=== PATIENT | male | born 1955 | race Caucasian/White ===

== ENCOUNTER 2016-04-15 22:01 | Inpatient (IN) | payer OTHER ==
[2016-04-15] MEDS ORDERED: SODIUM CHLORIDE 1,000 ML IV STA (22:14)
[2016-04-15] MEDS ORDERED: diazePAM CARPU-JECT 10 MG/2 ML DISP.SYRIN IVPUSH ONE (22:23)
[2016-04-15] MEDS ORDERED: diazePAM CARPU-JECT 10 MG/2 ML DISP.SYRIN ONE ×2 (22:25→23:51)
[2016-04-15 22:46] LABS: BASOPHIL 0.4 % (0-2.0); EOSINOPHIL 0.1 % (0-4.5); MCH 31.3 pg (25.7-33.7); MCHC 34.4 g/dl (32.0-35.9); MEAN CELL VOLUME 90.9 fl (80-96); MEAN PLT VOLUME 8.4 fl (7.5-11.1); NEUTROPHILS 79.5 % (42.8-82.8); PLATELET COUNT 184 K/MM3 (134-434); RDW 13.1 % (11.9-15.9); WHITE BLOOD COUNT 9.3 K/mm3 (4.0-10.0)
[2016-04-15 23:14] LABS: ALBUMIN 4.7 g/dl (3.4-5.0); CALCIUM 9.4 mg/dL (8.5-10.1); CREATININE 1.6 mg/dL (0.7-1.3)
[2016-04-15 23:16] LABS: TOT PROT 9.2 g/dl (6.4-8.2)
[2016-04-16] MEDS ORDERED: diazePAM CARPU-JECT 10 MG/2 ML DISP.SYRIN IVPUSH ONE
[2016-04-16 00:26] LABS: URINE MARIJUANA THC NEGATIVE ng/ml (CUTOFF=50)
--- NOTE | 2016-04-16 00:34 | PDOC ---
History of Present Illness - General History Source: Patient Exam Limitations: Clinical Condition - History of Present Illness Initial Comments: 04/16/16 00:28 60 Y M DM, HTN, depresion, HX OF ETOH ABUSE. STS HAS NOT DRENK FOR 3 YEARS BUT RECENT ADMIT CASTS SOME DOUBT. pte after an episode of agitation, pacing, decreased sleep. pt on ambien. ran out of it several days ago. denies drinking or using any other meds or drugs of abuse. in ed, confused, disoriented in time. hypertensive and tachycardic. no fever/ denies head ache. tremor of upper extremities <Parish Holder - Last Filed: 04/16/16 00:53> <Araceli Burk - Last Filed: 04/16/16 01:46> - General Chief Complaint: Blood Pressure Problem Stated Complaint: AMS Time Seen by Provider: 04/15/16 22:10 Past History - Past Medical History Diabetes: Yes Dialysis: Yes HTN: Yes Liver Disease: Yes Seizures: Yes - Immunization History Immunization Up to Date: Yes - Psycho/Social/Smoking Cessation Hx Anxiety: No Suicidal Ideation: No Smoking Status: No Smoking History: Unknown if ever smoked Have you smoked in the past 12 months: No Number of Cigarettes Smoked Daily: 0 Cigars Per Day: 0 Information on smoking cessation initiated: No Hx Alcohol Use: No Drug/Substance Use Hx: No Substance Use Type: None Hx Substance Use Treatment: No <Parish Holder - Last Filed: 04/16/16 00:53> <Araceli Burk - Last Filed: 04/16/16 01:46> - Past Medical History Allergies/Adverse Reactions: Allergies Allergy/AdvReac Type Severity Reaction Status Date / Time No Known Allergies Allergy Verified 04/15/16 22:06 Home Medications: Ambulatory Orders Ambien 2.5 mg PO HS 02/06/16 Cholecalciferol (Vitamin D3) [Vitamin D3] 50,000 unit PO WEEKLY 02/06/16 Empagliflozin [Jardiance] 25 mg PO DAILY 02/06/16 Escitalopram Oxalate [Lexapro -] 10 mg PO DAILY 02/06/16 Gabapentin 400 mg PO BID 02/06/16 Linaclotide [Linzess] 145 mcg PO DAILY 02/06/16 Lisinopril [Zestril] 30 mg PO DAILY 02/06/16 Nifedipine [Adalat cc] 60 mg PO DAILY 02/06/16 Oxycodone HCl/Acetaminophen [Percocet 5-325 mg Tablet] 1 tab PO Q4H 02/06/16 Pantoprazole Sodium 40 mg PO DAILY 02/06/16 Quetiapine Fumarate [Seroquel] 100 tab DAILY 02/06/16 Temazepam [Restoril] 30 mg PO DAILY 02/06/16 Vitamin B Comp W-C [Total B with C] 1 each PO DAILY 02/06/16 Review of Systems - Review of Systems Able to Perform ROS?: No <Parish Holder - Last Filed: 04/16/16 00:53> *Physical Exam - Vital Signs Last Vital Signs Temp Pulse Resp BP Pulse Ox 98.0 F 116 H 20 178/124 100 04/15/16 22:07 04/15/16 22:07 04/15/16 22:07 04/15/16 22:07 04/15/16 22:07 - Physical Exam General Appearance: Yes: Nourished, Appropriately Dressed, Moderate Distress HEENT: positive: Normal ENT Inspection, Other (tongue fasciculation) Neck: positive: Supple. negative: Tender Respiratory/Chest: positive: Lungs Clear, Normal Breath Sounds. negative: Respiratory Distress Cardiovascular: positive: Regular Rhythm, Regular Rate, Tachycardia Gastrointestinal/Abdominal: positive: Soft. negative: Tender Musculoskeletal: positive: Normal Inspection. negative: Vertebral Tenderness Extremity: positive: Normal Capillary Refill, Normal Range of Motion Integumentary: positive: Normal Color. negative: Rash Neurologic: positive: applier II-XII NML intact, Alert, Motor Strength 5/5, Confused , Disoriented. negative: Fully Oriented <Parish Holder - Last Filed: 04/16/16 00:53> - Vital Signs Last Vital Signs Temp Pulse Resp BP Pulse Ox 98.0 F 116 H 20 178/124 100 04/15/16 22:07 04/15/16 22:07 04/15/16 22:07 04/15/16 22:07 04/15/16 22:07 <Araceli Burk - Last Filed: 04/16/16 01:46> ED Treatment Course - LABORATORY CBC & Chemistry Diagram: 04/15/16 22:20 04/15/16 22:20 - ADDITIONAL ORDERS Additional order review: Laboratory Results 04/15/16 04/15/16 04/15/16 22:20 22:20 22:20 Sodium 133 L Potassium 4.6 Chloride 96 L D Carbon Dioxide 25 Anion Gap 12 BUN 40 H D Creatinine 1.6 H D Creat Clearance w eGFR 44.31 POC Glucometer Random Glucose 283 H D Calcium 9.4 Total Bilirubin 1.0 D AST 41 H D ALT 44 D Alkaline Phosphatase 138 H D Ammonia < 10.0 L Total Protein 9.2 H D Albumin 4.7 D Alcohol, Quantitative < 5.0 04/15/16 22:08 Sodium Potassium Chloride Carbon Dioxide Anion Gap BUN Creatinine Creat Clearance w eGFR POC Glucometer 283.02521 Random Glucose Calcium Total Bilirubin AST ALT Alkaline Phosphatase Ammonia Total Protein Albumin Alcohol, Quantitative 04/15/16 04/15/16 22:20 22:08 RBC 4.66 MCV 90.9 MCHC 34.4 RDW 13.1 MPV 8.4 Neutrophils % 79.5 D Lymphocytes % 12.7 D Monocytes % 7.3 Eosinophils % 0.1 D Basophils % 0.4 POC Glucometer 283.07739 - Medications Given in the ED: ED Medications Discontinued Medications Generic Name Dose Route Start Last Admin Trade Name Freq PRN Reason Stop Dose Admin Diazepam 10 mg 04/15/16 22:23 04/15/16 22:31 Valium Injection - IVPUSH 04/15/16 22:24 10 mg ONCE ONE Administration Sodium Chloride 1,000 mls @ 1,000 mls/hr 04/15/16 22:14 04/15/16 22:30 Normal Saline - IV 04/15/16 23:13 1,000 mls/hr ASDIR STA Administration <Parish Holder - Last Filed: 04/16/16 00:53> - LABORATORY CBC & Chemistry Diagram: 04/15/16 22:20 04/15/16 22:20 - ADDITIONAL ORDERS Additional order review: Laboratory Results 04/16/16 04/15/16 04/15/16 00:05 22:20 22:20 Sodium Potassium Chloride Carbon Dioxide Anion Gap BUN Creatinine Creat Clearance w eGFR POC Glucometer Random Glucose Calcium Total Bilirubin AST ALT Alkaline Phosphatase Ammonia < 10.0 L Total Protein Albumin Opiates Screen Negative Methadone Screen Negative Barbiturate Screen Negative Phencyclidine Screen Negative Ur Amphetamines Screen Negative MDMA (Ecstasy) Screen Negative Benzodiazepines Screen Negative Cocaine Screen Negative U Marijuana (THC) Screen Negative Alcohol, Quantitative < 5.0 04/15/16 04/15/16 22:20 22:08 Sodium 133 L Potassium 4.6 Chloride 96 L D Carbon Dioxide 25 Anion Gap 12 BUN 40 H D Creatinine 1.6 H D Creat Clearance w eGFR 44.31 POC Glucometer 283.06874 Random Glucose 283 H D Calcium 9.4 Total Bilirubin 1.0 D AST 41 H D ALT 44 D Alkaline Phosphatase 138 H D Ammonia Total Protein 9.2 H D Albumin 4.7 D Opiates Screen Methadone Screen Barbiturate Screen Phencyclidine Screen Ur Amphetamines Screen MDMA (Ecstasy) Screen Benzodiazepines Screen Cocaine Screen U Marijuana (THC) Screen Alcohol, Quantitative 04/15/16 04/15/16 22:20 22:08 RBC 4.66 MCV 90.9 MCHC 34.4 RDW 13.1 MPV 8.4 Neutrophils % 79.5 D Lymphocytes % 12.7 D Monocytes % 7.3 Eosinophils % 0.1 D Basophils % 0.4 POC Glucometer 283.94015 - RADIOLOGY Radiograph Interpretation: 04/16/16 01:45 EXAM: CT HEAD WITHOUT CONTRAST Reviewed by Imaging information systems security officer: IMPRESSION: No CT evidence of acute infarct, hemorrhage, or mass effect. - Medications Given in the ED: ED Medications Discontinued Medications Generic Name Dose Route Start Last Admin Trade Name Freq PRN Reason Stop Dose Admin Diazepam 10 mg 04/15/16 22:23 04/15/16 22:31 Valium Injection - IVPUSH 04/15/16 22:24 10 mg ONCE ONE Administration Diazepam 10 mg 04/16/16 00:00 04/16/16 00:17 Valium Injection - IVPUSH 04/16/16 00:01 10 mg ONCE ONE Administration Sodium Chloride 1,000 mls @ 1,000 mls/hr 04/15/16 22:14 04/15/16 22:30 Normal Saline - IV 04/15/16 23:13 1,000 mls/hr ASDIR STA Administration <Araceli Burk - Last Filed: 04/16/16 01:46> Medical Decision Making - Medical Decision Making 04/16/16 00:35 unclear trigger to his presentaton which suggest etoh/benzo withdrawal could be explained by acute psychosis +/-ambien withdrawal will cover w/ benzos/ivf/admit <Parish Holder - Last Filed: 04/16/16 00:53> - Medical Decision Making 04/16/16 00:[address] Umm Akers covering for Dr. Binh Smith (via answering service) at 24:05, 24:46 Awaiting call back Patient's case was discussed with Dr. Akers at 24:50 <Araceli Burk - Last Filed: 04/16/16 01:46> *DC/Admit/Observation/Transfer - Discharge Dispostion Admit: Yes <Parish Holder - Last Filed: 04/16/16 00:53> <Araceli Burk - Last Filed: 04/16/16 01:46> Diagnosis at time of Disposition: Withdrawal symptoms, alcohol Qualifiers: Complication of substance-induced condition: uncomplicated Qualified Code(s): F10.230 - Alcohol dependence with withdrawal, uncomplicated - Discharge Dispostion Condition at time of disposition: Guarded - Referrals Referrals: STAFF,NOT ON [Primary Care Provider] -
[2016-04-16] MEDS ORDERED: ACETAMINOPHEN 325 MG TABLET (FP) PO PRN (07:40)
[2016-04-16] MEDS ORDERED: LORAZEPAM CARPU-JECT 2 MG/ML DISP.SYRIN IM PRN (07:42)
[2016-04-16] MEDS: ESCITALOPRAM OXALATE 10 MG TABLET (FP) PO SCH (10:25)
[2016-04-16] MEDS: PANTOPRAZOLE 40 MG TABLET (FP) PO SCH (10:25)
[2016-04-16] MEDS: LISINOPRIL 5 MG TABLET (FP) PO SCH (10:25)
[2016-04-16 10:31] VITALS: BMI 24.7
--- NOTE | 2016-04-16 10:57 | HP ---
Admitting History and Physical - Admission Chief Complaint: brought in for agitation History of Present Illness: 60 Y M DM, HTN, depresion, HX OF ETOH ABUSE. HAS NOT had a drink in 3.5 YEARS BUT RECENT ADMIT CASTS SOME DOUBT. came to ER after an episode of agitation, pacing, decreased sleep. pt on ambien. ran out of it several days ago. denies drinking or using any other meds or drugs of abuse. in ed, confused, disoriented in time. hypertensive and tachycardic. no fever/ denies head ache. tremor of upper extremities, per patient he does not remember anything and was told by his son that he was pacing the house and was agitated so harmeet to ER found to have elevated bun/cr started on librium protocol History Source: Medical Record - Past Medical History Cardiovascular: Yes: HTN Psych: Yes: Addictions - Smoking History Smoking history: Never smoked Have you smoked in the past 12 months: No Aproximately how many cigarettes per day: 0 - Alcohol/Substance Use Hx Alcohol Use: No (X4 YEARS AGO STOPPED) Home Medications - Allergies Allergies/Adverse Reactions: Allergies Allergy/AdvReac Type Severity Reaction Status Date / Time No Known Allergies Allergy Verified 04/15/16 22:06 - Home Medications Home Medications: Ambulatory Orders Ambien 2.5 mg PO HS 02/06/16 Cholecalciferol (Vitamin D3) [Vitamin D3] 50,000 unit PO WEEKLY 02/06/16 Empagliflozin [Jardiance] 25 mg PO DAILY 02/06/16 Escitalopram Oxalate [Lexapro -] 10 mg PO DAILY 02/06/16 Gabapentin 400 mg PO BID 02/06/16 Linaclotide [Linzess] 145 mcg PO DAILY 02/06/16 Lisinopril [Zestril] 30 mg PO DAILY 02/06/16 Nifedipine [Adalat cc] 60 mg PO DAILY 02/06/16 Oxycodone HCl/Acetaminophen [Percocet 5-325 mg Tablet] 1 tab PO Q4H 02/06/16 Pantoprazole Sodium 40 mg PO DAILY 02/06/16 Quetiapine Fumarate [Seroquel] 100 tab DAILY 02/06/16 Temazepam [Restoril] 30 mg PO DAILY 02/06/16 Vitamin B Comp W-C [Total B with C] 1 each PO DAILY 02/06/16 Review of Systems - Review of Systems Constitutional: reports: No Symptoms Eyes: reports: No Symptoms Cardiovascular: reports: No Symptoms Respiratory: reports: No Symptoms Gastrointestinal: reports: No Symptoms Physical Examination Vital Signs: Vital Signs Temperature 98.0 F 04/15/16 22:07 Pulse Rate 92 H 04/16/16 10:24 Respiratory Rate 18 04/16/16 10:24 Blood Pressure 165/103 04/16/16 10:24 O2 Sat by Pulse Oximetry (%) 97 04/16/16 10:24 Problem List - Problems (1) TERRI (acute kidney injury) Assessment/Plan: iv hydration hyponatermia sec to dehydration Code(s): N17.9 - ACUTE KIDNEY FAILURE, UNSPECIFIED (2) Alcoholic liver disease Assessment/Plan: ultrasound of liver Code(s): K70.9 - ALCOHOLIC LIVER DISEASE, UNSPECIFIED (3) Diabetes Assessment/Plan: bgm hga1c contineu meds Code(s): E11.9 - TYPE 2 DIABETES MELLITUS WITHOUT COMPLICATIONS Qualifiers: Diabetes mellitus type: type 2 (4) Hypertension Assessment/Plan: adalat and lisinoril Code(s): I10 - ESSENTIAL (PRIMARY) HYPERTENSION Qualifiers: (5) Withdrawal symptoms, alcohol Assessment/Plan: librium protocol atrivan as needed Code(s): F10.239 - ALCOHOL DEPENDENCE WITH WITHDRAWAL, UNSPECIFIED Qualifiers : Complication of substance-induced condition: uncomplicated Qualified Code(s): F10.230 - Alcohol dependence with withdrawal, uncomplicated (6) Depression Assessment/Plan: lexapro,restoril Code(s): F32.9 - MAJOR DEPRESSIVE DISORDER, SINGLE EPISODE, UNSPECIFIED (7) Peripheral neuropathy Assessment/Plan: neurontin Code(s): G62.9 - POLYNEUROPATHY, UNSPECIFIED Qualifiers:
[2016-04-16] MEDS ORDERED: chlordiazePOXIDE HCL 25 MG CAPSULE PO SCH (12:00)
--- NOTE | 2016-04-16 12:46 | CONSULT ---
Admitting History and Physical - Primary Care Physician PCP: Jessica Mclain - Admission History of Present Illness: Per EMR: "Admission Chief Complaint: brought in for agitation History of Present Illness: 60 Y M DM, HTN, depresion, HX OF ETOH ABUSE. HAS NOT had a drink in 3.5 YEARS BUT RECENT ADMIT CASTS SOME DOUBT. came to ER after an episode of agitation, pacing, decreased sleep. pt on ambien. ran out of it several days ago. denies drinking or using any other meds or drugs of abuse. in ed, confused, disoriented in time. hypertensive and tachycardic. no fever/ denies head ache. tremor of upper extremities, per patient he does not remember anything and was told by his son that he was pacing the house and was agitated so harmeet to ER found to have elevated bun/cr started on librium protocol" History Source: Patient, Medical Record Limitations to Obtaining History: No Limitations - Past Medical History Cardiovascular: Yes: HTN Psych: Yes: Addictions - Smoking History Smoking history: Never smoked Have you smoked in the past 12 months: No Aproximately how many cigarettes per day: 0 - Alcohol/Substance Use Hx Alcohol Use: No (X4 YEARS AGO STOPPED) History - Admission Reason For Visit: ETOH WITHDRAWAL SYMPTOMS - Diagnostics CT Scan: Report Reviewed - General Mental Status: Alert and Oriented, Awake and Alert, Able to Follow Commands Attention: Intact Ability to Follow Directions: Good Head/Neck Control: WFL - Hearing Hearing: Normal Speech Evaluation - Communication Primary Language: YI Secondary Language: IRISH (ESL) Communication: Yes: Within Normal Limits, Language Barrier Oral Expression Ability: Yes: No Impairment - Speech Production Able to Make Needs Known: Yes: WNL Intelligibility: Yes: WNL (ESL) - Speech Characteristics Voice Loudness: Normal Voice Pitch: Yes: Normal Voice Phonatory-based Quality: Yes: Normal Speech Pattern: Normal Nasal Resonance: Normal Articulation: Yes: Precise Rate of Speech: Intact - Language/Auditory Comprehension Follows: Yes: 1 Stage Simple Commands - Language/Verbal Expression Able to Communicate Wants and Needs: Yes: WNL Functional Communication Status: Yes: WNL Attention: Yes: Intact - Swallow Evaluation/Bedside Assessment Current Nutritional Intake: Regular, Thin Liquids Oral Secretions: Yes: WFL Dentition: Yes: Missing Teeth Facial Symmetry at Rest: Symmetrical Facial Symmetry on Retraction: Symmetrical Facial Movement: Controlled Sensation: Normal Against Resistance Opening: Normal Against Resistance Closing: Normal Pucker Lips: Normal Smile: Normal Lingual Movement: Normal Lingual Speed of Movement: Normal Lingual Movement Strgth Against Opposition: Normal Lingual Movement Characteristics: Normal Velopharyngeal Movement: Normal Laryngeal Elevation: WFL Laryngeal Movement: Able to Palpate Rate of Intake: WFL Bolus Size: WFL Labial Seal: WFL Chewing: WFL Oral Prep Time: WFL A-P Transit: WFL Pocketing: None Timing of Swallow: WFL Coughing/Throat Clear: No Change in Voice: No Recommendations - Speech Evaluation, Impression/Plan Impression: Difficult at times to understand sec to Maltese as a second language. Swallowing overtly intact. Missing dentition - Dysphagia Impressions/Plan Swallowing Skills: WF Dysphagia Impressions: No Impairment, Ongoing Evaluation *Silent aspiration: cannot be R/O at bedside - Recommendations Diet Consistency: Regular (soft. Missing dentition) Medication Administration: Whole with water Liquids: Thin Liquids
[2016-04-16] MEDS ORDERED: INSULIN DETEMIR 100 UNITS/ML MDV SQ ONE ×2 (13:09→17:02)
[2016-04-16] MEDS: SODIUM CHLORIDE 1,000 ML IV SCH (13:19)
[2016-04-16] MEDS: GABAPENTIN 100 MG CAPSULE (FP) PO SCH ×2 (13:21→21:26)
[2016-04-16] MEDS: NIFEdipine E.R 60 MG TABLET (UD) PO SCH (13:24)
[2016-04-16] MEDS ORDERED: chlordiazePOXIDE HCL 25 MG CAPSULE PO PRN (14:50)
--- NOTE | 2016-04-16 14:59 | CONSULT ---
Consult Detox [facility] Reason for Current Admission/Consult: ALCOHOL WITHDRAWAL SX.? Referred by:: REBECA SALAZAR MD - History History of Present Illness: 60 Y/O MAN WITH A LONG HX. OF ALCOHOLISM WAS BROUGHT TO ED BECAUSE OF CONFUSION AND AGITATION. ACCORDING TO MEDICAL RECORD HE WAS ON RESTORIL BUT RAN OUT A FEW DAYS AGO. HE RECEIVED VALIUM 10MG IM 2X. DURING MY INTERVIEW WITH PT. HE WAS CALMER BUT ANXIOUS,HE INSISTS THAT HE HAS NOT BEEN DRINKING IN 3 1/2 YRS. - History Source History Provided By: Patient, Medical Record Limitations to Obtaining History: No Limitations - Alcohol/Substance Use Hx Alcohol Use: No (X4 YEARS AGO STOPPED) - Current Drug/Alcohol Use Alcohol Route: Oral Frequency: Daily Amount used: BEER 4(6PACKS) Age of first use: 18 (LAST USED 3 1/2 YRS. AGO) - Past Medical History Cardio/Vascular: Yes: HTN Psych: Yes: Addictions - Significant Medical Findings: Laboratory Last Values WBC 9.3 K/mm3 (4.0-10.0) D 04/15/16 22:20 RBC 4.66 M/mm3 (4.00-5.60) 04/15/16 22:20 Hgb 14.6 GM/dL (11.7-16.9) D 04/15/16 22:20 Hct 42.3 % (35.4-49) D 04/15/16 22:20 MCV 90.9 fl (80-96) 04/15/16 22:20 MCHC 34.4 g/dl (32.0-35.9) 04/15/16 22:20 RDW 13.1 % (11.9-15.9) 04/15/16 22:20 Plt Count 184 K/MM3 (134-434) D 04/15/16 22:20 MPV 8.4 fl (7.5-11.1) 04/15/16 22:20 Neutrophils % 79.5 % (42.8-82.8) D 04/15/16 22:20 Lymphocytes % 12.7 % (8-40) D 04/15/16 22:20 Monocytes % 7.3 % (3.8-10.2) 04/15/16 22:20 Eosinophils % 0.1 % (0-4.5) D 04/15/16 22:20 Basophils % 0.4 % (0-2.0) 04/15/16 22:20 Sodium 133 mmol/L (136-145) L 04/15/16 22:20 Potassium 4.6 mmol/L (3.5-5.1) 04/15/16 22:20 Chloride 96 mmol/L (98-107) L D 04/15/16 22:20 Carbon Dioxide 25 mmol/L (21-32) 04/15/16 22:20 Anion Gap 12 (8-16) 04/15/16 22:20 BUN 40 mg/dL (7-18) H D 04/15/16 22:20 Creatinine 1.6 mg/dL (0.7-1.3) H D 04/15/16 22:20 Creat Clearance w eGFR 44.31 (>60) 04/15/16 22:20 POC Glucometer 311 UNITS (()) 04/16/16 13:14 Random Glucose 283 mg/dL (74-106) H D 04/15/16 22:20 Calcium 9.4 mg/dL (8.5-10.1) 04/15/16 22:20 Total Bilirubin 1.0 mg/dL (0.2-1.0) D 04/15/16 22:20 AST 41 U/L (15-37) H D 04/15/16 22:20 ALT 44 U/L (12-78) D 04/15/16 22:20 Alkaline Phosphatase 138 U/L (45-117) H D 04/15/16 22:20 Ammonia < 10.0 umol/L (11-32) L 04/15/16 22:20 Total Protein 9.2 g/dl (6.4-8.2) H D 04/15/16 22:20 Albumin 4.7 g/dl (3.4-5.0) D 04/15/16 22:20 Opiates Screen Negative ng/ml (ICSDIK=049) 04/16/16 00:05 Methadone Screen Negative ng/ml (EDECNZ=908) 04/16/16 00:05 Barbiturate Screen Negative ng/ml (APBRAN=707) 04/16/16 00:05 Phencyclidine Screen Negative ng/ml (CUTOFF=25) 04/16/16 00:05 Ur Amphetamines Screen Negative ng/ml (RGOODJ=762) 04/16/16 00:05 MDMA (Ecstasy) Screen Negative ng/ml (EVVWFF=588) 04/16/16 00:05 Benzodiazepines Screen Negative ng/ml (RXQDHN=738) 04/16/16 00:05 Cocaine Screen Negative ng/ml (UVQCBL=746) 04/16/16 00:05 U Marijuana (THC) Screen Negative ng/ml (CUTOFF=50) 04/16/16 00:05 Alcohol, Quantitative < 5.0 mg/dl (0-5) 04/15/16 22:20 LABS NOTED CIWA Score - CIWA Score Nausea/Vomitin-No Nausea/No Vomiting Muscle Tremors: 3 Anxiety: 4-Mod. Anxious/Guarded Agitation: 3 Paroxysmal Sweats: 3 Orientation: 0-Oriented Tacttile Disturbances: 0-None Auditory Disturbances: 0-None Visual Disturbances: 0-None Headache: 0-None Present CIWA-Ar Total Score: 13 Assessment Plan - Diagnosis (1) Sedative, hypnotic or anxiolytic dependence with withdrawal, uncomplicated Status: Acute - Plan Plan: GIVEN PRESENTING SYMPTOMS AND RESPONSE TO VALIUM, IT IS REASONABLE TO ASSUME THAT PT. WITHDRAWAL SX. IS FROM NOT TAKING RESTORIL(TEMAZEPAM) WHICH A BENZODIAZEPINE. - Medication Detox Regimen/Protocol: Librium
[2016-04-16] MEDS: INSULIN SLIDING SCALE (NOVOLOG) 1 VIAL SQ SCH (16:57)
[2016-04-16] MEDS: chlordiazePOXIDE HCL 25 MG CAPSULE PO SCH ×2 (16:57→23:30)
[2016-04-16] MEDS ORDERED: INSULIN (NOVOLOG) ASPART 100 UNITS/ML 10ML VIAL ONE (17:02)
--- NOTE | 2016-04-16 18:26 | CONSULT ---
Consult - text type - Consultation Consultation Note: NEUROLOGY CONSULTATION is greatly appreciated: This 60 yo RH man with h/o DM, HTN, GERD, depression and pain has extensive ETOH history but claims none in 3 1/2 years. Meds include: Jardiance, lexapro, gabapentine (400 BID), linzess, lisinopril, nifedipine, pantoprazole, oxycodone, temazepam and zolpidem. Apparently ran out of meds including temazepam, about 1 week ago. Admitted with 3 days of sleeplessness, tachycardia, agitation, and confusion which notes suggest improved after Valium ([address] of head (reviewed): normal Labs: Elevated glucose, Cr/BUN JAGDISH: No head trauma, No bruits, Cor: Reg, afebrile. NEURO: Mild OMS. Repeats himself. Recalls 1 of 3 at 3, - Frontal release findings. Speech fluent CN's normal without nystagmus. Motor: +sustention tremor. No drift. Normal strength. Brisk reflexes. Toes downgoing. Coord: Minimal FTN dystaxia wilth tremor. Sensory:Normal Gait: Sl wide-based and shortened strides. IMP: Non-focal exam sig for mild encephalopathy with tremors. Clinical picture c/w ETOH and/or benzodiazepine withdrawal. SUGGEST: Encourage compliance with Librium detox protocol. Check B12, B1, Mg++, TSH Keep well-hydrated. Give thiamine 250 mg IVSS in 100 cc NS over 1 hour via pump q 8 hrs x 3 days. Mobilize OOB to chair. [place] with TV, radio. Thank you very much, Smooth Olivas MD
[2016-04-16] MEDS: QUEtiapine FUMARATE 100 MG TABLET (FP) PO SCH (21:25)
[2016-04-16] MEDS: TEMAZEPAM 15 MG CAPSULE PO SCH (21:26)
[2016-04-16] MEDS: THIAMINE HCL 200 MG/2 ML VIAL IVPB SCH (21:26)
[2016-04-17] MEDS: INSULIN SLIDING SCALE (NOVOLOG) 1 VIAL SQ SCH ×5 (02:41→21:36)
[2016-04-17] MEDS: GABAPENTIN 100 MG CAPSULE (FP) PO SCH ×3 (06:05→21:29)
[2016-04-17] MEDS: sitaGLIPtin PHOSPHATE 50 MG TABLET PO SCH (06:05)
[2016-04-17] MEDS: INSULIN DETEMIR 100 UNITS/ML MDV SQ SCH (06:05)
[2016-04-17] MEDS: chlordiazePOXIDE HCL 25 MG CAPSULE PO SCH ×4 (06:05→23:07)
[2016-04-17] MEDS: SODIUM CHLORIDE 1,000 ML IV SCH ×2 (06:08→11:24)
[2016-04-17 07:48] LABS: ALBUMIN 3.9 g/dl (3.4-5.0); BILIRUBIN,TOTAL 0.9 mg/dL (0.2-1.0); CALCIUM 8.2 mg/dL (8.5-10.1); CREATININE 1.5 mg/dL (0.7-1.3); MAGNESIUM 2.6 mg/dL (1.8-2.4); TOT PROT 7.5 g/dl (6.4-8.2)
--- NOTE | 2016-04-17 09:21 | PN ---
Progress Note, Physician - Current Medication List Current Medications: Active Medications Acetaminophen (Tylenol -) 650 mg PO Q6H PRN PRN Reason: FEVER OR PAIN Chlordiazepoxide HCl (Librium -) 25 mg PO Q4H PRN PRN Reason: WITHDRAWAL(CONT SUBST) Stop: 04/19/16 14:49 Chlordiazepoxide HCl (Librium -) 50 mg PO [id number] [facility] Stop: 04/17/16 11:01 Last Admin: 04/17/16 06:05 Dose: 50 mg Chlordiazepoxide HCl (Librium -) 25 mg PO [id number] [facility] Stop: 04/18/16 11:01 Chlordiazepoxide HCl (Librium -) 15 mg PO [id number] [facility] Stop: 04/19/16 11:01 Escitalopram Oxalate (Lexapro -) 10 mg PO DAILY [facility] Last Admin: 04/16/16 10:25 Dose: 10 mg Gabapentin (Neurontin -) 100 mg PO TID [facility] Last Admin: 04/17/16 06:05 Dose: 100 mg Sodium Chloride (Normal Saline -) 1,000 mls @ 75 mls/hr IV ASDIR [facility] Last Admin: 04/17/16 06:08 Dose: 75 mls/hr Insulin Aspart (Novolog Vial Sliding Scale -) 1 vial SQ ACHS [facility] PRN Reason: Protocol Last Admin: 04/17/16 06:06 Dose: Not Given Insulin Detemir (Levemir Vial) 30 units SQ AM [facility] Last Admin: 04/17/16 06:05 Dose: 30 units Lisinopril (Prinivil) 5 mg PO DAILY [facility] Last Admin: 04/16/16 10:25 Dose: 5 mg Lorazepam (Ativan Injection -) 1 mg IM Q6H PRN PRN Reason: ANXIETY Nifedipine (Procardia Xl -) 60 mg PO DAILY [facility] Last Admin: 04/16/16 13:24 Dose: 60 mg Pantoprazole Sodium (Protonix -) 40 mg PO DAILY [facility] Last Admin: 04/16/16 10:25 Dose: 40 mg Quetiapine Fumarate (Seroquel -) 100 mg PO HS [facility] Last Admin: 04/16/16 21:25 Dose: 100 mg Sitagliptin Phosphate (Januvia -) 50 mg PO DAILY@0700 [facility] Last Admin: 04/17/16 06:05 Dose: 50 mg Temazepam (Restoril -) 15 mg PO HS [facility] Last Admin: 04/16/16 21:26 Dose: 15 mg Thiamine HCl (Vitamin B1 Injection -) 200 mg IVPB DAILY [facility] Last Admin: 04/16/16 21:26 Dose: 200 mg - Objective Vital Signs: Vital Signs Temperature 98.3 F 04/17/16 06:00 Pulse Rate 99 H 04/17/16 06:00 Respiratory Rate 20 04/17/16 06:00 Blood Pressure 131/92 04/17/16 06:00 O2 Sat by Pulse Oximetry (%) 97 04/16/16 21:00 Cardiovascular: Yes: Regular Rate and Rhythm Respiratory: Yes: Regular, CTA Bilaterally Gastrointestinal: Yes: Normal Bowel Sounds, Soft Labs: CBC, BMP 04/17/16 05:35 Assessment/Plan - Problems (1) TERRI (acute kidney injury) Assessment/Plan: iv hydration hyponatermia sec to dehydration us Code(s): N17.9 - ACUTE KIDNEY FAILURE, UNSPECIFIED (2) Alcoholic liver disease Assessment/Plan: ultrasound of liver Code(s): K70.9 - ALCOHOLIC LIVER DISEASE, UNSPECIFIED (3) Diabetes Assessment/Plan: bgm hga1c continue meds endo Code(s): E11.9 - TYPE 2 DIABETES MELLITUS WITHOUT COMPLICATIONS Qualifiers: Diabetes mellitus type: type 2 (4) Hypertension Assessment/Plan: adalat and lisinoril Code(s): I10 - ESSENTIAL (PRIMARY) HYPERTENSION Qualifiers: (5) Withdrawal symptoms, alcohol Assessment/Plan: librium protocol Ativan as needed detox and neuro consults noted Code(s): F10.239 - ALCOHOL DEPENDENCE WITH WITHDRAWAL, UNSPECIFIED Qualifiers : Complication of substance-induced condition: uncomplicated Qualified Code(s): F10.230 - Alcohol dependence with withdrawal, uncomplicated (6) Depression Assessment/Plan: lexapro,restoril Code(s): F32.9 - MAJOR DEPRESSIVE DISORDER, SINGLE EPISODE, UNSPECIFIED (7) Peripheral neuropathy Assessment/Plan: neurontin Code(s): G62.9 - POLYNEUROPATHY, UNSPECIFIED Qualifiers:
[2016-04-17] MEDS: ESCITALOPRAM OXALATE 10 MG TABLET (FP) PO SCH (10:28)
[2016-04-17] MEDS: PANTOPRAZOLE 40 MG TABLET (FP) PO SCH (10:28)
[2016-04-17] MEDS: LISINOPRIL 5 MG TABLET (FP) PO SCH (10:28)
[2016-04-17] MEDS: NIFEdipine E.R 60 MG TABLET (UD) PO SCH (10:32)
[2016-04-17] MEDS: THIAMINE HCL 200 MG/2 ML VIAL IVPB SCH (10:32)
--- NOTE | 2016-04-17 14:22 | CONSULT ---
Consult Consult Specialty:: PM&R - History of Present Illness History of Present Illness: This is a 60 year old man with a medical history of depression, HTN, DM, former EtOH abuse (last drink 3.5 years ago), who presented to the ED 04/16/16 with increased agitation. He was hypertensive, tachycardiac and had BUE tremor in the ED, and was admitted for Librium taper for withdrawal. CT head showed no acute pathology, and liver US was suggestive of fatty liver. Detox consult agreed with Librium taper. Neurology consult felt he had mild encephalopathy and recommended to continue Librium as well as start thiamine drip and to check Vitamin B12, B1, Mg and TSH levels. ST consult found no obvious dysphagia. He received IVF for TERRI. He was seen by PT, and on 04/17/16 he was Supervision in Transfers, and ambulated 300 feet Supervision without Assistive Device. Physiatry is being consulted for further recommendations. - History Source History Provided By: Patient, Medical Record - Past Medical History Cardio/Vascular: Yes: HTN Psych: Yes: Addictions - Alcohol/Substance Use Hx Alcohol Use: No (X4 YEARS AGO STOPPED) - Smoking History Smoking history: Never smoked Have you smoked in the past 12 months: No Aproximately how many cigarettes per day: 0 - Social History Usual Living Arrangement: With Spouse (lives with in apartment in house with 20-24 steps to enter; previously independent in ADLs, ambulated without Assistive device) Home Medications - Allergies Allergies/Adverse Reactions: Allergies Allergy/AdvReac Type Severity Reaction Status Date / Time No Known Allergies Allergy Verified 04/15/16 22:06 - Home Medications Home Medications: Ambulatory Orders Ambien 2.5 mg PO HS 02/06/16 Cholecalciferol (Vitamin D3) [Vitamin D3] 50,000 unit PO WEEKLY 02/06/16 Empagliflozin [Jardiance] 25 mg PO DAILY 02/06/16 Escitalopram Oxalate [Lexapro -] 10 mg PO DAILY 02/06/16 Gabapentin 400 mg PO BID 02/06/16 Linaclotide [Linzess] 145 mcg PO DAILY 02/06/16 Lisinopril [Zestril] 30 mg PO DAILY 02/06/16 Nifedipine [Adalat cc] 60 mg PO DAILY 02/06/16 Oxycodone HCl/Acetaminophen [Percocet 5-325 mg Tablet] 1 tab PO Q4H 02/06/16 Pantoprazole Sodium 40 mg PO DAILY 02/06/16 Quetiapine Fumarate [Seroquel] 100 tab DAILY 02/06/16 Temazepam [Restoril] 30 mg PO DAILY 02/06/16 Vitamin B Comp W-C [Total B with C] 1 each PO DAILY 02/06/16 Insulin (Levemir) [Levemir Vial] 100 units ACBK 04/16/16 Family Disease History - Family Disease History Family History: Unable to Obtain Review of Systems Findings/Remarks: denies fevers, chills, changes in vision/ hearing/ mood, CP, SOB, nausea, vomiting, constipation, diarrhea, numbness/ paresthesias BUE/ BLE. He notes neck pain currently controlled with Percocet 0/10, and chronic but intermittent abdominal pain. Physical Exam Vital Signs: Vital Signs Temperature 97.7 F 04/17/16 09:00 Pulse Rate 85 04/17/16 09:00 Respiratory Rate 20 04/17/16 09:00 Blood Pressure 110/72 04/17/16 09:00 O2 Sat by Pulse Oximetry (%) 97 04/17/16 09:00 Musculoskeletal: Yes: Other (General: calm HM lying in bed NAD, AAO x3 HEENT: NCAT EOMI OP clear with poor dentition N/M: CN II- XII grossly Intact; B shoulder flexion to 150 degrees, 5-/5 BUE/ BLE; Pinprick Intact BUE/ BLE, diffusely hyporeflexic BUE, 1+ B KJ then unobtainable B AJ, negative B Artis' s sign, B plantars downgoing Extremities: no BLE pitting edema, no B calf tenderness) Labs: CBC, BMP 04/17/16 05:35 Imaging - Results Cat Scan: Other (as per HPI) Ultrasound: Other (as per HPI) Assessment/Plan Impression: 1) Mild encephalopathy 2) Withdrawal sx on Librium taper 3) Fatty liver with hx EtOH abuse 4) TERRI on IVF 5) hx depression 6) hx HTN 7) hx DM with diabetic retinopathy and possible neuropathy as per pt although exam unremarkable 8) Neck pain, controlled 9) BMI WNL 10) Recieved flu shot, pneumovax not indicated Recommendations: 1) PT for endurance transfers balance ambulation stairs 2) Falls, safety precautions 3) Cardiac, diabetic precautions 4) Heat to neck prn 5) DVT ppx: ambulating well 6) Denies constipation on current bowel regimen 7) Skin protection: float heels, frequent turning 8) D/w pt importance of diabetic foot monitoring 9) Monitor BMP given renal function 10) Would not recommend EMG BLE at this time due to normal physical exam 11) 12) Discharge planning: home with services once medically stable Thank you for this referral.
--- NOTE | 2016-04-17 15:34 | EKG ---
Test Reason : Blood Pressure : / mmHG Vent. Rate : 081 BPM Atrial Rate : 081 BPM P-R Int : 164 ms QRS Dur : 102 ms QT Int : 380 ms P-R-T Axes : 059 009 015 degrees QTc Int : 441 ms NORMAL SINUS RHYTHM NORMAL ECG WHEN COMPARED WITH ECG OF 15-APR-2016 22:09, NO SIGNIFICANT CHANGE WAS FOUND Confirmed by KATELYN RODRIGUEZ MD ([id number]) on 04/17/2016 3:34:19 PM Referred By: Jeniffer STRAUSS Confirmed By:KATELYN RODRIGUEZ MD
[2016-04-17] MEDS ORDERED: INSULIN (NOVOLOG) ASPART 100 UNITS/ML 10ML VIAL ONE ×2 (16:59→21:36)
[2016-04-17] MEDS ORDERED: PT OWN MED DRAWER 7, Y5N ONE (21:02)
[2016-04-17] MEDS: QUEtiapine FUMARATE 100 MG TABLET (FP) PO SCH (21:28)
[2016-04-17] MEDS: TEMAZEPAM 15 MG CAPSULE PO SCH (21:29)
[2016-04-18] MEDS: GABAPENTIN 100 MG CAPSULE (FP) PO SCH ×3 (05:23→22:33)
[2016-04-18] MEDS: chlordiazePOXIDE HCL 25 MG CAPSULE PO SCH ×2 (05:23→11:33)
[2016-04-18] MEDS: INSULIN SLIDING SCALE (NOVOLOG) 1 VIAL SQ SCH ×4 (06:38→22:36)
[2016-04-18 07:37] LABS: CREATININE 1.3 mg/dL (0.7-1.3)
[2016-04-18 07:38] LABS: CALCIUM 8.3 mg/dL (8.5-10.1)
[2016-04-18] MEDS: INSULIN DETEMIR 100 UNITS/ML MDV SQ SCH (07:41)
--- NOTE | 2016-04-18 08:30 | PN ---
Progress Note, Physician - Current Medication List Current Medications: Active Medications Acetaminophen (Tylenol -) 650 mg PO Q6H PRN PRN Reason: FEVER OR PAIN Chlordiazepoxide HCl (Librium -) 25 mg PO Q4H PRN PRN Reason: WITHDRAWAL(CONT SUBST) Stop: 04/19/16 14:49 Chlordiazepoxide HCl (Librium -) 25 mg PO [id number] [facility] Stop: 04/18/16 11:01 Last Admin: 04/18/16 05:23 Dose: 25 mg Chlordiazepoxide HCl (Librium -) 15 mg PO [id number] [facility] Stop: 04/19/16 11:01 Escitalopram Oxalate (Lexapro -) 10 mg PO DAILY [facility] Last Admin: 04/17/16 10:28 Dose: 10 mg Gabapentin (Neurontin -) 100 mg PO TID [facility] Last Admin: 04/18/16 05:23 Dose: 100 mg Sodium Chloride (Normal Saline -) 1,000 mls @ 75 mls/hr IV ASDIR [facility] Last Admin: 04/17/16 11:24 Dose: Not Given Insulin Aspart (Novolog Vial Sliding Scale -) 1 vial SQ ACHS [facility] PRN Reason: Protocol Last Admin: 04/18/16 06:38 Dose: Not Given Insulin Detemir (Levemir Vial) 30 units SQ AM [facility] Last Admin: 04/18/16 07:41 Dose: 30 units Lisinopril (Prinivil) 5 mg PO DAILY [facility] Last Admin: 04/17/16 10:28 Dose: 5 mg Lorazepam (Ativan Injection -) 1 mg IM Q6H PRN PRN Reason: ANXIETY Nifedipine (Procardia Xl -) 60 mg PO DAILY [facility] Last Admin: 04/17/16 10:32 Dose: 60 mg Pantoprazole Sodium (Protonix -) 40 mg PO DAILY [facility] Last Admin: 04/17/16 10:28 Dose: 40 mg Quetiapine Fumarate (Seroquel -) 100 mg PO [facility] Last Admin: 04/17/16 21:28 Dose: 100 mg Sitagliptin Phosphate (Januvia -) 50 mg PO DAILY@0700 [facility] Last Admin: 04/17/16 06:05 Dose: 50 mg Temazepam (Restoril -) 15 mg PO HS [facility] Last Admin: 04/17/16 21:29 Dose: 15 mg Thiamine HCl (Vitamin B1 Injection -) 200 mg IVPB DAILY [facility] Last Admin: 04/17/16 10:32 Dose: 200 mg - Objective Vital Signs: Vital Signs Temperature 97.7 F 04/18/16 06:00 Pulse Rate 82 04/18/16 06:00 Respiratory Rate 18 04/18/16 06:00 Blood Pressure 143/88 04/18/16 06:00 O2 Sat by Pulse Oximetry (%) 97 04/17/16 22:00 Cardiovascular: Yes: Regular Rate and Rhythm Respiratory: Yes: Regular, CTA Bilaterally Gastrointestinal: Yes: Normal Bowel Sounds, Soft Labs: CBC, BMP 04/18/16 05:35 Assessment/Plan - Problems (1) TERRI (acute kidney injury) Assessment/Plan: iv hydration hyponatermia sec to dehydration us Code(s): N17.9 - ACUTE KIDNEY FAILURE, UNSPECIFIED (2) Alcoholic liver disease Assessment/Plan: ultrasound of liver Code(s): K70.9 - ALCOHOLIC LIVER DISEASE, UNSPECIFIED (3) Diabetes Assessment/Plan: bgm hga1c continue meds endo Code(s): E11.9 - TYPE 2 DIABETES MELLITUS WITHOUT COMPLICATIONS Qualifiers: Diabetes mellitus type: type 2 (4) Hypertension Assessment/Plan: adalat and lisinoril Code(s): I10 - ESSENTIAL (PRIMARY) HYPERTENSION Qualifiers: (5) Withdrawal symptoms, alcohol Assessment/Plan: librium protocol Ativan as needed detox and neuro consults noted Code(s): F10.239 - ALCOHOL DEPENDENCE WITH WITHDRAWAL, UNSPECIFIED Qualifiers : Complication of substance-induced condition: uncomplicated Qualified Code(s): F10.230 - Alcohol dependence with withdrawal, uncomplicated (6) Depression Assessment/Plan: lexapro,restoril Code(s): F32.9 - MAJOR DEPRESSIVE DISORDER, SINGLE EPISODE, UNSPECIFIED (7) Peripheral neuropathy Assessment/Plan: neurontin Code(s): G62.9 - POLYNEUROPATHY, UNSPECIFIED Qualifiers: (8) Torn Chordae --on echo cardio
[2016-04-18] MEDS: THIAMINE HCL 200 MG/2 ML VIAL IVPB SCH (10:04)
[2016-04-18] MEDS: NIFEdipine E.R 60 MG TABLET (UD) PO SCH (10:04)
[2016-04-18] MEDS: LISINOPRIL 5 MG TABLET (FP) PO SCH (10:04)
[2016-04-18] MEDS: ESCITALOPRAM OXALATE 10 MG TABLET (FP) PO SCH (10:04)
[2016-04-18] MEDS: sitaGLIPtin PHOSPHATE 50 MG TABLET PO SCH (10:05)
[2016-04-18] MEDS: PANTOPRAZOLE 40 MG TABLET (FP) PO SCH (10:05)
[2016-04-18] MEDS: SODIUM CHLORIDE 1,000 ML IV SCH (11:33)
--- NOTE | 2016-04-18 13:04 | CONSULT ---
Consult Consult Specialty:: Cardiology Referred by:: Dr Smith Reason for Consultation:: Abnormal echocardiogram - History of Present Illness Chief Complaint: Agitation, insomnia, confusion History of Present Illness: 60 yo male, son-smoker, with hx of DM 2, HTN, depresion, insomnia, past alcohol abuse -. last drank 3 1/2 yo, here with episode of agitation, confusion , insomnia Patient has been on ambien and says he ran out 3 days ago -. had had been taking extra pills sometimes. He was place don withdrawal protocol (? etoh vs benzo withdrawal) -. seen by neuro who thought him to be mildly encephalopathic Patient has no cardiac history -. he denies hx of DC, CHF or CP syndrome. he walks an hour daily an dtakes stairs in his house daily, w/o limitations. He has no JI, PND or orthopnea. He had an echo -. read as redundant or torn chordae; hence this consultation - History Source History Provided By: Patient - Past Medical History Cardio/Vascular: Yes: HTN Psych: Yes: Addictions Endocrine: Yes: Diabetes Mellitus Additional Medical History: falls -> neck pain - Alcohol/Substance Use Hx Alcohol Use: Yes (X4 YEARS AGO STOPPED) - Smoking History Smoking history: Never smoked Have you smoked in the past 12 months: No Aproximately how many cigarettes per day: 0 - Social History Usual Living Arrangement: With Spouse (lives with in apartment in house with 20-24 steps to enter; previously independent in ADLs, ambulated without Assistive device) Place of : Other ([place]) Home Medications - Allergies Allergies/Adverse Reactions: Allergies Allergy/AdvReac Type Severity Reaction Status Date / Time No Known Allergies Allergy Verified 04/15/16 22:06 - Home Medications Home Medications: Ambulatory Orders Ambien 2.5 mg PO HS 02/06/16 Cholecalciferol (Vitamin D3) [Vitamin D3] 50,000 unit PO WEEKLY 02/06/16 Empagliflozin [Jardiance] 25 mg PO DAILY 02/06/16 Escitalopram Oxalate [Lexapro -] 10 mg PO DAILY 02/06/16 Gabapentin 400 mg PO BID 02/06/16 Linaclotide [Linzess] 145 mcg PO DAILY 02/06/16 Lisinopril [Zestril] 30 mg PO DAILY 02/06/16 Nifedipine [Adalat cc] 60 mg PO DAILY 02/06/16 Oxycodone HCl/Acetaminophen [Percocet 5-325 mg Tablet] 1 tab PO Q4H 02/06/16 Pantoprazole Sodium 40 mg PO DAILY 02/06/16 Quetiapine Fumarate [Seroquel] 100 tab DAILY 02/06/16 Temazepam [Restoril] 30 mg PO DAILY 02/06/16 Vitamin B Comp W-C [Total B with C] 1 each PO DAILY 02/06/16 Insulin (Levemir) [Levemir Vial] 100 units ACBK 04/16/16 Family Disease History - Family Disease History Family History: Denies (premature CAD) Review of Systems - Review of Systems Constitutional: reports: No Symptoms Eyes: reports: No Symptoms HENT: reports: No Symptoms Neck: reports: Other (neck pain) Cardiovascular: reports: No Symptoms Respiratory: reports: No Symptoms Gastrointestinal: reports: No Symptoms Genitourinary: reports: No Symptoms Musculoskeletal: reports: Back Pain Neurological: reports: Tremors (mild) Psychiatric: reports: Depression Physical Exam Vital Signs: Vital Signs Temperature 97.9 F 04/18/16 10:00 Pulse Rate 80 04/18/16 10:00 Respiratory Rate 18 04/18/16 10:00 Blood Pressure 135/83 04/18/16 10:00 O2 Sat by Pulse Oximetry (%) 97 04/18/16 10:00 Constitutional: Yes: No Distress Eyes: Yes: Conjunctiva Clear HENT: Yes: Atraumatic Neck: Yes: Supple Cardiovascular: Yes: Regular Rate and Rhythm. No: Murmur Respiratory: Yes: CTA Bilaterally Gastrointestinal: Yes: Normal Bowel Sounds, Soft. No: Tenderness Extremities: Yes: Other (warm) Edema: No Peripheral Pulses WNL: Yes Neurological: Yes: Alert, Oriented, Tremors (mild) Psychiatric: Yes: Alert, Oriented Labs: CBC, BMP 04/18/16 05:35 Imaging - Results EKG: Report Reviewed, Image Reviewed (SR) Other: Other (tele -> SR, artifacts Echo -. Normal LV size and systolic function, mild DD, mild concentric LVH, Torn or redundant chordae with trace MR , PPM in RV) Assessment/Plan 60 yo male with the above history, here with ? etoh vs benzo withdrawal -. 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 c/w presentation Echo read as torn or redundant chordae, but only with trace MR -. no intervention or further evaluation warranted at this time. He will need follow- up however. Also pacemaker leads reported-. likely artifact, as pt has no PPM Rec: No further cardiac evaluation I will review echo and have report amended as necessary Continue DM and BP meds Check lipids if no recent ones -. should be on statin given DM, if no contraindications (LFTs normal now, though mildly elevated on admission) May d/c tele -> HR has been controlled Per IM/neuro Thanks! Will see prn!
--- NOTE | 2016-04-18 14:23 | EKG ---
Test Reason : Blood Pressure : / mmHG Vent. Rate : 116 BPM Atrial Rate : 116 BPM P-R Int : 158 ms QRS Dur : 090 ms QT Int : 334 ms P-R-T Axes : 065 037 053 degrees QTc Int : 464 ms SINUS TACHYCARDIA POSSIBLE LEFT ATRIAL ENLARGEMENT BORDERLINE ECG WHEN COMPARED WITH ECG OF 06-FEB-2016 16:13, NONSPECIFIC T WAVE ABNORMALITY HAS REPLACED INVERTED T WAVES IN INFERIOR LEADS Confirmed by JODI HERNÁNDEZ, HIMANSHU ([id number]) on 04/18/2016 2:23:02 PM Referred By: Confirmed By:HIMANSHU ZAPATA MD
[2016-04-18] MEDS: chlordiazePOXIDE 5 MG CAPSULE PO SCH ×2 (16:46→22:33)
[2016-04-18] MEDS ORDERED: INSULIN (NOVOLOG) ASPART 100 UNITS/ML 10ML VIAL ONE (22:20)
[2016-04-18] MEDS: QUEtiapine FUMARATE 100 MG TABLET (FP) PO SCH (22:33)
[2016-04-18] MEDS: TEMAZEPAM 15 MG CAPSULE PO SCH (23:50)
[2016-04-19] MEDS ORDERED: INSULIN (NOVOLOG) ASPART 100 UNITS/ML 10ML VIAL ONE ×2 (06:13→18:01)
[2016-04-19] MEDS: chlordiazePOXIDE 5 MG CAPSULE PO SCH ×2 (06:26→13:19)
[2016-04-19] MEDS: GABAPENTIN 100 MG CAPSULE (FP) PO SCH ×2 (06:27→13:12)
[2016-04-19] MEDS: sitaGLIPtin PHOSPHATE 50 MG TABLET PO SCH (06:31)
[2016-04-19] MEDS: INSULIN SLIDING SCALE (NOVOLOG) 1 VIAL SQ SCH ×3 (06:32→18:03)
[2016-04-19] MEDS: INSULIN DETEMIR 100 UNITS/ML MDV SQ SCH (06:32)
[2016-04-19] MEDS ORDERED: INSULIN DETEMIR 100 UNITS/ML MDV SQ SCH (07:51)
--- NOTE | 2016-04-19 09:14 | DS ---
Physical Examination Vital Signs: Vital Signs Temperature 97.6 F 04/19/16 06:00 Pulse Rate 69 04/19/16 06:00 Respiratory Rate 20 04/19/16 06:00 Blood Pressure 112/65 04/19/16 06:00 O2 Sat by Pulse Oximetry (%) 97 04/18/16 22:00 Neck: Yes: Supple Cardiovascular: Yes: Regular Rate and Rhythm, Murmur Respiratory: Yes: Regular, CTA Bilaterally Edema: No Neurological: Yes: Alert, Oriented Labs: CBC, BMP 04/18/16 05:35 Discharge Summary Reason For Visit: ETOH WITHDRAWAL SYMPTOMS Current Active Problems Alcohol dependence with uncomplicated withdrawal (Acute) Alcoholic liver disease (Acute) Diabetes (Acute) Hypertension (Acute) Sedative, hypnotic or anxiolytic dependence with withdrawal, uncomplicated ( Acute) Syncope and collapse (Acute) Withdrawal symptoms, alcohol (Acute) Hospital Course: 60 Y M DM, HTN, depresion, HX OF ETOH ABUSE. HAS NOT had a drink in 3.5 YEARS BUT RECENT ADMIT CASTS SOME DOUBT. came to ER after an episode of agitation, pacing, decreased sleep. pt on ambien. ran out of it several days ago. denies drinking or using any other meds or drugs of abuse. in ed, confused, disoriented in time. hypertensive and tachycardic. no fever/ denies head ache. tremor of upper extremities, per patient he does not remember anything and was told by his son that he was pacing the house and was agitated so harmeet to ER found to have elevated bun/cr started on librium protocol History Source: Medical Record - Past Medical History Cardiovascular: Yes: HTN Psych: Yes: Addictions - Smoking History Smoking history: Never smoked Have you smoked in the past 12 months: No Aproximately how many cigarettes per day: 0 - Alcohol/Substance Use Hx Alcohol Use: No (X4 YEARS AGO STOPPED) - Problems (1) TERRI (acute kidney injury) Assessment/Plan: IMPROVED Laboratory Tests 04/17/16 04/18/16 05:35 05:35 BUN 42 H 36 H Creatinine 1.5 H 1.3 Code(s): N17.9 - ACUTE KIDNEY FAILURE, UNSPECIFIED (2) Alcoholic liver disease Assessment/Plan: ultrasound of liver Code(s): K70.9 - ALCOHOLIC LIVER DISEASE, UNSPECIFIED (3) Diabetes Assessment/Plan: bgm Laboratory Tests 04/18/16 04/18/16 04/18/16 11:34 16:48 22:35 POC Glucometer 286 298 259 04/19/16 06:30 POC Glucometer 196 INCREASE LEVEMIR TO 35 hga1c continue meds endo Code(s): E11.9 - TYPE 2 DIABETES MELLITUS WITHOUT COMPLICATIONS Qualifiers: Diabetes mellitus type: type 2 (4) Hypertension Assessment/Plan: adalat and lisinoril Code(s): I10 - ESSENTIAL (PRIMARY) HYPERTENSION Qualifiers: (5) Withdrawal symptoms, alcohol Assessment/Plan: librium protocol FINISHED detox and neuro consults noted Code(s): F10.239 - ALCOHOL DEPENDENCE WITH WITHDRAWAL, UNSPECIFIED Qualifiers : Complication of substance-induced condition: uncomplicated Qualified Code(s): F10.230 - Alcohol dependence with withdrawal, uncomplicated (6) Depression Assessment/Plan: lexapro,restoril Code(s): F32.9 - MAJOR DEPRESSIVE DISORDER, SINGLE EPISODE, UNSPECIFIED (7) Peripheral neuropathy Assessment/Plan: neurontin Code(s): G62.9 - POLYNEUROPATHY, UNSPECIFIED Qualifiers: (8) Torn Chordae --on echo cardio noted--outpatient follow up Condition: Improved - Instructions Diet, Activity, Other Instructions: follow up with dr boucher--cardiology follow up Referrals: STAFF,NOT ON [Primary Care Provider] - Barry Boucher MD [Staff Physician] - Disposition: HOME - Home Medications Comprehensive Discharge Medication List: Ambulatory Orders Cholecalciferol (Vitamin D3) [Vitamin D3] 50,000 unit PO WEEKLY 02/06/16 Empagliflozin [Jardiance] 25 mg PO DAILY 02/06/16 Escitalopram Oxalate [Lexapro -] 10 mg PO DAILY 02/06/16 Linaclotide [Linzess] 145 mcg PO DAILY 02/06/16 Nifedipine [Adalat cc] 60 mg PO DAILY 02/06/16 Pantoprazole Sodium 40 mg PO DAILY 02/06/16 Quetiapine Fumarate [Seroquel] 100 tab DAILY 02/06/16 Vitamin B Comp W-C [Total B with C -] 1 each PO DAILY 02/06/16 Gabapentin [Neurontin -] 100 mg PO TID #90 capsule 04/19/16 Insulin (Levemir) [Levemir Vial] 35 units SQ AM ml 04/19/16 Lisinopril [Prinivil] 5 mg PO DAILY #30 tablet 04/19/16 Temazepam [Restoril -] 15 mg PO HS capsule MDD 1 04/19/16
[2016-04-19] MEDS: LISINOPRIL 5 MG TABLET (FP) PO SCH (10:02)
[2016-04-19] MEDS: ESCITALOPRAM OXALATE 10 MG TABLET (FP) PO SCH (10:02)
[2016-04-19] MEDS: NIFEdipine E.R 60 MG TABLET (UD) PO SCH (10:02)
[2016-04-19] MEDS: PANTOPRAZOLE 40 MG TABLET (FP) PO SCH (10:02)
[2016-04-19] MEDS ORDERED: PT OWN MED DRAWER 7, Y5N ONE (13:14)
[2016-04-19] MEDS ORDERED: chlordiazePOXIDE 5 MG CAPSULE PO ONE (13:15)
[2016-04-19 18:50] VITALS: BP 120/69; PULSE 69; TEMP 97.8
--- NOTE | 2016-04-19 23:37 | CONSULT ---
Consult Consult Specialty:: endocrine/diabetes mellitus Referred by:: dr.saba hoff Reason for Consultation:: uncontrolled diabetes mellitus - History of Present Illness Chief Complaint: confused and restless History of Present Illness: 60 Y M DM, HTN, depresion, HX OF ETOH ABUSE. HAS NOT had a drink in 3.5 YEARS BUT RECENT ADMIT CASTS SOME DOUBT. came to ER after an episode of agitation, pacing, decreased sleep. pt on ambien. ran out of it several days ago. denies drinking or using any other meds or drugs of abuse. in ed, confused, has elevated bs for past several days,unsure of taking insulin and doses,has episode sugar in 300mg/dl from poor diet and restriction incarbs,no hypoglycemia in past several months. - History Source History Provided By: Patient - Past Medical History Cardio/Vascular: Yes: HTN Psych: Yes: Addictions Endocrine: Yes: Diabetes Mellitus Additional Medical History: falls -> neck pain - Alcohol/Substance Use Hx Alcohol Use: Yes (X4 YEARS AGO STOPPED) - Smoking History Smoking history: Never smoked Have you smoked in the past 12 months: No Aproximately how many cigarettes per day: 0 - Social History Usual Living Arrangement: With Spouse (lives with in apartment in house with 20-24 steps to enter; previously independent in ADLs, ambulated without Assistive device) Home Medications - Allergies Allergies/Adverse Reactions: Allergies Allergy/AdvReac Type Severity Reaction Status Date / Time No Known Allergies Allergy Verified 04/15/16 22:06 - Home Medications Home Medications: Ambulatory Orders Cholecalciferol (Vitamin D3) [Vitamin D3] 50,000 unit PO WEEKLY 02/06/16 Empagliflozin [Jardiance] 25 mg PO DAILY 02/06/16 Escitalopram Oxalate [Lexapro -] 10 mg PO DAILY 02/06/16 Linaclotide [Linzess] 145 mcg PO DAILY 02/06/16 Nifedipine [Adalat cc] 60 mg PO DAILY 02/06/16 Pantoprazole Sodium 40 mg PO DAILY 02/06/16 Quetiapine Fumarate [Seroquel] 100 tab DAILY 02/06/16 Vitamin B Comp W-C [Total B with C -] 1 each PO DAILY 02/06/16 Gabapentin [Neurontin -] 100 mg PO TID #90 capsule 04/19/16 Insulin (Levemir) [Levemir Vial] 35 units SQ AM ml 04/19/16 Lisinopril [Prinivil] 5 mg PO DAILY #30 tablet 04/19/16 Temazepam [Restoril -] 15 mg PO HS capsule MDD 1 04/19/16 Review of Systems - Review of Systems Constitutional: reports: Loss of Appetite Eyes: reports: Recent Change in Vision HENT: reports: No Symptoms Neck: reports: No Symptoms Cardiovascular: reports: No Symptoms Respiratory: reports: No Symptoms Gastrointestinal: reports: Bloating, Constipation Genitourinary: reports: No Symptoms Breasts: reports: No Symptoms Reported Musculoskeletal: reports: Muscle Cramps, Muscle Weakness Integumentary: reports: No Symptoms Neurological: reports: Tremors, Unsteady Gait, Weakness Physical Exam Vital Signs: Vital Signs Temperature 97.8 F 04/19/16 16:25 Pulse Rate 69 04/19/16 16:25 Respiratory Rate 20 04/19/16 16:25 Blood Pressure 120/69 04/19/16 16:25 O2 Sat by Pulse Oximetry (%) 98 04/19/16 09:00 Constitutional: Yes: Anxious Eyes: Yes: EOM Intact HENT: Yes: Normocephalic Neck: Yes: Trachea Midline Cardiovascular: Yes: Regular Rate and Rhythm Respiratory: Yes: CTA Bilaterally Gastrointestinal: Yes: Normal Bowel Sounds ...Rectal Exam: Yes: Deferred Renal/: Yes: WNL Breast(s): Yes: WNL Musculoskeletal: Yes: WNL Extremities: Yes: WNL Edema: No Peripheral Pulses WNL: Yes Neurological: Yes: WNL, Alert, Oriented Labs: CBC, BMP 04/18/16 05:35 Problem List - Problems (1) Alcoholic liver disease Code(s): K70.9 - ALCOHOLIC LIVER DISEASE, UNSPECIFIED (2) Diabetes Code(s): E11.9 - TYPE 2 DIABETES MELLITUS WITHOUT COMPLICATIONS Qualifiers: Diabetes mellitus type: type 2 (3) Hypertension Code(s): I10 - ESSENTIAL (PRIMARY) HYPERTENSION Qualifiers: (4) Alcohol dependence with uncomplicated withdrawal Code(s): F10.230 - ALCOHOL DEPENDENCE WITH WITHDRAWAL, UNCOMPLICATED Assessment/Plan Current Active Problems Alcoholic liver disease (Acute) Diabetes (Acute) Hypertension (Acute) Syncope and collapse (Acute) Laboratory Results - last 24 hr 01/27/17 01/27/17 01/27/17 06:30 13:18 17:58 POC Glucometer 196 272 260 diabetes mellitus uncontrolle\diabetic neuropathy alcoholic sequella ckd\ Laboratory Tests 04/17/16 04/18/16 04/18/16 05:35 05:35 11:34 Sodium 138 Potassium 4.1 Chloride 104 Carbon Dioxide 23 Anion Gap 11 POC Glucometer 286 Random Glucose 244 H D Hemoglobin A1c % 8.8 H D plan: levemir 35 units am will need follow up as outpatient for titration insulin dose \ continue novlog coverage achs scale
== END 2016-04-19 19:45 | disposition home or self-care (01) | DRG 775 ==
LOC: JER 22:01 → JERBED 04-16 02:09 → J4S 04-16 12:24
PROVIDERS: ADMIT Family Medicine; ATTEND Family Medicine
PROC: HZ2ZZZZ Detoxification Services for Substance Abuse Treatment (ICD-10-PCS; principal; 2016-04-16)
DX: F10.230 Alcohol dependence with withdrawal, uncomplicated (principal); I10 Essential (primary) hypertension; K70.9 Alcoholic liver disease, unspecified; N17.9 Acute kidney failure, unspecified; F32.9 Major depressive disorder, single episode, unspecified; G62.9 Polyneuropathy, unspecified; K21.9 Gastro-esophageal reflux disease without esophagitis; E11.319 Type 2 diabetes mellitus with unspecified diabetic retinopathy without macular edema; E11.42 Type 2 diabetes mellitus with diabetic polyneuropathy; E11.65 Type 2 diabetes mellitus with hyperglycemia; G93.49 Other encephalopathy; I51.1 Rupture of chordae tendineae, not elsewhere classified; F13.20 Sedative, hypnotic or anxiolytic dependence, uncomplicated
CPT/HCPCS: 36415; 70450-TC; 76705-TC; 76775-TC; 80048; 80053; 80307; 82140; 82607; 83036; 83735; 84425; 85025; 93005; 93010; 93306-TC; 97116-GP; 97161-GP; 99285-25

== ENCOUNTER 2016-04-27 15:10 | Emergency (ER) | payer OTHER ==
[2016-04-27 15:25] VITALS: BP 102/69; PULSE 100; TEMP 97.6; BMI 26.2
--- NOTE | 2016-04-27 15:38 | PDOC ---
[id number] TO PASS URINE Time Seen by Provider: 04/27/16 15:34 History Source: Patient, Old Records Exam Limitations: No Limitations Past History - Past Medical History Allergies/Adverse Reactions: Allergies Allergy/AdvReac Type Severity Reaction Status Date / Time No Known Allergies Allergy Verified 04/27/16 15:28 Home Medications: Ambulatory Orders Cholecalciferol (Vitamin D3) [Vitamin D3] 50,000 unit PO WEEKLY 02/06/16 Empagliflozin [Jardiance] 25 mg PO DAILY 02/06/16 Escitalopram Oxalate [Lexapro -] 10 mg PO DAILY 02/06/16 Linaclotide [Linzess] 145 mcg PO DAILY 02/06/16 Nifedipine [Adalat cc] 60 mg PO DAILY 02/06/16 Pantoprazole Sodium 40 mg PO DAILY 02/06/16 Quetiapine Fumarate [Seroquel] 100 tab DAILY 02/06/16 Vitamin B Comp W-C [Total B with C -] 1 each PO DAILY 02/06/16 Gabapentin [Neurontin -] 100 mg PO TID #90 capsule 04/19/16 Insulin (Levemir) [Levemir Vial] 35 units SQ AM ml 04/19/16 Lisinopril [Prinivil] 5 mg PO DAILY #30 tablet 04/19/16 Temazepam [Restoril -] 15 mg PO HS capsule MDD 1 04/19/16 Polyethylene Glycol 3350 [Miralax (For Bowel Prep) -] 17 gm PO ONCE #1 bottle Diabetes: Yes Dialysis: Yes HTN: Yes Liver Disease: Yes Seizures: Yes - Immunization History Immunization Up to Date: Yes - Psycho/Social/Smoking Cessation Hx Anxiety: No Suicidal Ideation: No Smoking Status: No Smoking History: Never smoked Have you smoked in the past 12 months: No Number of Cigarettes Smoked Daily: 0 Cigars Per Day: 0 Hx Alcohol Use: Yes (IN RECOVERY) Drug/Substance Use Hx: No Substance Use Type: None Hx Substance Use Treatment: No *Physical Exam - Vital Signs Last Vital Signs Temp Pulse Resp BP Pulse Ox 97.6 F 100 H 20 102/69 100 04/27/16 15:22 04/27/16 15:22 04/27/16 15:22 04/27/16 15:22 04/27/16 15:22 ED Treatment Course - LABORATORY CBC & Chemistry Diagram: 04/27/16 15:54 04/27/16 15:54 *DC/Admit/Observation/Transfer Diagnosis at time of Disposition: Urinary retention due to benign prostatic hyperplasia, Encounter for ureteral catheter placement Constipation Qualifiers: Constipation type: other constipation type Qualified Code(s): K59.09 - Other constipation - Discharge Dispostion Disposition: HOME Condition at time of disposition: Improved - Prescriptions Prescriptions: Polyethylene Glycol 3350 [Miralax (For Bowel Prep) -] 17 gm PO ONCE #1 bottle - Referrals Referrals: Barry Boucher MD [Primary Care Provider] - Aletha Martinez MD [Staff Physician] - - Patient Instructions Printed Discharge Instructions: How to Care for Your Harrell Catheter -- Male, DI for Constipation, DI for Urinary Retention in Men Additional Instructions: Please take MiraLAX as prescribed and may repeat the dose in one hour if no bowel movement is produced. Please keep Harrell catheter bag empty to avoid overfilling and follow-up with urologist on Friday. Return to ED if symptoms worsen
[2016-04-27 16:02] LABS: BASOPHIL 0.7 % (0-2.0); EOSINOPHIL 1.9 % (0-4.5); MCH 30.6 pg (25.7-33.7); MCHC 33.8 g/dl (32.0-35.9); MEAN CELL VOLUME 90.4 fl (80-96); MEAN PLT VOLUME 8.1 fl (7.5-11.1); NEUTROPHILS 57.8 % (42.8-82.8); PLATELET COUNT 190 K/MM3 (134-434); RDW 13.4 % (11.9-15.9); WHITE BLOOD COUNT 6.1 K/mm3 (4.0-10.0)
[2016-04-27 16:03] LABS: URINE APPEARANCE CLEAR; URINE BILIRUBIN NEGATIVE (NEGATIVE); URINE BLOOD NEGATIVE (NEGATIVE); URINE COLOR STRAW; URINE GLUCOSE (UA) 3+ (NEGATIVE); URINE KETONE NEGATIVE (NEGATIVE); URINE LEUK ESTERASE NEGATIVE (NEGATIVE); URINE NITRITE NEGATIVE (NEGATIVE); URINE PROTEIN NEGATIVE (NEGATIVE); URINE UROBILINOGEN NEGATIVE E.U./dl (0.2-1.0)
--- NOTE | 2016-04-27 16:18 | PDOC ---
History of Present Illness - General Chief Complaint: Urinary Problem Stated Complaint: UNABLE TO PASS URINE Time Seen by Provider: 04/27/16 15:34 History Source: Patient Exam Limitations: No Limitations - History of Present Illness Travel History: No Initial Comments: 04/27/16 16:18 60-year-old male presents to the emergency department with complaints of urinary retention and difficulty over the past 3 days only dribbling when he tries to go. Patient denies hematuria, fever or chills but does complain of suprapubic pressure presently. Patient states history of BPH and is followed by Dr. Aletha Martinez . patient also states has not had a good bowel movement in 6 days and complaining of generalized abdominal distention without decreased flatulence, nausea, or change in appetite patient states has had constipation before and has not taken anything for this episode. Timing/Duration: reports: constant, getting worse Quality: reports: moderate, cramping Abdominal Pain Onset Location: reports: suprapubic, generalized abdomen Aggravating Factors: improves with: None Alleviating Factors: improves with: None Past History - Past Medical History Allergies/Adverse Reactions: Allergies Allergy/AdvReac Type Severity Reaction Status Date / Time No Known Allergies Allergy Verified 04/27/16 15:28 Home Medications: Ambulatory Orders Cholecalciferol (Vitamin D3) [Vitamin D3] 50,000 unit PO WEEKLY 02/06/16 Empagliflozin [Jardiance] 25 mg PO DAILY 02/06/16 Escitalopram Oxalate [Lexapro -] 10 mg PO DAILY 02/06/16 Linaclotide [Linzess] 145 mcg PO DAILY 02/06/16 Nifedipine [Adalat cc] 60 mg PO DAILY 02/06/16 Pantoprazole Sodium 40 mg PO DAILY 02/06/16 Quetiapine Fumarate [Seroquel] 100 tab DAILY 02/06/16 Vitamin B Comp W-C [Total B with C -] 1 each PO DAILY 02/06/16 Gabapentin [Neurontin -] 100 mg PO TID #90 capsule 04/19/16 Insulin (Levemir) [Levemir Vial] 35 units SQ AM ml 04/19/16 Lisinopril [Prinivil] 5 mg PO DAILY #30 tablet 04/19/16 Temazepam [Restoril -] 15 mg PO HS capsule MDD 1 04/19/16 Polyethylene Glycol 3350 [Miralax (For Bowel Prep) -] 17 gm PO ONCE #1 bottle Diabetes: Yes HTN: Yes Liver Disease: Yes Psychiatric Problems: Yes Seizures: Yes - Immunization History Immunization Up to Date: Yes - Psycho/Social/Smoking Cessation Hx Anxiety: No Suicidal Ideation: No Smoking Status: No Smoking History: Never smoked Have you smoked in the past 12 months: No Number of Cigarettes Smoked Daily: 0 Cigars Per Day: 0 Hx Alcohol Use: Yes (IN RECOVERY) Drug/Substance Use Hx: No Substance Use Type: None Hx Substance Use Treatment: No Patient Lives Alone: No Lives with/in: spouse/SO Review of Systems - Review of Systems Able to Perform ROS?: Yes Constitutional: No: Symptoms Reported HEENTM: No: Symptoms Reported Respiratory: No: Symptoms reported Cardiac (ROS): No: Symptoms Reported ABD/GI: Yes: Constipated, Abdominal cramping : Yes: See HPI Musculoskeletal: No: Symptoms Reported Integumentary: No: Symptoms Reported Neurological: No: Symptoms reported Endocrine: No: Symptoms Reported Hematologic/Lymphatic: No: Symptoms Reported *Physical Exam - Vital Signs Last Vital Signs Temp Pulse Resp BP Pulse Ox 97.6 F 100 H 20 102/69 100 04/27/16 15:22 04/27/16 15:22 04/27/16 15:22 04/27/16 15:22 04/27/16 15:22 - Physical Exam General Appearance: Yes: Nourished, Appropriately Dressed. No: Apparent Distress HEENT: negative: Pale Conjunctivae Neck: positive: Supple Respiratory/Chest: positive: Lungs Clear, Normal Breath Sounds, Respiratory Distress. negative: Accessory Muscle Use Cardiovascular: positive: Regular Rhythm, Regular Rate. negative: Murmur Gastrointestinal/Abdominal: positive: Normal Bowel Sounds, Soft, Tenderness ( generalized wiuprapubic distention). negative: Guarding, Rebound Male Genitalia: positive: normal genitalia Musculoskeletal: negative: CVA Tenderness Extremity: positive: Normal Capillary Refill. negative: Pedal Edema Integumentary: positive: Normal Color, Dry, Warm Neurologic: positive: Motor Strength 5/5 (ambulatory) ED Treatment Course - LABORATORY CBC & Chemistry Diagram: 04/27/16 15:54 04/27/16 15:54 - RADIOLOGY Radiology Studies Ordered: Category Date Time Status KUB (KID UR & BLAD) [RAD] Stat Radiology 04/27/16 15:35 Ordered Medical Decision Making - Medical Decision Making 04/27/16 16:21 Patient with history of end-stage renal disease presents with urinary dribbling for the past 3 days associated now with constipation for the past 6 days. Patient has no other complaints at this time including fever, nausea or weakness. Patient on exam did have suprapubic distention. Baumann catheter placed without difficulty and drained immediately 700 mL of clear yellow urine. Patient ordered for labs including a CBC, comp, urinalysis urine culture and ordered for a KUB to assess for abdominal obstruction or colonic dilatation. 04/27/16 17:14 Laboratory Tests 04/27/16 04/27/16 04/27/16 15:54 15:54 15:54 WBC 6.1 D Hgb 12.7 D Hct 37.6 Neutrophils % 57.8 D Sodium 139 Potassium 4.1 Chloride 103 Carbon Dioxide 26 Anion Gap 10 BUN 15 D Creatinine 1.3 Creat Clearance w eGFR 56.31 Calcium 9.1 AST 19 D ALT 29 D Alkaline Phosphatase 133 H Urine Glucose (UA) 3+ H Urine Nitrite Negative Ur Leukocyte Esterase Negative 04/27/16 17:20 KUB shows retained stool throughout the colon without signs of obstruction with diffuse gas pattern predominantly in the sigmoid region. Patient ordered for MiraLAX and will be discharged home with a baumann to leg bag. Pt to follow up with his urologist on Friday. Case also discussed with Dr. Aletha Martinez upon patient's arrival to the ED and agrees if labs are normal, patient may follow- up. Patient with an additional 300 mL of clear yellow urine in the canister. *DC/Admit/Observation/Transfer Diagnosis at time of Disposition: Urinary retention due to benign prostatic hyperplasia, Encounter for ureteral catheter placement Constipation Qualifiers: Constipation type: other constipation type Qualified Code(s): K59.09 - Other constipation - Discharge Dispostion Disposition: HOME Condition at time of disposition: Improved - Prescriptions Prescriptions: Polyethylene Glycol 3350 [Miralax (For Bowel Prep) -] 17 gm PO ONCE #1 bottle - Referrals Referrals: Barry Boucher MD [Primary Care Provider] - Aletha Martinez MD [Staff Physician] - - Patient Instructions Printed Discharge Instructions: DI for Constipation, DI for Urinary Retention in Men, How to Care for Your Baumann Catheter -- Male Additional Instructions: Please take MiraLAX as prescribed and may repeat the dose in one hour if no bowel movement is produced. Please keep Baumann catheter bag empty to avoid overfilling and follow-up with urologist on Friday. Return to ED if symptoms worsen
[2016-04-27 16:22] LABS: ALBUMIN 3.7 g/dl (3.4-5.0); BILIRUBIN,TOTAL 0.3 mg/dL (0.2-1.0); CALCIUM 9.1 mg/dL (8.5-10.1); CREATININE 1.3 mg/dL (0.7-1.3); TOT PROT 7.3 g/dl (6.4-8.2)
== END 2016-04-27 18:25 | disposition home or self-care (01) ==
LOC: JER 15:10
PROC: 0T9B70Z Drainage of Bladder with Drainage Device, Via Natural or Artificial Opening (ICD-10-PCS; principal; 2016-04-27)
DX: N40.1 Benign prostatic hyperplasia with lower urinary tract symptoms (principal); R33.8 Other retention of urine; K59.00 Constipation, unspecified; I12.0 Hypertensive chronic kidney disease with stage 5 chronic kidney disease or end stage renal disease; E11.22 Type 2 diabetes mellitus with diabetic chronic kidney disease; N18.6 End stage renal disease; Z79.4 Long term (current) use of insulin; Z79.84 Long term (current) use of oral hypoglycemic drugs
CPT/HCPCS: 36415; 51702; 74000-TC; 80053; 81003; 85025; 87086; 99282-25

== ENCOUNTER 2016-10-17 15:13 | Inpatient (IN) | payer OTHER ==
[2016-10-17] MEDS ORDERED: diazePAM 5 MG TABLET PO ONE (16:59)
--- NOTE | 2016-10-17 17:01 | PDOC ---
History of Present Illness - General Chief Complaint: Altered Mental Status Stated Complaint: SEIZURE Time Seen by Provider: 10/17/16 15:23 - History of Present Illness Initial Comments: 10/17/16 20:15 Patient is a 61 year old male with a history of HTN, DM who presents following a seizure with AMS. Patient reportedly had a seizure at home before his son called EMS to take him to the ED. The patient states that he has not slept in 3 days because he ran out of a medication he usually takes for sleep. He does not know what medication he takes. He states that he otherwise feels fine. He denies any tongue biting, fevers, chills, chest pain, SOB, abdominal pain, or changes with urination or bowel movements. The patient has a history of alcohol abuse, but states that he has been sober for 3-4 years now. Of note, the patient had an admission in March for the exact same complaints with the same history provided. He was determined to be in benzo withdrawal and responded well to valium. Past History - Past Medical History Allergies/Adverse Reactions: Allergies Allergy/AdvReac Type Severity Reaction Status Date / Time No Known Allergies Allergy Verified 04/27/16 15:28 Home Medications: Ambulatory Orders Cholecalciferol (Vitamin D3) [Vitamin D3] 50,000 unit PO WEEKLY 02/06/16 Empagliflozin [Jardiance] 25 mg PO DAILY 02/06/16 Escitalopram Oxalate [Lexapro -] 10 mg PO DAILY 02/06/16 Linaclotide [Linzess] 145 mcg PO DAILY 02/06/16 Nifedipine [Adalat cc] 60 mg PO DAILY 02/06/16 Pantoprazole Sodium 40 mg PO DAILY 02/06/16 Quetiapine Fumarate [Seroquel] 100 tab DAILY 02/06/16 Vitamin B Comp W-C [Total B with C -] 1 each PO DAILY 02/06/16 Gabapentin [Neurontin -] 100 mg PO TID #90 capsule 04/19/16 Insulin (Levemir) [Levemir Vial] 35 units SQ AM ml 04/19/16 Lisinopril [Prinivil] 5 mg PO DAILY #30 tablet 04/19/16 Temazepam [Restoril -] 15 mg PO HS capsule MDD 1 04/19/16 Polyethylene Glycol 3350 [Miralax (For Bowel Prep) -] 17 gm PO ONCE #1 bottle Diabetes: Yes Dialysis: Yes HTN: Yes Liver Disease: Yes Psychiatric Problems: Yes Seizures: Yes - Immunization History Immunization Up to Date: Yes - Psycho/Social/Smoking Cessation Hx Anxiety: No Suicidal Ideation: No Smoking Status: No Smoking History: Never smoked Have you smoked in the past 12 months: No Number of Cigarettes Smoked Daily: 0 Cigars Per Day: 0 Information on smoking cessation initiated: No Hx Alcohol Use: Yes Drug/Substance Use Hx: Yes Substance Use Type: None Hx Substance Use Treatment: No Review of Systems - Review of Systems Constitutional: No: Chills, Fever HEENTM: No: Recent change in vision Respiratory: No: Cough, Shortness of Breath Cardiac (ROS): No: Chest Pain, Palpitations, Chest Tightness ABD/GI: No: Constipated, Diarrhea, Nausea, Vomiting : No: Burning, Dysuria Integumentary: No: Rash Neurological: No: Headache, Numbness, Tingling, Weakness, Dizziness *Physical Exam - Vital Signs Last Vital Signs Temp Pulse Resp BP Pulse Ox 98.8 F 90 22 110/65 99 10/17/16 15:34 10/17/16 15:34 10/17/16 15:34 10/17/16 15:34 10/17/16 15:34 - Physical Exam Comments: 10/17/16 20:32 General Appearance: Nourished. No Apparent Distress HEENT: BERNICE. No Pharyngeal Erythema, Tonsillar Exudate, Tonsillar Erythema Respiratory/Chest: Lungs Clear, Normal Breath Sounds. No Crackles, Rales, Rhonchi, Wheezing Cardiovascular: Regular Rhythm, Regular Rate. No Murmur, Gallop/S3, Gallop/S4 Gastrointestinal/Abdominal: Normal Bowel Sounds, Soft. No Guarding, Rebound, Tenderness Extremity: Normal Capillary Refill Integumentary: Normal Color, Dry, Warm Neurologic: scissors sharpener II-XII NML intact, Fully Oriented, Alert, Normal Mood/Affect, Normal Response, Motor Strength 5/5 ED Treatment Course - LABORATORY CBC & Chemistry Diagram: 10/18/16 07:00 10/18/16 07:00 - ADDITIONAL ORDERS Additional order review: Laboratory Results 10/17/16 15:27 POC Glucometer 211.68651 10/17/16 15:27 POC Glucometer 211.81418 - RADIOLOGY Radiology Studies Ordered: Category Date Time Status HEAD CT WITHOUT CONTRAST [CT] Stat CT Scan 10/17/16 17:00 Ordered Medical Decision Making - Medical Decision Making 10/17/16 20:33 Patient is a 61 year old male who presents with AMS following a possible seizure. It is unclear from the patient's history what the events were that led to his presentation or if he did have a seizure. The patient is oriented x3 here in the ED and does not appear post ictal on exam. He has no focal neurological deficits and his physical exam is benign. He does not have any complaints, however he appears to be somewhat slurring his speech during interview. He is a poor historian and we will need to contact the family to obtain a better history of the events that led to his presentation. However given that his presentation is very similar to his presentation in March, we suspect that he is once again experiencing benzo withdrawal. We will get a CT head to evaluate for intracranial process as well as a cbc, cmp, alcohol level, ammonia level, UA, and urine tox for further evaluation. We will treat with 10mg of PO Valium to evaluate for his response. 10/17/16 20:57 Patient's cbc, cmp, alcohol level, and ammonia level are unremarkable. CT head is unremarkable as read by our radiologist. UA and urine tox are pending. Patient appears somewhat improved with 10mg of Valium. We are still waiting to get in contact with the family for better history. 10/17/16 20:58 Patient signed out to Dr. Frances. *DC/Admit/Observation/Transfer Diagnosis at time of Disposition: Seizure disorder - Discharge Dispostion Disposition: AGAINST MEDICAL ADVICE - Attestations Physician Attestion: 10/21/16 19:19 I, Dr. Isaac Parker, attest that this document has been prepared under my direction and personally reviewed by me in its entirety. I further attest, that it accurately reflects all work, treatment, procedures and medical decision -making performed by me.
[2016-10-17] MEDS ORDERED: diazePAM 5 MG TABLET ONE (17:35)
[2016-10-17 17:51] LABS: BASOPHIL 0.1 % (0-2.0); EOSINOPHIL 0.5 % (0-4.5); MCH 30.2 pg (25.7-33.7); MCHC 33.7 g/dl (32.0-35.9); MEAN CELL VOLUME 89.6 fl (80-96); MEAN PLT VOLUME 8.2 fl (7.5-11.1); NEUTROPHILS 76.7 % (42.8-82.8); PLATELET COUNT 178 K/MM3 (134-434); RDW 13.1 % (11.9-15.9); WHITE BLOOD COUNT 11.6 K/mm3 (4.0-10.0)
[2016-10-17 18:26] LABS: ANION GAP 7 (8-16); CALCIUM 9.5 mg/dL (8.5-10.1); CO2 28 mmol/L (21-32); CREATININE 1.2 mg/dL (0.7-1.3); GLUCOSE,RANDOM 166 mg/dL (74-106); SGOT/AST 29 U/L (15-37); SGPT/ALT 37 U/L (12-78)
[2016-10-17 18:27] LABS: ALK PHOS 114 U/L (45-117); TOT PROT 7.8 g/dl (6.4-8.2)
--- NOTE | 2016-10-17 21:04 | PDOC ---
History of Present Illness - General History Source: Patient, Family <Johann Ta - Last Filed: 10/17/16 21:32> - General History Source: Patient Exam Limitations: No Limitations - History of Present Illness Initial Comments: 10/17/16 21:18 Patient is a 61 year old male with a significant past medical history of alcohol abuse, diabetes mellitus, end-stage renal failure, hypertension, and hyperlipidemia who presents to the ED, accompanied by daughter, several hours ago with a possible seizure. Patient is unsure of time of symptoms. Daughter, who was presents during our interview, did not witness the possible seizure. Patient has the remote possibility of a seizure in the past but denies a history of seizure disorder. Patient reports benzodiazepine use. He states he has not taken benzodiazepine in the last three days as a result of running out. Denies drug use at current time. Denies chest pain or shortness of breath. Denies abdominal pain, nausea, vomiting, or diarrhea. Denies any other symptoms. <Yahir Danielle - Last Filed: 10/17/16 22:57> - General Chief Complaint: Altered Mental Status Stated Complaint: SEIZURE Time Seen by Provider: 10/17/16 15:23 Past History - Past Medical History Diabetes: Yes Dialysis: Yes HTN: Yes Liver Disease: Yes Psychiatric Problems: Yes Seizures: Yes - Immunization History Immunization Up to Date: Yes - Psycho/Social/Smoking Cessation Hx Anxiety: No Suicidal Ideation: No Smoking Status: No Smoking History: Never smoked Have you smoked in the past 12 months: No Number of Cigarettes Smoked Daily: 0 Cigars Per Day: 0 Information on smoking cessation initiated: No Hx Alcohol Use: Yes Drug/Substance Use Hx: Yes Substance Use Type: None Hx Substance Use Treatment: No <Johann Ta - Last Filed: 10/17/16 21:32> <Yahir Danielle - Last Filed: 10/17/16 22:57> - Past Medical History Allergies/Adverse Reactions: Allergies Allergy/AdvReac Type Severity Reaction Status Date / Time No Known Allergies Allergy Verified 04/27/16 15:28 Home Medications: Ambulatory Orders Cholecalciferol (Vitamin D3) [Vitamin D3] 50,000 unit PO WEEKLY 02/06/16 Empagliflozin [Jardiance] 25 mg PO DAILY 02/06/16 Escitalopram Oxalate [Lexapro -] 10 mg PO DAILY 02/06/16 Linaclotide [Linzess] 145 mcg PO DAILY 02/06/16 Nifedipine [Adalat cc] 60 mg PO DAILY 02/06/16 Pantoprazole Sodium 40 mg PO DAILY 02/06/16 Quetiapine Fumarate [Seroquel] 100 tab DAILY 02/06/16 Vitamin B Comp W-C [Total B with C -] 1 each PO DAILY 02/06/16 Gabapentin [Neurontin -] 100 mg PO TID #90 capsule 04/19/16 Insulin (Levemir) [Levemir Vial] 35 units SQ AM ml 04/19/16 Lisinopril [Prinivil] 5 mg PO DAILY #30 tablet 04/19/16 Temazepam [Restoril -] 15 mg PO HS capsule MDD 1 04/19/16 Polyethylene Glycol 3350 [Miralax (For Bowel Prep) -] 17 gm PO ONCE #1 bottle Review of Systems - Review of Systems Able to Perform ROS?: Yes Comments:: 10/17/16 21:18 CONSTITUTIONAL: Absent: fever, chills, diaphoresis, generalized weakness, malaise, loss of appetite HEENT: Absent: rhinorrhea, nasal congestion, throat pain, throat swelling, difficulty swallowing, mouth swelling, ear pain, eye pain, visual Changes CARDIOVASCULAR: Absent: chest pain, syncope, palpitations, irregular heart rate, lightheadedness , peripheral edema RESPIRATORY: Absent: cough, shortness of breath, dyspnea with exertion, orthopnea, wheezing, stridor, hemoptysis GASTROINTESTINAL: Absent: abdominal pain, abdominal distension, nausea, vomiting, diarrhea, constipation, melena, hematochezia GENITOURINARY: Absent: dysuria, frequency, urgency, hesitancy, hematuria, flank pain, genital pain MUSCULOSKELETAL: Absent: myalgia, arthralgia, joint swelling SKIN: Absent: rash, itching, pallor HEMATOLOGIC/IMMUNOLOGIC: Absent: easy bleeding, easy bruising, lymphadenopathy, frequent infections ENDOCRINE: Absent: unexplained weight gain, unexplained weight loss, heat intolerance, cold intolerance NEUROLOGIC: + seizure like symptoms Absent: headache, focal weakness or paresthesias, dizziness, unsteady gait, mental status changes, bladder or bowel incontinence PSYCHIATRIC: Absent: anxiety, depression, suicidal or homicidal ideation, hallucinations. All Other Systems: Reviewed and Negative <Yahir Danielle - Last Filed: 10/17/16 22:57> *Physical Exam - Vital Signs Last Vital Signs Temp Pulse Resp BP Pulse Ox 98 F 90 22 110/65 98 10/17/16 20:53 10/17/16 20:53 10/17/16 15:34 10/17/16 20:53 10/17/16 20:53 <Johann Ta - Last Filed: 10/17/16 21:32> - Vital Signs Last Vital Signs Temp Pulse Resp BP Pulse Ox 98 F 90 22 110/65 98 10/17/16 20:53 10/17/16 20:53 10/17/16 15:34 10/17/16 20:53 10/17/16 20:53 - Physical Exam Comments: 10/17/16 21:18 GENERAL: Well developed, well nourished. Awake and alert. No acute distress. HEENT: Normocephalic, atraumatic. PERRLA, EOMI. No conjunctival pallor. Sclera are non- icteric. Moist mucous membranes. Oropharynx is clear. NECK: Supple. Full ROM. No JVD. Carotid pulses 2+ and symmetric, without bruits. No thyromegaly. NCo lymphadenopathy. CARDIOVASCULAR: Regular rate and rhythm. No murmurs, rubs, or gallops. Distal pulses are 2+ and symmetric. PULMONARY: No evidence of respiratory distress. Lungs clear to auscultation bilaterally. No wheezing, rales or rhonchi. ABDOMINAL: Soft. Non-tender. Non-distended. No rebound or guarding. No organomegaly. Normoactive bowel sounds. MUSCULOSKELETAL Normal range of motion at all joints. No bony deformities or tenderness. No CVA tenderness. EXTREMITIES: No cyanosis. No clubbing. No edema. No calf tenderness. SKIN: Warm and dry. Normal capillary refill. No rashes. No jaundice. NEUROLOGICAL: Alert, awake, appropriate. Cranial nerves 2-12 intact. No deficits to light touch and temperature in face, upper extremities and lower extremities. No motor deficits in the in face, upper extremities and lower extremities. Normoreflexic in the upper and lower extremities. Normal speech. Toes are down- going bilaterally. Gait is normal without ataxia. PSYCHIATRIC: Cooperative. Good eye contact. Appropriate mood and affect. <Yahir Danielle - Last Filed: 10/17/16 22:57> Heart Score/ECG Review #1 10/17/16 22:56 Normal sinus rhythm Vent. rate 81 bpm MT interval 166 ms QRS duration 94 ms <Yahir Danielle - Last Filed: 10/17/16 22:57> ED Treatment Course - LABORATORY CBC & Chemistry Diagram: 10/17/16 17:11 10/17/16 17:11 - ADDITIONAL ORDERS Additional order review: Laboratory Results 10/17/16 10/17/16 10/17/16 17:11 17:11 15:27 Sodium 131 L Potassium 4.5 Chloride 96 L Carbon Dioxide 28 Anion Gap 7 L BUN 18 Creatinine 1.2 Creat Clearance w eGFR > 60 POC Glucometer 211.35239 Random Glucose 166 H D Calcium 9.5 Total Bilirubin 1.0 D AST 29 D ALT 37 D Alkaline Phosphatase 114 Ammonia 21.55 Total Protein 7.8 Albumin 4.0 10/17/16 10/17/16 17:11 15:27 RBC 4.41 MCV 89.6 MCHC 33.7 RDW 13.1 MPV 8.2 Neutrophils % 76.7 D Lymphocytes % 13.2 D Monocytes % 9.5 Eosinophils % 0.5 Basophils % 0.1 POC Glucometer 211.59965 - Medications Given in the ED: ED Medications Discontinued Medications Generic Name Dose Route Start Last Admin Trade Name Ab PRN Reason Stop Dose Admin Diazepam 10 mg 10/17/16 16:59 10/17/16 17:37 Valium - PO 10/17/16 17:00 10 mg ONCE ONE Administration <Johann Ta - Last Filed: 10/17/16 21:32> - LABORATORY CBC & Chemistry Diagram: 10/17/16 17:11 10/17/16 17:11 - ADDITIONAL ORDERS Additional order review: Laboratory Results 10/17/16 10/17/16 10/17/16 17:11 17:11 15:27 Sodium 131 L Potassium 4.5 Chloride 96 L Carbon Dioxide 28 Anion Gap 7 L BUN 18 Creatinine 1.2 Creat Clearance w eGFR > 60 POC Glucometer 211.20333 Random Glucose 166 H D Calcium 9.5 Total Bilirubin 1.0 D AST 29 D ALT 37 D Alkaline Phosphatase 114 Ammonia 21.55 Total Protein 7.8 Albumin 4.0 10/17/16 10/17/16 17:11 15:27 RBC 4.41 MCV 89.6 MCHC 33.7 RDW 13.1 MPV 8.2 Neutrophils % 76.7 D Lymphocytes % 13.2 D Monocytes % 9.5 Eosinophils % 0.5 Basophils % 0.1 POC Glucometer 211.16439 - Medications Given in the ED: ED Medications Discontinued Medications Generic Name Dose Route Start Last Admin Trade Name Shaheenq PRN Reason Stop Dose Admin Diazepam 10 mg 10/17/16 16:59 10/17/16 17:37 Valium - PO 10/17/16 17:00 10 mg ONCE ONE Administration <Yahir Danielle - Last Filed: 10/17/16 22:57> *DC/Admit/Observation/Transfer - Discharge Dispostion Admit: Yes <Johann Ta - Last Filed: 10/17/16 21:32> - Attestations Scribe Attestion: 10/17/16 21:18 Documentation prepared by Yahir Danielle, acting as medical historian for Simon Carrera MD <Yahir Danielle - Last Filed: 10/17/16 22:57> Diagnosis at time of Disposition: Seizure disorder - Referrals
[2016-10-17 22:39] LABS: URINE APPEARANCE CLEAR; URINE BILIRUBIN NEGATIVE (NEGATIVE); URINE BLOOD 2+ (NEGATIVE); URINE COLOR LTYELLOW; URINE GLUCOSE (UA) 1+ (NEGATIVE); URINE KETONE NEGATIVE (NEGATIVE); URINE NITRITE NEGATIVE (NEGATIVE); URINE PROTEIN NEGATIVE (NEGATIVE); URINE UROBILINOGEN NEGATIVE mg/dL (0.2-1.0)
[2016-10-17 22:40] LABS: URINE MARIJUANA THC NEGATIVE ng/ml (CUTOFF=50)
[2016-10-17 22:41] LABS: URINE LEUK ESTERASE 1+ (NEGATIVE)
[2016-10-17 22:46] LABS: GRANULAR CASTS 1 /lpf; URINE HYALINE CAST 1 /lpf; URINE RBC <1 /hpf (0-3); URINE WBC 4 /hpf (3-5)
[2016-10-17 23:35] VITALS: BMI 25.3
[2016-10-17] MEDS ORDERED: TEMAZEPAM 15 MG CAPSULE PO SCH (23:45)
--- NOTE | 2016-10-18 00:07 | PDOC ---
*Physical Exam - Vital Signs Last Vital Signs Temp Pulse Resp BP Pulse Ox 98.1 F 84 20 158/95 99 10/17/16 23:31 10/17/16 23:31 10/17/16 23:31 10/17/16 23:31 10/17/16 23:44 10/18/16 00:02 GENERAL: Awake, alert, in no acute distress HEAD: No signs of trauma, normocephalic, atraumatic EYES: PERRLA, EOMI, sclera anicteric, conjunctiva clear ENT: Auricles normal inspection, hearing grossly normal, nares patent, oropharynx clear without exudates. Moist mucosa NECK: Normal ROM, supple, no lymphadenopathy, JVD, or masses LUNGS: No distress, speaks full sentences, clear to auscultation bilaterally HEART: Regular rate and rhythm, normal S1 and S2, no murmurs, rubs or gallops, peripheral pulses normal and equal bilaterally. ABDOMEN: Soft, nontender, normoactive bowel sounds. No guarding, no rebound. No masses EXTREMITIES: Normal inspection, Normal range of motion, no edema. No clubbing or cyanosis. NEUROLOGICAL: Cranial nerves II through XII grossly intact. Normal speech, normal gait, no focal sensorimotor deficits SKIN: Warm, Dry, normal turgor, no rashes or lesions noted. - Physical Exam Comments: 10/18/16 01:15 GENERAL: Awake, and in no acute distress HEAD: No signs of trauma, normocephalic, atraumatic EYES: PERRLA, EOMI, sclera anicteric, conjunctiva clear ENT: Auricles normal inspection, hearing grossly normal, nares patent, oropharynx clear without exudates. Moist mucosa NECK: Normal ROM, supple, no lymphadenopathy, JVD, or masses LUNGS: No distress, speaks full sentences, clear to auscultation bilaterally HEART: Regular rate and rhythm, normal S1 and S2, no murmurs, rubs or gallops, peripheral pulses normal and equal bilaterally. ABDOMEN: Soft, nontender, normoactive bowel sounds. No guarding, no rebound. No masses EXTREMITIES: Normal inspection, Normal range of motion, no edema. No clubbing or cyanosis. NEUROLOGICAL: Cranial nerves II through XII grossly intact. Normal speech, normal gait, no focal sensorimotor deficits SKIN: Warm, Dry, normal turgor, no rashes or lesions noted. ED Treatment Course - LABORATORY CBC & Chemistry Diagram: 10/17/16 17:11 10/17/16 17:11 - ADDITIONAL ORDERS Additional order review: Laboratory Results 10/17/16 10/17/16 10/17/16 17:11 17:11 15:27 Sodium 131 L Potassium 4.5 Chloride 96 L Carbon Dioxide 28 Anion Gap 7 L BUN 18 Creatinine 1.2 Creat Clearance w eGFR > 60 POC Glucometer 211.39955 Random Glucose 166 H D Calcium 9.5 Total Bilirubin 1.0 D AST 29 D ALT 37 D Alkaline Phosphatase 114 Ammonia 21.55 Total Protein 7.8 Albumin 4.0 10/17/16 10/17/16 17:11 15:27 RBC 4.41 MCV 89.6 MCHC 33.7 RDW 13.1 MPV 8.2 Neutrophils % 76.7 D Lymphocytes % 13.2 D Monocytes % 9.5 Eosinophils % 0.5 Basophils % 0.1 POC Glucometer 211.78365 - Medications Given in the ED: ED Medications Discontinued Medications Generic Name Dose Route Start Last Admin Trade Name Ab PRN Reason Stop Dose Admin Diazepam 10 mg 10/17/16 16:59 10/17/16 17:37 Valium - PO 10/17/16 17:00 10 mg ONCE ONE Administration Progress Note - Progress Note Progress Note: 61 yo M with h/o HTN, DM, Insomnia, and alcohol abuse who presents with AMS. Pt. Maldivian speaking and daughter at bedside to assist in history. States that her father has not been sleeping for past 3 days and has been acting out of character. He has been repeatedly walking up the steps and making incoherent statements. She did not witness pt. seizure, but reports him having h/o drop attacks to floor. He recently ran out of Temazepam 100 mg QD, and has had trouble sleeping as a result. H/o recent admission 03/2016 for benzodiazepene withdrawal. Denies SOB, cough, lightheadedness, N/V, fevers/chills, GI complaints, or urinary complaints. Denies recent alcohol use or illicit drug use. Medical Decision Making - Medical Decision Making 10/18/16 01:18 61 yo M with h/o HTN, DM, alcohol abuse who presents with AMS. Pt. currently stable, and physical exam is benign. No associated symptoms. Per pt. family he has been experiencing change in behavior for the past 3 days. He has also been experiencing insomnia since running out of medication Temazepam 100 mg PO QD. There are conflicting reports of witnessing pt. seizure. Per pt. daughter she states that her father experiences frequent drop attacks, and has had one episode witnessed convulsions. Recently no one has witnessed pt. seizure and it is believed he has had a drop attack as opposed to generalized tonic clonic seizure. Per check out from Dr. Parker pt has received full metabolic workup with unremarkable laboratory values, and a negative head CT scan. He has received 10 mg Diazepam. ED Course: 10/18/16 02:05 UDS Negative Urine: 1 + Leuk Esterase, Negative Nitrite Alcohol Quant <5 Admit pt. to Med/Surg *DC/Admit/Observation/Transfer Diagnosis at time of Disposition: Seizure disorder
[2016-10-18] MEDS ORDERED: GABAPENTIN 100 MG CAPSULE (FP) PO SCH (06:00)
[2016-10-18] MEDS: INSULIN SLIDING SCALE (NOVOLOG) 1 VIAL SQ SCH ×2 (06:29→11:37)
[2016-10-18] MEDS ORDERED: INSULIN DETEMIR 100 UNITS/ML MDV SQ SCH (07:00)
--- NOTE | 2016-10-18 08:40 | HP ---
Admitting History and Physical - Admission History of Present Illness: 61 yo M with h/o HTN, DM, alcohol abuse who presents with AMS. Per pt. family he has been experiencing change in behavior for the past 3 days. He has also been experiencing insomnia since running out of medication Temazepam 100 mg PO QD. There are conflicting reports of witnessing pt. seizure. Per pt. daughter she states that her father experiences frequent drop attacks, and has had one episode witnessed convulsions. Recently no one has witnessed pt. seizure and it is believed he has had a drop attack as opposed to generalized tonic clonic seizure. pt has received full metabolic workup with unremarkable laboratory values, and a negative head CT scan. He has received 10 mg Diazepam. - Past Medical History Cardiovascular: Yes: HTN Psych: Yes: Addictions Endocrine: Yes: Diabetes Mellitus - Smoking History Smoking history: Never smoked Have you smoked in the past 12 months: No Aproximately how many cigarettes per day: 0 - Alcohol/Substance Use Hx Alcohol Use: Yes Home Medications - Allergies Allergies/Adverse Reactions: Allergies Allergy/AdvReac Type Severity Reaction Status Date / Time No Known Allergies Allergy Verified 04/27/16 15:28 - Home Medications Home Medications: Ambulatory Orders Cholecalciferol (Vitamin D3) [Vitamin D3] 50,000 unit PO WEEKLY 02/06/16 Empagliflozin [Jardiance] 25 mg PO DAILY 02/06/16 Escitalopram Oxalate [Lexapro -] 10 mg PO DAILY 02/06/16 Linaclotide [Linzess] 145 mcg PO DAILY 02/06/16 Nifedipine [Adalat cc] 60 mg PO DAILY 02/06/16 Pantoprazole Sodium 40 mg PO DAILY 02/06/16 Quetiapine Fumarate [Seroquel] 100 tab DAILY 02/06/16 Vitamin B Comp W-C [Total B with C -] 1 each PO DAILY 02/06/16 Gabapentin [Neurontin -] 100 mg PO TID #90 capsule 04/19/16 Insulin (Levemir) [Levemir Vial] 35 units SQ AM ml 04/19/16 Lisinopril [Prinivil] 5 mg PO DAILY #30 tablet 04/19/16 Temazepam [Restoril -] 15 mg PO HS capsule MDD 1 04/19/16 Polyethylene Glycol 3350 [Miralax (For Bowel Prep) -] 17 gm PO ONCE #1 bottle Review of Systems - Review of Systems Cardiovascular: denies: Chest Pain, Edema Respiratory: denies: SOB, Wheezing Gastrointestinal: reports: No Symptoms Genitourinary: reports: No Symptoms Neurological: reports: Change in LOC, Seizure, Syncope Physical Examination Vital Signs: Vital Signs Temperature 97.1 F L 10/18/16 07:48 Pulse Rate 78 10/18/16 07:48 Respiratory Rate 20 10/18/16 07:48 Blood Pressure 159/98 10/18/16 07:48 O2 Sat by Pulse Oximetry (%) 99 10/17/16 23:44 Cardiovascular: Yes: S1, S2 Respiratory: Yes: Regular, CTA Bilaterally Gastrointestinal: Yes: Normal Bowel Sounds, Soft Edema: No Neurological: Yes: Alert, Oriented, Tremors Problem List - Problems (1) Diabetes Assessment/Plan: SAME MEDS MONITOR BGM Code(s): E11.9 - TYPE 2 DIABETES MELLITUS WITHOUT COMPLICATIONS Qualifiers: Diabetes mellitus type: type 2 (2) Hypertension Assessment/Plan: MONITOR ON MEDS Code(s): I10 - ESSENTIAL (PRIMARY) HYPERTENSION Qualifiers: (3) Seizure disorder Assessment/Plan: NEURO CONSULT POSSIBLE WITHDRAWAL Code(s): G40.909 - EPILEPSY, UNSP, NOT INTRACTABLE, WITHOUT STATUS EPILEPTICUS (4) Syncope and collapse Assessment/Plan: HOLTER ECHO CARDIO Code(s): R55 - SYNCOPE AND COLLAPSE (5) Alcohol dependence with uncomplicated withdrawal Assessment/Plan: PT WITH TREMORS DETOX CONSULT LIBRIUM MVI/THIAMINE Code(s): F10.230 - ALCOHOL DEPENDENCE WITH WITHDRAWAL, UNCOMPLICATED
[2016-10-18 09:14] LABS: BASOPHIL 0.4 % (0-2.0); EOSINOPHIL 1.3 % (0-4.5); MCH 30.9 pg (25.7-33.7); MCHC 33.8 g/dl (32.0-35.9); MEAN CELL VOLUME 91.4 fl (80-96); MEAN PLT VOLUME 8.6 fl (7.5-11.1); PLATELET COUNT 194 K/MM3 (134-434); RDW 13.2 % (11.9-15.9); WHITE BLOOD COUNT 8.2 K/mm3 (4.0-10.0)
--- NOTE | 2016-10-18 09:16 | EKG ---
Test Reason : Blood Pressure : / mmHG Vent. Rate : 069 BPM Atrial Rate : 069 BPM P-R Int : 168 ms QRS Dur : 098 ms QT Int : 406 ms P-R-T Axes : 063 020 016 degrees QTc Int : 435 ms NORMAL SINUS RHYTHM NORMAL ECG WHEN COMPARED WITH ECG OF 17-OCT-2016 22:52, NO SIGNIFICANT CHANGE WAS FOUND Confirmed by TERRA ARTIS MD ([id number]) on 10/18/2016 9:16:07 AM Referred By: LAN ASENCIO Confirmed By:TERRA ARTIS MD
--- NOTE | 2016-10-18 09:18 | EKG ---
Test Reason : Blood Pressure : / mmHG Vent. Rate : 081 BPM Atrial Rate : 081 BPM P-R Int : 166 ms QRS Dur : 094 ms QT Int : 384 ms P-R-T Axes : 068 032 035 degrees QTc Int : 446 ms NORMAL SINUS RHYTHM NORMAL ECG WHEN COMPARED WITH ECG OF 17-APR-2016 12:18, NO SIGNIFICANT CHANGE WAS FOUND Confirmed by TERRA ARTIS MD ([id number]) on 10/18/2016 9:18:30 AM Referred By: Confirmed By:TERRA ARTIS MD
[2016-10-18 09:21] LABS: ALBUMIN 4.1 g/dl (3.4-5.0); ANION GAP 7 (8-16); BILIRUBIN,TOTAL 1.2 mg/dL (0.2-1.0); CALCIUM 9.1 mg/dL (8.5-10.1); CO2 31 mmol/L (21-32); CREATININE 1.1 mg/dL (0.7-1.3); GLUCOSE,RANDOM 162 mg/dL (74-106); MAGNESIUM 2.2 mg/dL (1.8-2.4); SGOT/AST 47 U/L (15-37); SGPT/ALT 42 U/L (12-78); TOT PROT 7.8 g/dl (6.4-8.2)
--- NOTE | 2016-10-18 09:21 | PDOC ---
Attending Attestation - Resident Resident Name: Isaac Parker - ED Attending Attestation I have performed the following: I have examined & evaluated the patient, The case was reviewed & discussed with the resident, I agree w/resident's findings & plan, Exceptions are as noted - HPI HPI: 10/18/16 09:19 61 yo male with hx of alcohol abuse ran out of benzodiazepine a few days ago and had a seizure at home just prior to the family summoning 911- - Physicial Exam PE: 10/18/16 09:20 Non Toxic, NAD, Non-focal neuro exam - Medical Decision Making 10/18/16 09:20 I agree with the residents assessment, workup and plan
[2016-10-18 09:45] LABS: ALK PHOS 117 U/L (45-117); TROPONIN I < 0.02 ng/ml (0.00-0.05)
[2016-10-18 09:57] LABS: THYROID STIMULATING HORMONE 1.74 uIU/ml (0.358-3.74)
[2016-10-18] MEDS ORDERED: PANTOPRAZOLE 40 MG TABLET (FP) PO SCH (10:00)
[2016-10-18] MEDS ORDERED: POLYETHYLENE GLYCOL 3350 119 GM BTL PO SCH (10:00)
[2016-10-18] MEDS ORDERED: HEPARIN NA (PORCINE) 5,000 UNITS/ML 1ML VIAL SQ SCH (10:00)
[2016-10-18] MEDS ORDERED: FOLIC ACID 1 MG TABLET (FP) PO SCH (10:00)
[2016-10-18] MEDS ORDERED: NIFEdipine E.R 60 MG TABLET (UD) PO SCH (10:00)
[2016-10-18] MEDS ORDERED: ESCITALOPRAM OXALATE 10 MG TABLET (FP) PO SCH (10:00)
[2016-10-18] MEDS ORDERED: LISINOPRIL 5 MG TABLET (FP) PO SCH (10:00)
[2016-10-18] MEDS ORDERED: THIAMINE HCL 200 MG/2 ML VIAL IM SCH (10:00)
[2016-10-18] MEDS ORDERED: PATIENT'S OWN MEDICATION (NON-FORMULARY) (Linaclotide [Linzess] 145 MCG) PO SCH (10:00)
[2016-10-18] MEDS ORDERED: MULTIVITAMINS (DAILY MVI) TABLET (FP) PO SCH (10:00)
[2016-10-18] MEDS ORDERED: chlordiazePOXIDE HCL 25 MG CAPSULE PO SCH (11:00)
[2016-10-18] MEDS: QUEtiapine FUMARATE 100 MG TABLET (FP) PO SCH ×2 (11:39→11:41)
[2016-10-18 11:41] VITALS: BP 161/67; PULSE 70; TEMP 97.9
--- NOTE | 2016-10-18 13:36 | CON.CARD ---
Consult Consult Specialty:: Cardiology Referred by:: Dr Smith Reason for Consultation:: changing mental status - History of Present Illness Chief Complaint: unresponsive History of Present Illness: 61 yo M with h/o HTN, DM, alcohol abuse who presents with AMS. Echo 10/17/16 nlef - History Source History Provided By: Medical Record Limitations to Obtaining History: Intoxication - Past Medical History Cardio/Vascular: Yes: HTN Psych: Yes: Addictions Endocrine: Yes: Diabetes Mellitus Additional Medical History: falls -> neck pain - Alcohol/Substance Use Hx Alcohol Use: Yes - Smoking History Smoking history: Never smoked Have you smoked in the past 12 months: No Aproximately how many cigarettes per day: 0 - Social History Usual Living Arrangement: With Spouse (lives with in apartment in house with 20-24 steps to enter; previously independent in ADLs, ambulated without Assistive device) Home Medications - Allergies Allergies/Adverse Reactions: Allergies Allergy/AdvReac Type Severity Reaction Status Date / Time No Known Allergies Allergy Verified 04/27/16 15:28 - Home Medications Home Medications: Ambulatory Orders Cholecalciferol (Vitamin D3) [Vitamin D3] 50,000 unit PO WEEKLY 02/06/16 Empagliflozin [Jardiance] 25 mg PO DAILY 02/06/16 Escitalopram Oxalate [Lexapro -] 10 mg PO DAILY 02/06/16 Linaclotide [Linzess] 145 mcg PO DAILY 02/06/16 Nifedipine [Adalat cc] 60 mg PO DAILY 02/06/16 Pantoprazole Sodium 40 mg PO DAILY 02/06/16 Quetiapine Fumarate [Seroquel] 100 tab DAILY 02/06/16 Vitamin B Comp W-C [Total B with C -] 1 each PO DAILY 02/06/16 Gabapentin [Neurontin -] 100 mg PO TID #90 capsule 04/19/16 Insulin (Levemir) [Levemir Vial] 35 units SQ AM ml 04/19/16 Lisinopril [Prinivil] 5 mg PO DAILY #30 tablet 04/19/16 Temazepam [Restoril -] 15 mg PO HS capsule MDD 1 04/19/16 Polyethylene Glycol 3350 [Miralax (For Bowel Prep) -] 17 gm PO ONCE #1 bottle Vital Signs: Vital Signs Temperature 97.9 F 10/18/16 11:40 Pulse Rate 70 10/18/16 11:40 Respiratory Rate 20 10/18/16 11:40 Blood Pressure 161/67 10/18/16 11:40 O2 Sat by Pulse Oximetry (%) 99 10/18/16 09:00 Constitutional: Yes: No Distress, Calm Eyes: Yes: Conjunctiva Clear, EOM Intact HENT: Yes: Atraumatic, Normocephalic Respiratory: Yes: CTA Bilaterally Gastrointestinal: Yes: Normal Bowel Sounds, Soft Cardiovascular: Yes: Regular Rate and Rhythm JVD: No Carotid Bruit: No PMI: Non-Displaced Heart Sounds: Yes: S1, S2 Edema: No Peripheral Pulses WNL: Yes - Other Data Labs, Other Data: CBC, BMP 10/18/16 07:00 10/18/16 07:00 Troponin, BNP 10/18/16 07:00 Troponin I < 0.02 Troponin, BNP 10/18/16 07:00 Troponin I < 0.02 Imaging - Results EKG: Report Reviewed (normal ECG.) Problem List - Problems (1) Syncope and collapse Assessment/Plan: ECG and echo unremarkable. Tele negative. Likely this is due to withdrawl. No evidence of ACS or arrhythmia. Code(s): R55 - SYNCOPE AND COLLAPSE
--- NOTE | 2016-10-19 10:10 | PN ---
[facility] Progress Note Note: Pt. signed out AMA before he could be seen
[2016-10-19] MEDS ORDERED: chlordiazePOXIDE HCL 25 MG CAPSULE PO SCH (11:00)
== END 2016-10-18 12:48 | disposition left against medical advice (07) | DRG 53 ==
LOC: JER 15:13 → JERBED 21:32 → J6S 23:08
PROVIDERS: ADMIT Family Medicine; ATTEND Family Medicine
DX: G40.909 Epilepsy, unspecified, not intractable, without status epilepticus (principal); E11.9 Type 2 diabetes mellitus without complications; I10 Essential (primary) hypertension; F10.230 Alcohol dependence with withdrawal, uncomplicated; R55 Syncope and collapse; E78.5 Hyperlipidemia, unspecified
CPT/HCPCS: 36415; 70450-TC; 71010-TC; 80053; 80307; 81003; 81015; 82140; 82607; 83036; 83735; 84443; 84484; 85025; 86593; 93005; 93010; 93306-TC; 95816; 99285-25; J1644

== ENCOUNTER 2017-02-16 01:39 | Emergency (ER) | payer OTHER ==
[2017-02-16 02:36] VITALS: BMI 26.2
[2017-02-16] MEDS ORDERED: SODIUM CHLORIDE 1,000 ML IV STA (03:13)
--- NOTE | 2017-02-16 03:13 | PDOC ---
History of Present Illness - General Chief Complaint: Blood Sugar Problem Stated Complaint: HYPERGLYCEMIA Time Seen by Provider: 02/16/17 03:02 History Source: Patient Exam Limitations: No Limitations - History of Present Illness Initial Comments: 02/16/17 04:55 61-year-old male with a history of IDDM presents to the emergency department complaining of hyperglycemia. Patient states when he took his glucose at home registered at 399. Patient states he knew he was going to be high because he was eating bread all day yesterday. Patient denies fever, chills, nausea/ vomiting, body aches, general malaise, visual disturbance, diplopia, facial pains, neck pains, back pains, chest pain, shortness of breath, abdominal pains , urinary symptoms, extremity numbness or tingling sensation. Patient states he feels fine and has no physical complaints Timing/Duration: 1-3 hours Past History - Past Medical History Allergies/Adverse Reactions: Allergies Allergy/AdvReac Type Severity Reaction Status Date / Time No Known Allergies Allergy Verified 02/16/17 02:04 Home Medications: Ambulatory Orders Cholecalciferol (Vitamin D3) [Vitamin D3] 50,000 unit PO WEEKLY 02/06/16 Empagliflozin [Jardiance] 25 mg PO DAILY 02/06/16 Escitalopram Oxalate [Lexapro -] 10 mg PO DAILY 02/06/16 Linaclotide [Linzess] 145 mcg PO DAILY 02/06/16 Nifedipine [Adalat cc] 60 mg PO DAILY 02/06/16 Pantoprazole Sodium 40 mg PO DAILY 02/06/16 Quetiapine Fumarate [Seroquel] 100 tab DAILY 02/06/16 Vitamin B Comp W-C [Total B with C -] 1 each PO DAILY 02/06/16 Gabapentin [Neurontin -] 100 mg PO TID #90 capsule 04/19/16 Insulin (Levemir) [Levemir Vial] 35 units SQ AM ml 04/19/16 Lisinopril [Prinivil] 5 mg PO DAILY #30 tablet 04/19/16 Temazepam [Restoril -] 15 mg PO HS capsule MDD 1 04/19/16 Polyethylene Glycol 3350 [Miralax (For Bowel Prep) -] 17 gm PO ONCE #1 bottle COPD: No Diabetes: Yes Dialysis: Yes HTN: Yes Liver Disease: Yes Psychiatric Problems: Yes Seizures: Yes - Immunization History Immunization Up to Date: Yes - Suicide/Smoking/Psychosocial Hx Smoking Status: No Smoking History: Never smoked Have you smoked in the past 12 months: No Number of Cigarettes Smoked Daily: 0 Cigars Per Day: 0 Hx Alcohol Use: Yes Drug/Substance Use Hx: Yes Substance Use Type: None Hx Substance Use Treatment: No Review of Systems - Review of Systems Able to Perform ROS?: Yes Comments:: 02/16/17 04:57 CONSTITUTIONAL: Absent: fever, chills, diaphoresis, generalized weakness, malaise, loss of appetite HEENT: Absent: rhinorrhea, nasal congestion, throat pain, throat swelling, difficulty swallowing, mouth swelling, ear pain, eye pain, visual Changes CARDIOVASCULAR: Absent: chest pain, loss of consciousness, palpitations, irregular heart rate, peripheral edema RESPIRATORY: Absent: cough, shortness of breath, dyspnea with exertion, orthopnea, wheezing, stridor, hemoptysis GASTROINTESTINAL: Absent: abdominal pain, abdominal distension, nausea, vomiting, diarrhea, constipation, melena, hematochezia GENITOURINARY: Absent: dysuria, frequency, urgency, hesitancy, hematuria, flank pain, genital pain MUSCULOSKELETAL: Absent: myalgia, arthralgia, joint swelling SKIN: Absent: rash, itching, pallor HEMATOLOGIC/IMMUNOLOGIC: Absent: easy bleeding, easy bruising, lymphadenopathy, frequent infections ENDOCRINE: Absent: unexplained weight gain, unexplained weight loss, heat intolerance, cold intolerance NEUROLOGIC: Absent: headache, focal weakness or paresthesias, dizziness, unsteady gait, seizure, mental status changes, bladder or bowel incontinence PSYCHIATRIC: Absent: anxiety, depression, suicidal or homicidal ideation, hallucinations. Is the patient limited Russian proficient: No *Physical Exam - Vital Signs Last Vital Signs Temp Pulse Resp BP Pulse Ox 97.9 F 94 H 18 149/94 99 02/16/17 02:01 02/16/17 02:01 02/16/17 02:01 02/16/17 02:01 02/16/17 02:01 - Physical Exam Comments: 02/16/17 04:57 GENERAL: Well developed, well nourished. Awake and alert. No acute distress. HEENT: Normocephalic, atraumatic. PERRLA, EOMI. No conjunctival pallor. Sclera are non- icteric. Moist mucous membranes. Oropharynx is clear. NECK: Supple. Full ROM. No JVD. Carotid pulses 2+ and symmetric, without bruits. No thyromegaly. No lymphadenopathy. CARDIOVASCULAR: Regular rate and rhythm. No murmurs, rubs, or gallops. Distal pulses are 2+ and symmetric. PULMONARY: No evidence of respiratory distress. Lungs clear to auscultation bilaterally. No wheezing, rales or rhonchi. ABDOMINAL: Soft. Non-tender. Non-distended. No rebound or guarding. No organomegaly. Normoactive bowel sounds. MUSCULOSKELETAL Normal range of motion at all joints. No bony deformities or tenderness. No CVA tenderness. EXTREMITIES: No cyanosis. No clubbing. No edema. No calf tenderness. SKIN: Warm and dry. Normal capillary refill. No rashes. No jaundice. NEUROLOGICAL: Alert, awake, appropriate. Cranial nerves 2-12 intact. No deficits to light touch and temperature in face, upper extremities and lower extremities. No motor deficits in the in face, upper extremities and lower extremities. Normoreflexic in the upper and lower extremities. Normal speech. Toes are down- going bilaterally. Gait is normal without ataxia. PSYCHIATRIC: Cooperative. Good eye contact. Appropriate mood and affect. ED Treatment Course - LABORATORY CBC & Chemistry Diagram: 02/16/17 03:47 02/16/17 06:31 *DC/Admit/Observation/Transfer Diagnosis at time of Disposition: Hyperglycemia - Discharge Dispostion Disposition: HOME Condition at time of disposition: Stable - Referrals Referrals: Barry Boucher MD [Primary Care Provider] - - Patient Instructions Printed Discharge Instructions: DI for Hyperglycemia -- Adult Additional Instructions: Be sure to follow up with your ssis architect Return to the Er for any concerns Strict monitoring of your blood glucose and coverage with insulin as per your ssis architect - Post Discharge Activity
[2017-02-16 04:03] LABS: BASOPHIL 0.3 % (0-2.0); EOSINOPHIL 1.8 % (0-4.5); MCH 31.5 pg (25.7-33.7); MCHC 34.2 g/dl (32.0-35.9); MEAN CELL VOLUME 92.3 fl (80-96); MEAN PLT VOLUME 8.5 fl (7.5-11.1); NEUTROPHILS 53.6 % (42.8-82.8); PLATELET COUNT 148 K/MM3 (134-434); WHITE BLOOD COUNT 6.1 K/mm3 (4.0-10.0)
[2017-02-16 04:37] LABS: ALBUMIN 3.5 g/dl (3.4-5.0); ANION GAP 7 (8-16); CALCIUM 8.7 mg/dL (8.5-10.1); CO2 27 mmol/L (21-32)
[2017-02-16 04:41] LABS: ALK PHOS 118 U/L (45-117); BILIRUBIN,TOTAL 0.4 mg/dL (0.2-1.0); CREATININE 1.4 mg/dL (0.7-1.3); SGOT/AST 14 U/L (15-37); SGPT/ALT 29 U/L (12-78); TOT PROT 7.2 g/dl (6.4-8.2)
[2017-02-16 04:42] LABS: GLUCOSE,RANDOM 341 mg/dL (74-106)
[2017-02-16] MEDS ORDERED: HEMOQUE CONTROL SOLUTION ONE (05:44)
[2017-02-16 07:22] LABS: ALBUMIN 3.5 g/dl (3.4-5.0); ALK PHOS 112 U/L (45-117); ANION GAP 7 (8-16); BILIRUBIN,TOTAL 0.5 mg/dL (0.2-1.0); CALCIUM 8.1 mg/dL (8.5-10.1); CO2 25 mmol/L (21-32); CREATININE 1.1 mg/dL (0.7-1.3); GLUCOSE,RANDOM 255 mg/dL (74-106); SGPT/ALT 29 U/L (12-78); TOT PROT 7.1 g/dl (6.4-8.2)
[2017-02-16 07:30] LABS: SGOT/AST 16 U/L (15-37)
--- NOTE | 2017-02-16 08:02 | PDOC ---
*Physical Exam - Vital Signs Last Vital Signs Temp Pulse Resp BP Pulse Ox 97.9 F 94 H 18 149/94 99 02/16/17 02:01 02/16/17 02:01 02/16/17 02:01 02/16/17 02:01 02/16/17 02:01 - Physical Exam General Appearance: Yes: Appropriately Dressed. No: Apparent Distress Respiratory/Chest: positive: Lungs Clear, Normal Breath Sounds. negative: Respiratory Distress, Accessory Muscle Use Cardiovascular: positive: Regular Rhythm, Regular Rate Gastrointestinal/Abdominal: positive: Normal Bowel Sounds, Soft. negative: Tender Extremity: positive: Normal Capillary Refill, Normal Inspection Integumentary: positive: Normal Color, Dry Neurologic: positive: Alert, Normal Mood/Affect ED Treatment Course - LABORATORY CBC & Chemistry Diagram: 02/16/17 03:47 02/16/17 06:31 - ADDITIONAL ORDERS Additional order review: Laboratory Results 02/16/17 02/16/17 06:31 03:47 Sodium 138 135 L Potassium 3.9 3.9 Chloride 106 101 Carbon Dioxide 25 27 Anion Gap 7 L 7 L BUN 17 20 H D Creatinine 1.1 D 1.4 H D Creat Clearance w eGFR > 60 51.52 Random Glucose 255 H D 341 H* D Calcium 8.1 L 8.7 Total Bilirubin 0.5 D 0.4 D AST 16 14 L D ALT 29 29 D Alkaline Phosphatase 112 118 H Total Protein 7.1 7.2 Albumin 3.5 3.5 02/16/17 03:47 RBC 4.07 MCV 92.3 MCHC 34.2 RDW 13.0 MPV 8.5 Neutrophils % 53.6 Lymphocytes % 32.8 Monocytes % 11.5 H Eosinophils % 1.8 Basophils % 0.3 - Medications Given in the ED: ED Medications Discontinued Medications Generic Name Dose Route Start Last Admin Trade Name Freq PRN Reason Stop Dose Admin Sodium Chloride 1,000 mls @ 1,000 mls/hr 02/16/17 03:13 02/16/17 03:45 Normal Saline - IV 02/16/17 04:12 1,000 mls/hr ASDIR STA Administration Medical Decision Making - Medical Decision Making 02/16/17 08:04 I have received report from [Cely ARCHULETA] regarding this patient. Pt's initial chief complaint: [Hyperglycemia] Pt's work up completed prior to sign out: [ CMP, CBC] Pt treatment given from prior staff: [IV fluids, repeat CMP ] Pt plan to be completed: [Patient is insulin-dependent, complaining, repeat CMP showed blood sugar of 255 will DC patient home to follow up with endocrine strict monitoring of blood glucose] *DC/Admit/Observation/Transfer Diagnosis at time of Disposition: Hyperglycemia - Discharge Dispostion Disposition: HOME Condition at time of disposition: Stable Admit: No - Referrals Referrals: Barry Boucher MD [Primary Care Provider] - - Patient Instructions Printed Discharge Instructions: DI for Hyperglycemia -- Adult Additional Instructions: Be sure to follow up with your senior planner Return to the Er for any concerns Strict monitoring of your blood glucose and coverage with insulin as per your senior planner - Post Discharge Activity
[2017-02-16 08:15] VITALS: BP 135/80; PULSE 82; TEMP 98.3
== END 2017-02-16 08:15 | disposition home or self-care (01) ==
LOC: JER 01:39
PROC: 3E0337Z Introduction of Electrolytic and Water Balance Substance into Peripheral Vein, Percutaneous Approach (ICD-10-PCS; principal; 2017-02-16)
DX: E10.65 Type 1 diabetes mellitus with hyperglycemia (principal); Z79.4 Long term (current) use of insulin; Z79.84 Long term (current) use of oral hypoglycemic drugs; I12.0 Hypertensive chronic kidney disease with stage 5 chronic kidney disease or end stage renal disease; E10.22 Type 1 diabetes mellitus with diabetic chronic kidney disease; N18.6 End stage renal disease; N17.8 Other acute kidney failure; Z99.2 Dependence on renal dialysis; E78.5 Hyperlipidemia, unspecified
CPT/HCPCS: 36415; 80053; 85025; 96360; 99282-25

== ENCOUNTER 2017-05-15 10:47 | Inpatient (IN) | payer OTHER ==
--- NOTE | 2017-05-15 10:54 | PDOC ---
History of Present Illness - General Stated Complaint: SUGAR PROBLEM Time Seen by Provider: 05/15/17 10:54 - History of Present Illness Initial Comments: 05/15/17 10:55 Mr. Madera is a 61 yo male w/ pmh of HTN, DM, and alcohol abuse BIBA with altered speech. Family reports they called EMS as over the last month he has been experiencing increased falls, generalized weakness, dysarthric speech and had an episode of incontinence last night where he couldn't make it to the bathroom. He has not wanted to go to the doctor but as he is by himself during the day family is worried about him and his care. The patient denies chest pain, shortness of breath, headache and dizziness. Denies fever, chills, nausea, vomit, diarrhea and constipation. Denies dysuria, frequency, urgency and hematuria. Allergies: NKDA Past History - Past Medical History Allergies/Adverse Reactions: Allergies Allergy/AdvReac Type Severity Reaction Status Date / Time No Known Allergies Allergy Verified 02/16/17 02:04 Home Medications: Ambulatory Orders Empagliflozin [Jardiance] 25 mg PO DAILY 02/06/16 Nifedipine [Adalat cc] 60 mg PO DAILY 02/06/16 Gabapentin [Neurontin -] 100 mg PO TID #90 capsule 04/19/16 Insulin (Levemir) [Levemir Vial] 35 units SQ AM ml 04/19/16 Lisinopril [Prinivil] 5 mg PO DAILY #30 tablet 04/19/16 COPD: No Diabetes: Yes Dialysis: Yes HTN: Yes Liver Disease: Yes Psychiatric Problems: Yes Seizures: Yes - Immunization History Immunization Up to Date: Yes - Suicide/Smoking/Psychosocial Hx Smoking Status: No Smoking History: Never smoked Have you smoked in the past 12 months: No Number of Cigarettes Smoked Daily: 0 Cigars Per Day: 0 Hx Alcohol Use: Yes Drug/Substance Use Hx: Yes Substance Use Type: None Hx Substance Use Treatment: No Review of Systems - Review of Systems Comments:: 05/15/17 11:17 GENERAL/CONSTITUTIONAL: No fever or chills. No weakness. HEAD, EYES, EARS, NOSE AND THROAT: No change in vision. No ear pain or discharge. No sore throat. CARDIOVASCULAR: No chest pain or shortness of breath RESPIRATORY: No cough, wheezing, or hemoptysis. GASTROINTESTINAL: No nausea, vomiting, diarrhea or constipation. GENITOURINARY: No dysuria, frequency, or change in urination. MUSCULOSKELETAL: No joint or muscle swelling or pain. No neck or back pain. SKIN: No rash NEUROLOGIC: No headache, vertigo, loss of consciousness, or change in strength/ sensation. ENDOCRINE: No increased thirst. No abnormal weight change HEMATOLOGIC/LYMPHATIC: No anemia, easy bleeding, or history of blood clots. ALLERGIC/IMMUNOLOGIC: No hives or skin allergy. *Physical Exam - Physical Exam Comments: 05/15/17 11:17 GENERAL: Awake, alert, and fully oriented, in no acute distress HEAD: No signs of trauma, normocephalic, atraumatic EYES: PERRLA, EOMI, sclera anicteric, conjunctiva clear ENT: Auricles normal inspection, hearing grossly normal, nares patent, oropharynx clear without exudates. Moist mucosa NECK: Normal ROM, supple, no lymphadenopathy, JVD, or masses LUNGS: No distress, speaks full sentences, clear to auscultation bilaterally HEART: Regular rate and rhythm, normal S1 and S2, no murmurs, rubs or gallops, peripheral pulses normal and equal bilaterally. ABDOMEN: +Abdomen generally painful to palpation. normoactive bowel sounds. No guarding, no rebound. No masses EXTREMITIES: Normal inspection, Normal range of motion, no edema. No clubbing or cyanosis. NEUROLOGICAL: Cranial nerves II through XII grossly intact. Normal speech, normal gait, no focal sensorimotor deficits SKIN: Warm, Dry, normal turgor, no rashes or lesions noted. 05/15/17 16:22 ED Treatment Course - LABORATORY CBC & Chemistry Diagram: 05/15/17 12:15 05/15/17 12:15 Medical Decision Making - Medical Decision Making 05/15/17 16:35 Mr. Madera is a 61 yo male w/ pmh as described who presents for increasing slurred speech, weakness, and falls over the past month. UA positive for UTI; CT abdomen ordered to evaluate abdominal pain and positive for urinary retention and bilateral hydronephrosis. Will admit for observation for further care/workup. 05/15/17 17:09 1gm rocephin given to patient for treatment with placement of baumann catheter. *DC/Admit/Observation/Transfer Diagnosis at time of Disposition: Hyperglycemia, Urinary retention UTI (urinary tract infection) Qualifiers: Urinary tract infection type: site unspecified Hematuria presence: without hematuria Qualified Code(s): N39.0 - Urinary tract infection, site not specified - Discharge Dispostion Admit: Yes - Referrals Referrals: Barry Bouchre MD [Primary Care Provider] - - Patient Instructions - Post Discharge Activity
--- NOTE | 2017-05-15 10:58 | PDOC ---
Attending Attestation - [facility] HPI: 05/15/17 11:28 The patient is a 61 year old male with a significant PMH of HTN, diabetes, seizures, alcohol abuse who presents to the emergency department via EMS with 1 month of worsening speech and other progressively worsening symptoms over the past month. The family reports the patient has been falling more frequently, has been generally weak with altered speech, and had an episode of urinary incontinence yesterday night and couldnt reach the bathroom. The family reports the patient has been reluctant to go the doctor or ED and the family is worried about their ability to properly care for him. Allergies: NKA - Physicial Exam PE: 05/15/17 11:28 Vitals: Triage Vital signs reviewed General Appearance: no acute distress, well nourished well developed, Head: Atraumatic, normocephalic Cardiac: Regular rate and rhythm, no murmurs, no rubs, no gallops, Lungs: Clear to auscultation bilateral, good air movement bilaterally, Abdomen: (+) Diffuse tenderness to palpation. (+) Tympanitic abdomen. (+) Slightly distended. Rectal: Exam deferred Extremities: Full range of motion to all extremities, no cyanosis, clubbing, or edema Neuro: AOX3; Cranial Nerves 2-12 grossly intact, Strength intact to all extremities, Sensation intact to all extremities Psych: normal mood, normal affect <Abdi Sosa - Last Filed: 05/15/17 11:59> - Resident Resident Name: Luis Enrique Kim - ED Attending Attestation I have performed the following: I have examined & evaluated the patient, The case was reviewed & discussed with the resident, I agree w/resident's findings & plan, Exceptions are as noted - HPI HPI: 05/15/17 11:57 61-year-old gentleman past medical history significant for hypertension diabetes seizure alcohol abuse CVA in the past sent into the emergency department by family for increased falls at home week and last night he was unable to make it to the bathroom was incontinent home. Lives in the upstairs area of an apartment with who is unable to care appropriate for the patient sentences emergency department by daughters. Here in the emergency department patient with a nonfocal neurologic examination his speech does appear slurred blood per the family conversation on the phone this appears to be his baseline. His examination is otherwise nonfocal except for somewhat diffuse abdominal tenderness we will check labs EKG head CT abdominal CT observe reassess - Medical Decision Making 05/15/17 15:12 61 years old with past medical history significant for hypertension diabetes seizures alcohol abuse presents to the ED with several week history of increasing falls at home incontinence worsening speech It appears that family is unable to care for patient adequately His lab work is grossly unremarkable he had some tenderness on his abdominal examination a CAT scan of his abdomen is pending Dr. Magallanes to follow up CAT scan plan is to admit <Suleiman Majano - Last Filed: 05/15/17 15:12>
[2017-05-15] MEDS ORDERED: SODIUM CHLORIDE 1,000 ML IV STA (11:07)
[2017-05-15 12:29] LABS: BASO % 0.4 % (0-2.0); EOS % 2.2 % (0-4.5); HEMATOCRIT 37.7 % (35.4-49); HEMOGLOBIN 12.4 GM/dL (11.7-16.9); LYMPH % 27.3 % (8-40); MCH 30.6 pg (25.7-33.7); MCHC 32.8 g/dl (32.0-35.9); MEAN CELL VOLUME 93.2 fl (80-96); MEAN PLT VOLUME 8.5 fl (7.5-11.1); NEUT % 59.1 % (42.8-82.8); PLATELET COUNT 160 K/MM3 (134-434); RBC 4.05 M/mm3 (4.00-5.60); RDW 13.9 % (11.9-15.9); WHITE BLOOD COUNT 5.4 K/mm3 (4.0-10.0)
[2017-05-15 12:52] LABS: ALBUMIN 3.8 g/dl (3.4-5.0); ANION GAP 7 (8-16); BLOOD UREA NITROGEN 21 mg/dL (7-18); CALCIUM 8.3 mg/dL (8.5-10.1); CHLORIDE 103 mmol/L (98-107); CO2 25 mmol/L (21-32); CREATININE 1.5 mg/dL (0.7-1.3); POTASSIUM 5.6 mmol/L (3.5-5.1); SGOT/AST 21 U/L (15-37); SGPT/ALT 24 U/L (12-78); SODIUM 135 mmol/L (136-145)
[2017-05-15 12:54] LABS: ALK PHOS 155 U/L (45-117); BILIRUBIN,TOTAL 0.4 mg/dL (0.2-1.0); TOT PROT 7.3 g/dl (6.4-8.2)
[2017-05-15 12:57] LABS: URINE APPEARANCE CLEAR; URINE BILIRUBIN NEGATIVE (NEGATIVE); URINE BLOOD NEGATIVE (NEGATIVE); URINE COLOR STRAW; URINE GLUCOSE (UA) 3+ (NEGATIVE); URINE KETONE NEGATIVE (NEGATIVE); URINE NITRITE NEGATIVE (NEGATIVE); URINE PROTEIN NEGATIVE (NEGATIVE); URINE UROBILINOGEN NEGATIVE mg/dL (0.2-1.0)
[2017-05-15 12:58] LABS: URINE LEUK ESTERASE 2+ (NEGATIVE)
[2017-05-15 13:00] LABS: EPI CELLS RARE /HPF (FEW); URINE BACTERIA RARE /hpf (NONE SEEN); URINE MUCUS RARE
[2017-05-15 13:06] LABS: GLUCOSE,RANDOM 409 mg/dL (74-106)
[2017-05-15] MEDS ORDERED: INSULIN REGULAR HUMAN 100 UNITS/ML *VIAL IVPUSH ONE (15:02)
[2017-05-15] MEDS ORDERED: INSULIN REGULAR HUMAN 100 UNITS/ML *VIAL ONE (16:22)
[2017-05-15] MEDS ORDERED: CEFTRIAXONE 1 GM in DEXTROSE 5%-WATER - 100 ML IVPB ONE (16:28)
[2017-05-15] MEDS ORDERED: CEFTRIAXONE 1 GM/50 ML BAG ONE (16:37)
--- NOTE | 2017-05-15 19:01 | HP ---
Admitting History and Physical - Primary Care Physician PCP: Binh Smith - Admission Chief Complaint: back pain, incontinence History of Present Illness: HPI The patient is a 61 year old male with a significant PMH of HTN, HLD, DM II, seizures, hx of alcohol abuse. Per eval in ED, pt states he came to the ED with R lower back pain and incontinence. Per ED report the patient has been progressively weak in the past month with increased falls. The patient does endorse he doesn't like the hospital. Today, he complains of lower L back pain. He accepts baumann insertion. Denies nausea, vomiting, fever, chills, cp, sob. History Source: Patient, Medical Record Limitations to Obtaining History: No Limitations - Past Medical History Cardiovascular: Yes: HTN Psych: Yes: Addictions Endocrine: Yes: Diabetes Mellitus - Smoking History Smoking history: Never smoked Have you smoked in the past 12 months: No Aproximately how many cigarettes per day: 0 - Alcohol/Substance Use Hx Alcohol Use: Yes Home Medications - Allergies Allergies/Adverse Reactions: Allergies Allergy/AdvReac Type Severity Reaction Status Date / Time No Known Allergies Allergy Verified 02/16/17 02:04 - Home Medications Home Medications: Ambulatory Orders Empagliflozin [Jardiance] 25 mg PO DAILY 02/06/16 Nifedipine [Adalat cc] 60 mg PO DAILY 02/06/16 Gabapentin [Neurontin -] 100 mg PO TID #90 capsule 04/19/16 Insulin (Levemir) [Levemir Vial] 35 units SQ AM ml 04/19/16 Lisinopril [Prinivil] 5 mg PO DAILY #30 tablet 04/19/16 Review of Systems - Review of Systems Constitutional: reports: Weakness Eyes: reports: No Symptoms HENT: reports: No Symptoms Neck: reports: No Symptoms Cardiovascular: reports: No Symptoms Respiratory: reports: No Symptoms Gastrointestinal: reports: No Symptoms Genitourinary: reports: Incontinence Musculoskeletal: reports: Back Pain Integumentary: reports: No Symptoms Neurological: reports: No Symptoms Endocrine: reports: No Symptoms Hematology/Lymphatic: reports: No Symptoms Psychiatric: reports: No Symptoms Physical Examination Vital Signs: Vital Signs Temperature 98.2 F 05/15/17 10:58 Pulse Rate 114 H 05/15/17 10:58 Respiratory Rate 17 05/15/17 10:58 Blood Pressure 143/95 05/15/17 10:58 O2 Sat by Pulse Oximetry (%) 100 05/15/17 10:58 Constitutional: Yes: Calm Eyes: Yes: Conjunctiva Clear HENT: Yes: Atraumatic Neck: Yes: Supple, Trachea Midline Cardiovascular: Yes: Regular Rate and Rhythm, S1, S2 Respiratory: Yes: Regular, CTA Bilaterally Gastrointestinal: Yes: Normal Bowel Sounds, Soft, Distention (mild) Renal/: Yes: Other (no flank tenderness) Musculoskeletal: Yes: Back Pain Extremities: Yes: WNL Edema: Yes Edema: LLE: 2+, RLE: 2+ Neurological: Yes: Alert, Oriented Labs: CBC, BMP 05/15/17 12:15 05/15/17 12:15 Imaging - Results Cat Scan: Report Reviewed (CT head no acute pathology CTAP: b/l hydro and urinary retention (800cc) mild prostate enlargement) Problem List - Problems (1) Hyperglycemia Code(s): R73.9 - HYPERGLYCEMIA, UNSPECIFIED (2) UTI (urinary tract infection) Code(s): N39.0 - URINARY TRACT INFECTION, SITE NOT SPECIFIED Qualifiers: Urinary tract infection type: site unspecified Hematuria presence: without hematuria Qualified Code(s): N39.0 - Urinary tract infection, site not specified (3) Urinary retention Code(s): R33.9 - RETENTION OF URINE, UNSPECIFIED (4) TERRI (acute kidney injury) Code(s): N17.9 - ACUTE KIDNEY FAILURE, UNSPECIFIED (5) Alcoholic liver disease Code(s): K70.9 - ALCOHOLIC LIVER DISEASE, UNSPECIFIED Assessment/Plan Assessment: 61 year old male admitted with increased weakness, falls, incontinence Plan: 1. UTI - Obtain urine cx - Ceftriaxone x1, to continue daily 2. Urinary retention - Place baumann 3. Bilateral hydro - Urology eval (defer to Primary for consult placement) - Consider flomax for enlarged prostate 4. Hyperglycemia - Repeat BMP now - Received 1 liter fluids in ED - Insulin 5 units - UA negative for ketones 5. Hyperkalemia - Repeat BMP now 6. TERRI - Likely post renal due to above - Continue fluids 7. Weakness/unsteady gait - dietary worker to assign VNS 8. HTN - Nifedipine - Lisinopril 9. DM II - Levemir 35units in aM - ISS, BGM ACHS 10. DVT - heparin sq Visit type - Emergency Visit Emergency Visit: Yes ED Registration Date: 05/15/17 Care time: The patient presented to the Emergency Department on the above date and was hospitalized for further evaluation of their emergent condition. - New Patient This patient is new to me today: Yes Date on this admission: 05/15/17 - Critical Care Critical Care patient: No Hospitalist Screening - Colonoscopy Questionnaire Colonoscopy Questionnaire: Colonoscopy Questionnaire - Patient: 50 - 75 years old and never had a screening colonoscopy: Unknown History of colon or rectal polyps, or CA: Unknown History of IBD, Crohn's disease or UC: Unknown History of abdominal radiation therapy as a child: Unknown - Relative: 1 with colon or rectal CA, or polyps at age 60 or younger: Unknown Colon or rectal CA diagnosed at age 45 or younger: Unknown Multiple relatives with colon or rectal CA: Unknown - Outcome: Screening Result: Negative Screen
[2017-05-15] MEDS ORDERED: ACETAMINOPHEN 325 MG TABLET (FP) PO PRN (19:07)
[2017-05-15 20:33] LABS: ANION GAP 5 (8-16); BLOOD UREA NITROGEN 18 mg/dL (7-18); CALCIUM 8.4 mg/dL (8.5-10.1); CHLORIDE 101 mmol/L (98-107); CO2 29 mmol/L (21-32); CREATININE 1.5 mg/dL (0.7-1.3); POTASSIUM 5.3 mmol/L (3.5-5.1); SODIUM 135 mmol/L (136-145)
[2017-05-15 20:36] LABS: GLUCOSE,RANDOM 341 mg/dL (74-106)
[2017-05-15] MEDS ORDERED: INSULIN (NOVOLOG) ASPART 100 UNITS/ML 10ML VIAL ONE (20:44)
[2017-05-15] MEDS: INSULIN SLIDING SCALE (NOVOLOG) 1 VIAL SQ SCH (21:00)
[2017-05-15] MEDS ORDERED: LISINOPRIL 5 MG TABLET (FP) PO ONE (21:15)
[2017-05-15] MEDS: SODIUM CHLORIDE 1,000 ML IV SCH (22:02)
[2017-05-15] MEDS: GABAPENTIN 100 MG CAPSULE (FP) PO SCH (22:02)
[2017-05-15] MEDS: INSULIN DETEMIR 100 UNITS/ML MDV SQ SCH (22:03)
[2017-05-15] MEDS: QUEtiapine FUMARATE 200 MG TABLET PO SCH (23:09)
[2017-05-16 00:14] VITALS: BMI 28.0
[2017-05-16] MEDS: HEPARIN NA (PORCINE) 5,000 UNITS/ML 1ML VIAL SQ SCH ×3 (06:33→21:44)
[2017-05-16] MEDS: GABAPENTIN 100 MG CAPSULE (FP) PO SCH ×3 (06:33→21:44)
[2017-05-16] MEDS: INSULIN DETEMIR 100 UNITS/ML MDV SQ SCH ×2 (06:34→21:43)
[2017-05-16] MEDS: INSULIN SLIDING SCALE (NOVOLOG) 1 VIAL SQ SCH ×4 (06:34→21:45)
[2017-05-16] MEDS ORDERED: INSULIN (NOVOLOG) ASPART 100 UNITS/ML 10ML VIAL ONE ×2 (06:49→21:02)
[2017-05-16] MEDS: CEFTRIAXONE 1 G/50 ML PREMIX 50 ML IVPB SCH (09:22)
[2017-05-16] MEDS: NIFEdipine E.R 60 MG TABLET (UD) PO SCH (09:22)
[2017-05-16] MEDS ORDERED: LISINOPRIL 5 MG TABLET (FP) PO SCH (10:00)
[2017-05-16] MEDS ORDERED: PATIENT'S OWN MEDICATION (NON-FORMULARY) (Empagliflozin [Jardiance] 25 MG) PO SCH (10:00)
[2017-05-16 10:42] LABS: BASO % 0.3 % (0-2.0); EOS % 2.1 % (0-4.5); HEMATOCRIT 38.6 % (35.4-49); HEMOGLOBIN 12.7 GM/dL (11.7-16.9); LYMPH % 26.2 % (8-40); MCH 30.9 pg (25.7-33.7); MEAN CELL VOLUME 93.6 fl (80-96); MEAN PLT VOLUME 8.5 fl (7.5-11.1); MONO % 11.3 % (3.8-10.2); NEUT % 60.1 % (42.8-82.8); PLATELET COUNT 161 K/MM3 (134-434); RBC 4.12 M/mm3 (4.00-5.60); RDW 13.4 % (11.9-15.9); WHITE BLOOD COUNT 6.5 K/mm3 (4.0-10.0)
[2017-05-16 11:08] LABS: CHLORIDE 99 mmol/L (98-107); SODIUM 135 mmol/L (136-145)
[2017-05-16 11:16] LABS: ALBUMIN 3.4 g/dl (3.4-5.0); ALK PHOS 128 U/L (45-117); ANION GAP 11 (8-16); BILIRUBIN,TOTAL 0.5 mg/dL (0.2-1.0); BLOOD UREA NITROGEN 17 mg/dL (7-18); CO2 25 mmol/L (21-32); CREATININE 1.2 mg/dL (0.7-1.3); GLUCOSE,RANDOM 262 mg/dL (74-106); SGOT/AST 21 U/L (15-37); SGPT/ALT 27 U/L (12-78); TOT PROT 7.1 g/dl (6.4-8.2)
--- NOTE | 2017-05-16 11:47 | PN ---
Progress Note, Physician Chief Complaint: admitted for urinary incontinence and unsteady gait - Current Medication List Current Medications: Active Medications Acetaminophen (Tylenol -) 650 mg PO Q4H PRN PRN Reason: PAIN LEVEL 1-5 Gabapentin (Neurontin -) 100 mg PO TID [facility] Last Admin: 05/16/17 06:33 Dose: 100 mg Heparin Sodium (Porcine) (Heparin -) 5,000 unit SQ TID [facility] Last Admin: 05/16/17 06:33 Dose: 5,000 unit CEFTRIAXONE 1 G/50 ML PREMIX (Ceftriaxone 1 Gm-D5w Bag) 50 mls @ 100 mls/hr IVPB DAILY [facility] Last Admin: 05/16/17 09:22 Dose: 100 mls/hr Sodium Chloride (Normal Saline -) 1,000 mls @ 83 mls/hr IV ASDIR [facility] Last Admin: 05/15/17 22:02 Dose: 83 mls/hr Insulin Aspart (Novolog Vial Sliding Scale -) 1 vial SQ ACHS [facility] PRN Reason: Protocol Last Admin: 05/16/17 11:21 Dose: 6 unit Insulin Detemir (Levemir Vial) 35 units SQ AM [facility] Last Admin: 05/16/17 06:34 Dose: 35 unit Insulin Detemir (Levemir Vial) 10 units SQ HS [facility] Last Admin: 05/15/17 22:03 Dose: 10 unit Lisinopril (Prinivil) 5 mg PO DAILY [facility] Last Admin: 05/16/17 09:22 Dose: 5 mg Nifedipine (Procardia Xl -) 60 mg PO DAILY [facility] Last Admin: 05/16/17 09:22 Dose: 60 mg Non-Formulary Medication (Empagliflozin [Jardiance]) 25 mg PO DAILY [facility] Quetiapine Fumarate (Seroquel -) 200 mg PO HS [facility] Last Admin: 05/15/17 23:09 Dose: 200 mg - Objective Vital Signs: Vital Signs Temperature 98.4 F 05/16/17 09:00 Pulse Rate 94 H 05/16/17 09:00 Respiratory Rate 18 05/16/17 09:00 Blood Pressure 151/97 05/16/17 09:00 O2 Sat by Pulse Oximetry (%) 94 L 05/16/17 09:00 Constitutional: Yes: Calm Neck: Yes: Trachea Midline Cardiovascular: Yes: Regular Rate and Rhythm, S1, S2 Respiratory: Yes: CTA Bilaterally Gastrointestinal: Yes: Normal Bowel Sounds, Soft Genitourinary: Yes: Baumann Present Edema: Yes Neurological: Yes: Alert, Oriented Labs: CBC, BMP 05/16/17 10:17 Problem List - Problems (1) Hyperglycemia Assessment/Plan: levemir bid januvia bgm sliding scale [id number] Code(s): R73.9 - HYPERGLYCEMIA, UNSPECIFIED (2) UTI (urinary tract infection) Assessment/Plan: iv abx Code(s): N39.0 - URINARY TRACT INFECTION, SITE NOT SPECIFIED Qualifiers: Urinary tract infection type: site unspecified Hematuria presence: without hematuria Qualified Code(s): N39.0 - Urinary tract infection, site not specified (3) Urinary retention Assessment/Plan: baumann placed urology evaluation repeat bmp pending trial of flomax Code(s): R33.9 - RETENTION OF URINE, UNSPECIFIED (4) Hypertension Assessment/Plan: lisinopril dose increase to 10mg porcardia Code(s): I10 - ESSENTIAL (PRIMARY) HYPERTENSION Qualifiers: (5) Weakness Assessment/Plan: PT evaluation Code(s): R53.1 - WEAKNESS
[2017-05-16] MEDS: SODIUM CHLORIDE 1,000 ML IV SCH ×2 (13:20→13:21)
[2017-05-16] MEDS ORDERED: PT OWN MED DRAWER 7, Y5N ONE (21:02)
[2017-05-16] MEDS: QUEtiapine FUMARATE 200 MG TABLET PO SCH (21:44)
[2017-05-17] MEDS: SODIUM CHLORIDE 1,000 ML IV SCH ×2 (01:07→08:47)
[2017-05-17] MEDS: sitaGLIPtin PHOSPHATE 50 MG TABLET PO SCH (06:07)
[2017-05-17] MEDS: HEPARIN NA (PORCINE) 5,000 UNITS/ML 1ML VIAL SQ SCH ×3 (06:07→21:15)
[2017-05-17] MEDS: GABAPENTIN 100 MG CAPSULE (FP) PO SCH ×3 (06:07→21:14)
[2017-05-17] MEDS: INSULIN DETEMIR 100 UNITS/ML MDV SQ SCH ×2 (06:16→21:15)
[2017-05-17] MEDS: INSULIN SLIDING SCALE (NOVOLOG) 1 VIAL SQ SCH ×4 (06:17→21:15)
[2017-05-17] MEDS ORDERED: INSULIN (NOVOLOG) ASPART 100 UNITS/ML 10ML VIAL ONE (06:25)
[2017-05-17 08:25] LABS: CHOLESTEROL 184 mg/dL (50-200); HDL CHOLESTEROL 42 mg/dL (40-60); LDL CHOLESTEROL (ONLY SJRH) 92 mg/dL (5-100); TRIGLYCERIDES 277 mg/dL (35-160)
[2017-05-17] MEDS: CEFTRIAXONE 1 G/50 ML PREMIX 50 ML IVPB SCH (09:09)
[2017-05-17] MEDS: NIFEdipine E.R 60 MG TABLET (UD) PO SCH (09:10)
[2017-05-17] MEDS: LISINOPRIL 10 MG TABLET (FP) PO SCH (09:10)
--- NOTE | 2017-05-17 10:08 | PN ---
Progress Note, Physician Chief Complaint: urinary retention - Current Medication List Current Medications: Active Medications Acetaminophen (Tylenol -) 650 mg PO Q4H PRN PRN Reason: PAIN LEVEL 1-5 Gabapentin (Neurontin -) 100 mg PO TID [facility] Last Admin: 05/17/17 06:07 Dose: 100 mg Heparin Sodium (Porcine) (Heparin -) 5,000 unit SQ TID [facility] Last Admin: 05/17/17 06:07 Dose: 5,000 unit CEFTRIAXONE 1 G/50 ML PREMIX (Ceftriaxone 1 Gm-D5w Bag) 50 mls @ 100 mls/hr IVPB DAILY [facility] Last Admin: 05/17/17 09:09 Dose: 100 mls/hr Sodium Chloride (Normal Saline -) 1,000 mls @ 83 mls/hr IV ASDIR [facility] Last Admin: 05/17/17 08:47 Dose: 83 mls/hr Insulin Aspart (Novolog Vial Sliding Scale -) 1 vial SQ ACHS [facility] PRN Reason: Protocol Last Admin: 05/17/17 06:17 Dose: 2 unit Insulin Detemir (Levemir Vial) 35 units SQ AM [facility] Last Admin: 05/17/17 06:16 Dose: 35 unit Insulin Detemir (Levemir Vial) 10 units SQ HS [facility] Last Admin: 05/16/17 21:43 Dose: 10 unit Lisinopril (Prinivil) 10 mg PO DAILY [facility] Last Admin: 05/17/17 09:10 Dose: 10 mg Nifedipine (Procardia Xl -) 60 mg PO DAILY [facility] Last Admin: 05/17/17 09:10 Dose: 60 mg Quetiapine Fumarate (Seroquel -) 200 mg PO HS [facility] Last Admin: 05/16/17 21:44 Dose: 200 mg Sitagliptin Phosphate (Januvia -) 50 mg PO DAILY@0700 [facility] Last Admin: 05/17/17 06:07 Dose: 50 mg - Objective Vital Signs: Vital Signs Temperature 97.8 F 05/17/17 08:53 Pulse Rate 90 05/17/17 08:53 Respiratory Rate 18 05/17/17 08:53 Blood Pressure 118/71 05/17/17 08:53 O2 Sat by Pulse Oximetry (%) 99 05/16/17 21:00 Constitutional: Yes: Well Nourished, No Distress, Calm Eyes: Yes: WNL, Conjunctiva Clear HENT: Yes: WNL, Atraumatic Neck: Yes: WNL, Supple, Trachea Midline Cardiovascular: Yes: WNL, Regular Rate and Rhythm Respiratory: Yes: WNL, Regular, CTA Bilaterally Gastrointestinal: Yes: WNL, Normal Bowel Sounds, Soft ...Rectal Exam: Yes: Deferred Edema: Yes Edema: LLE: Trace, RLE: Trace Peripheral Pulses WNL: Yes Integumentary: Yes: WNL Wound/Incision: Yes: Clean/Dry, Well Approximated Neurological: Yes: WNL, Alert, Oriented ...Motor Strength: WNL Psychiatric: Yes: WNL, Alert, Oriented Labs: CBC, BMP 05/16/17 10:17 05/16/17 10:17 Problem List - Problems (1) Hyperglycemia Assessment/Plan: c/w sitaglipitn c/w insulin sliding scale DMII diet Code(s): R73.9 - HYPERGLYCEMIA, UNSPECIFIED (2) UTI (urinary tract infection) Assessment/Plan: patient with BPH and acute urinary retention with TERRI c/w ceftriaxone 1 g for complicated cyctitis x 7 days Code(s): N39.0 - URINARY TRACT INFECTION, SITE NOT SPECIFIED Qualifiers: Urinary tract infection type: site unspecified Hematuria presence: without hematuria Qualified Code(s): N39.0 - Urinary tract infection, site not specified (3) TERRI (acute kidney injury) Assessment/Plan: TERRI post-renal obstruction s/p baumann catheter placement f/u with urology c/w antibiotivs for 7 days due to complicated UTI Code(s): N17.9 - ACUTE KIDNEY FAILURE, UNSPECIFIED (4) Alcohol dependence with uncomplicated withdrawal Assessment/Plan: no signs of withdrawal noted on the patient lorazepam 2mg IVP prn for agitation Code(s): F10.230 - ALCOHOL DEPENDENCE WITH WITHDRAWAL, UNCOMPLICATED (5) Hypertension Assessment/Plan: c/w nifedipine will hold lisinopril in the setting of TERRI will restart it when the patient is back to normal levels Code(s): I10 - ESSENTIAL (PRIMARY) HYPERTENSION Qualifiers: (6) Seizure disorder Assessment/Plan: possible 2/2 to alcohol withdrawal will have IVP lorazepam 2mg PRN Code(s): G40.909 - EPILEPSY, UNSP, NOT INTRACTABLE, WITHOUT STATUS EPILEPTICUS (7) Urinary retention due to benign prostatic hyperplasia Assessment/Plan: s/p baumann cath f/u with urology c/w monitoring creatinine level Code(s): N28.89 - OTHER SPECIFIED DISORDERS OF KIDNEY AND URETER; R33.8 - OTHER RETENTION OF URINE
[2017-05-17] MEDS ORDERED: PT OWN MED DRAWER 7, Y5N ONE (20:55)
[2017-05-17] MEDS ORDERED: diphenhydrAMINE HCL 25 MG CAPSULE (FP) PO SCH (22:00)
[2017-05-17] MEDS: QUEtiapine FUMARATE 200 MG TABLET PO SCH (22:50)
[2017-05-18] MEDS: sitaGLIPtin PHOSPHATE 50 MG TABLET PO SCH (06:56)
[2017-05-18] MEDS: INSULIN DETEMIR 100 UNITS/ML MDV SQ SCH ×2 (06:56→23:04)
[2017-05-18] MEDS: HEPARIN NA (PORCINE) 5,000 UNITS/ML 1ML VIAL SQ SCH ×3 (06:56→23:03)
[2017-05-18] MEDS: GABAPENTIN 100 MG CAPSULE (FP) PO SCH ×3 (06:56→23:03)
[2017-05-18] MEDS: INSULIN SLIDING SCALE (NOVOLOG) 1 VIAL SQ SCH ×4 (06:56→23:03)
[2017-05-18] MEDS ORDERED: INSULIN (NOVOLOG) ASPART 100 UNITS/ML 10ML VIAL ONE ×2 (07:05→17:26)
[2017-05-18 07:49] LABS: BASO % 0.3 % (0-2.0); EOS % 2.6 % (0-4.5); HEMATOCRIT 36.3 % (35.4-49); LYMPH % 32.6 % (8-40); MCH 30.8 pg (25.7-33.7); MCHC 33.1 g/dl (32.0-35.9); MEAN PLT VOLUME 8.5 fl (7.5-11.1); MONO % 13.6 % (3.8-10.2); NEUT % 50.9 % (42.8-82.8); PLATELET COUNT 171 K/MM3 (134-434); RBC 3.91 M/mm3 (4.00-5.60); RDW 13.3 % (11.9-15.9); WHITE BLOOD COUNT 6.8 K/mm3 (4.0-10.0)
[2017-05-18 08:10] LABS: ALBUMIN 3.4 g/dl (3.4-5.0); ANION GAP 13 (8-16); BLOOD UREA NITROGEN 21 mg/dL (7-18); CALCIUM 8.9 mg/dL (8.5-10.1); CHLORIDE 101 mmol/L (98-107); CO2 23 mmol/L (21-32); CREATININE 1.2 mg/dL (0.7-1.3); GLUCOSE,RANDOM 160 mg/dL (74-106); POTASSIUM 4.4 mmol/L (3.5-5.1); SGOT/AST 28 U/L (15-37); SGPT/ALT 40 U/L (12-78); SODIUM 137 mmol/L (136-145)
[2017-05-18 08:14] LABS: ALK PHOS 129 U/L (45-117); BILIRUBIN,TOTAL 0.6 mg/dL (0.2-1.0); TOT PROT 7.1 g/dl (6.4-8.2)
[2017-05-18] MEDS: NIFEdipine E.R 60 MG TABLET (UD) PO SCH (10:10)
[2017-05-18] MEDS: CEFTRIAXONE 1 G/50 ML PREMIX 50 ML IVPB SCH ×2 (10:10→11:05)
--- NOTE | 2017-05-18 10:45 | PN ---
Progress Note, Physician Chief Complaint: urinary retention - Current Medication List Current Medications: Active Medications Acetaminophen (Tylenol -) 650 mg PO Q4H PRN PRN Reason: PAIN LEVEL 1-5 Diphenhydramine HCl (Benadryl -) 25 mg PO [facility] Last Admin: 05/17/17 22:50 Dose: 25 mg Gabapentin (Neurontin -) 100 mg PO TID [facility] Last Admin: 05/18/17 06:56 Dose: 100 mg Heparin Sodium (Porcine) (Heparin -) 5,000 unit SQ TID [facility] Last Admin: 05/18/17 06:56 Dose: 5,000 unit Insulin Aspart (Novolog Vial Sliding Scale -) 1 vial SQ [facility] PRN Reason: Protocol Last Admin: 05/18/17 06:56 Dose: 2 unit Insulin Detemir (Levemir Vial) 35 units SQ AM [facility] Last Admin: 05/18/17 06:56 Dose: 35 unit Insulin Detemir (Levemir Vial) 10 units SQ HS [facility] Last Admin: 05/17/17 21:15 Dose: 10 unit Lisinopril (Prinivil) 10 mg PO DAILY [facility] Last Admin: 05/17/17 09:10 Dose: 10 mg Lorazepam (Ativan Injection -) 2 mg IVPUSH Q6H PRN PRN Reason: AGITATION Nifedipine (Procardia Xl -) 60 mg PO DAILY [facility] Last Admin: 05/18/17 10:10 Dose: 60 mg Quetiapine Fumarate (Seroquel -) 200 mg PO [facility] Last Admin: 05/17/17 22:50 Dose: 200 mg Sitagliptin Phosphate (Januvia -) 50 mg PO DAILY@0700 [facility] Last Admin: 05/18/17 06:56 Dose: 50 mg Trimethoprim/Sulfamethoxazole (Bactrim Ds -) 1 each PO BID [facility] - Objective Vital Signs: Vital Signs Temperature 97.9 F 05/18/17 10:14 Pulse Rate 103 H 05/18/17 10:14 Respiratory Rate 18 05/18/17 10:14 Blood Pressure 152/86 05/18/17 10:14 O2 Sat by Pulse Oximetry (%) 97 05/17/17 21:00 Constitutional: Yes: Well Nourished, No Distress, Calm Eyes: Yes: WNL, Conjunctiva Clear, EOM Intact HENT: Yes: WNL, Atraumatic, Normocephalic Neck: Yes: WNL Cardiovascular: Yes: WNL, Regular Rate and Rhythm Respiratory: Yes: WNL Gastrointestinal: Yes: WNL ...Rectal Exam: Yes: Deferred Genitourinary: Yes: WNL Labs: CBC, BMP 05/18/17 06:00 05/18/17 06:00 Problem List - Problems (1) Hyperglycemia Assessment/Plan: c/w sitaglipitn c/w insulin sliding scale DMII diet Code(s): R73.9 - HYPERGLYCEMIA, UNSPECIFIED (2) UTI (urinary tract infection) Assessment/Plan: patient with BPH and acute urinary retention with TERRI d/c ceftriaxone will start the patient on bactrim DS q12hrs monitor K+ level as the drug tend to increase the K+ level if it interfere with the clearance of the K+, also it might falsely elevate the level of Cr. patient is stable to be switched to PO FLUROQUNILONES would interfere with seroquel as both drugs can can prolong QT thus increasing the chances of torsades Code(s): N39.0 - URINARY TRACT INFECTION, SITE NOT SPECIFIED Qualifiers: Urinary tract infection type: site unspecified Hematuria presence: without hematuria Qualified Code(s): N39.0 - Urinary tract infection, site not specified (3) TERRI (acute kidney injury) Assessment/Plan: TERRI post-renal obstruction s/p baumann catheter placement f/u with urology c/w antibiotivs for 7 days due to complicated UTI Code(s): N17.9 - ACUTE KIDNEY FAILURE, UNSPECIFIED (4) Alcohol dependence with uncomplicated withdrawal Assessment/Plan: no signs of withdrawal noted on the patient lorazepam 2mg IVP prn for agitation Code(s): F10.230 - ALCOHOL DEPENDENCE WITH WITHDRAWAL, UNCOMPLICATED (5) Hypertension Assessment/Plan: c/w nifedipine will hold lisinopril in the setting of TERRI will restart it when the patient is back to normal levels Code(s): I10 - ESSENTIAL (PRIMARY) HYPERTENSION Qualifiers: (6) Seizure disorder Assessment/Plan: possible 2/2 to alcohol withdrawal will have IVP lorazepam 2mg PRN Code(s): G40.909 - EPILEPSY, UNSP, NOT INTRACTABLE, WITHOUT STATUS EPILEPTICUS (7) Urinary retention due to benign prostatic hyperplasia Assessment/Plan: s/p baumann cath f/u with urology c/w monitoring creatinine level Code(s): N28.89 - OTHER SPECIFIED DISORDERS OF KIDNEY AND URETER; R33.8 - OTHER RETENTION OF URINE
[2017-05-18] MEDS ORDERED: diphenhydrAMINE HCL 25 MG CAPSULE (FP) PO ONE ×2 (10:46→22:28)
[2017-05-18] MEDS: SULFAMETHOXAZOLE/TRIMETHOPRIM 800MG/160MG D.S. TABLET PO SCH ×2 (11:57→23:02)
[2017-05-18] MEDS ORDERED: PT OWN MED DRAWER 7, Y5N ONE ×2 (17:26→22:28)
[2017-05-18] MEDS ORDERED: LISINOPRIL 10 MG TABLET (FP) PO ONE (22:57)
[2017-05-18] MEDS: diphenhydrAMINE HCL 50 MG CAPSULE PO PRN (23:02)
[2017-05-18] MEDS: QUEtiapine FUMARATE 200 MG TABLET PO SCH (23:03)
[2017-05-19] MEDS: GABAPENTIN 100 MG CAPSULE (FP) PO SCH ×3 (07:08→22:53)
[2017-05-19] MEDS: HEPARIN NA (PORCINE) 5,000 UNITS/ML 1ML VIAL SQ SCH ×3 (07:08→22:53)
[2017-05-19] MEDS: sitaGLIPtin PHOSPHATE 50 MG TABLET PO SCH (07:08)
[2017-05-19] MEDS: INSULIN DETEMIR 100 UNITS/ML MDV SQ SCH ×2 (07:09→22:53)
[2017-05-19] MEDS: INSULIN SLIDING SCALE (NOVOLOG) 1 VIAL SQ SCH ×4 (07:09→22:54)
[2017-05-19] MEDS ORDERED: TAMSULOSIN HCL 0.4 MG CAP.ER.24H (FP) PO ONE (08:43)
--- NOTE | 2017-05-19 08:43 | PN ---
Progress Note, Physician - Current Medication List Current Medications: Active Medications Acetaminophen (Tylenol -) 650 mg PO Q4H PRN PRN Reason: PAIN LEVEL 1-5 Diphenhydramine HCl (Benadryl -) 50 mg PO HS PRN PRN Reason: INSOMNIA Last Admin: 05/18/17 23:02 Dose: 50 mg Gabapentin (Neurontin -) 100 mg PO TID [facility] Last Admin: 05/19/17 07:08 Dose: 100 mg Heparin Sodium (Porcine) (Heparin -) 5,000 unit SQ TID [facility] Last Admin: 05/19/17 07:08 Dose: 5,000 unit Insulin Aspart (Novolog Vial Sliding Scale -) 1 vial SQ ACHS [facility] PRN Reason: Protocol Last Admin: 05/19/17 07:09 Dose: Not Given Insulin Detemir (Levemir Vial) 35 units SQ AM [facility] Last Admin: 05/19/17 07:09 Dose: 35 unit Insulin Detemir (Levemir Vial) 10 units SQ HS [facility] Last Admin: 05/18/17 23:04 Dose: 10 unit Lisinopril (Prinivil) 10 mg PO DAILY [facility] Last Admin: 05/17/17 09:10 Dose: 10 mg Lorazepam (Ativan Injection -) 2 mg IVPUSH Q6H PRN PRN Reason: AGITATION Nifedipine (Procardia Xl -) 60 mg PO DAILY [facility] Last Admin: 05/18/17 10:10 Dose: 60 mg Quetiapine Fumarate (Seroquel -) 200 mg PO HS [facility] Last Admin: 05/18/17 23:03 Dose: 200 mg Sitagliptin Phosphate (Januvia -) 50 mg PO DAILY@0700 [facility] Last Admin: 05/19/17 07:08 Dose: 50 mg Trimethoprim/Sulfamethoxazole (Bactrim Ds -) 1 each PO BID [facility] Last Admin: 05/18/17 23:02 Dose: 1 each - Objective Vital Signs: Vital Signs Temperature 98.3 F 05/19/17 06:00 Pulse Rate 91 H 05/19/17 06:00 Respiratory Rate 16 05/19/17 06:00 Blood Pressure 150/91 05/19/17 06:00 O2 Sat by Pulse Oximetry (%) 97 05/18/17 21:00 Cardiovascular: Yes: Regular Rate and Rhythm Respiratory: Yes: Regular, CTA Bilaterally Gastrointestinal: Yes: Normal Bowel Sounds, Soft Labs: CBC, BMP 05/18/17 06:00 05/18/17 06:00 Assessment/Plan - Problems (1) Hyperglycemia Assessment/Plan: c/w sitaglipitn c/w insulin sliding scale DMII diet Code(s): R73.9 - HYPERGLYCEMIA, UNSPECIFIED (2) UTI (urinary tract infection) Assessment/Plan: patient with BPH and acute urinary retention with TERRI d/c ceftriaxone will start the patient on bactrim DS q12hrs monitor K+ level as the drug tend to increase the K+ level if it interfere with the clearance of the K+, also it might falsely elevate the level of Cr. patient is stable to be switched to PO FLUROQUNILONES would interfere with seroquel as both drugs can can prolong QT thus increasing the chances of torsades Code(s): N39.0 - URINARY TRACT INFECTION, SITE NOT SPECIFIED Qualifiers: Urinary tract infection type: site unspecified Hematuria presence: without hematuria Qualified Code(s): N39.0 - Urinary tract infection, site not specified (3) TERRI (acute kidney injury) Assessment/Plan: TERRI post-renal obstruction s/p baumann catheter placement f/u with urology c/w antibiotivs for 7 days due to complicated UTI Code(s): N17.9 - ACUTE KIDNEY FAILURE, UNSPECIFIED (4) Alcohol dependence with uncomplicated withdrawal Assessment/Plan: no signs of withdrawal noted on the patient lorazepam 2mg IVP prn for agitation Code(s): F10.230 - ALCOHOL DEPENDENCE WITH WITHDRAWAL, UNCOMPLICATED (5) Hypertension Assessment/Plan: c/w nifedipine will hold lisinopril in the setting of TERRI will restart it when the patient is back to normal levels Code(s): I10 - ESSENTIAL (PRIMARY) HYPERTENSION Qualifiers: (6) Seizure disorder Assessment/Plan: possible 2/2 to alcohol withdrawal will have IVP lorazepam 2mg PRN Code(s): G40.909 - EPILEPSY, UNSP, NOT INTRACTABLE, WITHOUT STATUS EPILEPTICUS (7) Urinary retention due to benign prostatic hyperplasia Assessment/Plan: s/p baumann cath f/u with urology c/w monitoring creatinine level satrt flomax trial of voiding Code(s): N28.89 - OTHER SPECIFIED DISORDERS OF KIDNEY AND URETER; R33.8 - OTHER RETENTION OF URINE
[2017-05-19] MEDS ORDERED: PT OWN MED DRAWER 7, Y5N ONE ×2 (09:35→22:18)
[2017-05-19] MEDS: SULFAMETHOXAZOLE/TRIMETHOPRIM 800MG/160MG D.S. TABLET PO SCH ×2 (09:37→22:53)
[2017-05-19] MEDS: NIFEdipine E.R 60 MG TABLET (UD) PO SCH (09:37)
[2017-05-19] MEDS ORDERED: NIFEdipine E.R. 30 MG TABLET (FP) PO ONE (17:45)
[2017-05-19] MEDS: QUEtiapine FUMARATE 200 MG TABLET PO SCH (22:53)
[2017-05-19] MEDS ORDERED: diphenhydrAMINE HCL 25 MG CAPSULE (FP) PO ONE (23:06)
[2017-05-19] MEDS: diphenhydrAMINE HCL 50 MG CAPSULE PO PRN (23:09)
[2017-05-20] MEDS ORDERED: diphenhydrAMINE HCL 25 MG CAPSULE (FP) PO PRN (02:01)
[2017-05-20] MEDS: GABAPENTIN 100 MG CAPSULE (FP) PO SCH (06:04)
[2017-05-20] MEDS: sitaGLIPtin PHOSPHATE 50 MG TABLET PO SCH (06:04)
[2017-05-20] MEDS: HEPARIN NA (PORCINE) 5,000 UNITS/ML 1ML VIAL SQ SCH (06:04)
[2017-05-20] MEDS: INSULIN DETEMIR 100 UNITS/ML MDV SQ SCH (06:04)
[2017-05-20] MEDS: INSULIN SLIDING SCALE (NOVOLOG) 1 VIAL SQ SCH ×2 (06:05→12:22)
[2017-05-20 06:12] VITALS: PULSE 88
[2017-05-20] MEDS ORDERED: TAMSULOSIN HCL 0.4 MG CAP.ER.24H (FP) PO SCH (08:30)
--- NOTE | 2017-05-20 09:24 | DS ---
Physical Examination Vital Signs: Vital Signs Temperature 98.4 F 05/20/17 06:11 Pulse Rate 88 05/20/17 06:11 Respiratory Rate 18 05/20/17 06:11 Blood Pressure 104/59 05/20/17 06:11 O2 Sat by Pulse Oximetry (%) 99 05/19/17 21:00 Cardiovascular: Yes: Regular Rate and Rhythm Respiratory: Yes: Regular, CTA Bilaterally Gastrointestinal: Yes: Normal Bowel Sounds, Soft. No: Tenderness Labs: CBC, BMP 05/18/17 06:00 05/18/17 06:00 Discharge Summary Reason For Visit: UTI; HYPERGLYCEMIA; RETENTION OF URINE Current Active Problems Hyperglycemia (Acute) UTI (urinary tract infection) (Acute) Urinary retention (Acute) Weakness (Acute) Hospital Course: The patient is a 61 year old male with a significant PMH of HTN, HLD, DM II, seizures, hx of alcohol abuse. Per eval in ED, pt states he came to the ED with R lower back pain and incontinence. Per ED report the patient has been progressively weak in the past month with increased falls. The patient does endorse he doesn't like the hospital. Today, he complains of lower L back pain. He accepts baumann insertion. Denies nausea, vomiting, fever, chills, cp, sob. History Source: Patient, Medical Record Limitations to Obtaining History: No Limitations - Past Medical History Cardiovascular: Yes: HTN Psych: Yes: Addictions Endocrine: Yes: Diabetes Mellitus - Problems (1) Hyperglycemia Assessment/Plan: c/w sitaglipitn c/w insulin sliding scale DMII diet Code(s): R73.9 - HYPERGLYCEMIA, UNSPECIFIED (2) UTI (urinary tract infection) Assessment/Plan: patient with BPH and acute urinary retention with TERRI --improved baumann out d/c ceftriaxone will start the patient on bactrim DS q12hrs monitor K+ level as the drug tend to increase the K+ level if it interfere with the clearance of the K+, also it might falsely elevate the level of Cr. patient is stable to be switched to PO FLUROQUNILONES would interfere with seroquel as both drugs can can prolong QT thus increasing the chances of torsades Code(s): N39.0 - URINARY TRACT INFECTION, SITE NOT SPECIFIED Qualifiers: Urinary tract infection type: site unspecified Hematuria presence: without hematuria Qualified Code(s): N39.0 - Urinary tract infection, site not specified (3) TERRI (acute kidney injury) Assessment/Plan: TERRI post-renal obstruction s/p baumann catheter placement --baumann dc--urinating on flomax f/u with urology c/w antibiotivs for 7 days due to complicated UTI Code(s): N17.9 - ACUTE KIDNEY FAILURE, UNSPECIFIED (4) Alcohol dependence with uncomplicated withdrawal Assessment/Plan: no signs of withdrawal noted on the patient lorazepam 2mg IVP prn for agitation Code(s): F10.230 - ALCOHOL DEPENDENCE WITH WITHDRAWAL, UNCOMPLICATED (5) Hypertension Assessment/Plan: c/w nifedipine will hold lisinopril in the setting of TERRI will restart it when the patient is back to normal levels Code(s): I10 - ESSENTIAL (PRIMARY) HYPERTENSION Qualifiers: (6) Seizure disorder Assessment/Plan: possible 2/2 to alcohol withdrawal will have IVP lorazepam 2mg PRN Code(s): G40.909 - EPILEPSY, UNSP, NOT INTRACTABLE, WITHOUT STATUS EPILEPTICUS (7) Urinary retention due to benign prostatic hyperplasia Assessment/Plan: s/p baumann cath--removed--urinating on flomax f/u with urology this week c/w monitoring creatinine level satrt flomax trial of voiding--pt states flow is good--bladder scan Code(s): N28.89 - OTHER SPECIFIED DISORDERS OF KIDNEY AND URETER; R33.8 - OTHER RETENTION OF URINE Condition: Improved - Instructions Referrals: Barry Boucher MD [Primary Care Provider] - 1 Week Aletha Martinez MD [Staff Physician] - 05/20/17 Disposition: HOME - Home Medications Comprehensive Discharge Medication List: Ambulatory Orders Empagliflozin [Jardiance] 25 mg PO DAILY 02/06/16 Nifedipine [Adalat cc] 60 mg PO DAILY 02/06/16 Gabapentin [Neurontin -] 100 mg PO TID #90 capsule 04/19/16 Insulin (Levemir) [Levemir Vial] 35 units SQ AM ml 04/19/16 Lisinopril [Prinivil] 5 mg PO DAILY #30 tablet 04/19/16 Quetiapine Fumarate [Seroquel] 200 mg PO HS 05/15/17 Insulin (Levemir) [Levemir Vial] 10 units SQ HS ml 05/19/17 Sulfamethoxazole/Trimethoprim [Bactrim DS -] 1 each PO BID #10 tablet 05/19/17 Tamsulosin HCl [Flomax -] 0.4 mg PO DAILY@0830 #30 cap.er.24h 05/19/17
[2017-05-20] MEDS: NIFEdipine E.R 60 MG TABLET (UD) PO SCH (11:25)
[2017-05-20] MEDS: LISINOPRIL 10 MG TABLET (FP) PO SCH (11:25)
[2017-05-20] MEDS: SULFAMETHOXAZOLE/TRIMETHOPRIM 800MG/160MG D.S. TABLET PO SCH (11:25)
[2017-05-20 11:35] VITALS: BP 137/88; TEMP 98
--- NOTE | 2017-05-20 13:31 | EKG ---
Test Reason : Blood Pressure : / mmHG Vent. Rate : 106 BPM Atrial Rate : 106 BPM P-R Int : 176 ms QRS Dur : 096 ms QT Int : 346 ms P-R-T Axes : 054 017 011 degrees QTc Int : 459 ms SINUS TACHYCARDIA OTHERWISE NORMAL ECG WHEN COMPARED WITH ECG OF 18-OCT-2016 08:58, VENT. RATE HAS INCREASED BY 37 BPM Confirmed by MD Viera Daniel ([id number]) on 05/20/2017 1:31:30 PM Referred By: Confirmed By:Isaac Viera MD
== END 2017-05-20 14:30 | disposition home or self-care (01) | DRG 460 ==
LOC: JER 10:47 → JERBED 17:12 → J7W 19:55 → OBSVTOIN 19:58
PROVIDERS: ADMIT Internal Medicine; ATTEND Family Medicine
DX: N17.9 Acute kidney failure, unspecified (principal); N13.6 Pyonephrosis; I10 Essential (primary) hypertension; G40.89 Other seizures; E11.65 Type 2 diabetes mellitus with hyperglycemia; K70.9 Alcoholic liver disease, unspecified; E87.5 Hyperkalemia; R26.81 Unsteadiness on feet; R53.1 Weakness; N40.1 Benign prostatic hyperplasia with lower urinary tract symptoms; R33.8 Other retention of urine; G40.909 Epilepsy, unspecified, not intractable, without status epilepticus; F10.230 Alcohol dependence with withdrawal, uncomplicated; N39.498 Other specified urinary incontinence; M54.5 Low back pain; E78.5 Hyperlipidemia, unspecified; N13.30 Unspecified hydronephrosis
CPT/HCPCS: 36415; 70450-TC; 74176-TC; 80048; 80053; 80061; 81003; 81015; 82962; 83036; 83721; 85025; 87086; 93005; 93010; 97116-GP; 97161-GP; 99283-25; G0378; J1644

== ENCOUNTER 2017-06-08 15:00 | Inpatient (IN) | payer OTHER ==
[2017-06-08] MEDS ORDERED: SODIUM CHLORIDE 1,000 ML IV SCH (15:15)
--- NOTE | 2017-06-08 15:15 | PDOC ---
Attending Attestation - Resident Resident Name: Hal May - HPI HPI: 06/08/17 16:00 Pt presents to the ED after sent in for altered mental status. + lethargy and slurred speech on arrival to the Ed. Patient has documented slurred speech on previous visits. 06/08/17 16:05 - Physicial Exam PE: 06/08/17 16:06 Patient is sommulent and diaphoretic. He is arousable to loud voice and answers questions, although he is difficult to understand. He follows commands and has a non focal neuro exam. - Medical Decision Making 06/08/17 15:55 Pt presents to the ED after found altered by his neighbor. Slurred speech, which may be his baseline as per previous notes. Unequal pupils. Differential includes intracranial bleed or mass, electrolyte derrangement, sepsis, drug intoxication or overdose. Will check labs, fingerstick, electrolytes and drug panel
--- NOTE | 2017-06-08 16:17 | PDOC ---
History of Present Illness - General Chief Complaint: Altered Mental Status Stated Complaint: ALTERED MENTAL STATUS Time Seen by Provider: 06/08/17 15:13 History Source: EMS Exam Limitations: Clinical Condition - History of Present Illness Initial Comments: 06/08/17 16:30 Patient is a 62M with history of HTN, HLD, DM2, alcohol abuse, seizures, urinary retention here today with altered mental status. EMS reports that neighbors found him down, last known well is unknown. EMS reports that he was lethargic and non-responsive, but arousable. EMS states that his medications were scattered around his apartment. EMS denies alcohol or other drugs on the scene. Patient has slurred speech, which noted in other notes as his baseline. Patient is not able to cooperate in history taking. Past History - Past Medical History Allergies/Adverse Reactions: Allergies Allergy/AdvReac Type Severity Reaction Status Date / Time No Known Allergies Allergy Verified 02/16/17 02:04 Home Medications: Ambulatory Orders Nifedipine [Adalat cc] 60 mg PO DAILY 02/06/16 Gabapentin [Neurontin -] 100 mg PO TID #90 capsule 04/19/16 Insulin (Levemir) [Levemir Vial] 35 units SQ AM ml 04/19/16 Lisinopril [Prinivil] 5 mg PO DAILY #30 tablet 04/19/16 Quetiapine Fumarate [Seroquel] 200 mg PO HS 05/15/17 Insulin (Levemir) [Levemir Vial] 10 units SQ HS ml 05/19/17 Tamsulosin HCl [Flomax -] 0.4 mg PO DAILY@0830 #30 cap.er.24h 05/19/17 Atorvastatin Ca [Lipitor] 10 mg PO HS 06/08/17 Cholecalciferol (Vitamin D3) [Vitamin D3 -] 400 unit PO DAILY 06/08/17 Citalopram Hydrobromide [Citalopram HBr] 10 mg PO DAILY 06/08/17 Pantoprazole Sodium [Protonix -] 20 mg PO DAILY 06/08/17 Thiamine HCl 50 mg PO DAILY 06/08/17 CVA: Yes COPD: No Diabetes: Yes Dialysis: Yes HTN: Yes Liver Disease: Yes Psychiatric Problems: Yes Seizures: Yes - Immunization History Immunization Up to Date: Yes - Suicide/Smoking/Psychosocial Hx Smoking Status: No Smoking History: Unknown if ever smoked Have you smoked in the past 12 months: No Number of Cigarettes Smoked Daily: 0 Cigars Per Day: 0 Hx Alcohol Use: No Drug/Substance Use Hx: No Substance Use Type: None Hx Substance Use Treatment: No Review of Systems - Review of Systems Able to Perform ROS?: No (2/2 clinical condition) *Physical Exam - Vital Signs Last Vital Signs Temp Pulse Resp BP Pulse Ox 94 F L 101 H 15 127/81 100 06/08/17 16:01 06/08/17 16:01 06/08/17 16:01 06/08/17 16:01 06/08/17 16:01 - Physical Exam Comments: 06/08/17 16:35 GENERAL: Sleepy but arousable, not able to redirect towards questioning HEAD: No signs of trauma, normocephalic, atraumatic EYES: Right larger than left eye, cataracts, EOMI, sclera anicteric, conjunctiva clear ENT: Auricles normal inspection, hearing grossly normal, nares patent, oropharynx clear without exudates. NECK: Normal ROM, no lymphadenopathy, JVD, or masses LUNGS: No distress, speaks full sentences, clear to auscultation bilaterally HEART: Regular rate and rhythm, normal S1 and S2, no murmurs, rubs or gallops, peripheral pulses normal and equal bilaterally. ABDOMEN: Nontender, normoactive bowel sounds. No guarding, no rebound. No masses EXTREMITIES: Normal inspection, Normal range of motion, no edema. Cold extremities. NEUROLOGICAL: Cranial nerves II through XII grossly intact. Moving all extremities. Confused, unable to cooperate with exam. SKIN: Warm, Dry, normal turgor, no rashes or lesions noted. ED Treatment Course - LABORATORY CBC & Chemistry Diagram: 06/08/17 15:52 06/08/17 15:52 - RADIOLOGY Radiology Studies Ordered: Category Date Time Status HEAD CT (STROKE) [CT] Stat CT Scan 06/08/17 15:13 Completed CXRPORT [CHEST X-RAY PORTABLE*] [RAD] Stat Radiology 06/08/17 15:48 Taken Medical Decision Making - Medical Decision Making 06/08/17 16:40 62M here today with history of DM, HTN, HLD, seizures, etoh abuse, urinary retention here today with AMS. Vital signs stable. Patient does not smell of alcohol. Fingerstick 329 in the field. Fingerstick in 200s in the field. Differential diagnosis includes, but is not limited to: intoxication, dka, hyperammonemia, sepsis, hypothermia. 06/08/17 17:38 Laboratory Tests 06/08/17 06/08/17 06/08/17 15:52 15:52 15:52 WBC 10.3 H D Hgb 12.0 Hct 35.2 L Plt Count 167 INR 1.08 VBG pH Anion Gap BUN Creatinine Random Glucose Troponin I Urine Nitrite Negative Ur Leukocyte Esterase Negative Salicylates Acetaminophen Alcohol, Quantitative 06/08/17 06/08/17 06/08/17 15:52 15:52 16:00 WBC Hgb Hct Plt Count INR VBG pH 7.29 L Anion Gap 7 L BUN 27 H D Creatinine 1.6 H D Random Glucose 226 H D Troponin I < 0.02 Urine Nitrite Ur Leukocyte Esterase Salicylates < 1.700 Acetaminophen < 2.000 Alcohol, Quantitative < 5.0 CBC normal. INR normal. VBG shows slight acidosis. Toxic panel negative, no gap , no hypercarbia. Patient reassessed, is still confused but improved. Believe patient most likely had seizure. Will admit to medicine tele. Admitted to [facility] via Trena Marley. *DC/Admit/Observation/Transfer Diagnosis at time of Disposition: Seizure - Discharge Dispostion Condition at time of disposition: Stable Admit: Yes - Referrals - Patient Instructions - Post Discharge Activity
[2017-06-08 16:22] LABS: BASO % 0.1 % (0-2.0); HEMATOCRIT 35.2 % (35.4-49); LYMPH % 9.8 % (8-40); MCH 31.9 pg (25.7-33.7); MCHC 34.1 g/dl (32.0-35.9); MEAN CELL VOLUME 93.4 fl (80-96); MEAN PLT VOLUME 8.9 fl (7.5-11.1); MONO % 8.5 % (3.8-10.2); NEUT % 80.6 % (42.8-82.8); PLATELET COUNT 167 K/MM3 (134-434); RBC 3.77 M/mm3 (4.00-5.60); RDW 13.6 % (11.9-15.9); WHITE BLOOD COUNT 10.3 K/mm3 (4.0-10.0)
[2017-06-08 16:27] LABS: VENOUS PC02 52.7 mmHg (38-52); VENOUS PH 7.29 (7.32-7.42); VENOUS PO2 37.5 mmHg (28-48)
[2017-06-08 16:35] LABS: INR 1.08 (0.82-1.09); PROTHROMBIN TIME (PATIENT) 12.2 SEC (9.98-11.88)
[2017-06-08 16:51] LABS: ALBUMIN 3.9 g/dl (3.4-5.0); ANION GAP 7 (8-16); BILIRUBIN,TOTAL 0.3 mg/dL (0.2-1.0); BLOOD UREA NITROGEN 27 mg/dL (7-18); CALCIUM 8.9 mg/dL (8.5-10.1); CHLORIDE 104 mmol/L (98-107); CHOLESTEROL 171 mg/dL (50-200); CO2 27 mmol/L (21-32); CREATININE 1.6 mg/dL (0.7-1.3); GLUCOSE,RANDOM 226 mg/dL (74-106); LDL CHOLESTEROL (ONLY SJRH) 92 mg/dL (5-100); POTASSIUM 4.2 mmol/L (3.5-5.1); SALICYLATE < 1.700 mg/dL; SGOT/AST 18 U/L (15-37); SGPT/ALT 30 U/L (12-78); SODIUM 138 mmol/L (136-145); TOT PROT 7.5 g/dl (6.4-8.2); TRIGLYCERIDES 205 mg/dL (35-160)
[2017-06-08 16:52] LABS: ALK PHOS 126 U/L (45-117); HDL CHOLESTEROL 43 mg/dL (40-60)
[2017-06-08 16:53] LABS: ACETAMINOPHEN < 2.000 ug/mL
[2017-06-08 16:57] LABS: URINE APPEARANCE CLEAR; URINE BILIRUBIN NEGATIVE (NEGATIVE); URINE BLOOD NEGATIVE (NEGATIVE); URINE COLOR YELLOW; URINE GLUCOSE (UA) 3+ (NEGATIVE); URINE KETONE NEGATIVE (NEGATIVE); URINE LEUK ESTERASE NEGATIVE (NEGATIVE); URINE NITRITE NEGATIVE (NEGATIVE); URINE PROTEIN NEGATIVE (NEGATIVE); URINE UROBILINOGEN NEGATIVE mg/dL (0.2-1.0)
--- NOTE | 2017-06-08 18:25 | CON.NEURO ---
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 Cardio/Vascular: Yes: HTN, Hyperlipdemia Psych: Yes: Addictions Endocrine: Yes: Diabetes Mellitus Additional Medical History: falls -> neck pain - Alcohol/Substance Use Hx Alcohol Use: No - Smoking History Smoking history: Unknown if ever smoked Have you smoked in the past 12 months: No Aproximately how many cigarettes per day: 0 - Social History Usual Living Arrangement: With Spouse Home Medications - Allergies Allergies/Adverse Reactions: Allergies Allergy/AdvReac Type Severity Reaction Status Date / Time No Known Allergies Allergy Verified 02/16/17 02:04 - Home Medications Home Medications: Ambulatory Orders Nifedipine [Adalat cc] 60 mg PO DAILY 02/06/16 Gabapentin [Neurontin -] 100 mg PO TID #90 capsule 04/19/16 Insulin (Levemir) [Levemir Vial] 35 units SQ AM ml 04/19/16 Lisinopril [Prinivil] 5 mg PO DAILY #30 tablet 04/19/16 Quetiapine Fumarate [Seroquel] 200 mg PO HS 05/15/17 Insulin (Levemir) [Levemir Vial] 10 units SQ HS ml 05/19/17 Tamsulosin HCl [Flomax -] 0.4 mg PO DAILY@0830 #30 cap.er.24h 05/19/17 Atorvastatin Ca [Lipitor] 10 mg PO HS 06/08/17 Cholecalciferol (Vitamin D3) [Vitamin D3 -] 400 unit PO DAILY 06/08/17 Citalopram Hydrobromide [Citalopram HBr] 10 mg PO DAILY 06/08/17 Pantoprazole Sodium [Protonix -] 20 mg PO DAILY 06/08/17 Thiamine HCl 50 mg PO DAILY 06/08/17 Physical Exam-Neuro Vital Signs: Vital Signs Temperature 94 F L 06/08/17 16:01 Pulse Rate 104 H 06/08/17 17:06 Respiratory Rate 16 06/08/17 17:06 Blood Pressure 130/88 06/08/17 17:06 O2 Sat by Pulse Oximetry (%) 100 06/08/17 16:01 Constitutional: Yes: Poor Hygeine Neck: Yes: WNL, Supple Labs: CBC, BMP 06/08/17 15:52 06/08/17 15:52 INR, PTT INR 1.08 (0.82-1.09) 06/08/17 15:52 - Neuro Exam Level Of Consciousness: Yes: Obtunded (Patient lethargic, tends to go back to sleep, though increasingly awake as I examined him) Eyes: Yes: BERNICE Speech: Slurred (difficult to understand much of what he says, partially chewed food in mouth) Cranial Nerves II-XII Intact: Yes DTR's: 1+ Left Achilles, 1+ Right Achilles, 2+ Left Bicep, 2+ Right Bicep, 2+ Left Tricep, 2+ Right Tricep, 2+ Left Brachioradialis, 2+ Right Brachioradialis Babinski: Absent Motor Strength: 4/5: Left Arm, Right Arm, Left Leg, Right Leg (moves all limbs well, but cooperation with full strength limited) Gait: Deferred Imaging - Results Cat Scan: Report Reviewed, Image Reviewed (no acute pathology) Problem List - Problems (1) Seizure Code(s): R56.9 - UNSPECIFIED CONVULSIONS (2) Alcoholic liver disease Code(s): K70.9 - ALCOHOLIC LIVER DISEASE, UNSPECIFIED (3) Delirium Code(s): R41.0 - DISORIENTATION, UNSPECIFIED Assessment/Plan Patient found in home unresponsive, hypothermic with gradual improvement in alertness. No focal deficits and no evidence of structural abnormality on CT head. he may be postictal, or may have overdosed on medication. In any case, I would recommend against feeding him until he is more alert as he may be aspiration risk at this time. Resume medication and once he is more alert he should also be questioned about possible medication indiscretions or possible suicidal ideation.
[2017-06-08 18:45] LABS: ACETONE SERUM NEGATIVE (NEGATIVE)
--- NOTE | 2017-06-08 20:43 | HP ---
Admitting History and Physical - Primary Care Physician PCP: Binh Smith - Admission Chief Complaint: Unresponsive, Hypothermia, Post Tictal History of Present Illness: 62 y/o man with Seizure Disorder, HTN, HLD, Alcohol Abuse. BIBa found unresponsive. On arrival patient was hypothermic 94.0 Patient now responsive requesting to leave. Patient is alert to name, , place , month, year. Patient unsure of name of meds, but reports taking his medications today. Patient reports having a productive cough, chest congestion. Patient reports being seen at recently for Urinary Retention- BPH. Patient denies recent alcohol or illicit drug use. Patient denies fever, SOB, CP , palpitations, AP, N/V/D. History Source: Patient, Medical Record Limitations to Obtaining History: Poor Historian - Past Medical History CHEESEMAKER: Yes: Seizure Cardiovascular: Yes: HTN, Hyperlipdemia Renal/: Yes: BPH Psych: Yes: Addictions Endocrine: Yes: Diabetes Mellitus - Smoking History Smoking history: Unknown if ever smoked Have you smoked in the past 12 months: No Aproximately how many cigarettes per day: 0 - Alcohol/Substance Use Hx Alcohol Use: No History of Substance Use: reports: None - Social History Usual Living Arrangement: Yes: With Spouse History of Recent Travel: No Home Medications - Allergies Allergies/Adverse Reactions: Allergies Allergy/AdvReac Type Severity Reaction Status Date / Time No Known Allergies Allergy Verified 02/16/17 02:04 - Home Medications Home Medications: Ambulatory Orders Nifedipine [Adalat cc] 60 mg PO DAILY 02/06/16 Gabapentin [Neurontin -] 100 mg PO TID #90 capsule 04/19/16 Insulin (Levemir) [Levemir Vial] 35 units SQ AM ml 04/19/16 Lisinopril [Prinivil] 5 mg PO DAILY #30 tablet 04/19/16 Quetiapine Fumarate [Seroquel] 200 mg PO HS 05/15/17 Insulin (Levemir) [Levemir Vial] 10 units SQ HS ml 05/19/17 Tamsulosin HCl [Flomax -] 0.4 mg PO DAILY@0830 #30 cap.er.24h 05/19/17 Atorvastatin Ca [Lipitor] 10 mg PO HS 06/08/17 Cholecalciferol (Vitamin D3) [Vitamin D3 -] 400 unit PO DAILY 06/08/17 Citalopram Hydrobromide [Citalopram HBr] 10 mg PO DAILY 06/08/17 Pantoprazole Sodium [Protonix -] 20 mg PO DAILY 06/08/17 Thiamine HCl 50 mg PO DAILY 06/08/17 Family Disease History - Family Disease History Family History: Unable to Obtain Review of Systems - Review of Systems Constitutional: reports: Chills Eyes: reports: No Symptoms HENT: reports: Throat Pain Neck: reports: No Symptoms Cardiovascular: reports: No Symptoms Respiratory: reports: No Symptoms Gastrointestinal: reports: No Symptoms Genitourinary: reports: No Symptoms Breasts: reports: No Symptoms Reported Musculoskeletal: reports: No Symptoms Integumentary: reports: No Symptoms Neurological: reports: Confusion, Tremors Endocrine: reports: No Symptoms Hematology/Lymphatic: reports: No Symptoms Psychiatric: reports: No Symptoms Physical Examination Vital Signs: Vital Signs Temperature 97.3 F L 06/08/17 18:26 Pulse Rate 122 H 06/08/17 19:20 Respiratory Rate 18 06/08/17 19:20 Blood Pressure 150/87 06/08/17 19:20 O2 Sat by Pulse Oximetry (%) 97 06/08/17 19:20 Constitutional: Yes: Anxious, Poor Hygeine Eyes: Yes: WNL, Conjunctiva Clear, PERRL HENT: Yes: WNL, Atraumatic, Normocephalic Neck: Yes: WNL, Supple, Trachea Midline Cardiovascular: Yes: Tachycardia, S1, S2 Respiratory: Yes: On Nasal O2, Rhonchi Gastrointestinal: Yes: Soft, Abdomen, Obese, Hypoactive Bowel Sounds Renal/: Yes: WNL Breast(s): Yes: WNL Musculoskeletal: Yes: WNL Extremities: Yes: WNL Edema: Yes Edema: LLE: 1+, RLE: 2+ Peripheral Pulses WNL: Yes Neurological: Yes: Alert, Oriented, Dysarthria (slurred speech- at baseline), Tremors, Unsteady Gait ...Motor Strength: WNL (4/5) Psychiatric: Yes: Alert, Oriented Labs: CBC, BMP 06/08/17 15:52 06/08/17 15:52 Laboratory Results - last 24 hr 06/08/17 06/08/17 06/08/17 15:50 15:52 15:52 WBC 10.3 H D RBC 3.77 L Hgb 12.0 Hct 35.2 L MCV 93.4 MCH 31.9 MCHC 34.1 RDW 13.6 Plt Count 167 MPV 8.9 Neutrophils % 80.6 D Lymphocytes % 9.8 D Monocytes % 8.5 Eosinophils % 1.0 Basophils % 0.1 PT with INR 12.20 H INR 1.08 VBG pH POC VBG pCO2 POC VBG pO2 Mixed VBG HCO3 Sodium Potassium Chloride Carbon Dioxide Anion Gap BUN Creatinine Creat Clearance w eGFR POC Glucometer [phone] Random Glucose Lactic Acid Calcium Total Bilirubin AST ALT Alkaline Phosphatase Ammonia Creatine Kinase Creatine Kinase Index CK-MB (CK-2) Troponin I Total Protein Albumin Triglycerides Cholesterol Total LDL Cholesterol HDL Cholesterol Urine Color Urine Appearance Urine pH Ur Specific Norden Urine Protein Urine Glucose (UA) Urine Ketones Urine Blood Urine Nitrite Urine Bilirubin Urine Urobilinogen Ur Leukocyte Esterase Salicylates Opiates Screen Methadone Screen Acetaminophen Barbiturate Screen Phencyclidine Screen Ur Amphetamines Screen MDMA (Ecstasy) Screen Benzodiazepines Screen Cocaine Screen U Marijuana (THC) Screen Alcohol, Quantitative Acetone, Qual Blood Type Antibody Screen 06/08/17 06/08/17 06/08/17 15:52 15:52 15:52 WBC RBC Hgb Hct MCV MCH MCHC RDW Plt Count MPV Neutrophils % Lymphocytes % Monocytes % Eosinophils % Basophils % PT with INR INR VBG pH POC VBG pCO2 POC VBG pO2 Mixed VBG HCO3 Sodium 138 Potassium 4.2 Chloride 104 Carbon Dioxide 27 Anion Gap 7 L BUN 27 H D Creatinine 1.6 H D Creat Clearance w eGFR 44.02 POC Glucometer Random Glucose 226 H D Lactic Acid Calcium 8.9 Total Bilirubin 0.3 D AST 18 D ALT 30 D Alkaline Phosphatase 126 H Ammonia Creatine Kinase 181 Creatine Kinase Index 3.2 CK-MB (CK-2) 5.901 H Troponin I < 0.02 Total Protein 7.5 Albumin 3.9 Triglycerides 205 H D Cholesterol 171 Total LDL Cholesterol 92 HDL Cholesterol 43 Urine Color Yellow Urine Appearance Clear Urine pH 5.0 Ur Specific Norden 1.015 Urine Protein Negative Urine Glucose (UA) 3+ H Urine Ketones Negative Urine Blood Negative Urine Nitrite Negative Urine Bilirubin Negative Urine Urobilinogen Negative Ur Leukocyte Esterase Negative Salicylates Opiates Screen Methadone Screen Acetaminophen Barbiturate Screen Phencyclidine Screen Ur Amphetamines Screen MDMA (Ecstasy) Screen Benzodiazepines Screen Cocaine Screen U Marijuana (THC) Screen Alcohol, Quantitative Acetone, Qual Blood Type O POSITIVE Antibody Screen Negative 06/08/17 06/08/17 06/08/17 15:52 15:52 15:52 WBC RBC Hgb Hct MCV MCH MCHC RDW Plt Count MPV Neutrophils % Lymphocytes % Monocytes % Eosinophils % Basophils % PT with INR INR VBG pH POC VBG pCO2 POC VBG pO2 Mixed VBG HCO3 Sodium Potassium Chloride Carbon Dioxide Anion Gap BUN Creatinine Creat Clearance w eGFR POC Glucometer Random Glucose Lactic Acid 1.2 Calcium Total Bilirubin AST ALT Alkaline Phosphatase Ammonia 18.38 Creatine Kinase Creatine Kinase Index CK-MB (CK-2) Troponin I Total Protein Albumin Triglycerides Cholesterol Total LDL Cholesterol HDL Cholesterol Urine Color Urine Appearance Urine pH Ur Specific Norden Urine Protein Urine Glucose (UA) Urine Ketones Urine Blood Urine Nitrite Urine Bilirubin Urine Urobilinogen Ur Leukocyte Esterase Salicylates < 1.700 Opiates Screen Methadone Screen Acetaminophen < 2.000 Barbiturate Screen Phencyclidine Screen Ur Amphetamines Screen MDMA (Ecstasy) Screen Benzodiazepines Screen Cocaine Screen U Marijuana (THC) Screen Alcohol, Quantitative < 5.0 Acetone, Qual Negative Blood Type Antibody Screen 06/08/17 06/08/17 06/08/17 16:00 18:16 22:30 WBC RBC Hgb Hct MCV MCH MCHC RDW Plt Count MPV Neutrophils % Lymphocytes % Monocytes % Eosinophils % Basophils % PT with INR INR VBG pH 7.29 L POC VBG pCO2 52.7 H POC VBG pO2 37.5 Mixed VBG HCO3 24.7 Sodium Potassium Chloride Carbon Dioxide Anion Gap BUN Creatinine Creat Clearance w eGFR POC Glucometer Random Glucose Lactic Acid Calcium Total Bilirubin AST ALT Alkaline Phosphatase Ammonia Creatine Kinase Creatine Kinase Index CK-MB (CK-2) Troponin I < 0.02 Total Protein Albumin Triglycerides Cholesterol Total LDL Cholesterol HDL Cholesterol Urine Color Urine Appearance Urine pH Ur Specific Norden Urine Protein Urine Glucose (UA) Urine Ketones Urine Blood Urine Nitrite Urine Bilirubin Urine Urobilinogen Ur Leukocyte Esterase Salicylates Opiates Screen Negative Methadone Screen Negative Acetaminophen Barbiturate Screen Negative Phencyclidine Screen Negative Ur Amphetamines Screen Negative MDMA (Ecstasy) Screen Negative Benzodiazepines Screen Positive Cocaine Screen Negative U Marijuana (THC) Screen Negative Alcohol, Quantitative Acetone, Qual Blood Type Antibody Screen Imaging - Results Chest X-ray: Image Reviewed Cat Scan: Report Reviewed, Image Reviewed Problem List - Problems (1) Seizure Code(s): R56.9 - UNSPECIFIED CONVULSIONS (2) Encephalopathy acute Code(s): G93.40 - ENCEPHALOPATHY, UNSPECIFIED (3) TERRI (acute kidney injury) Code(s): N17.9 - ACUTE KIDNEY FAILURE, UNSPECIFIED (4) Alcohol dependence with uncomplicated withdrawal Code(s): F10.230 - ALCOHOL DEPENDENCE WITH WITHDRAWAL, UNCOMPLICATED (5) Alcoholic liver disease Code(s): K70.9 - ALCOHOLIC LIVER DISEASE, UNSPECIFIED (6) Asterixis Code(s): R27.8 - OTHER LACK OF COORDINATION (7) Depression Code(s): F32.9 - MAJOR DEPRESSIVE DISORDER, SINGLE EPISODE, UNSPECIFIED (8) Diabetes Code(s): E11.9 - TYPE 2 DIABETES MELLITUS WITHOUT COMPLICATIONS Qualifiers: Diabetes mellitus type: type 2 (9) GERD (gastroesophageal reflux disease) Code(s): K21.9 - GASTRO-ESOPHAGEAL REFLUX DISEASE WITHOUT ESOPHAGITIS Qualifiers: Esophagitis presence: esophagitis presence not specified Qualified Code(s) : K21.9 - Gastro-esophageal reflux disease without esophagitis (10) Hypertension Code(s): I10 - ESSENTIAL (PRIMARY) HYPERTENSION Qualifiers: (11) Sedative, hypnotic or anxiolytic dependence with withdrawal, uncomplicated Code(s): F13.230 - SEDATV/HYP/ANXIOLYTC DEPENDENCE W WITHDRAWAL, UNCOMPLICATED (12) Delirium Code(s): R41.0 - DISORIENTATION, UNSPECIFIED (13) DVT prophylaxis Code(s): OQG5233 - Assessment/Plan This is a 62 y/o man with a PMHx of: Seizures, HTN, HLD, DM, Alcohol Abuse, Urinary Retention. Admitted to Telemetry for Seizures, Hypothermia, Tachycardia Plan: 1. Seizure- Likely secondary to non-compliance vs drug use vs metabolic. Continue cardiac monitoring, seizure precautions, Neurology following, CT Head- neg ICH, chronic microvascular changes, UDT- +benzodiazepine, ETOH- < 5, repeat CBC, BMP, seizure precautions, fall precautions. 2. Hypothermia- now corrected, ?Sepsis, Blood cultures, Urine culture-pending, WBC mildly elevated, give warmed blankets in ED- temp now 97.6. monitor vitals 3. Sinus Tachycardia- likely due to infection vs arrhythmia vs PE, cardiac monitoring serial enzymes, Appreciate Cardiology consult, Wells Score 1.5, IVF given in ED, continue gentle IVF- concern for fluid overload. 4. Acute Toxic Encephalopathy (ATE)- Likely secondary to medication vs metabolic , +somnolence, +unsteady gait, +tremors, Ammonia 18, Fall Precautions, PT- gait strengthening, monitor CBC, BMP, neuro checks, Neuro following 5. Lower Extremity Edema- Lasix, duplex b/l LLE r/o DVT, elevate extremities, strict INOs, daily weights 6. HTN- stable, monitor BP, continue home meds, monitor renal function 7. Diabetes Mellitus- stable, BGMs, ISS, continue Levemir once meals resumed 8. Hyperlipidemia- stable- resume home med 9. BPH- continue Flomax 10. Alcohol Abuse- continue Thiamine, Folic Acid, MVI 11. FEN- NS@42cc/hr, Replete lytes prn, NPO-tonight 12. DVT ppx- SCDs, Heparin monitor for thrombocytopenia Code Status: Full Code Dispo: Requires Inpatient Care Visit type - Emergency Visit Emergency Visit: Yes ED Registration Date: 06/08/17 Care time: The patient presented to the Emergency Department on the above date and was hospitalized for further evaluation of their emergent condition. - New Patient This patient is new to me today: Yes Date on this admission: 06/08/17 - Critical Care Critical Care patient: No Hospitalist Screening - Colonoscopy Questionnaire Colonoscopy Questionnaire: Colonoscopy Questionnaire - Patient: 50 - 75 years old and never had a screening colonoscopy: Unknown History of colon or rectal polyps, or CA: Unknown History of IBD, Crohn's disease or UC: Unknown History of abdominal radiation therapy as a child: Unknown - Relative: 1 with colon or rectal CA, or polyps at age 60 or younger: Unknown Colon or rectal CA diagnosed at age 45 or younger: Unknown Multiple relatives with colon or rectal CA: Unknown - Outcome: Screening Result: Negative Screen
[2017-06-08 21:16] LABS: COCAINE, UR NEGATIVE ng/ml (CUTOFF=300); METHADONE, UR NEGATIVE ng/ml (CUTOFF=300); OPIATES, URI NEGATIVE ng/ml (CUTOFF=300); PHENCYCLIDINE,URINE NEGATIVE ng/ml (CUTOFF=25); URINE AMPHETAMINES NEGATIVE ng/ml (CUTOFF=500); URINE BARBITURATES NEGATIVE ng/ml (CUTOFF=200)
[2017-06-08 21:17] LABS: URINE BENZODIAZEPINES POSITIVE ng/ml (CUTOFF=200)
[2017-06-09] MEDS ORDERED: MELATONIN 5 MG TABLETS PO ONE (01:22)
[2017-06-09 01:42] VITALS: TEMP 98.9
[2017-06-09] MEDS ORDERED: FUROSEMIDE 40 MG/4 ML INJECTABLE VIAL IVPUSH ONE (03:05)
[2017-06-09] MEDS ORDERED: FUROSEMIDE 40 MG/4 ML INJECTABLE VIAL ONE (03:35)
[2017-06-09 06:07] LABS: BASO % 0.2 % (0-2.0); EOS % 1.1 % (0-4.5); HEMATOCRIT 35.2 % (35.4-49); HEMOGLOBIN 12.2 GM/dL (11.7-16.9); LYMPH % 11.6 % (8-40); MCH 31.9 pg (25.7-33.7); MCHC 34.6 g/dl (32.0-35.9); MEAN PLT VOLUME 8.3 fl (7.5-11.1); MONO % 12.4 % (3.8-10.2); NEUT % 74.7 % (42.8-82.8); PLATELET COUNT 163 K/MM3 (134-434); RBC 3.82 M/mm3 (4.00-5.60); RDW 13.4 % (11.9-15.9); WHITE BLOOD COUNT 12.2 K/mm3 (4.0-10.0)
[2017-06-09 06:31] LABS: ANION GAP 12 (8-16); BLOOD UREA NITROGEN 25 mg/dL (7-18); CHLORIDE 99 mmol/L (98-107); CO2 26 mmol/L (21-32); CREATININE 1.4 mg/dL (0.7-1.3); GLUCOSE,RANDOM 206 mg/dL (74-106); MAGNESIUM 1.9 mg/dL (1.8-2.4); PHOSPHOROUS 3.2 mg/dL (2.5-4.9); SODIUM 137 mmol/L (136-145)
[2017-06-09 11:10] VITALS: BP 121/86; PULSE 113; BMI 27.6
--- NOTE | 2017-06-09 11:55 | DS ---
Physical Examination Vital Signs: Vital Signs Temperature 98.9 F 06/09/17 01:42 Pulse Rate 113 H 06/09/17 10:30 Respiratory Rate 18 06/09/17 10:30 Blood Pressure 121/86 06/09/17 10:30 O2 Sat by Pulse Oximetry (%) 98 06/09/17 10:30 Midde aged man walking comfortably wants to go home HEENT: Mm moist, no anemia, PERRLA EOMI NECK: No JVD No Bruit CHEST: CTA B/L CVS; S1S2 R ABD: No distention, non tender EXT: No Devin afeet, no calf tenderness HEAD TRANSFER CLERK: AOX3 grossy non focal Labs: CBC, BMP 06/09/17 05:55 06/09/17 05:55 Discharge Summary Reason For Visit: SEIZURE Current Active Problems Seizure (Acute) Hospital Course: 62man with Seizure Disorder, HTN, HLD, Alcohol Abuse. BIBa found unresponsive. On arrival patient was hypothermic 94.0, patient was found on the floor as per daughter Marci , patient lives with her she heard a bang , he was found on the floor, confused staring , gradually improved BIB EMS to ED , CT head no acute changes labs are unremarkable, evaluated by Neurology recommended patient hospitalization for further w/u Patient wants to go home, hemodynamicaly stable, walking comfortably I discussed with the daughter about his decision, daughter aso communicated with him to stay but patient insisted to go home signing AMA , he understand risk of premature discharge, we educated to cont all his home meds, come to Ed if recurrence of symptoms and F/U with his PMD Condition: Fair - Instructions Diet, Activity, Other Instructions: Diabetic Diet Disposition: AGAINST MEDICAL ADVICE - Home Medications Comprehensive Discharge Medication List: Ambulatory Orders Nifedipine [Adalat cc] 60 mg PO DAILY 02/06/16 Gabapentin [Neurontin -] 100 mg PO TID #90 capsule 04/19/16 Insulin (Levemir) [Levemir Vial] 35 units SQ AM ml 04/19/16 Lisinopril [Prinivil] 5 mg PO DAILY #30 tablet 04/19/16 Quetiapine Fumarate [Seroquel] 200 mg PO HS 05/15/17 Insulin (Levemir) [Levemir Vial] 10 units SQ HS ml 05/19/17 Tamsulosin HCl [Flomax -] 0.4 mg PO DAILY@0830 #30 cap.er.24h 05/19/17 Atorvastatin Ca [Lipitor] 10 mg PO HS 06/08/17 Cholecalciferol (Vitamin D3) [Vitamin D -] 400 unit PO DAILY 06/08/17 Citalopram Hydrobromide [Citalopram HBr] 10 mg PO DAILY 06/08/17 Pantoprazole Sodium [Protonix -] 20 mg PO DAILY 06/08/17 Thiamine HCl 50 mg PO DAILY 06/08/17
--- NOTE | 2017-06-23 11:45 | EKG ---
Test Reason : Blood Pressure : / mmHG Vent. Rate : 097 BPM Atrial Rate : 097 BPM P-R Int : 176 ms QRS Dur : 094 ms QT Int : 376 ms P-R-T Axes : 045 019 005 degrees QTc Int : 477 ms NORMAL SINUS RHYTHM NORMAL ECG WHEN COMPARED WITH ECG OF 15-MAY-2017 14:27, NO SIGNIFICANT CHANGE WAS FOUND Confirmed by PREMA DAVALOS MD ([id number]) on 06/23/2017 11:45:08 AM Referred By: Confirmed By:PREMA DAVALOS MD
== END 2017-06-09 11:56 | disposition left against medical advice (07) | DRG 53 ==
LOC: JER 15:00 → JERBED 17:45
PROVIDERS: ADMIT Internal Medicine; ATTEND Internal Medicine
DX: G40.909 Epilepsy, unspecified, not intractable, without status epilepticus (principal); G92 Toxic encephalopathy; E78.5 Hyperlipidemia, unspecified; E11.9 Type 2 diabetes mellitus without complications; F10.10 Alcohol abuse, uncomplicated; Z79.4 Long term (current) use of insulin; R41.0 Disorientation, unspecified; I10 Essential (primary) hypertension; R00.0 Tachycardia, unspecified; F32.9 Major depressive disorder, single episode, unspecified; K21.9 Gastro-esophageal reflux disease without esophagitis; N40.1 Benign prostatic hyperplasia with lower urinary tract symptoms; R33.8 Other retention of urine; R68.0 Hypothermia, not associated with low environmental temperature
CPT/HCPCS: 36415; 70450-TC; 71045-TC-FY; 80048; 80053; 80307; 81003; 82009; 82140; 82465; 82550; 82553; 82803; 82962; 83605; 83718; 83721; 83735; 84100; 84478; 84484; 85025; 85610; 86850; 86900; 86901; 87040; 93005; 93010; 93970-TC; 99285-25; J7030

== ENCOUNTER 2017-07-08 15:06 | Emergency (ER) | payer OTHER ==
[2017-07-08 15:19] VITALS: BP 151/95; PULSE 104; TEMP 97.6; BMI 27.9
[2017-07-08 16:37] LABS: URINE APPEARANCE CLEAR; URINE BILIRUBIN NEGATIVE (<2.0 mg/dL); URINE BLOOD 1+ (NEGATIVE); URINE COLOR STRAW; URINE GLUCOSE (UA) 3+ (NEGATIVE); URINE KETONE NEGATIVE (NEGATIVE); URINE LEUK ESTERASE TRACE (NEGATIVE); URINE NITRITE NEGATIVE (NEGATIVE); URINE PROTEIN NEGATIVE (NEGATIVE); URINE UROBILINOGEN NEGATIVE mg/dL (0.2-1.0)
[2017-07-08 16:39] LABS: URINE MUCUS RARE
--- NOTE | 2017-07-08 16:49 | PDOC ---
History of Present Illness - General Chief Complaint: Urinary Catheter Problem Stated Complaint: PAIN Time Seen by Provider: 07/08/17 15:52 - History of Present Illness Initial Comments: 07/08/17 16:44 "The patient is a 62 year old male with past medical history of DM, HTN, BPH s/ p baumann catheter placement 2 weeks ago with complaints of pain in his penis. Pt states that the baumann bag continuously slips down his leg, pulling on the catheter and causing significant pain. He states that when he pulls the bag up, the pain is relieved, but he is constantly pulling the bag up his leg. Upon arrival to ED, the nurse noted the patient did not have the straps placed properly around his leg. The bag was properly secured, and pt now reports complete resolusion of his pain. He denies any complaints at this time and reports he has an appointment with his urologist tomorrow. The patient denies any hematuria, urgency, or frequency. Denies any fevers or chills. Denies abdominal pain. Urologist: Dr. Aletha Martinez " Past History - Past Medical History Allergies/Adverse Reactions: Allergies Allergy/AdvReac Type Severity Reaction Status Date / Time No Known Allergies Allergy Verified 07/08/17 15:19 Home Medications: Ambulatory Orders Nifedipine [Adalat cc] 60 mg PO DAILY 02/06/16 Gabapentin [Neurontin -] 100 mg PO TID #90 capsule 04/19/16 Insulin (Levemir) [Levemir Vial] 35 units SQ AM ml 04/19/16 Lisinopril [Prinivil] 5 mg PO DAILY #30 tablet 04/19/16 Quetiapine Fumarate [Seroquel] 200 mg PO HS 05/15/17 Insulin (Levemir) [Levemir Vial] 10 units SQ HS ml 05/19/17 Tamsulosin HCl [Flomax -] 0.4 mg PO DAILY@0830 #30 cap.er.24h 05/19/17 Atorvastatin Ca [Lipitor] 10 mg PO HS 06/08/17 Cholecalciferol (Vitamin D3) [Vitamin D -] 400 unit PO DAILY 06/08/17 Citalopram Hydrobromide [Citalopram HBr] 10 mg PO DAILY 06/08/17 Pantoprazole Sodium [Protonix -] 20 mg PO DAILY 03/18/18 Thiamine HCl 50 mg PO DAILY 06/08/17 CVA: Yes COPD: No Diabetes: Yes Dialysis: Yes HTN: Yes Liver Disease: Yes Psychiatric Problems: Yes Seizures: Yes Other medical history: baumann catherer placed 2 weeks ago. 06/20/17 - Immunization History Immunization Up to Date: Yes - Suicide/Smoking/Psychosocial Hx Smoking Status: No Smoking History: Unknown if ever smoked Have you smoked in the past 12 months: No Number of Cigarettes Smoked Daily: 0 Cigars Per Day: 0 Information on smoking cessation initiated: No Hx Alcohol Use: No Drug/Substance Use Hx: No Substance Use Type: None Hx Substance Use Treatment: No Review of Systems - Review of Systems Comments:: 07/08/17 16:47 "GENERAL/CONSTITUTIONAL: No fever or chills. No weakness. HEAD, EYES, EARS, NOSE AND THROAT: No change in vision. No ear pain or discharge. No sore throat. CARDIOVASCULAR: No chest pain or shortness of breath. RESPIRATORY: No cough, wheezing, or hemoptysis. GASTROINTESTINAL: No nausea, vomiting, diarrhea or constipation. GENITOURINARY: + penis pain, No dysuria, frequency, or change in urination. MUSCULOSKELETAL: No joint or muscle swelling or pain. No neck or back pain. SKIN: No rash NEUROLOGIC: No headache, vertigo, loss of consciousness, or change in strength/ sensation. ENDOCRINE: No increased thirst. No abnormal weight change. HEMATOLOGIC/LYMPHATIC: No anemia, easy bleeding, or history of blood clots. ALLERGIC/IMMUNOLOGIC: No hives or skin allergy. " *Physical Exam - Vital Signs Last Vital Signs Temp Pulse Resp BP Pulse Ox 97.6 F 104 H 18 151/95 96 07/08/17 15:11 07/08/17 15:11 07/08/17 15:11 07/08/17 15:11 07/08/17 15:11 - Physical Exam Comments: 07/08/17 16:47 "GENERAL: Awake, alert, and fully oriented, in no acute distress. HEAD: No signs of trauma EYES: PERRLA, EOMI, sclera anicteric, conjunctiva clear ENT: Auricles normal inspection, hearing grossly normal, nares patent, oropharynx clear without exudates. Moist mucosa NECK: Nontender, no stepoffs, Normal ROM, supple, no lymphadenopathy, JVD, or masses LUNGS: Breath sounds equal, clear to auscultation bilaterally. No wheezes, and no crackles HEART: Regular rate and rhythm, normal S1 and S2, no murmurs, rubs or gallops ABDOMEN: Soft, nontender, normoactive bowel sounds. No guarding, no rebound. No masses EXTREMITIES: Normal range of motion, no edema. No clubbing or cyanosis. No cords, erythema, or tenderness NEUROLOGICAL: Cranial nerves II through XII intact. 5/5 strength and sensation in all extremities, Normal speech, normal gait, normal cerebellar function SKIN: Warm, Dry, normal turgor, no rashes or lesions noted. : baumann in place draining clear yellow urine, bag secured to R thigh, no lesions, erythema, bleeding, or purulence at urethral meatus ED Treatment Course - ADDITIONAL ORDERS Additional order review: Laboratory Results 07/08/17 16:12 Urine Color Straw Urine Appearance Clear Urine pH 6.0 Ur Specific [place] 1.009 Urine Protein Negative Urine Glucose (UA) 3+ H Urine Ketones Negative Urine Blood 1+ H Urine Nitrite Negative Urine Bilirubin Negative Urine Urobilinogen Negative Ur Leukocyte Esterase Trace Urine WBC (Auto) 3 Urine RBC (Auto) 5 Urine Mucus Rare Medical Decision Making - Medical Decision Making 07/08/17 16:48 62 M with penile pain 2/2 baumann catheter, now resolved after securing bag to leg. - UA, UCx - F/u urology tomorrow Pt is well appearing, with normal vitals. Clinically stable for DC at this time. I discussed the physical exam findings, ancillary test results and final diagnoses with the patient. I answered all of the patient's questions. The patient was satisfied with the care received and felt comfortable with the discharge plan and treatment plan. The patient agrees to follow up with the primary care physician within 24-72 hours. *DC/Admit/Observation/Transfer Diagnosis at time of Disposition: Baumann catheter problem - Discharge Dispostion Disposition: HOME - Referrals Referrals: Barry Boucher MD [Primary Care Provider] - - Patient Instructions Printed Discharge Instructions: How to Care for Your Baumann Catheter -- Male Additional Instructions: Follow up with Dr. Martinez tomorrow as scheduled. If you experience any worsening pain, bleeding, fevers, or any other concerning symptoms, return to the emergency department immediately. - Post Discharge Activity - Attestations Physician Attestion: 07/08/17 16:49 I, Dr. Chilo Magallanes MD, attest that this document has been prepared under my direction and personally reviewed by me in its entirety. I further attest, that it accurately reflects all work, treatment, procedures and medical decision -making performed by me.
--- NOTE | 2017-07-11 07:10 | PDOC ---
Patient Follow-up (Call Back) - Post ED Follow - Up Condition at time of discharge: Good Disposition at time of original discharge: HOME Reason for Call Back: Abnwl. Microbiology (urine cx preliminary shows group d or entero coccus 80-90,000 cfu/ml. Has baumann catheter. Seem by urology on 07/09 ( dr. Martinez). Will await final report.)
--- NOTE | 2017-07-11 12:12 | PDOC ---
Patient Follow-up (Call Back) - Post ED Follow - Up Condition at time of discharge: Good Disposition at time of original discharge: HOME Reason for Call Back: Abnwl. Microbiology (Spoke with family member who states patient returned to the hospital today for admission)
== END 2017-07-08 17:38 | disposition home or self-care (01) ==
LOC: JER 15:06
DX: T83.84XA Pain due to genitourinary prosthetic devices, implants and grafts, initial encounter (principal); I10 Essential (primary) hypertension; E11.9 Type 2 diabetes mellitus without complications; Z79.4 Long term (current) use of insulin; N40.0 Benign prostatic hyperplasia without lower urinary tract symptoms; Z86.73 Personal history of transient ischemic attack (TIA), and cerebral infarction without residual deficits
CPT/HCPCS: 81003; 81015; 87086; 87186; 99282-25

== ENCOUNTER 2017-10-28 17:53 | Observation (INO) | payer OTHER ==
--- NOTE | 2017-10-28 19:28 | PDOC ---
History of Present Illness - General Chief Complaint: Altered Mental Status Stated Complaint: AMS Time Seen by Provider: 10/28/17 19:17 History Source: Patient - History of Present Illness Initial Comments: 10/28/17 19:32 Patient is a 62 male with a PMH of NIDDM, HTN, GERD, MDD and alcohol abuse presents to the ED for AMS. Patient is a limited historian 2/2 to his AMS but notes he got in an argument with his daughter this morning and that is why he believes he is in the hospital. Allergies: as per EMR, none Surgical: unable to provide Social endorses alcohol, denies recreational drgus. Medications: Gabapentin, Lisinopril, Mirtazapine, ASA, Tamsulosin, Biscadoyl, Folic Acid, Pantaprolazole, Quietiapine As per EMR, patient was evaluated in our ED 09/19 for a complaint of AMS at which time he had an elevated Cr and was admitted for TERRI. Head and abdominal CT were negative. 10/28/17 20:38 Patient's daughter provides additional history that patient was agitated today and had episodes of tangential speech. Was taken to [facility] where he was evaluated and medically cleared for discharge. Patient has h/o multiple episode of AMS and has been evaluated by a neurologist on prior occasion however daughter is unaware of any formal diagnoses. Past History - Past Medical History Allergies/Adverse Reactions: Allergies Allergy/AdvReac Type Severity Reaction Status Date / Time No Known Allergies Allergy Verified 10/28/17 18:28 Home Medications: Ambulatory Orders Aspirin [Aspirin EC] 81 mg PO DAILY 10/28/17 Bisacodyl [Dulcolax] 5 mg PO BID PRN 10/28/17 Folic Acid 1 mg PO DAILY 10/28/17 Gabapentin [Neurontin] 400 mg PO BID 10/28/17 Lisinopril 30 mg PO DAILY 10/28/17 Mirtazapine [Remeron -] 30 mg PO DAILY 10/28/17 Pantoprazole Sodium [Protonix] 40 mg PO DAILY 10/28/17 Quetiapine Fumarate [Seroquel -] 200 mg PO HS 10/28/17 Tamsulosin HCl [Flomax] 0.4 mg PO HS 10/28/17 CVA: Yes COPD: No DVT: No Diabetes: Yes Dialysis: Yes HTN: Yes Liver Disease: Yes Psychiatric Problems: Yes Seizures: Yes - Immunization History Immunization Up to Date: Yes - Suicide/Smoking/Psychosocial Hx Smoking Status: No Smoking History: Unknown if ever smoked Have you smoked in the past 12 months: No Number of Cigarettes Smoked Daily: 0 Cigars Per Day: 0 Information on smoking cessation initiated: No Hx Alcohol Use: No Drug/Substance Use Hx: No Substance Use Type: None Hx Substance Use Treatment: No Review of Systems - Review of Systems Able to Perform ROS?: No *Physical Exam - Vital Signs Last Vital Signs Temp Pulse Resp BP Pulse Ox 99.4 F 106 H 20 110/41 97 10/28/17 18:29 10/28/17 18:29 10/28/17 18:29 10/28/17 18:29 10/28/17 18:29 - Physical Exam General Appearance: Yes: Disheveled Neck: positive: Trachea midline, Supple Respiratory/Chest: positive: Lungs Clear, Normal Breath Sounds Cardiovascular: positive: Regular Rate, S1, S2 Vascular Pulses: Dorsalis-Pedis (R): 2+, Doralis-Pedis (L): 2+ Gastrointestinal/Abdominal: positive: Normal Bowel Sounds, Soft. negative: Distended, Guarding, Rebound, Tenderness Extremity: positive: Normal Capillary Refill, Normal Inspection Integumentary: positive: Normal Color, Dry, Warm Neurologic: positive: Alert, Other (slurred speech, A&O x2 - able to self identify and identify that it is the month of October, unable to identify location) Deep Tendon Reflexes: Knee (L): 1+, Knee (R): 2+ ED Treatment Course - LABORATORY CBC & Chemistry Diagram: 10/28/17 20:15 10/28/17 20:15 Medical Decision Making - Medical Decision Making 10/28/17 19:38 62 year old male presents with AMS. Disheveled, A&O x2 @ presentation. Documented h/o ETOH abuse. PE significant for disheveled appearance, slurred speech. Will obtain full w/u including infectious/metabolic for AMS. Patient' s daughter @ bedside. 10/28/17 20:44 Case d/w Dr. Correa, Psychiatry @ [facility] ED- patient was BIBEMS earlier today following a verbal argument with his daughter. During course of evaluation, patient was calm, and noted to be non-psychotic/non-homicidal/non-suicidal. No imaging or labs performed. Patient was discharged home w/family @ 1730. Patient resting comfortably. Labs pending. 10/28/17 21:[address] negative for acute intracranial pathology, however imaging notable for B /L enlarged ventricles - possible NPH? 10/28/17 21:44 Cr 2.4, will give additional 1 L IV NS. Admit for TERRI and further neurological evaluation. Case discussed with inpatient hospitalist team. Patient admitted to observation. *DC/Admit/Observation/Transfer Diagnosis at time of Disposition: TERRI (acute kidney injury) - Discharge Dispostion Condition at time of disposition: Fair Decision to Admit order: Yes - Referrals Referrals: Michael Reddy [Primary Care Provider] - - Patient Instructions - Post Discharge Activity
[2017-10-28 20:30] LABS: BASO % 0.6 % (0-2.0); EOS % 2.1 % (0-4.5); HEMATOCRIT 37.9 % (35.4-49); LYMPH % 29.1 % (8-40); MCH 30.8 pg (25.7-33.7); MCHC 34.3 g/dl (32.0-35.9); MEAN CELL VOLUME 89.7 fl (80-96); MEAN PLT VOLUME 8.4 fl (7.5-11.1); MONO % 10.7 % (3.8-10.2); NEUT % 57.5 % (42.8-82.8); PLATELET COUNT 207 K/MM3 (134-434); RBC 4.23 M/mm3 (4.00-5.60); WHITE BLOOD COUNT 6.6 K/mm3 (4.0-10.0)
[2017-10-28 21:02] LABS: ALBUMIN 4.2 g/dl (3.4-5.0); ALK PHOS 134 U/L (45-117); ANION GAP 11 (8-16); BILIRUBIN,TOTAL 0.2 mg/dL (0.2-1.0); BLOOD UREA NITROGEN 53 mg/dL (7-18); CALCIUM 9.5 mg/dL (8.5-10.1); CHLORIDE 103 mmol/L (98-107); CO2 23 mmol/L (21-32); CREATININE 2.4 mg/dL (0.7-1.3); GLUCOSE,RANDOM 104 mg/dL (74-106); POTASSIUM 4.7 mmol/L (3.5-5.1); SGOT/AST 22 U/L (15-37); SGPT/ALT 32 U/L (12-78); SODIUM 137 mmol/L (136-145); TOT PROT 8.1 g/dl (6.4-8.2)
[2017-10-28 21:08] LABS: URINE APPEARANCE CLEAR; URINE BILIRUBIN NEGATIVE (<2.0 mg/dL); URINE COLOR LTYELLOW; URINE GLUCOSE (UA) NEGATIVE (NEGATIVE); URINE KETONE NEGATIVE (NEGATIVE); URINE LEUK ESTERASE TRACE (NEGATIVE); URINE NITRITE NEGATIVE (NEGATIVE); URINE PROTEIN NEGATIVE (NEGATIVE); URINE UROBILINOGEN NEGATIVE mg/dL (0.2-1.0)
[2017-10-28 21:14] LABS: EPI CELLS RARE /HPF (FEW); URINE BACTERIA RARE /hpf (NONE SEEN); URINE HYALINE CAST 9 /lpf; URINE MUCUS RARE
[2017-10-28 21:26] LABS: URINE AMPHETAMINES NEGATIVE ng/ml (CUTOFF=500)
[2017-10-28 21:27] LABS: COCAINE, UR NEGATIVE ng/ml (CUTOFF=300); METHADONE, UR NEGATIVE ng/ml (CUTOFF=300); OPIATES, URI NEGATIVE ng/ml (CUTOFF=300); PHENCYCLIDINE,URINE NEGATIVE ng/ml (CUTOFF=25); URINE BARBITURATES NEGATIVE ng/ml (CUTOFF=200); URINE BENZODIAZEPINES NEGATIVE ng/ml (CUTOFF=200)
[2017-10-28] MEDS ORDERED: SODIUM CHLORIDE 0.9% 500 ML INFUS.BAG IV ONE (22:16)
[2017-10-28] MEDS ORDERED: BISACODYL 5 MG TABLET.DR (FP) PO PRN (22:30)
[2017-10-28] MEDS ORDERED: SODIUM CHLORIDE 1,000 ML IV SCH (22:30)
--- NOTE | 2017-10-28 23:07 | HP ---
CHIEF COMPLAINT: altered mental status PCP: Dr. Boucher HISTORY OF PRESENT ILLNESS: 62 year old male with a hx of NIDDM, HTN, GERD, MDD, alcohol abuse, cirrhosis presents to the hospital for altered mental status. He was brought by his daughter, who is not present at bedside during the examination. Per record, patient had an argument with his daughter, who reported that he was not acting like himself and brought him to the ED. Patient reports that he fell earlier in the day, noting that he feels uneasy on his feet and felt dizzy. He additionally reports urinary incontinence. Denies chest pain, SOB, nausea, vomiting, diarrhea, fevers, chills, headache, blurry vision, changes to his vision. States that he had a similar presentation last year. ER course was notable for: (1) BUN/Cre (53/2.4) (2) CT head: mild atrophy, ventricular dilation (3) ammonia/B12 levels normal Recent Travel: denies PAST MEDICAL HISTORY: NIDDM, HTN, GERD, MDD, alcohol abuse, cirrhosis PAST SURGICAL HISTORY: R carotid artery surgery? Social History: Smoking: denies Alcohol: quit 5 years ago according to the patient Drugs: denies Family History: cancer in both parents Allergies No Known Allergies Allergy (Verified 10/28/17 18:28) HOME MEDICATIONS: Home Medications Medication Instructions Recorded Aspirin [Aspirin EC] 81 mg PO DAILY 10/28/17 Bisacodyl [Dulcolax] 5 mg PO BID PRN 10/28/17 Folic Acid 1 mg PO DAILY 10/28/17 Gabapentin [Neurontin] 400 mg PO BID 10/28/17 Lisinopril 30 mg PO DAILY 10/28/17 Mirtazapine [Remeron -] 30 mg PO DAILY 10/28/17 Pantoprazole Sodium [Protonix] 40 mg PO DAILY 10/28/17 Quetiapine Fumarate [Seroquel -] 200 mg PO HS 10/28/17 Tamsulosin HCl [Flomax] 0.4 mg PO HS 10/28/17 REVIEW OF SYSTEMS CONSTITUTIONAL: Absent: fever, chills, diaphoresis, generalized weakness, malaise, loss of appetite, weight change HEENT: Absent: rhinorrhea, nasal congestion, throat pain, throat swelling, difficulty swallowing, mouth swelling, ear pain, eye pain, visual changes CARDIOVASCULAR: Absent: chest pain, syncope, palpitations, irregular heart rate, lightheadedness , peripheral edema RESPIRATORY: Absent: cough, shortness of breath, dyspnea with exertion, orthopnea, wheezing, stridor, hemoptysis GASTROINTESTINAL: Absent: abdominal pain, abdominal distension, nausea, vomiting, diarrhea, constipation, melena, hematochezia GENITOURINARY: incontinence Absent: dysuria, frequency, urgency, hesitancy, hematuria, flank pain, genital pain MUSCULOSKELETAL: Absent: myalgia, arthralgia, joint swelling, back pain, neck pain SKIN: Absent: rash, itching, pallor HEMATOLOGIC/IMMUNOLOGIC: Absent: easy bleeding, easy bruising, lymphadenopathy, frequent infections ENDOCRINE: Absent: unexplained weight gain, unexplained weight loss, heat intolerance, cold intolerance NEUROLOGIC: unsteady gait, dizziness Absent: headache, focal weakness or paresthesias, seizure, mental status changes, bladder or bowel incontinence PSYCHIATRIC: Absent: anxiety, depression, suicidal or homicidal ideation, hallucinations. PHYSICAL EXAMINATION Vital Signs - 24 hr 10/28/17 18:29 Temperature 99.4 F Pulse Rate 106 H Respiratory 20 Rate Blood Pressure 110/41 O2 Sat by Pulse 97 Oximetry (%) GENERAL: A&Ox4, no acute distress NECK: R neck surgical scar noted on exam EYES: PERRLA, EOMI LUNGS: CTA, no wheezes HEART: RRR, no murmurs ABDOMEN: soft, nontender, bs present NEUROLOGICAL: Cranial nerves II-XII intact. Normal speech. Normal gait. No dysmetria, normal sensation SKIN: Warm, dry, normal turgor, no rashes or lesions noted, normal capillary refill. Laboratory Results - last 24 hr 10/28/17 10/28/17 10/28/17 20:15 20:15 20:15 WBC 6.6 RBC 4.23 Hgb 13.0 Hct 37.9 D MCV 89.7 MCH 30.8 MCHC 34.3 RDW 13.0 Plt Count 207 D MPV 8.4 Absolute Neuts (auto) 3.8 Neutrophils % 57.5 Lymphocytes % 29.1 Monocytes % 10.7 H Eosinophils % 2.1 Basophils % 0.6 Nucleated RBC % 0 Sodium 137 Potassium 4.7 Chloride 103 Carbon Dioxide 23 Anion Gap 11 BUN 53 H Creatinine 2.4 H Creat Clearance w eGFR 27.57 Random Glucose 104 D Lactic Acid Calcium 9.5 Total Bilirubin 0.2 AST 22 ALT 32 D Alkaline Phosphatase 134 H Ammonia 19.15 Total Protein 8.1 Albumin 4.2 Vitamin B12 510 D TSH 1.46 D Urine Color Urine Appearance Urine pH Ur Specific [place] Urine Protein Urine Glucose (UA) Urine Ketones Urine Blood Urine Nitrite Urine Bilirubin Urine Urobilinogen Ur Leukocyte Esterase Urine WBC (Auto) Urine RBC (Auto) Ur Epithelial Cells Urine Bacteria Hyaline Casts Urine Mucus Opiates Screen Methadone Screen Barbiturate Screen Phencyclidine Screen Ur Amphetamines Screen MDMA (Ecstasy) Screen Benzodiazepines Screen Cocaine Screen U Marijuana (THC) Screen Alcohol, Quantitative 10/28/17 10/28/17 10/28/17 20:15 20:15 20:50 WBC RBC Hgb Hct MCV MCH MCHC RDW Plt Count MPV Absolute Neuts (auto) Neutrophils % Lymphocytes % Monocytes % Eosinophils % Basophils % Nucleated RBC % Sodium Potassium Chloride Carbon Dioxide Anion Gap BUN Creatinine Creat Clearance w eGFR Random Glucose Lactic Acid 0.9 Calcium Total Bilirubin AST ALT Alkaline Phosphatase Ammonia Total Protein Albumin Vitamin B12 TSH Urine Color Urine Appearance Urine pH Ur Specific [place] Urine Protein Urine Glucose (UA) Urine Ketones Urine Blood Urine Nitrite Urine Bilirubin Urine Urobilinogen Ur Leukocyte Esterase Urine WBC (Auto) Urine RBC (Auto) Ur Epithelial Cells Urine Bacteria Hyaline Casts Urine Mucus Opiates Screen Negative Methadone Screen Negative Barbiturate Screen Negative Phencyclidine Screen Negative Ur Amphetamines Screen Negative MDMA (Ecstasy) Screen Negative Benzodiazepines Screen Negative Cocaine Screen Negative U Marijuana (THC) Screen Negative Alcohol, Quantitative < 5.0 10/28/17 20:50 WBC RBC Hgb Hct MCV MCH MCHC RDW Plt Count MPV Absolute Neuts (auto) Neutrophils % Lymphocytes % Monocytes % Eosinophils % Basophils % Nucleated RBC % Sodium Potassium Chloride Carbon Dioxide Anion Gap BUN Creatinine Creat Clearance w eGFR Random Glucose Lactic Acid Calcium Total Bilirubin AST ALT Alkaline Phosphatase Ammonia Total Protein Albumin Vitamin B12 TSH Urine Color Ltyellow Urine Appearance Clear Urine pH 5.0 Ur Specific [place] 1.010 Urine Protein Negative Urine Glucose (UA) Negative Urine Ketones Negative Urine Blood 2+ H Urine Nitrite Negative Urine Bilirubin Negative Urine Urobilinogen Negative Ur Leukocyte Esterase Trace Urine WBC (Auto) 7 Urine RBC (Auto) 4 Ur Epithelial Cells Rare Urine Bacteria Rare Hyaline Casts 9 Urine Mucus Rare Opiates Screen Methadone Screen Barbiturate Screen Phencyclidine Screen Ur Amphetamines Screen MDMA (Ecstasy) Screen Benzodiazepines Screen Cocaine Screen U Marijuana (THC) Screen Alcohol, Quantitative ASSESSMENT/PLAN: 62 year old male with a hx of NIDDM, HTN, GERD, MDD, alcohol abuse, cirrhosis presents to the hospital for altered mental status and kidney injury #Altered Mental Status: could be related to normal pressure hydrocephalus ( given incontinence, unsteady gait, dementia/delirium enlarged ventricles on CT) vs less likely uremic/metabolic encephalopathy due to hx of cirrhosis; did not appear altered to me, but baseline to me is unknown; patient is also on many neurotropic medications, will need evaluation for these contributing to his current clinical presentation -neurology consulted -UA not significant for urinary tract infection -orthostatic vital signs -ammonia normal -B12 normal -TSH normal -alcohol level normal #Elevated BUN/Creatinine: TERRI vs CKD -Dr. Lay saw patient on previous admission -hold nephrotoxic medications -urine lytes -kidney ultrasound -bladder scan -i's/o's -continue flomax -NS @ 83cc/hr 1 bag #Hypertension: normotensive -lisinopril 30mg #GERD -continue protonix #Diabetes Mellitus -BGMs -ISS #FEN -NS @ 83cc/hr -lytes wnl -diabetic diet #Prophylaxis -heparin subQ TID #Disposition -admit obs Visit type - Emergency Visit Emergency Visit: Yes Care time: The patient presented to the Emergency Department on the above date and was hospitalized for further evaluation of their emergent condition. - New Patient This patient is new to me today: Yes Date on this admission: 10/29/17 - Critical Care Critical Care patient: No Hospitalist Screening - Colonoscopy Questionnaire Colonoscopy Questionnaire: Colonoscopy Questionnaire - Patient: 50 - 75 years old and never had a screening colonoscopy: Unknown History of colon or rectal polyps, or CA: Unknown History of IBD, Crohn's disease or UC: Unknown History of abdominal radiation therapy as a child: Unknown - Relative: 1 with colon or rectal CA, or polyps at age 60 or younger: Unknown Colon or rectal CA diagnosed at age 45 or younger: Unknown Multiple relatives with colon or rectal CA: Unknown - Outcome: Screening Result: Negative Screen
[2017-10-28] MEDS ORDERED: QUEtiapine FUMARATE 200 MG TABLET PO ONE (23:55)
[2017-10-29] MEDS: HEPARIN NA (PORCINE) 5,000 UNITS/ML 1ML VIAL SQ SCH ×4 (00:15→22:13)
[2017-10-29] MEDS ORDERED: HEPARIN NA (PORCINE) 5,000 UNITS/ML 1ML VIAL ONE ×2 (00:52→06:47)
--- NOTE | 2017-10-29 02:04 | PDOC ---
Attending Attestation - Resident Resident Name: Ling Grayson - ED Attending Attestation I have performed the following: I have examined & evaluated the patient, The case was reviewed & discussed with the resident, I agree w/resident's findings & plan, Exceptions are as noted - HPI HPI: 10/29/17 02:04 Family brought in 62-year-old male because of confusion. Patient has a long- standing history of alcoholism. - Physicial Exam PE: 10/29/17 02:04 wnwd dishevel 62-year-old male who is aware of his name and the month but he does not know his location Head is normocephalic, atraumatic. no scalp lacerations. Eyes pupils are equal and reactive to light and accommodation. Neck supple, no JVD. Lungs are clear to auscultation. CVS regular rate and rhythm S1, S2 Abdomen is soft, no rebound, no tenderness. Extremities no signs of acute cellulitis. skin warm,dry Neuro poor historian, patient is able to move all of his extremities with 5 out of 5 motor strength bilaterally, ambulatory, poor historian - Medical Decision Making 10/29/17 02:08 CAT scan of the head is negative for any acute intracranial pathology Labs reviewed and showed chronic renal insufficiency. Otherwise, they are unremarkable Impression confusion, altered mental status for admission for further evaluation
[2017-10-29] MEDS ORDERED: HALOPERIDOL LACTATE 5 MG/ML IM ONE ×2 (03:04→06:07)
[2017-10-29] MEDS ORDERED: HALOPERIDOL LACTATE 5 MG/ML ONE (03:06)
[2017-10-29] MEDS ORDERED: LORazepam 2 MG/ML SDV VIAL ONE (03:07)
[2017-10-29 03:36] LABS: URINE CREATININE 13.5 mg/dL (20-370)
[2017-10-29] MEDS ORDERED: MELATONIN 5 MG TABLETS PO ONE (04:03)
--- NOTE | 2017-10-29 04:45 | PN ---
Teaching Attending Note Name of Resident: David Lynn ATTENDING PHYSICIAN STATEMENT I saw and evaluated the patient. Chart, data, imaging reviewed. I reviewed the resident's note and discussed the case with the resident. I agree with the resident's findings and plan as documented. SUBJECTIVE: 62 year old male with a hx of NIDDM, HTN, GERD, MDD, alcohol abuse, cirrhosis? brought to hospital by daughter after he was found to be confused and had unsteady gait. Pt with no complaints himself. Denied pain, dizziness or headaches. OBJECTIVE: Last Vital Signs Temp Pulse Resp BP Pulse Ox 99.4 F 106 H 20 110/41 97 10/28/17 18:29 10/28/17 18:29 10/28/17 18:29 10/28/17 18:29 10/28/17 18:29 general- unsteady gait, nad, notoxic heent- right eye cataract neck -supple cv -s1+s2+ RRR chest - cta b/l abdomen- soft, nt, bs+ ext -no pedal edema Abnormal Lab Results 10/28/17 10/28/17 10/28/17 20:15 20:15 20:50 Monocytes % 10.7 H BUN 53 H Creatinine 2.4 H Alkaline Phosphatase 134 H Urine Blood 2+ H Urine Creatinine 10/29/17 02:50 Monocytes % BUN Creatinine Alkaline Phosphatase Urine Blood Urine Creatinine 13.[address] reviewed- found to have ventricular enlargement, no acute infarcts or bleeds seen cxr -reviewed. ASSESSMENT AND PLAN: #62yo man with ams, possibly secondary to normal pressure hydrocephalus. No lesions seen on head CT. May also be secondary to uremic encephalopathy -observation -neurology evaluation -fall precautions -bed rest -PT evaluation #TERRI -iv fluid hydraiton -renal u/s -urine lytes -UA -avoid nephrotoxins -see resident note for details -heparin sc for dvt ppx
[2017-10-29] MEDS ORDERED: INSULIN (NOVOLOG) ASPART 100 UNITS/ML 10ML VIAL ONE ×3 (06:58→21:20)
[2017-10-29] MEDS: INSULIN SLIDING SCALE (NOVOLOG) 1 VIAL SQ SCH ×4 (07:00→22:18)
[2017-10-29 09:04] LABS: HEMATOCRIT 36.9 % (35.4-49); HEMOGLOBIN 12.7 GM/dL (11.7-16.9); MCH 31.1 pg (25.7-33.7); MCHC 34.5 g/dl (32.0-35.9); MEAN CELL VOLUME 90.2 fl (80-96); MEAN PLT VOLUME 8.2 fl (7.5-11.1); PLATELET COUNT 194 K/MM3 (134-434); RBC 4.09 M/mm3 (4.00-5.60); RDW 12.9 % (11.9-15.9)
[2017-10-29 09:23] LABS: CHLORIDE 103 mmol/L (98-107); POTASSIUM 4.6 mmol/L (3.5-5.1); SODIUM 137 mmol/L (136-145)
[2017-10-29] MEDS ORDERED: LISINOPRIL 10 MG TABLET (FP) PO SCH (10:00)
[2017-10-29] MEDS ORDERED: GABAPENTIN 100 MG CAPSULE (FP) ONE (10:06)
[2017-10-29] MEDS ORDERED: PANTOPRAZOLE 40 MG TABLET (FP) ONE (10:06)
[2017-10-29] MEDS ORDERED: ASPIRIN COATED 81 MG TABLET.EC ONE (10:06)
[2017-10-29] MEDS ORDERED: FOLIC ACID 1 MG TABLET (FP) ONE (10:06)
[2017-10-29] MEDS: FOLIC ACID 1 MG TABLET (FP) PO SCH (10:11)
[2017-10-29] MEDS: PANTOPRAZOLE 40 MG TABLET (FP) PO SCH (10:11)
[2017-10-29] MEDS: ASPIRIN COATED 81 MG TABLET.EC PO SCH (10:11)
[2017-10-29] MEDS: GABAPENTIN 400 MG CAPSULE (FP) PO SCH ×2 (10:11→22:13)
--- NOTE | 2017-10-29 10:37 | EKG ---
Test Reason : Blood Pressure : / mmHG Vent. Rate : 100 BPM Atrial Rate : 100 BPM P-R Int : 188 ms QRS Dur : 106 ms QT Int : 358 ms P-R-T Axes : 049 017 029 degrees QTc Int : 461 ms NORMAL SINUS RHYTHM NORMAL ECG WHEN COMPARED WITH ECG OF 19-SEP-2017 09:35, NO SIGNIFICANT CHANGE WAS FOUND Confirmed by KATELYN RODRIGUEZ MD ([id number]) on 10/29/2017 10:37:28 AM Referred By: Confirmed By:KATELYN RODRIGUEZ MD
[2017-10-29 10:59] LABS: ANION GAP 8 (8-16); BLOOD UREA NITROGEN 39 mg/dL (7-18); CO2 26 mmol/L (21-32); CREATININE 1.8 mg/dL (0.7-1.3); GLUCOSE,RANDOM 216 mg/dL (74-106)
[2017-10-29 11:00] LABS: CALCIUM 9.4 mg/dL (8.5-10.1); MAGNESIUM 2.4 mg/dL (1.8-2.4); PHOSPHOROUS 2.9 mg/dL (2.5-4.9)
--- NOTE | 2017-10-29 13:18 | CONSULT ---
Consult - text type - Consultation Consultation Note: Renal Consult for TERRI on CKD This is a 62 year old gentleman with PMhx of Hypertension, DM Type 2, GERD, MDD , ETOH abuse, CKD (recent admission with TERRI) presents with confusion and unsteady gain with TERRI. Pt reports walking yesterday and then blacking out and falling. He did not recall any dizziness, palpitations prior to fall. Pt was restarted on ACEi which was held last admission. Reports a good oral intake. Denies any diarrhea, N/V. No NSAID use. Denies any flank pain, dysuria. Has urinary incontiance related to enlarged prostate. No fever, chills. PMHx: as above Allergies: NKDA Family Hx: NC Social Hx: Former ETOH abuse, no T ROS: as per HPI, all other pertinent ros negative Home Medications Medication Instructions Recorded Aspirin [Aspirin EC] 81 mg PO DAILY 10/28/17 Bisacodyl [Dulcolax] 5 mg PO BID PRN 10/28/17 Folic Acid 1 mg PO DAILY 10/28/17 Gabapentin [Neurontin] 400 mg PO BID 10/28/17 Lisinopril 30 mg PO DAILY 10/28/17 Mirtazapine [Remeron -] 30 mg PO DAILY 10/28/17 Pantoprazole Sodium [Protonix] 40 mg PO DAILY 10/28/17 Quetiapine Fumarate [Seroquel -] 200 mg PO HS 10/28/17 Tamsulosin HCl [Flomax] 0.4 mg PO HS 10/28/17 Vital Signs Temperature 98.1 F 10/29/17 09:47 Pulse Rate 92 H 10/29/17 09:47 Respiratory Rate 18 10/29/17 09:47 Blood Pressure 135/84 10/29/17 09:47 O2 Sat by Pulse Oximetry (%) 100 10/29/17 09:47 Intake & Output 10/26/17 10/27/17 10/28/17 10/29/17 23:59 23:59 23:59 23:59 Weight 70.307 kg NAD, awake and alert Neck supple, no JVD RRR, no M/R CTA, no rales soft NT/ND, no organomegaly no bladder distension No LE edema, clubbing or cyanosis CBC, BMP 10/29/17 08:30 10/29/17 08:30 Current Medications Aspirin (Ecotrin -) 81 mg PO DAILY [facility] Last Admin: 10/29/17 10:11 Dose: 81 mg Bisacodyl (Dulcolax -) 5 mg PO BID PRN PRN Reason: CONSTIPATION Folic Acid (Folic Acid -) 1 mg PO DAILY [facility] Last Admin: 10/29/17 10:11 Dose: 1 mg Gabapentin (Neurontin -) 400 mg PO BID [facility] Last Admin: 10/29/17 10:11 Dose: 400 mg Heparin Sodium (Porcine) (Heparin -) 5,000 unit SQ TID [facility] Last Admin: 10/29/17 06:30 Dose: 5,000 unit Insulin Aspart (Novolog Vial Sliding Scale -) 1 vial SQ ACHS [facility]; Protocol Last Admin: 10/29/17 12:34 Dose: 3 unit Mirtazapine (Remeron -) 30 mg PO HS [facility] Pantoprazole Sodium (Protonix -) 40 mg PO DAILY [facility] Last Admin: 10/29/17 10:11 Dose: 40 mg Quetiapine Fumarate (Seroquel -) 200 mg PO HS [facility] Tamsulosin HCl (Flomax -) 0.4 mg PO HS [facility] 62 year old gentleman with PMhx of Hypertension, DM Type 2, GERD, MDD, ETOH abuse, CKD (recent admission with TERRI) presents with confusion and unsteady gain with TERRI. #TERRI (likely due to volume depletion +/- renal hypoprofusion with ACEi vs. NEHA+ ACEi induced renal injury) #Confusion/Unsteady gait #Hypertension #BPH/Urinary Incontinence #Hemeturia Renal function improving will start gentle IVF hydration hold ACEi for now FeNa was 6% indicating tubular damage Check bladder US r/o bladder pathology leading to hematuria US of kidneys were w/o pathology F/u urine cultures repeat UA in 24 hours Continue flomax Thank you Will follow Elijah Lay DO
[2017-10-29] MEDS: SODIUM CHLORIDE 1,000 ML IV SCH (15:43)
--- NOTE | 2017-10-29 15:49 | PN ---
Progress Note, Physician Chief Complaint: EVENTS NOTED AND REVIEWED AWAKE ALERT +PRE-SYNCOPAL EPISODE - Current Medication List Current Medications: Active Medications Aspirin (Ecotrin -) 81 mg PO DAILY [facility] Last Admin: 10/29/17 10:11 Dose: 81 mg Bisacodyl (Dulcolax -) 5 mg PO BID PRN PRN Reason: CONSTIPATION Folic Acid (Folic Acid -) 1 mg PO DAILY [facility] Last Admin: 10/29/17 10:11 Dose: 1 mg Gabapentin (Neurontin -) 400 mg PO BID [facility] Last Admin: 10/29/17 10:11 Dose: 400 mg Heparin Sodium (Porcine) (Heparin -) 5,000 unit SQ TID [facility] Last Admin: 10/29/17 15:22 Dose: 5,000 unit Sodium Chloride (Normal Saline -) 1,000 mls @ 83 mls/hr IV ASDIR [facility] Last Admin: 10/29/17 15:43 Dose: 83 mls/hr Insulin Aspart (Novolog Vial Sliding Scale -) 1 vial SQ ACHS [facility]; Protocol Last Admin: 10/29/17 12:34 Dose: 3 unit Mirtazapine (Remeron -) 30 mg PO HS [facility] Pantoprazole Sodium (Protonix -) 40 mg PO DAILY [facility] Last Admin: 10/29/17 10:11 Dose: 40 mg Quetiapine Fumarate (Seroquel -) 200 mg PO HS [facility] Tamsulosin HCl (Flomax -) 0.4 mg PO HS [facility] - Objective Vital Signs: Vital Signs Temperature 98.1 F 10/29/17 09:47 Pulse Rate 92 H 10/29/17 09:47 Respiratory Rate 18 10/29/17 09:47 Blood Pressure 135/84 10/29/17 09:47 O2 Sat by Pulse Oximetry (%) 100 10/29/17 09:47 Constitutional: Yes: Mild Distress Eyes: Yes: WNL HENT: Yes: WNL Neck: Yes: WNL Cardiovascular: Yes: WNL Respiratory: Yes: WNL Gastrointestinal: Yes: WNL Genitourinary: Yes: WNL Musculoskeletal: Yes: WNL Extremities: Yes: WNL Edema: No Integumentary: Yes: WNL Wound/Incision: Yes: Clean/Dry Neurological: Yes: WNL ...Motor Strength: WNL Psychiatric: Yes: WNL Labs: CBC, BMP 10/29/17 08:30 10/29/17 08:30 Problem List - Problems (1) Pre-syncope Code(s): R55 - SYNCOPE AND COLLAPSE (2) TERRI (acute kidney injury) Code(s): N17.9 - ACUTE KIDNEY FAILURE, UNSPECIFIED (3) Alcoholic liver disease Code(s): K70.9 - ALCOHOLIC LIVER DISEASE, UNSPECIFIED (4) Change in mental status Code(s): R41.82 - ALTERED MENTAL STATUS, UNSPECIFIED Assessment/Plan ARF RENAL EVAL CARDIO WORKUP IN PROGRESS FALL RISKS ETOH? CHECK LABS PT EVAL
--- NOTE | 2017-10-29 16:29 | CON.CARD ---
Consult Consult Specialty:: Cardiology Referred by:: Dr. Smith Reason for Consultation:: possible syncope - History of Present Illness Chief Complaint: AMS History of Present Illness: 62 year old man pmh HTN, DMII, etoh abuse, cirrhosis, CKD prior admissions for AMS, admitted again for AMS witnessed by his family. pt seen and examined today in [facility] in [place], pt awake alert appears oriented. denies any current complaints. states that he believes he had an episode of passing out prior to coming in, states he took a shower, then went to his room and briefly lost consciousness but was able to sit in a chair and did not fall to the ground. No report of loss of consciousness from family on review of chart. pt denies having any chest graves, sob, palpitations. no pnd, orthopnea, or LE edema. Noted to have LUZ on CKD with elevated bun/creat - History Source History Provided By: Patient, Medical Record Limitations to Obtaining History: Poor Historian - Past Medical History [employer]: Yes: Seizure Cardio/Vascular: Yes: HTN, Hyperlipdemia Renal/: Yes: BPH Psych: Yes: Addictions Endocrine: Yes: Diabetes Mellitus Additional Medical History: falls -> neck pain - Alcohol/Substance Use Hx Alcohol Use: No History of Substance Use: reports: None - Smoking History Smoking history: Unknown if ever smoked Have you smoked in the past 12 months: No Aproximately how many cigarettes per day: 0 - Social History Usual Living Arrangement: With Spouse History of Recent Travel: No Home Medications - Allergies Allergies/Adverse Reactions: Allergies Allergy/AdvReac Type Severity Reaction Status Date / Time No Known Allergies Allergy Verified 10/28/17 18:28 - Home Medications Home Medications: Ambulatory Orders Aspirin [Aspirin EC] 81 mg PO DAILY 10/28/17 Bisacodyl [Dulcolax] 5 mg PO BID PRN 10/28/17 Folic Acid 1 mg PO DAILY 10/28/17 Gabapentin [Neurontin] 400 mg PO BID 10/28/17 Lisinopril 30 mg PO DAILY 10/28/17 Mirtazapine [Remeron -] 30 mg PO DAILY 10/28/17 Pantoprazole Sodium [Protonix] 40 mg PO DAILY 10/28/17 Quetiapine Fumarate [Seroquel -] 200 mg PO HS 10/28/17 Tamsulosin HCl [Flomax] 0.4 mg PO HS 10/28/17 Family Disease History - Family Disease History Family History: Denies Review of Systems - Review of Systems Constitutional: reports: Weakness. denies: No Symptoms, Chills, Diaphoresis, Fever, Lethargy, Loss of Appetite, Malaise, Night Sweats, Unintentional Wgt. Loss, Other Eyes: denies: No Symptoms, Blind Spots, Blurred Vision, Double Vision, Eye Pain , Floaters, Photophobia, Recent Change in Vision, Other HENT: denies: No Symptoms, Difficult Swallowing, Ear Discharge, Ear Pain, Epistaxis, Gingival Bleeding, Hearing Loss, Mouth Swelling, Nasal Congestion, Ocular Prosthesis, Throat Pain, Toothache, Ringing in Ears, Other Neck: denies: No Symptoms, Decreased ROM, Lumps, Pain on Movement, Stiffness, Swollen Glands, Tenderness, Other Cardiovascular: denies: No Symptoms, Chest Pain, Edema, Palpitations, Shortness of Breath, Other Respiratory: denies: No Symptoms, Cough, Exercise Intolerance, Hemoptysis, Orthopnea, PND, Snoring, SOB, SOB on Exertion, Wheezing, Other Gastrointestinal: denies: No Symptoms, Abdominal Pain, Bloating, Constipation, Diarrhea, Dysphagia, Indigestion, Melena, Nausea, Rectal Bleeding, Vomiting, Vomiting Blood, Other Genitourinary: denies: No Symptoms, Burning, Discharge, Dysuria, Flank Pain, Frequency, Hematuria, Incontinence, Lesions, Menses, Pain, Testicular Mass, Testicular Pain, Testicular Swelling, Urgency, Vaginal Bleeding, Other Breasts: denies: No Symptoms Reported, See HPI, Breast Implants, Discharge from Nipple, Lumps, Pain, Skin Changes, Other Musculoskeletal: denies: No Symptoms, Back Pain, Crepitus, Decreased ROM, Extremity Pain, Joint Pain, Joint Swelling, Muscle Pain, Muscle Cramps, Muscle Weakness, Other Integumentary: denies: No Symptoms, Blister, Bruising, Change in Color, Eczema, Erythema, Incision, Lesions, Lump, Pallor, Pruritis, Rash, Wound, Other Neurological: reports: Change in LOC, Change in Speech, Confusion, Dizziness, Incoordination, Syncope, Unsteady Gait, Weakness. denies: No Symptoms, Headache , Numbness, Parasthesia, Pre-Existing Deficit, Seizure, Tremors, Other Endocrine: denies: No Symptoms, Excessive Sweating, Flushing, Increased Hunger, Increased Thirst, Intolerance to Cold, Intolerance to Heat, Unexplained Weight Gain, Unexplained Weight Loss, Other Hematology/Lymphatic: denies: No Symptoms, Easily Bruised, Excessive Bleeding, Swollen Glands, Other Psychiatric: denies: No Symptoms, Altered Sleep Pattern, Anxiety, Depression, Hallucinations, Panic, Paranoia, Suicidal, Other Vital Signs: Vital Signs Temperature 98.1 F 10/29/17 09:47 Pulse Rate 92 H 10/29/17 09:47 Respiratory Rate 18 10/29/17 09:47 Blood Pressure 135/84 10/29/17 09:47 O2 Sat by Pulse Oximetry (%) 100 10/29/17 09:47 Constitutional: Yes: No Distress, Calm Eyes: Yes: Conjunctiva Clear, EOM Intact, PERRL HENT: Yes: Atraumatic, Normocephalic Neck: Yes: Supple, Trachea Midline Respiratory: Yes: Regular, CTA Bilaterally. No: Rales, Rhonchi, Wheezes Gastrointestinal: Yes: Normal Bowel Sounds, Soft. No: Distention, Tenderness Cardiovascular: Yes: Regular Rate and Rhythm. No: Bradycardia, Tachycardia, Pulse Irregular, Gallop, Rub, Varicosities JVD: No Carotid Bruit: No PMI: Non-Displaced Heart Sounds: Yes: S1, S2. No: Split S2, S3, S4, Clicks, Gallop, Rub, Bruit Murmur: No: Systolic Murmur, Diastolic Murmur Edema: No Peripheral Pulses WNL: Yes Neurological: Yes: Alert, Oriented Psychiatric: Yes: Alert, Oriented - Other Data Labs, Other Data: CBC, BMP 10/29/17 08:30 10/29/17 08:30 nsr 100bpm, normal ecg Echo: Report Reviewed Imaging - Results Chest X-ray: Report Reviewed, Image Reviewed EKG: Report Reviewed, Image Reviewed Other: Report Reviewed, Image Reviewed Assessment/Plan 62 year old man pmh HTN, DMII, etoh abuse, cirrhosis, CKD prior admissions for AMS, admitted again for AMS witnessed by his family. pt seen and examined today in [facility] in [place], pt awake alert appears oriented. denies any current complaints. states that he believes he had an episode of passing out prior to coming in, states he took a shower, then went to his room and briefly lost consciousness but was able to sit in a chair and did not fall to the ground. No report of loss of consciousness from family on review of chart. pt denies having any chest graves, sob, palpitations. no pnd, orthopnea, or LE edema. Noted to have LUZ on CKD with elevated bun/creat AMS possible syncope although not reported by family EKG-nsr 100bpm, otherwise normal ecg ECHO 10/18/16-mod LVH, normal LVEF, mod mac, no sig valvular abnl -LUZ with elevated bun/creat, intravascular depletion and use of MIKALA-I, improving with hydration -can check orthostatic bp -improving with IVF hydration -does not require additional inpatient cardiac work up at this time -[facility] close outpatient fup Please call with any additional questions.
[2017-10-29 17:41] VITALS: BMI 27.3
[2017-10-29] MEDS ORDERED: PT OWN MED DRAWER 7, Y5N ONE (21:20)
[2017-10-29] MEDS ORDERED: THIAMINE HCL 200 MG/2 ML VIAL IVPB SCH (22:00)
[2017-10-29] MEDS ORDERED: chlordiazePOXIDE HCL 25 MG CAPSULE PO PRN (22:06)
--- NOTE | 2017-10-29 22:07 | CONSULT ---
Consult [facility] Reason for Current Admission/Consult: consult for questionable alcohol use - History History of Present Illness: pt known to me from prior admission. Pt had denied alcohol use at that time. Pt continues to state that his last alcohol drink was 5 years ago when his grandson was born. Admanatly denies current alcohol use - History Source History Provided By: Patient Limitations to Obtaining History: No Limitations - Alcohol/Substance Use Hx Alcohol Use: Yes (pt states in distant past, denies other illicit drug use, denies cig use) Hx Substance Use: No Hx Substance Use Treatment: No - Past Medical History [employer]: Yes: Seizure Cardio/Vascular: Yes: HTN, Hyperlipdemia Renal/: Yes: BPH Psych: Yes: Addictions Endocrine: Yes: Diabetes Mellitus Additional Medical History: falls -> neck pain CIWA Score - CIWA Score Nausea/Vomitin-No Nausea/No Vomiting Muscle Tremors: 2 Anxiety: 0-No Anxiety, at Ease Agitation: 0-Normal Activity Paroxysmal Sweats: No Perspiration Orientation: 0-Oriented Tacttile Disturbances: 0-None Auditory Disturbances: 0-None Visual Disturbances: 0-None Headache: 0-None Present CIWA-Ar Total Score: 2 Assessment Plan - Diagnosis (1) Withdrawal symptoms, alcohol Status: Acute Qualifiers: Complication of substance-induced condition: uncomplicated Qualified Code(s ): F10.230 - Alcohol dependence with withdrawal, uncomplicated - Plan Plan: Pt denies alcohol use. Tox screen at admission neg for alcohol. Prior admission pt denied alcohol use. Will give librium prn for withdrawal Sx
[2017-10-29] MEDS: TAMSULOSIN HCL 0.4 MG CAP.ER.24H (FP) PO SCH (22:13)
[2017-10-29] MEDS: MIRTAZAPINE 30 MG TABLET (FP) PO SCH (22:13)
[2017-10-29] MEDS: QUEtiapine FUMARATE 200 MG TABLET PO SCH (23:13)
[2017-10-29] MEDS: THIAMINE HCL 200 MG/2 ML VIAL IVPB SCH (23:14)
[2017-10-30] MEDS: THIAMINE HCL 200 MG/2 ML VIAL IVPB SCH ×3 (02:36→18:59)
[2017-10-30] MEDS: INSULIN SLIDING SCALE (NOVOLOG) 1 VIAL SQ SCH ×4 (06:36→21:20)
[2017-10-30] MEDS: HEPARIN NA (PORCINE) 5,000 UNITS/ML 1ML VIAL SQ SCH ×3 (06:37→21:23)
[2017-10-30] MEDS ORDERED: INSULIN (NOVOLOG) ASPART 100 UNITS/ML 10ML VIAL ONE ×2 (06:55→11:40)
[2017-10-30 07:17] LABS: HEMOGLOBIN 11.4 GM/dL (11.7-16.9); MCH 31.5 pg (25.7-33.7); MCHC 34.7 g/dl (32.0-35.9); MEAN CELL VOLUME 90.9 fl (80-96); MEAN PLT VOLUME 8.2 fl (7.5-11.1); PLATELET COUNT 186 K/MM3 (134-434); RBC 3.63 M/mm3 (4.00-5.60); RDW 13.1 % (11.9-15.9); WHITE BLOOD COUNT 6.6 K/mm3 (4.0-10.0)
[2017-10-30 09:33] LABS: CHLORIDE 105 mmol/L (98-107); SODIUM 139 mmol/L (136-145)
[2017-10-30 09:41] LABS: ALBUMIN 3.5 g/dl (3.4-5.0); ALK PHOS 116 U/L (45-117); ANION GAP 10 (8-16); BILIRUBIN,TOTAL 0.3 mg/dL (0.2-1.0); BLOOD UREA NITROGEN 29 mg/dL (7-18); CALCIUM 8.5 mg/dL (8.5-10.1); CO2 24 mmol/L (21-32); CREATININE 1.4 mg/dL (0.7-1.3); GLUCOSE,RANDOM 221 mg/dL (74-106); SGOT/AST 24 U/L (15-37); SGPT/ALT 29 U/L (12-78); TOT PROT 6.8 g/dl (6.4-8.2)
[2017-10-30] MEDS ORDERED: INSULIN (LEVEMIR) 100 UNITS/ML UNITS SQ SCH (10:30)
--- NOTE | 2017-10-30 10:59 | PN ---
Progress Note, Physician Chief Complaint: AMS History of Present Illness: NAD alert and oriented states he was working when he felt like he was dehydratyed. He came home took a shower and had a blackout for few seconds. His daughter has described the incident as he didn't know where he was and appeared confused. His last LDL was 165. Not on any statin at home? with Uncontrolled Diabetes with LDL goal of <70 mg/dl. would repeat. - Current Medication List Current Medications: Active Medications Aspirin (Ecotrin -) 81 mg PO DAILY [facility] Last Admin: 10/29/17 10:11 Dose: 81 mg Atorvastatin Calcium (Lipitor -) 20 mg PO HS [facility] Bisacodyl (Dulcolax -) 5 mg PO BID PRN PRN Reason: CONSTIPATION Chlordiazepoxide HCl (Librium -) 25 mg PO Q6H PRN PRN Reason: ANXIETY Stop: 11/04/17 23:59 Folic Acid (Folic Acid -) 1 mg PO DAILY [facility] Last Admin: 10/29/17 10:11 Dose: 1 mg Gabapentin (Neurontin -) 400 mg PO BID [facility] Last Admin: 10/29/17 22:13 Dose: 400 mg Heparin Sodium (Porcine) (Heparin -) 5,000 unit SQ TID [facility] Last Admin: 10/30/17 06:37 Dose: Not Given Sodium Chloride (Normal Saline -) 1,000 mls @ 83 mls/hr IV ASDIR [facility] Last Admin: 10/29/17 15:43 Dose: 83 mls/hr Insulin Aspart (Novolog Vial Sliding Scale -) 1 vial SQ ACHS [facility]; Protocol Last Admin: 10/30/17 06:36 Dose: 3 unit Insulin Detemir (Levemir Vial) 40 units SQ BID [facility] Mirtazapine (Remeron -) 30 mg PO [facility] Last Admin: 10/29/17 22:13 Dose: 30 mg Pantoprazole Sodium (Protonix -) 40 mg PO DAILY [facility] Last Admin: 10/29/17 10:11 Dose: 40 mg Quetiapine Fumarate (Seroquel -) 200 mg PO [facility] Last Admin: 10/29/17 23:13 Dose: 200 mg Tamsulosin HCl (Flomax -) 0.4 mg PO [facility] Last Admin: 10/29/17 22:13 Dose: 0.4 mg Thiamine HCl (Vitamin B1 Injection -) 200 mg IVPB Q8H-IV [facility] Stop: 11/01/17 18:01 Last Admin: 10/30/17 02:36 Dose: 200 mg - Objective Vital Signs: Vital Signs Temperature 98.1 F 10/30/17 05:08 Pulse Rate 106 H 10/30/17 05:08 Respiratory Rate 20 10/30/17 05:08 Blood Pressure 121/74 10/30/17 05:08 O2 Sat by Pulse Oximetry (%) 98 10/30/17 03:00 Constitutional: Yes: Well Nourished, No Distress, Calm Cardiovascular: Yes: Regular Rate and Rhythm Respiratory: Yes: Regular Gastrointestinal: Yes: Normal Bowel Sounds, Soft Musculoskeletal: Yes: WNL Extremities: Yes: WNL Edema: No Peripheral Pulses WNL: Yes Integumentary: Yes: Other (Nail detachment 2nd and 3rd right toes. Onychomychosis on the rest) Neurological: Yes: Alert, Oriented Psychiatric: Yes: Alert, Oriented Labs: CBC, BMP 10/30/17 06:35 10/30/17 06:35 Problem List - Problems (1) TERRI (acute kidney injury) Assessment/Plan: -On IVF -Holding MIKALA -Nephrology on board -Monitor trend -renal U/S unremarkable Code(s): N17.9 - ACUTE KIDNEY FAILURE, UNSPECIFIED (2) Change in mental status Assessment/Plan: -CT head negative -Seen by Neurology -no focal deficits -TIA workup- MRI brain+ U/S carotid -Start statin -On ASA Code(s): R41.82 - ALTERED MENTAL STATUS, UNSPECIFIED (3) Diabetes Assessment/Plan: -A1C at 9.5 -Levemir+Novolog sliding scale -Diabetic diet -RD consult -Endocrinology consult -BGM ACHS Code(s): E11.9 - TYPE 2 DIABETES MELLITUS WITHOUT COMPLICATIONS Qualifiers: Diabetes mellitus type: type 2 (4) HLD (hyperlipidemia) Assessment/Plan: -Atorvastatin 20 mg po HS -repeat lipid profile outpatient Code(s): E78.5 - HYPERLIPIDEMIA, UNSPECIFIED (5) Detachment of nail Assessment/Plan: -podiatry consult Code(s): L60.1 - ONYCHOLYSIS (6) Onychomycosis Code(s): B35.1 - TINEA UNGUIUM Assessment/Plan see problem list DVT prophylaxis
--- NOTE | 2017-10-30 11:23 | CONSULT ---
Consult - text type - Consultation Consultation Note: NEUROLOGY CONSULTATION is greatly appreciated: Events reviewed and discussed with Ms. Jordi Laurent. This 62 yo RH man with h/o DM, HTN, GERD, Alcoholism and psychiatric disease (? Bipolar) Is maintained on: Aspirin 81; Dulcolax; Gabapentin; Lisinopril; Mirtazapine 30 mg; Pantoprazole; Quetiapine 200 mg PO HS; and Tamsulosin. Apparently brought by family for agitation and disorganization , unsteady gait, after being released by [facility]. Pt gave little cogent history on admission but now describes gardening in Friday's heat and becoming dizzy and weak with blurred vision. Denies ETOH x [address] of head (reviewed): mild atrophy without traumatic lesions. Gjz=071 mg%; Mg++=2.4 mg%; H20=567 pg%; Ammonia=19 mg%; and TSH=1.46. Tox screen - JAGDISH: Sleeping but awakens to name. No evidence of external head trauma. Neck supple. No bruits. Unkempt NEURO: O x [facility], September, 2017. Trump. Recalls 1 of 3 @ 3 No frontal release. Speech sparse but fluent CN II-XII: normal without nystagmus Motor: No drift, tremor or asterixis. Normal strength. Absent AJ's. Toes downgoing. Coord: No FTN dystaxia Sensory: Decreased vibration feet. Gait: slight shuffle. IMP: Mild, Bilateral cerebral dysfunction (OMS) without focal findings. Mild peripheral neuropathy (DM/ETOH) Toxic-metabolic encephalopathy (etiology not immediately apparent). Suspect dehydration, non-compliance with meds, exacerbation of psychosis may be more likely than TIA. SUGGEST: Additional history re: ETOH, Med compliance, Psyche f/u Agree with MRI of brain, Carotid duplex doppler. Psyche consultation. Continue parenchymal thiamine. Thank you very much, Smooth Olivas MD
[2017-10-30] MEDS: ASPIRIN COATED 81 MG TABLET.EC PO SCH (11:27)
[2017-10-30] MEDS: PANTOPRAZOLE 40 MG TABLET (FP) PO SCH (11:27)
[2017-10-30] MEDS: FOLIC ACID 1 MG TABLET (FP) PO SCH (11:27)
[2017-10-30] MEDS: GABAPENTIN 400 MG CAPSULE (FP) PO SCH ×2 (11:28→21:23)
[2017-10-30] MEDS: SODIUM CHLORIDE 1,000 ML IV SCH ×2 (11:39→17:26)
[2017-10-30 12:46] LABS: CHOLESTEROL 204 mg/dL (50-200); HDL CHOLESTEROL 31 mg/dL (40-60); TRIGLYCERIDES 246 mg/dL (35-160)
--- NOTE | 2017-10-30 15:08 | PN ---
Progress Note (short form) - Note Progress Note: Renal follow up for TERRI Pt seen and examined at the bedside no acute complaints denies any sob, cp, abd pain, N/V/D, dizziness or falls tolerating oral diet on IVF Vital Signs Temperature 97.8 F 10/30/17 09:00 Pulse Rate 89 10/30/17 09:00 Respiratory Rate 17 10/30/17 09:00 Blood Pressure 130/79 10/30/17 09:00 O2 Sat by Pulse Oximetry (%) 98 10/30/17 03:00 Intake & Output 10/27/17 10/28/17 10/29/17 10/30/17 23:59 23:59 23:59 23:59 Intake Total 800 1521 Output Total 770 200 Balance 30 1321 Weight 70.307 kg 74.435 kg NAD RRR CTA soft NT/ND no LE edema CBC, BMP 10/30/17 06:35 10/30/17 06:35 Current Medications Aspirin (Ecotrin -) 81 mg PO DAILY [facility] Last Admin: 10/30/17 11:27 Dose: 81 mg Atorvastatin Calcium (Lipitor -) 20 mg PO HS [facility] Bisacodyl (Dulcolax -) 5 mg PO BID PRN PRN Reason: CONSTIPATION Chlordiazepoxide HCl (Librium -) 25 mg PO Q6H PRN PRN Reason: ANXIETY Stop: 11/04/17 23:59 Folic Acid (Folic Acid -) 1 mg PO DAILY [facility] Last Admin: 10/30/17 11:27 Dose: 1 mg Gabapentin (Neurontin -) 400 mg PO BID [facility] Last Admin: 10/30/17 11:28 Dose: 400 mg Heparin Sodium (Porcine) (Heparin -) 5,000 unit SQ TID [facility] Last Admin: 10/30/17 06:37 Dose: Not Given Sodium Chloride (Normal Saline -) 1,000 mls @ 83 mls/hr IV ASDIR [facility] Last Admin: 10/30/17 11:39 Dose: 83 mls/hr Insulin Aspart (Novolog Vial Sliding Scale -) 1 vial SQ ACHS [facility]; Protocol Last Admin: 10/30/17 12:16 Dose: 4 unit Insulin Detemir (Levemir Vial) 40 units SQ BID@0700,2200 [facility] Mirtazapine (Remeron -) 30 mg PO HS [facility] Last Admin: 10/29/17 22:13 Dose: 30 mg Pantoprazole Sodium (Protonix -) 40 mg PO DAILY [facility] Last Admin: 10/30/17 11:27 Dose: 40 mg Quetiapine Fumarate (Seroquel -) 200 mg PO HS [facility] Last Admin: 10/29/17 23:13 Dose: 200 mg Tamsulosin HCl (Flomax -) 0.4 mg PO HS [facility] Last Admin: 10/29/17 22:13 Dose: 0.4 mg Thiamine HCl (Vitamin B1 Injection -) 200 mg IVPB Q8H-IV [facility] Stop: 11/01/17 18:01 Last Admin: 10/30/17 11:30 Dose: 200 mg 62 year old gentleman with PMhx of Hypertension, DM Type 2, GERD, MDD, ETOH abuse, CKD (recent admission with TERRI) presents with confusion and unsteady gain with TERRI. #TERRI (likely due to volume depletion +/- renal hypoprofusion with ACEi vs. NEHA+ ACEi induced renal injury) #Confusion/Unsteady gait #Hypertension #BPH/Urinary Incontinence #Hemeturia Renal function improving to near baseline continue IVF for additional 24 hours hold ACEI renal US showed no pathology trend renal function and electrolytes discharge planning as per primary Thank you Will follow Elijah Lay DO
[2017-10-30] MEDS: INSULIN (LEVEMIR) 100 UNITS/ML UNITS SQ SCH (21:21)
[2017-10-30] MEDS: TAMSULOSIN HCL 0.4 MG CAP.ER.24H (FP) PO SCH (21:23)
[2017-10-30] MEDS: MIRTAZAPINE 30 MG TABLET (FP) PO SCH (21:23)
[2017-10-30] MEDS ORDERED: PT OWN MED DRAWER 7, Y5N ONE (21:31)
[2017-10-30] MEDS ORDERED: ATORVASTATIN CA 20 MG TABLET (FP) PO SCH (22:00)
--- NOTE | 2017-10-30 22:11 | CONSULT ---
Consult - text type - Consultation Consultation Note: Patient seen this morning. Patient states he pulled his two toe nails off after pulling his sock on his right foot. Patient is diabetic. vss, tmax 97.8 +onycholysis right foot nails 2&3, +tender dystrophic mycotic nails with subungual debris other 8 toes, +elongated, -cellulitis, -ulceration, -drainage, decreased ns onychomycosis onycholysis dm with neuropathy Discussed diabetic foot care. Debride nails tomorrow. discussed need for compliance and proper shoe gear as well.
[2017-10-30] MEDS: QUEtiapine FUMARATE 200 MG TABLET PO SCH (22:54)
--- NOTE | 2017-10-31 00:28 | CONSULT ---
Consult Consult Specialty:: endocrine Referred by:: yoon gilman np Reason for Consultation:: diabetes mellitus - History of Present Illness Chief Complaint: high sugars History of Present Illness: 62 year old male with a hx of NIDDM, HTN, GERD, MDD, alcohol abuse, cirrhosis presents to the hospital for altered mental status. He was brought by his daughter. Per record, patient had an argument with his daughter, who reported that he was not himself weak,unable to stand or walk without assist.he has not been checking blood sugars,he takes insulin but does not keep diet restriction.he has numbness and tingling in both feet. he has blurred vision and has diabetic eye disease. 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 Cardio/Vascular: Yes: HTN, Hyperlipdemia Renal/: Yes: BPH Psych: Yes: Addictions Endocrine: Yes: Diabetes Mellitus Additional Medical History: falls -> neck pain - Alcohol/Substance Use Hx Alcohol Use: Yes (pt states in distant past, denies other illicit drug use, denies cig use) History of Substance Use: reports: None - Smoking History Smoking history: Unknown if ever smoked Have you smoked in the past 12 months: No Aproximately how many cigarettes per day: 0 - Social History Usual Living Arrangement: With Spouse History of Recent Travel: No Home Medications - Allergies Allergies/Adverse Reactions: Allergies Allergy/AdvReac Type Severity Reaction Status Date / Time No Known Allergies Allergy Verified 10/28/17 18:28 - Home Medications Home Medications: Ambulatory Orders Aspirin [Aspirin EC] 81 mg PO DAILY 10/28/17 Bisacodyl [Dulcolax] 5 mg PO BID PRN 10/28/17 Folic Acid 1 mg PO DAILY 10/28/17 Gabapentin [Neurontin] 400 mg PO BID 10/28/17 Lisinopril 30 mg PO DAILY 10/28/17 Mirtazapine [Remeron -] 30 mg PO DAILY 10/28/17 Pantoprazole Sodium [Protonix] 40 mg PO DAILY 10/28/17 Quetiapine Fumarate [Seroquel -] 200 mg PO HS 10/28/17 Tamsulosin HCl [Flomax] 0.4 mg PO HS 10/28/17 Review of Systems - Review of Systems Constitutional: reports: Lethargy, Weakness Eyes: reports: Blurred Vision HENT: reports: No Symptoms Neck: reports: No Symptoms Cardiovascular: reports: Shortness of Breath Respiratory: reports: Exercise Intolerance, SOB on Exertion Gastrointestinal: reports: Constipation Genitourinary: reports: Frequency Breasts: reports: No Symptoms Reported Musculoskeletal: reports: Muscle Pain, Muscle Cramps, Muscle Weakness Neurological: reports: Unsteady Gait, Weakness Physical Exam Vital Signs: Vital Signs Temperature 97.4 F L 10/30/17 23:44 Pulse Rate 80 10/30/17 23:44 Respiratory Rate 20 10/30/17 23:44 Blood Pressure 140/80 10/30/17 23:44 O2 Sat by Pulse Oximetry (%) 98 10/30/17 03:00 Constitutional: Yes: Calm Eyes: Yes: EOM Intact HENT: Yes: Normocephalic Neck: Yes: Trachea Midline Cardiovascular: Yes: Regular Rate and Rhythm Respiratory: Yes: CTA Bilaterally Gastrointestinal: Yes: Normal Bowel Sounds ...Rectal Exam: Yes: Deferred Renal/: Yes: WNL Breast(s): Yes: WNL Musculoskeletal: Yes: Muscle Weakness Extremities: Yes: Delayed Capillary Refill Neurological: Yes: Alert, Oriented, Weakness Labs: CBC, BMP 10/30/17 06:35 10/30/17 21:30 Problem List - Problems (1) Type 2 diabetes mellitus with autonomic neuropathy Code(s): E11.43 - TYPE 2 DIABETES W DIABETIC AUTONOMIC (POLY)NEUROPATHY Qualifiers: Diabetes mellitus mcc insulin use: 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 Qualified Code( s): E11.43 - Type 2 diabetes mellitus with diabetic autonomic (poly)neuropathy; Z79.4 - 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 (2) TERRI (acute kidney injury) Code(s): N17.9 - ACUTE KIDNEY FAILURE, UNSPECIFIED (3) Detachment of nail Code(s): L60.1 - ONYCHOLYSIS (4) Onychomycosis Code(s): B35.1 - TINEA UNGUIUM (5) Alcohol dependence with uncomplicated withdrawal Code(s): F10.230 - ALCOHOL DEPENDENCE WITH WITHDRAWAL, UNCOMPLICATED (6) Alcoholic liver disease Code(s): K70.9 - ALCOHOLIC LIVER DISEASE, UNSPECIFIED (7) Asterixis Code(s): R27.8 - OTHER LACK OF COORDINATION Assessment/Plan Current Active Problems TERRI (acute kidney injury) (Acute) Detachment of nail (Acute) Onychomycosis (Acute) Pre-syncope (Acute) diabetes mellitus hyperglycemia diabetic neuropathy Abnormal Lab Results 10/30/17 10/30/17 10/30/17 06:35 06:35 06:35 RBC 3.63 L Hgb 11.4 L Hct 33.0 L BUN 29 H Creatinine 1.4 H Random Glucose 221 H Hemoglobin A1c % 9.5 H D Triglycerides 246 H Cholesterol 204 H Total LDL Cholesterol 136 H HDL Cholesterol 31 L 10/30/17 21:30 RBC Hgb Hct BUN Creatinine Random Glucose 447 H* D Hemoglobin A1c % Triglycerides Cholesterol Total LDL Cholesterol HDL Cholesterol Laboratory Results - last 24 hr 10/30/17 10/30/17 10/30/17 05:56 06:35 06:35 WBC 6.6 RBC 3.63 L Hgb 11.4 L Hct 33.0 L MCV 90.9 MCH 31.5 MCHC 34.7 RDW 13.1 Plt Count 186 MPV 8.2 Sodium 139 Potassium 5.0 Chloride 105 Carbon Dioxide 24 Anion Gap 10 BUN 29 H Creatinine 1.4 H Creat Clearance w eGFR 51.35 POC Glucometer 208 Random Glucose 221 H Hemoglobin A1c % Calcium 8.5 Total Bilirubin 0.3 AST 24 ALT 29 Alkaline Phosphatase 116 D Total Protein 6.8 Albumin 3.5 Triglycerides 246 H Cholesterol 204 H Total LDL Cholesterol 136 H HDL Cholesterol 31 L 10/30/17 10/30/17 10/30/17 06:35 06:35 11:33 WBC RBC Hgb Hct MCV MCH MCHC RDW Plt Count MPV Sodium Potassium Chloride Carbon Dioxide Anion Gap BUN Creatinine Creat Clearance w eGFR POC Glucometer 292 Random Glucose Hemoglobin A1c % 9.5 H D Calcium Total Bilirubin AST ALT Alkaline Phosphatase Total Protein Albumin Triglycerides Cancelled Cholesterol Cancelled Total LDL Cholesterol Cancelled HDL Cholesterol Cancelled 10/30/17 10/30/17 21:07 21:30 WBC RBC Hgb Hct MCV MCH MCHC RDW Plt Count MPV Sodium Potassium Chloride Carbon Dioxide Anion Gap BUN Creatinine Creat Clearance w eGFR POC Glucometer 490 Random Glucose 447 H* D Hemoglobin A1c % Calcium Total Bilirubin AST ALT Alkaline Phosphatase Total Protein Albumin Triglycerides Cholesterol Total LDL Cholesterol HDL Cholesterol plan: bgm qid novolog insulin dose levemir 40 units am levemir 40 units hs diet nutrition consult ck tsh free t4 ck b12 level neurological consult
[2017-10-31] MEDS: THIAMINE HCL 200 MG/2 ML VIAL IVPB SCH ×2 (03:02→09:54)
[2017-10-31] MEDS: HEPARIN NA (PORCINE) 5,000 UNITS/ML 1ML VIAL SQ SCH ×2 (06:26→15:12)
[2017-10-31] MEDS: INSULIN (LEVEMIR) 100 UNITS/ML UNITS SQ SCH (06:26)
[2017-10-31] MEDS: INSULIN SLIDING SCALE (NOVOLOG) 1 VIAL SQ SCH ×3 (06:28→17:18)
[2017-10-31] MEDS ORDERED: INSULIN (LEVEMIR) 100 UNITS/ML UNITS SQ ONE (06:57)
[2017-10-31] MEDS ORDERED: INSULIN (NOVOLOG) ASPART 100 UNITS/ML 10ML VIAL ONE (06:57)
[2017-10-31 08:25] LABS: BASO % 0.6 % (0-2.0); EOS % 3.2 % (0-4.5); HEMATOCRIT 35.6 % (35.4-49); HEMOGLOBIN 12.4 GM/dL (11.7-16.9); MCH 31.3 pg (25.7-33.7); MCHC 34.8 g/dl (32.0-35.9); MEAN PLT VOLUME 8.3 fl (7.5-11.1); MONO % 10.3 % (3.8-10.2); NEUT % 45.9 % (42.8-82.8); PLATELET COUNT 195 K/MM3 (134-434); RBC 3.95 M/mm3 (4.00-5.60); WHITE BLOOD COUNT 5.4 K/mm3 (4.0-10.0)
[2017-10-31 08:33] VITALS: BP 108/66; PULSE 109; TEMP 97.6
[2017-10-31 08:41] LABS: ANION GAP 11 (8-16); BLOOD UREA NITROGEN 33 mg/dL (7-18); CALCIUM 9.3 mg/dL (8.5-10.1); CHLORIDE 101 mmol/L (98-107); CO2 25 mmol/L (21-32); GLUCOSE,RANDOM 216 mg/dL (74-106); POTASSIUM 4.5 mmol/L (3.5-5.1); SODIUM 137 mmol/L (136-145)
[2017-10-31 08:42] LABS: CREATININE 1.6 mg/dL (0.7-1.3)
[2017-10-31] MEDS ORDERED: INSULIN (LEVEMIR) 100 UNITS/ML UNITS SQ SCH (09:10)
--- NOTE | 2017-10-31 09:17 | PN ---
Progress Note, Physician Chief Complaint: AMS History of Present Illness: NAD alert and oriented states he was working when he felt like he was dehydratyed. He came home took a shower and had a blackout for few seconds. His daughter has described the incident as he didn't know where he was and appeared confused. His last LDL was 165. Not on any statin at home? with Uncontrolled Diabetes with LDL goal of <70 mg/dl. would repeat. All the workup is negative His Cr trending down Pt wants to go home Seen by Nephrology, Podiatry and Endocrinology Started on Statin - Current Medication List Current Medications: Active Medications Aspirin (Ecotrin -) 81 mg PO DAILY [facility] Last Admin: 10/30/17 11:27 Dose: 81 mg Atorvastatin Calcium (Lipitor -) 20 mg PO [facility] Last Admin: 10/30/17 21:23 Dose: 20 mg Bisacodyl (Dulcolax -) 5 mg PO BID PRN PRN Reason: CONSTIPATION Chlordiazepoxide HCl (Librium -) 25 mg PO Q6H PRN PRN Reason: ANXIETY Stop: 11/04/17 23:59 Folic Acid (Folic Acid -) 1 mg PO DAILY [facility] Last Admin: 10/30/17 11:27 Dose: 1 mg Gabapentin (Neurontin -) 400 mg PO BID [facility] Last Admin: 10/30/17 21:23 Dose: 400 mg Heparin Sodium (Porcine) (Heparin -) 5,000 unit SQ TID [facility] Last Admin: 10/31/17 06:26 Dose: Not Given Sodium Chloride (Normal Saline -) 1,000 mls @ 83 mls/hr IV ASDIR [facility] Last Admin: 10/30/17 17:26 Dose: Not Given Insulin Aspart (Novolog Vial Sliding Scale -) 1 vial SQ [facility]; Protocol Last Admin: 10/31/17 06:28 Dose: 7 units Insulin Detemir (Levemir Vial) 46 units SQ BID@0700,2200 [facility] Mirtazapine (Remeron -) 30 mg PO [facility] Last Admin: 10/30/17 21:23 Dose: 30 mg Pantoprazole Sodium (Protonix -) 40 mg PO DAILY [facility] Last Admin: 10/30/17 11:27 Dose: 40 mg Quetiapine Fumarate (Seroquel -) 200 mg PO [facility] Last Admin: 10/30/17 22:54 Dose: 200 mg Tamsulosin HCl (Flomax -) 0.4 mg PO HS [facility] Last Admin: 10/30/17 21:23 Dose: 0.4 mg Thiamine HCl (Vitamin B1 Injection -) 200 mg IVPB Q8H-IV [facility] Stop: 11/01/17 18:01 Last Admin: 10/31/17 03:02 Dose: 200 mg - Objective Vital Signs: Vital Signs Temperature 97.6 F 10/31/17 08:31 Pulse Rate 109 H 10/31/17 08:31 Respiratory Rate 18 10/31/17 08:31 Blood Pressure 108/66 10/31/17 08:31 O2 Sat by Pulse Oximetry (%) 99 10/31/17 03:00 Constitutional: Yes: Well Nourished, No Distress, Calm Cardiovascular: Yes: Regular Rate and Rhythm Respiratory: Yes: Regular Gastrointestinal: Yes: Normal Bowel Sounds, Soft Musculoskeletal: Yes: WNL Extremities: Yes: WNL Edema: No Peripheral Pulses WNL: Yes Integumentary: Yes: Onychomycosis Neurological: Yes: Alert, Oriented Psychiatric: Yes: Alert, Oriented Labs: CBC, BMP 10/31/17 07:19 10/31/17 07:19 Problem List - Problems (1) TERRI (acute kidney injury) Assessment/Plan: -On IVF -Holding MIKALA -Nephrology on board -Monitor trend -renal U/S unremarkable Code(s): N17.9 - ACUTE KIDNEY FAILURE, UNSPECIFIED (2) Change in mental status Assessment/Plan: -CT head negative -Seen by Neurology -no focal deficits -TIA workup- MRI brain+ U/S carotid-unremarkable -Start statin -On ASA Code(s): R41.82 - ALTERED MENTAL STATUS, UNSPECIFIED (3) Diabetes Assessment/Plan: -A1C at 9.5 -Levemir+Novolog sliding scale -Diabetic diet -RD consult -Endocrinology consult -BGM ACHS Code(s): E11.9 - TYPE 2 DIABETES MELLITUS WITHOUT COMPLICATIONS Qualifiers: Diabetes mellitus type: type 2 (4) HLD (hyperlipidemia) Assessment/Plan: -Atorvastatin 20 mg po HS -repeat lipid profile outpatient Code(s): E78.5 - HYPERLIPIDEMIA, UNSPECIFIED (5) Detachment of nail Assessment/Plan: -podiatry consult Code(s): L60.1 - ONYCHOLYSIS (6) Onychomycosis Code(s): B35.1 - TINEA UNGUIUM Assessment/Plan see problem list DVT prophylaxis Spoke to Neurology- possible causes of AMS- dehydration or transient encephalopathy with unknown etiology
[2017-10-31] MEDS ORDERED: PT OWN MED DRAWER 7, Y5N ONE (09:47)
[2017-10-31] MEDS: GABAPENTIN 400 MG CAPSULE (FP) PO SCH (09:54)
[2017-10-31] MEDS: FOLIC ACID 1 MG TABLET (FP) PO SCH (09:54)
[2017-10-31] MEDS: ASPIRIN COATED 81 MG TABLET.EC PO SCH (09:54)
[2017-10-31] MEDS: PANTOPRAZOLE 40 MG TABLET (FP) PO SCH (09:54)
--- NOTE | 2017-10-31 11:11 | DS ---
Physical Examination Vital Signs: Vital Signs Temperature 97.6 F 10/31/17 08:31 Pulse Rate 109 H 10/31/17 08:31 Respiratory Rate 18 10/31/17 08:31 Blood Pressure 108/66 10/31/17 08:31 O2 Sat by Pulse Oximetry (%) 99 10/31/17 03:00 Findings/Remarks: 62 year old male with a hx of NIDDM, HTN, GERD, MDD, alcohol abuse, cirrhosis presents to the hospital for altered mental status. He was brought by his daughter, who is not present at bedside during the examination. Per record, patient had an argument with his daughter, who reported that he was not acting like himself and brought him to the ED. Patient reports that he fell earlier in the day, noting that he feels uneasy on his feet and felt dizzy. He additionally reports urinary incontinence. Denies chest pain, SOB, nausea, vomiting, diarrhea, fevers, chills, headache, blurry vision, changes to his vision. States that he had a similar presentation last year. Constitutional: Yes: Well Nourished, No Distress, Calm Cardiovascular: Yes: Regular Rate and Rhythm Respiratory: Yes: Regular Gastrointestinal: Yes: Normal Bowel Sounds, Soft Musculoskeletal: Yes: WNL Extremities: Yes: WNL Edema: No Peripheral Pulses WNL: Yes Integumentary: Yes: Onychomycosis Neurological: Yes: Alert, Oriented Psychiatric: Yes: Alert, Oriented Labs: CBC, BMP 10/31/17 07:19 10/31/17 07:19 Discharge Summary Reason For Visit: AMS Current Active Problems TERRI (acute kidney injury) (Acute) Detachment of nail (Acute) Onychomycosis (Acute) Pre-syncope (Acute) Type 2 diabetes mellitus with autonomic neuropathy (Acute) Hospital Course: U/S carotid: Mild atherosclerotic disease with no evidence of hemodynamically significant stenoses. MRi brain without contrast: No acute infarct is seen on diffusion-weighted images U/S renal/Kidney: Unremarkable examination CXR: No evidence of active pulmonary disease. CT head without contrast: No evidence of acute intracranial pathology. Condition: Stable - Instructions Diet, Activity, Other Instructions: -Start Atorvastatin 20 mg daily at bedtime -Start Thiamine B1 1 gm daily in AM -Continue Levemir 50 Units 2 x day -Continue Novolog before meals as per sliding scale 150-199-2 units 200-249-4 units 250-299- 6 units 300-349- 8 units 350-400-10 units >400- 12 units -Follow up with PCP, Dr Schmidt (Podiatry), Dr Andrea (Diabetes) and Dr Lay (Kidney) outpatient within next 2 weeks. Referrals: Michael Reddy [Primary Care Provider] - Macho Andrea MD [Staff Physician] - Aydin Schmidt DPM [Staff Physician] - Disposition: VNS/HOME HEALTH CARE - Home Medications Comprehensive Discharge Medication List: Ambulatory Orders Aspirin [Aspirin EC] 81 mg PO DAILY 10/28/17 Bisacodyl [Dulcolax] 5 mg PO BID PRN 10/28/17 Folic Acid 1 mg PO DAILY 10/28/17 Gabapentin [Neurontin] 400 mg PO BID 10/28/17 Lisinopril 30 mg PO DAILY 10/28/17 Mirtazapine [Remeron -] 30 mg PO DAILY 10/28/17 Pantoprazole Sodium [Protonix] 40 mg PO DAILY 10/28/17 Quetiapine Fumarate [Seroquel -] 200 mg PO HS 10/28/17 Tamsulosin HCl [Flomax] 0.4 mg PO HS 10/28/17 Atorvastatin Ca [Lipitor] 20 mg PO HS #30 tablet 10/31/17 Insulin (Levemir) [Levemir Vial] 50 units SQ BID@0700,2200 units 10/31/17 Insulin Sliding Scale [Novolog Vial Sliding Scale -] 1 vial SQ ACHS units 10/31 Thiamine HCl 1 gm MC DAILY #30 powder 10/31/17
--- NOTE | 2017-10-31 12:52 | PN ---
Progress Note (short form) - Note Progress Note: Patient seen for painful elongated thickened toe nails. +onycholysis right foot nails 2, +tender dystrophic mycotic nails with subungual debris other 8 toes, +elongated, no nail left 5th -cellulitis, -ulceration, -drainage, decreased ns, +xerosis b/l feet onychomycosis onycholysis dm with neuropathy DNails debrided at bedside. Ammonium lactate BID to feet and heels.
[2017-10-31] MEDS ORDERED: AMMONIUM LACTATE 12% LOTION 225 GM BOTTLE TP PRN (13:30)
--- NOTE | 2017-10-31 13:38 | PN ---
Progress Note, Physician Chief Complaint: The patient seen in his room. feeling well. Wants to go home. No urinary complaints. History of Present Illness: 62 year old gentleman with PMhx of Hypertension, DM Type 2, GERD, MDD, ETOH abuse, CKD - Current Medication List Current Medications: Active Medications Aspirin (Ecotrin -) 81 mg PO DAILY [facility] Last Admin: 10/31/17 09:54 Dose: 81 mg Atorvastatin Calcium (Lipitor -) 20 mg PO [facility] Last Admin: 10/30/17 21:23 Dose: 20 mg Bisacodyl (Dulcolax -) 5 mg PO BID PRN PRN Reason: CONSTIPATION Chlordiazepoxide HCl (Librium -) 25 mg PO Q6H PRN PRN Reason: ANXIETY Stop: 11/04/17 23:59 Folic Acid (Folic Acid -) 1 mg PO DAILY [facility] Last Admin: 10/31/17 09:54 Dose: 1 mg Gabapentin (Neurontin -) 400 mg PO BID [facility] Last Admin: 10/31/17 09:54 Dose: 400 mg Heparin Sodium (Porcine) (Heparin -) 5,000 unit SQ TID [facility] Last Admin: 10/31/17 06:26 Dose: Not Given Sodium Chloride (Normal Saline -) 1,000 mls @ 83 mls/hr IV ASDIR [facility] Last Admin: 10/30/17 17:26 Dose: Not Given Insulin Aspart (Novolog Vial Sliding Scale -) 1 vial SQ ACHS [facility]; Protocol Last Admin: 10/31/17 12:13 Dose: 6 units Insulin Detemir (Levemir Vial) 46 units SQ BID@0700,2200 [facility] Lactic Acid (Lac-Hydrin 12) 1 applic TP DAILY PRN PRN Reason: DRY SKIN Mirtazapine (Remeron -) 30 mg PO [facility] Last Admin: 10/30/17 21:23 Dose: 30 mg Pantoprazole Sodium (Protonix -) 40 mg PO DAILY [facility] Last Admin: 10/31/17 09:54 Dose: 40 mg Quetiapine Fumarate (Seroquel -) 200 mg PO [facility] Last Admin: 10/30/17 22:54 Dose: 200 mg Tamsulosin HCl (Flomax -) 0.4 mg PO [facility] Last Admin: 10/30/17 21:23 Dose: 0.4 mg Thiamine HCl (Vitamin B1 Injection -) 200 mg IVPB Q8H-IV [facility] Stop: 11/01/17 18:01 Last Admin: 10/31/17 09:54 Dose: 200 mg - Objective Vital Signs: Vital Signs Temperature 97.6 F 10/31/17 08:31 Pulse Rate 109 H 10/31/17 08:31 Respiratory Rate 18 10/31/17 08:31 Blood Pressure 108/66 10/31/17 08:31 O2 Sat by Pulse Oximetry (%) 99 10/31/17 03:00 Constitutional: Yes: Well Nourished, No Distress Eyes: Yes: Conjunctiva Clear HENT: Yes: Normocephalic Neck: Yes: Trachea Midline Cardiovascular: Yes: Regular Rate and Rhythm, S1, S2 Respiratory: Yes: CTA Bilaterally, Diminished Gastrointestinal: Yes: Normal Bowel Sounds, Soft Genitourinary: No: Bladder Distention, CVA Tenderness - Left, CVA Tenderness - Right, Hematuria Extremities: No: Amputation, Calf Tenderness Edema: No Neurological: Yes: Alert, Oriented Labs: CBC, BMP 10/31/17 07:19 10/31/17 07:19 Problem List - Problems (1) TERRI (acute kidney injury) Code(s): N17.9 - ACUTE KIDNEY FAILURE, UNSPECIFIED (2) Type 2 diabetes mellitus with autonomic neuropathy Code(s): E11.43 - TYPE 2 DIABETES W DIABETIC AUTONOMIC (POLY)NEUROPATHY Qualifiers: Diabetes mellitus terminal manager insulin use: with terminal manager use Qualified Code( s): E11.43 - Type 2 diabetes mellitus with diabetic autonomic (poly)neuropathy; Z79.4 - roasterman (current) use of insulin (3) Delirium Code(s): R41.0 - DISORIENTATION, UNSPECIFIED (4) Diabetes Code(s): E11.9 - TYPE 2 DIABETES MELLITUS WITHOUT COMPLICATIONS Qualifiers: Diabetes mellitus type: type 2 (5) HLD (hyperlipidemia) Code(s): E78.5 - HYPERLIPIDEMIA, UNSPECIFIED (6) Hypertension Code(s): I10 - ESSENTIAL (PRIMARY) HYPERTENSION Qualifiers: (7) Weakness Code(s): R53.1 - WEAKNESS Assessment/Plan 62 year old gentleman with PMhx of Hypertension, DM Type 2, GERD, MDD, ETOH abuse, CKDpresents with confusion and unsteady gain with TERRI. The Renal functions are fairly stable. IV fluids well tolerated. If discharged, will follow up as outpatient. Thank you. Piedad Piña MD
== END 2017-10-31 19:09 | disposition home health service (06) ==
LOC: JER 17:53 → JERBED 22:16 → J6S 10-29 17:00
PROVIDERS: ADMIT Internal Medicine; ATTEND Family Medicine
PROC: 3E0337Z Introduction of Electrolytic and Water Balance Substance into Peripheral Vein, Percutaneous Approach (ICD-10-PCS; principal; 2017-10-28)
PROC: 3E033GC Introduction of Other Therapeutic Substance into Peripheral Vein, Percutaneous Approach (ICD-10-PCS; 2017-10-28)
PROC: 3E023GC Introduction of Other Therapeutic Substance into Muscle, Percutaneous Approach (ICD-10-PCS; 2017-10-28)
PROC: 3E013VG Introduction of Insulin into Subcutaneous Tissue, Percutaneous Approach (ICD-10-PCS; 2017-10-28)
DX: N17.9 Acute kidney failure, unspecified (principal); R41.82 Altered mental status, unspecified; F10.230 Alcohol dependence with withdrawal, uncomplicated; I10 Essential (primary) hypertension; E78.5 Hyperlipidemia, unspecified; K21.9 Gastro-esophageal reflux disease without esophagitis; F33.9 Major depressive disorder, recurrent, unspecified; E11.43 Type 2 diabetes mellitus with diabetic autonomic (poly)neuropathy; R55 Syncope and collapse; R79.89 Other specified abnormal findings of blood chemistry; K70.9 Alcoholic liver disease, unspecified; L60.1 Onycholysis; B35.1 Tinea unguium; G92 Toxic encephalopathy; G62.9 Polyneuropathy, unspecified; G93.89 Other specified disorders of brain; R26.81 Unsteadiness on feet; R32 Unspecified urinary incontinence; R31.9 Hematuria, unspecified; Z79.4 Long term (current) use of insulin; R27.8 Other lack of coordination
CPT/HCPCS: 36415; 70450-TC; 70551-TC; 71046-TC-FY; 76775-TC; 80048; 80053; 80061; 80307; 81003; 81015; 82140; 82436; 82570; 82607; 82947; 82962; 83036; 83605; 83721; 83735; 84100; 84133; 84300; 84443; 85025; 85027; 87086; 93005; 93010; 93880-TC; 96372; 96374; 97116-GP; 97161-GP; 99283-25; G0378; J1644; J7030

== ENCOUNTER 2017-12-04 02:17 | Emergency (ER) | payer OTHER ==
--- NOTE | 2017-12-04 02:32 | PDOC ---
Attending Attestation - Resident Resident Name: Chon Morales - ED Attending Attestation I have performed the following: I have examined & evaluated the patient, The case was reviewed & discussed with the resident, I agree w/resident's findings & plan, Exceptions are as noted - HPI HPI: 12/04/17 03:48 Mr Madera is a 62 yo M h/o HTN, DMII, etoh abuse, cirrhosis, CKD prior admissions for AMS s/p d/c from hospital 1 month ago for AM. Pt presents to the ER via EMS s/p a reported episode of alterations in mental status. pt tells me that he got dizzy and blacked out He denies chest pain, palpitations, headache, focal weakness or numbness Of note, he told Dr. Morales something different - Physicial Exam PE: 12/04/17 03:51 Pt is currently at his behavioural baseline He answers questions appropriately Pt is A&O x 3 for me He appears discheveled RRR CTA No abd tenderness, protruberant abdomen No lower extremity edema - Medical Decision Making 12/04/17 03:57 Pt presents with AMS, which pt describes as transient LOC, now (Rapidly) resolved DD: syncope, seizure, Toxic-metabolic encephalopathy, Will do: Labs, CT, re assess Pt reports medication complaince Symptoms have completely resolved within 5-10 minutes of ER arrival Pt requested a sandwich, given to him 12/04/17 03:58 12/04/17 04:40 Laboratory Tests 12/04/17 12/04/17 12/04/17 03:28 03:28 03:28 WBC 7.7 Hgb 13.7 Hct 39.8 Plt Count 207 INR 1.10 H Sodium 136 Potassium 4.0 Chloride 101 Carbon Dioxide 28 BUN 23 H Creatinine 1.7 H Random Glucose 143 H D Creatine Kinase Index 1.9 CK-MB (CK-2) 3.81 H Troponin I < 0.02 Will contact family for collateral information 12/04/17 07:35 I was able to speak with Alena at his home She states that the family has noted that he intermittently stares in to space and mubles Pt did indeed pass out yesterday She does not think he should leave without a head ct This was ordered Will discharge to home if head CT nml Clinical Impression: Altered mental status (resolved)
[2017-12-04 02:36] VITALS: BMI 25.0
--- NOTE | 2017-12-04 02:55 | PDOC ---
History of Present Illness - General Chief Complaint: Altered Mental Status Stated Complaint: AMS Time Seen by Provider: 12/04/17 02:32 - History of Present Illness Initial Comments: The patient is a 62M who presents by EMS from home for reported altered mental status. The patient was recently discharged on 10/31/2017 for a similar presentation. The patient is noted to have AMS at baseline; however, per EMS his family states that he is more altered than usual. The patient is currently oriented to person only and no family is at bedside. They are reportedly on their way. 12/04/17 02:48 Past History - Past Medical History Allergies/Adverse Reactions: Allergies Allergy/AdvReac Type Severity Reaction Status Date / Time No Known Allergies Allergy Verified 12/04/17 02:31 Home Medications: Ambulatory Orders Aspirin [Aspirin EC] 81 mg PO DAILY 10/28/17 Bisacodyl [Dulcolax] 5 mg PO BID PRN 10/28/17 Folic Acid 1 mg PO DAILY 10/28/17 Gabapentin [Neurontin] 400 mg PO BID 10/28/17 Lisinopril 30 mg PO DAILY 10/28/17 Mirtazapine [Remeron -] 30 mg PO DAILY 10/28/17 Pantoprazole Sodium [Protonix] 40 mg PO DAILY 10/28/17 Quetiapine Fumarate [Seroquel -] 200 mg PO HS 10/28/17 Tamsulosin HCl [Flomax] 0.4 mg PO HS 10/28/17 Atorvastatin Ca [Lipitor] 20 mg PO HS #30 tablet 10/31/17 Insulin (Levemir) [Levemir Vial] 50 units SQ BID@0700,2200 units 10/31/17 Insulin Sliding Scale [Novolog Vial Sliding Scale -] 1 vial SQ ACHS units 10/31 Thiamine HCl 1 gm MC DAILY #30 powder 10/31/17 CVA: Yes COPD: No DVT: No Diabetes: Yes Dialysis: Yes HTN: Yes Liver Disease: Yes Psychiatric Problems: Yes Seizures: Yes - Immunization History Immunization Up to Date: Yes - Suicide/Smoking/Psychosocial Hx Smoking Status: No Smoking History: Unknown if ever smoked Have you smoked in the past 12 months: No Number of Cigarettes Smoked Daily: 0 Cigars Per Day: 0 Information on smoking cessation initiated: No Hx Alcohol Use: No Drug/Substance Use Hx: No Substance Use Type: None Hx Substance Use Treatment: No Review of Systems - Review of Systems Able to Perform ROS?: No (2/2 medical condition ) *Physical Exam - Vital Signs Last Vital Signs Temp Pulse Resp BP Pulse Ox 98.2 F 107 H 18 151/115 100 12/04/17 02:32 12/04/17 02:32 12/04/17 02:32 12/04/17 02:32 12/04/17 02:32 - Physical Exam Comments: GENERAL: Awake, alert, and oriented to person only, in no acute distress HEAD: No signs of trauma, normocephalic, atraumatic EYES: PERRL, EOMI, R pterygium, sclera anicteric, conjunctiva clear ENT: Hearing grossly normal, nares patent, oropharynx clear without exudates. Moist mucosa NECK: Normal ROM, supple, no lymphadenopathy LUNGS: No distress, speaks full sentences, clear to auscultation bilaterally HEART:Regular rate and rhythm, normal S1 and S2, no murmurs appreciated, peripheral pulses normal and equal bilaterally ABDOMEN: Soft, nontender, normoactive bowel sounds. No guarding, no rebound EXTREMITIES : Normal inspection, Normal range of motion, no edema. NEUROLOGICAL: Cranial nerves II through XII grossly intact. Tangential speech, no focal sensorimotor deficits _ 12/04/17 02:50 ED Treatment Course - LABORATORY CBC & Chemistry Diagram: 12/04/17 03:28 12/04/17 03:28 - RADIOLOGY Radiology Studies Ordered: Category Date Time Status CHEST PA & LAT [RAD] Stat Radiology 12/04/17 02:45 Ordered Medical Decision Making - Medical Decision Making The patient is a 62M with a history of EtOH abuse, seizure d/o, wernicke's encephalopathy who presents from home with reported worsening of altered mental status ED Course CMP, CBC, Cardiac Profile, PT/PTT/INR, UA/UCx, Blood Cx, Lactate ECG, CXR Patient's family is reportedly on their way 12/04/17 02:51 Patient w/ improved mental status without intervention. Patient is now A&Ox3 and responding appropriately to questions. States that he lives at home with his and son. They are not expected to come to the hospital. Patient states that we may call his family closer to 0600 for collateral information. 12/04/17 04:32 Trop I neg No leukocytosis CXR w/o PNA, PNX, air under the diaphragm, or mediastinal widening Cr 1.7, but is at baseline Lactate 0.8 12/04/17 04:35 CT Head to r/o bleed EtOH level Discussed w/ patient that he may have had a seizure Plan for D/C home w/ and son if negative 12/04/17 07:16
[2017-12-04 03:33] LABS: HEMATOCRIT 39.8 % (35.4-49); HEMOGLOBIN 13.7 GM/dL (11.7-16.9); MCH 30.9 pg (25.7-33.7); MCHC 34.4 g/dl (32.0-35.9); MEAN CELL VOLUME 89.6 fl (80-96); MEAN PLT VOLUME 8.2 fl (7.5-11.1); PLATELET COUNT 207 K/MM3 (134-434); RBC 4.44 M/mm3 (4.00-5.60); WHITE BLOOD COUNT 7.7 K/mm3 (4.0-10.0)
[2017-12-04 03:56] LABS: ALBUMIN 4.5 g/dl (3.4-5.0); ALK PHOS 171 U/L (45-117); ANION GAP 7 MMOL/L (8-16); BILIRUBIN,TOTAL 0.3 mg/dL (0.2-1.0); BLOOD UREA NITROGEN 23 mg/dL (7-18); CALCIUM 9.2 mg/dL (8.5-10.1); CHLORIDE 101 mmol/L (98-107); CO2 28 mmol/L (21-32); CREATININE 1.7 mg/dL (0.7-1.3); GLUCOSE,RANDOM 143 mg/dL (74-106); SGOT/AST 28 U/L (15-37); SGPT/ALT 37 U/L (13-61); SODIUM 136 mmol/L (136-145); TOT PROT 8.9 g/dl (6.4-8.2)
[2017-12-04 03:58] LABS: INR 1.1 (0.83-1.09); PROTHROMBIN TIME (PATIENT) 12.4 SEC (9.7-13.0)
--- NOTE | 2017-12-04 07:21 | PDOC ---
*Physical Exam - Vital Signs Last Vital Signs Temp Pulse Resp BP Pulse Ox 97.9 F 65 16 137/82 97 12/04/17 06:58 12/04/17 06:58 12/04/17 06:58 12/04/17 06:58 12/04/17 06:58 ED Treatment Course - LABORATORY CBC & Chemistry Diagram: 12/04/17 03:28 12/04/17 03:28 - ADDITIONAL ORDERS Additional order review: Laboratory Results 12/04/17 12/04/17 12/04/17 03:28 03:28 03:28 PT with INR INR PTT (Actin FS) 32.3 Sodium 136 Potassium 4.0 Chloride 101 Carbon Dioxide 28 Anion Gap 7 L BUN 23 H Creatinine 1.7 H Creat Clearance w eGFR 41.04 Random Glucose 143 H D Lactic Acid 0.8 Calcium 9.2 Total Bilirubin 0.3 AST 28 ALT 37 Alkaline Phosphatase 171 H Creatine Kinase 191 Creatine Kinase Index 1.9 CK-MB (CK-2) 3.81 H Troponin I < 0.02 Total Protein 8.9 H Albumin 4.5 12/04/17 03:28 PT with INR 12.40 INR 1.10 H PTT (Actin FS) Sodium Potassium Chloride Carbon Dioxide Anion Gap BUN Creatinine Creat Clearance w eGFR Random Glucose Lactic Acid Calcium Total Bilirubin AST ALT Alkaline Phosphatase Creatine Kinase Creatine Kinase Index CK-MB (CK-2) Troponin I Total Protein Albumin 12/04/17 03:28 RBC 4.44 MCV 89.6 MCHC 34.4 RDW 13.0 MPV 8.2 Medical Decision Making - Medical Decision Making 12/04/17 07:19 Care taken over from Dr. Morales for further evaluation. Patient is a 62 yo male w/ pmh of Siva's BIBA AOx1 for unknown cause. Patient currently AOx3 and would like to go home. Patient pending Head CT. Discussed with patient family who are on board with patient return given normal CT. 12/04/17 08:[address] negative. Discharging patient to home. *DC/Admit/Observation/Transfer Diagnosis at time of Disposition: Altered mental status Qualifiers: Altered mental status type: unspecified Qualified Code(s): R41.82 - Altered mental status, unspecified - Discharge Dispostion Disposition: HOME - Referrals Referrals: Barry Boucher MD [Primary Care Provider] - - Patient Instructions Printed Discharge Instructions: DI for Altered Mental Status Additional Instructions: You were evaluated today in the ER for your altered mental status. Head CT and laboratory evaluation was negative for any cause and your symptoms resolved while in the ER. Please follow-up with primary care provider for further evaluation in 1-2 days. Return to ER if any pain, fever, chills, return of altered mental status, or other concerning symptoms. - Post Discharge Activity
--- NOTE | 2017-12-04 08:09 | PDOC ---
*Physical Exam - Vital Signs Last Vital Signs Temp Pulse Resp BP Pulse Ox 97.8 F 107 H 15 147/99 99 12/04/17 07:26 12/04/17 07:26 12/04/17 07:26 12/04/17 07:26 12/04/17 07:26 - Physical Exam General Appearance: Yes: Nourished Respiratory/Chest: positive: Lungs Clear, Normal Breath Sounds Cardiovascular: positive: Regular Rhythm, Regular Rate, S1, S2 Musculoskeletal: positive: Normal Inspection Neurologic: positive: Fully Oriented, Alert, Normal Mood/Affect, Motor Strength 5/5, Other (gait normal) ED Treatment Course - LABORATORY CBC & Chemistry Diagram: 12/04/17 03:28 12/04/17 03:28 - ADDITIONAL ORDERS Additional order review: Laboratory Results 12/04/17 12/04/17 12/04/17 03:28 03:28 03:28 PT with INR INR PTT (Actin FS) 32.3 Sodium 136 Potassium 4.0 Chloride 101 Carbon Dioxide 28 Anion Gap 7 L BUN 23 H Creatinine 1.7 H Creat Clearance w eGFR 41.04 Random Glucose 143 H D Lactic Acid 0.8 Calcium 9.2 Total Bilirubin 0.3 AST 28 ALT 37 Alkaline Phosphatase 171 H Creatine Kinase 191 Creatine Kinase Index 1.9 CK-MB (CK-2) 3.81 H Troponin I < 0.02 Total Protein 8.9 H Albumin 4.5 12/04/17 03:28 PT with INR 12.40 INR 1.10 H PTT (Actin FS) Sodium Potassium Chloride Carbon Dioxide Anion Gap BUN Creatinine Creat Clearance w eGFR Random Glucose Lactic Acid Calcium Total Bilirubin AST ALT Alkaline Phosphatase Creatine Kinase Creatine Kinase Index CK-MB (CK-2) Troponin I Total Protein Albumin 12/04/17 03:28 RBC 4.44 MCV 89.6 MCHC 34.4 RDW 13.0 MPV 8.2 Medical Decision Making - Medical Decision Making 12/04/17 08:05 62 yo male with h/o htn dm cirrhosis, here with episode of AMS. per pt he states he fell at home. lives with his daughter. fall was unwitness. on initial evaluation pt was confused, nonsensical. however this am pt is awake alert oriented x 3. ambulating without difficulty. denies intox. or seizure history. pt states he want to go home. explained concenrs regarding possibility of seizure. pt is aware and refusing to stay. called daughter who states she can not pay for a taxi, did not witness fall. agrees pt no longer drinking alcohol. review pt records several similar episodes, pt has had multiple ct of head most recently 2 weeks ago. due to concerns for initial ams, repeat head ct was ordered by prior physician. awaiting results. 12/04/17 08:[address] negative. will dc to home. pt states he would like to walk home if his daughter can not pay for a cab. 12/04/17 08:54 *DC/Admit/Observation/Transfer Diagnosis at time of Disposition: Syncope and collapse - Discharge Dispostion Disposition: HOME Condition at time of disposition: Improved Decision to Admit order: No - Referrals Referrals: Barry Boucher MD [Primary Care Provider] - - Patient Instructions Printed Discharge Instructions: DI for Syncope in Adults (Fainting) Additional Instructions: you should follow up with dr. tan, call to schedule. - Post Discharge Activity
[2017-12-04 08:11] LABS: URINE APPEARANCE CLEAR; URINE BILIRUBIN NEGATIVE (<2.0 mg/dL); URINE COLOR COLORLESS; URINE GLUCOSE (UA) 3+ (NEGATIVE); URINE KETONE NEGATIVE (NEGATIVE); URINE LEUK ESTERASE TRACE (NEGATIVE); URINE NITRITE NEGATIVE (NEGATIVE); URINE PROTEIN NEGATIVE (NEGATIVE); URINE UROBILINOGEN NEGATIVE mg/dL (0.2-1.0)
[2017-12-04 08:22] LABS: EPI CELLS RARE /HPF (FEW)
[2017-12-04 09:31] VITALS: BP 139/89; PULSE 98; TEMP 97.6
--- NOTE | 2017-12-04 15:39 | EKG ---
Test Reason : Blood Pressure : / mmHG Vent. Rate : 102 BPM Atrial Rate : 102 BPM P-R Int : 174 ms QRS Dur : 102 ms QT Int : 364 ms P-R-T Axes : 045 010 013 degrees QTc Int : 474 ms SINUS TACHYCARDIA INCOMPLETE RIGHT BUNDLE BRANCH BLOCK BORDERLINE ECG WHEN COMPARED WITH ECG OF 28-OCT-2017 21:48, NO SIGNIFICANT CHANGE WAS FOUND Confirmed by HIMANSHU ZAPATA MD ([id number]) on 12/04/2017 3:39:26 PM Referred By: Confirmed By:HIMANSHU ZAPATA MD
== END 2017-12-04 09:56 | disposition home or self-care (01) ==
LOC: JER 02:17
DX: R41.82 Altered mental status, unspecified (principal); R55 Syncope and collapse; I12.9 Hypertensive chronic kidney disease with stage 1 through stage 4 chronic kidney disease, or unspecified chronic kidney disease; E11.22 Type 2 diabetes mellitus with diabetic chronic kidney disease; N18.9 Chronic kidney disease, unspecified; Z79.4 Long term (current) use of insulin; F10.10 Alcohol abuse, uncomplicated; K74.60 Unspecified cirrhosis of liver; Z86.73 Personal history of transient ischemic attack (TIA), and cerebral infarction without residual deficits; Z91.81 History of falling
CPT/HCPCS: 36415; 70450-TC; 71046-TC-FY; 80053; 81003; 81015; 82550; 82553; 83605; 84484; 85027; 85610; 85730; 87040; 87086; 87186; 93005; 93010; 99283-25

== ENCOUNTER 2018-04-15 07:14 | Inpatient (IN) | payer OTHER ==
[2018-04-15 07:35] VITALS: BMI 26.6
[2018-04-15 08:05] LABS: VENOUS PC02 46.7 mmHg (38-52); VENOUS PH 7.37 (7.32-7.42); VENOUS PO2 41.4 mmHg (28-48)
--- NOTE | 2018-04-15 08:06 | PDOC ---
History of Present Illness - General Chief Complaint: Altered Mental Status Stated Complaint: AMS Time Seen by Provider: 04/15/18 07:24 - History of Present Illness Initial Comments: 04/15/18 07:54 The patient is a 50 year old male with a significant PMH of HTN, DMII, cirrhosis , CKD, who presents to the emergency department with slurred speech and bizarre behavior since approx midnight. Per daughter, pt was in his USOH yesterday. However, at midnight, he began to slur his speech. This was followed by apparent confusion and odd behavior, including unplugging the TV for no reason and putting his clothes on backwards. This morning, pt was persistently confused and agitated, prompting daughter to call EMS. Daughter notes that pt has had multiple similar episodes in the past. He was seen in this ED previously for similar complaint. Daughter states that they never figured out why he has these episodes. In ED, pt is AnOx3. Patient states he notices his speech is different, but attributes it to having a dry mouth. Patient denies any recent alcohol or drug use. Denies any weakness/numbness in any extremity. Denies COPELAND/N/V. No dizziness. Denies any other complaints. The patient denies numbness/tingling/weakness, chest pain, shortness of breath, headache and dizziness. Denies fever, chills, nausea, vomit, diarrhea and constipation. Denies urinary symptoms. Allergies: NKA Past surgical history: None reported. Social history: Denies toxic habits. NIH Stroke Scale - Last Known Well Date/Time & Onset Date Last Known Well: 04/15/18 Time Last Known Well: 00:00 - Initial Evaluation Level of consciousness: Alert Ask patient the month and their age: Answers both correctly Ask patient to open & close eyes; make fist and let go: Obeys both correctly Best gaze (horizontal eye movement): Normal Visual field testing: No visual field loss Facial paresis (Show teeth/raise eyebrows/close eyes tight): Normal symmetrical movement Motor Function: Left Arm: Normal Motor Function: Right Arm: Normal (extends arm 90 (or 45) degrees for 10 seconds without drift Motor Function: Left Leg: Normal (extends leg 30 degrees for 5 seconds without drift) Motor Function: Right Leg: Normal (extends leg 30 degrees for 5 seconds without drift) Limb Ataxia: No ataxia Sensory(Use pinprick test arms,legs,trunk,face/side to side): Normal Best language (Describe picture, name items, read sentences): No Aphasia Dysarthria (read several words): Mild to moderate slurring of words Extinction and Inattention: No abnormality - Total Score NIH Stroke Scale Score: 1 Past History - Past Medical History Allergies/Adverse Reactions: Allergies Allergy/AdvReac Type Severity Reaction Status Date / Time No Known Allergies Allergy Verified 12/04/17 02:31 Home Medications: Ambulatory Orders Aspirin [Aspirin EC] 81 mg PO DAILY 10/28/17 Bisacodyl [Dulcolax] 5 mg PO BID PRN 10/28/17 Folic Acid 1 mg PO DAILY 10/28/17 Gabapentin [Neurontin] 400 mg PO BID 10/28/17 Lisinopril 30 mg PO DAILY 10/28/17 Mirtazapine [Remeron -] 30 mg PO DAILY 10/28/17 Pantoprazole Sodium [Protonix] 40 mg PO DAILY 10/28/17 Quetiapine Fumarate [Seroquel -] 200 mg PO HS 10/28/17 Tamsulosin HCl [Flomax] 0.4 mg PO HS 10/28/17 Atorvastatin Ca [Lipitor] 20 mg PO HS #30 tablet 10/31/17 Insulin (Levemir) [Levemir Vial] 50 units SQ BID@0700,2200 units 10/31/17 Insulin Sliding Scale [Novolog Vial Sliding Scale -] 1 vial SQ ACHS units 10/31 Thiamine HCl 1 gm MC DAILY #30 powder 10/31/17 Nitrofurantoin Monohyd/M-Cryst [Macrobid -] 100 mg PO BID #14 capsule 12/07/17 CVA: Yes COPD: No DVT: No Diabetes: Yes Dialysis: Yes HTN: Yes Liver Disease: Yes Psychiatric Problems: Yes Seizures: Yes - Immunization History Immunization Up to Date: Yes - Suicide/Smoking/Psychosocial Hx Smoking Status: No Smoking History: Unknown if ever smoked Have you smoked in the past 12 months: No Number of Cigarettes Smoked Daily: 0 Cigars Per Day: 0 Information on smoking cessation initiated: No Hx Alcohol Use: No Drug/Substance Use Hx: No Substance Use Type: None Hx Substance Use Treatment: No Review of Systems - Review of Systems Comments:: 04/15/18 08:06 GENERAL/CONSTITUTIONAL: No fever or chills. No weakness. HEAD, EYES, EARS, NOSE AND THROAT: No change in vision. No ear pain or discharge. No sore throat. CARDIOVASCULAR: No chest pain, no shortness of breath, no loss of consciousness RESPIRATORY: No cough, wheezing, or hemoptysis. GASTROINTESTINAL: No nausea, vomiting, diarrhea or constipation. GENITOURINARY: No dysuria, frequency, or change in urination. MUSCULOSKELETAL: No joint or muscle swelling or pain. No neck or back pain. SKIN: No rash NEUROLOGIC: No vertigo, no change in strength/sensation. (+) slurred speech. ENDOCRINE: No increased thirst. No abnormal weight change. HEMATOLOGIC/LYMPHATIC: No anemia, easy bleeding, or history of blood clots. ALLERGIC/IMMUNOLOGIC: No hives or skin allergy. *Physical Exam - Vital Signs Last Vital Signs Temp Pulse Resp BP Pulse Ox 97.6 F 103 H 16 134/89 100 04/15/18 07:22 04/15/18 07:22 04/15/18 07:22 04/15/18 07:22 04/15/18 07:22 - Physical Exam Comments: 04/15/18 08:07 GENERAL: Awake, alert, and fully oriented, in no acute distress. HEAD: No signs of trauma EYES: PERRLA, EOMI, sclera anicteric, conjunctiva clear ENT: Auricles normal inspection, hearing grossly normal, nares patent, oropharynx clear without exudates. Moist mucosa NECK: Nontender, no stepoffs, Normal ROM, supple, no lymphadenopathy, JVD, or masses LUNGS: Breath sounds equal, clear to auscultation bilaterally. No wheezes, and no crackles HEART: Regular rate and rhythm, normal S1 and S2, no murmurs, rubs or gallops ABDOMEN: Soft, nontender, normoactive bowel sounds. No guarding, no rebound. No masses EXTREMITIES: Normal range of motion, no edema. No clubbing or cyanosis. No cords, erythema, or tenderness NEUROLOGICAL: + mild dysarthria, Cranial nerves II through XII intact. 5/5 strength and sensation in all extremities, Normal speech, normal gait, normal cerebellar function SKIN: Warm, Dry, normal turgor, no rashes or lesions noted. Moderate Sedation - Procedure Monitoring Vital Signs: Procedure Monitoring Vital Signs Temperature 97.6 F 01/23/19 07:22 Pulse Rate 103 H 04/15/18 07:22 Respiratory Rate 16 04/15/18 07:22 Blood Pressure 134/89 04/15/18 07:22 O2 Sat by Pulse Oximetry (%) 100 04/15/18 07:22 Heart Score/ECG Review - ECG Impressions Comment:: 04/15/18 08:07 Sinus tachycardia, no LUIS MIGUEL/STDs, no TWIs, axis wnl intervals wnl, rate 102 ED Treatment Course - LABORATORY CBC & Chemistry Diagram: 04/15/18 07:55 04/15/18 07:55 - RADIOLOGY Radiology Studies Ordered: Category Date Time Status HEAD CT WITHOUT CONTRAST [CT] Stat CT Scan 04/15/18 07:40 Ordered CHEST PA & LAT [RAD] Stat Radiology 04/15/18 07:39 Ordered Medical Decision Making - Critical Care Time Total Critical Care Time (minutes): 60 Critical Care Statement: The care of this patient involved high complexity decision making to prevent further life threatening deterioration of the patient 's condition and/or to evaluate & treat vital organ system(s) failure or risk of failure. - Medical Decision Making 04/15/18 08:08 62 M with acute onset slurred speech and confusion. Last known normal 12AM this morning. Pt outside tPA window. In ED, pt is fully oriented, though still exhibiting some slurred speech, which he admits is not his baseline. No other neuro deficits. NIHSS 1. Pt has had multiple similar episodes in the past. Will r/o acute CVA/TIA. Also consider delirium giving waxing and waning nature. Will r/o metabolic encephalopathy, has h/o cirrhosis. Possible underlying psychotic disorder. - Labs, ETOH, Utox - CT head - CXR, UA - Neuro consult 04/15/18 10:24 Labs wnl, ETOH negative Ammonia negative CTH wnl Dr. Kumar consulted, recommends MRI w/ gadolinium to evaluate for encephalopathy. Also would like EEG to r/o partial seizures 04/15/18 11:[address] Akers *DC/Admit/Observation/Transfer Diagnosis at time of Disposition: Altered mental status, Dysarthria - Discharge Dispostion Condition at time of disposition: Stable Decision to Admit order: Yes - Referrals - Patient Instructions - Post Discharge Activity - Attestations Physician Attestion: 04/15/18 11:43 I, Dr. Chilo Magallanes MD, attest that this document has been prepared under my direction and personally reviewed by me in its entirety. I further attest, that it accurately reflects all work, treatment, procedures and medical decision -making performed by me.
[2018-04-15 08:21] LABS: BASO % 0.2 % (0-2.0); EOS % 2.6 % (0-4.5); HEMATOCRIT 37.2 % (35.4-49); HEMOGLOBIN 12.7 GM/dL (11.7-16.9); LYMPH % 22.9 % (8-40); MCHC 34.2 g/dl (32.0-35.9); MEAN CELL VOLUME 90.6 fl (80-96); MEAN PLT VOLUME 7.8 fl (7.5-11.1); NEUT % 62.3 % (42.8-82.8); PLATELET COUNT 190 K/MM3 (134-434); RDW 12.8 % (11.9-15.9); WHITE BLOOD COUNT 5.8 K/mm3 (4.0-10.0)
[2018-04-15] MEDS ORDERED: SODIUM CHLORIDE 1,000 ML IV STA (08:21)
[2018-04-15 08:32] LABS: ALBUMIN 3.4 g/dl (3.4-5.0); ALK PHOS 136 U/L (45-117); ANION GAP 8 MMOL/L (8-16); BILIRUBIN,TOTAL 0.4 mg/dL (0.2-1); BLOOD UREA NITROGEN 20 mg/dL (7-18); CALCIUM 8.9 mg/dL (8.5-10.1); CHLORIDE 103 mmol/L (98-107); CO2 27 mmol/L (21-32); CREATININE 1.5 mg/dL (0.55-1.3); GLUCOSE,RANDOM 219 mg/dL (74-106); POTASSIUM 4.3 mmol/L (3.5-5.1); SGOT/AST 14 U/L (15-37); SGPT/ALT 24 U/L (13-61); SODIUM 138 mmol/L (136-145)
--- NOTE | 2018-04-15 13:19 | EKG ---
Test Reason : Blood Pressure : / mmHG Vent. Rate : 102 BPM Atrial Rate : 102 BPM P-R Int : 174 ms QRS Dur : 096 ms QT Int : 356 ms P-R-T Axes : 061 022 025 degrees QTc Int : 463 ms SINUS TACHYCARDIA OTHERWISE NORMAL ECG WHEN COMPARED WITH ECG OF 04-DEC-2017 03:15, INCOMPLETE RIGHT BUNDLE BRANCH BLOCK IS NO LONGER PRESENT Confirmed by JENNIFER HERNÁNDEZ, KATELYN ([id number]) on 04/15/2018 1:18:55 PM Referred By: Confirmed By:KATELYN RODRIGUEZ MD
[2018-04-15] MEDS ORDERED: BISACODYL 5 MG TABLET.DR (FP) PO PRN (14:23)
[2018-04-15] MEDS ORDERED: SODIUM CHLORIDE 1,000 ML IV SCH (14:30)
--- NOTE | 2018-04-15 14:31 | HP ---
Admitting History and Physical - Primary Care Physician PCP: Umm Akers - Admission Chief Complaint: Altered mental status History of Present Illness: The patient is a 50 year old male with a significant PMH of HTN, DMII, cirrhosis , CKD, who presents to the emergency department with slurred speech and bizarre behavior since approx midnight. Per daughter, pt was in his USOH yesterday. However, at midnight, he began to slur his speech. This was followed by apparent confusion and odd behavior, including unplugging the TV for no reason and putting his clothes on backwards. This morning, pt was persistently confused and agitated, prompting daughter to call EMS. Daughter notes that pt has had multiple similar episodes in the past. He was seen in this ED previously for similar complaint. Daughter states that they never figured out why he has these episodes. In ED, pt is AnOx3. Patient states he notices his speech is different, but attributes it to having a dry mouth. Patient denies any recent alcohol or drug use. Denies any weakness/numbness in any extremity. Denies COPELAND/N/V. No dizziness. Denies any other complaints. The patient denies numbness/tingling/weakness, chest pain, shortness of breath, headache and dizziness. Denies fever, chills, nausea, vomit, diarrhea and constipation. Denies urinary symptoms. - Past Medical History EMT I/99: Yes: Seizure Cardiovascular: Yes: HTN, Hyperlipdemia Renal/: Yes: BPH Psych: Yes: Addictions Endocrine: Yes: Diabetes Mellitus - Smoking History Smoking history: Unknown if ever smoked Have you smoked in the past 12 months: No Aproximately how many cigarettes per day: 0 - Alcohol/Substance Use Hx Alcohol Use: No History of Substance Use: reports: None - Social History History of Recent Travel: No Home Medications - Allergies Allergies/Adverse Reactions: Allergies Allergy/AdvReac Type Severity Reaction Status Date / Time No Known Allergies Allergy Verified 12/04/17 02:31 - Home Medications Home Medications: Ambulatory Orders Aspirin [Aspirin EC] 81 mg PO DAILY 10/28/17 Bisacodyl [Dulcolax] 5 mg PO BID PRN 10/28/17 Folic Acid 1 mg PO DAILY 10/28/17 Gabapentin [Neurontin] 400 mg PO BID 10/28/17 Lisinopril 30 mg PO DAILY 10/28/17 Mirtazapine [Remeron -] 30 mg PO DAILY 10/28/17 Pantoprazole Sodium [Protonix] 40 mg PO DAILY 10/28/17 Quetiapine Fumarate [Seroquel -] 200 mg PO HS 10/28/17 Tamsulosin HCl [Flomax] 0.4 mg PO HS 10/28/17 Atorvastatin Ca [Lipitor] 20 mg PO HS #30 tablet 10/31/17 Insulin (Levemir) [Levemir Vial] 50 units SQ BID@0700,2200 units 10/31/17 Insulin Sliding Scale [Novolog Vial Sliding Scale -] 1 vial SQ ACHS units 10/31 Thiamine HCl 1 gm MC DAILY #30 powder 10/31/17 Nitrofurantoin Monohyd/M-Cryst [Macrobid -] 100 mg PO BID #14 capsule 12/07/17 Physical Examination Vital Signs: Vital Signs Temperature 97.6 F 04/15/18 07:22 Pulse Rate 103 H 04/15/18 07:22 Respiratory Rate 16 04/15/18 07:22 Blood Pressure 134/89 04/15/18 07:22 O2 Sat by Pulse Oximetry (%) 100 04/15/18 07:22 Labs: CBC, BMP 04/15/18 07:55 04/15/18 07:55
[2018-04-15 17:06] LABS: COCAINE, UR NEGATIVE ng/ml (CUTOFF=300); METHADONE, UR NEGATIVE ng/ml (CUTOFF=300); OPIATES, URI NEGATIVE ng/ml (CUTOFF=300); PHENCYCLIDINE,URINE NEGATIVE ng/ml (CUTOFF=25); URINE AMPHETAMINES NEGATIVE ng/ml (CUTOFF=500); URINE BARBITURATES NEGATIVE ng/ml (CUTOFF=200); URINE BENZODIAZEPINES NEGATIVE ng/ml (CUTOFF=200)
[2018-04-15 17:21] LABS: URINE APPEARANCE CLEAR; URINE BILIRUBIN NEGATIVE (<2.0 mg/dL); URINE COLOR STRAW; URINE GLUCOSE (UA) 3+ (NEGATIVE); URINE KETONE NEGATIVE (NEGATIVE); URINE LEUK ESTERASE 2+ (NEGATIVE); URINE NITRITE NEGATIVE (NEGATIVE); URINE PROTEIN NEGATIVE (NEGATIVE); URINE UROBILINOGEN NEGATIVE mg/dL (0.2-1.0)
[2018-04-15] MEDS ORDERED: LISINOPRIL 20 MG TABLET (FP) PO ONE (18:30)
[2018-04-15] MEDS: INSULIN SLIDING SCALE (NOVOLOG) 1 VIAL SQ SCH ×2 (19:24→23:35)
[2018-04-15] MEDS ORDERED: TAMSULOSIN HCL 0.4 MG CAP ONE (20:17)
[2018-04-15] MEDS ORDERED: LISINOPRIL 20 MG TABLET (FP) ONE (20:17)
[2018-04-15] MEDS ORDERED: GABAPENTIN 100 MG CAPSULE (FP) ONE (21:32)
[2018-04-15] MEDS ORDERED: QUEtiapine FUMARATE 100 MG TABLET (FP) ONE (21:32)
[2018-04-15] MEDS ORDERED: ATORVASTATIN CA 10 MG TABLET (FP) ONE (21:32)
[2018-04-15] MEDS ORDERED: QUEtiapine FUMARATE 200 MG TABLET PO SCH (22:00)
[2018-04-15] MEDS ORDERED: GABAPENTIN 400 MG CAPSULE (FP) PO SCH (22:00)
[2018-04-15] MEDS ORDERED: TAMSULOSIN HCL 0.4 MG CAP PO SCH (22:00)
[2018-04-15] MEDS ORDERED: ATORVASTATIN CA 20 MG TABLET (FP) PO SCH (22:00)
[2018-04-15] MEDS ORDERED: INSULIN (NOVOLOG) ASPART 100 UNITS/ML 10ML VIAL ONE (23:22)
[2018-04-15] MEDS ORDERED: MELATONIN 5 MG TABLETS PO ONE (23:30)
[2018-04-15] MEDS: INSULIN (LEVEMIR) 100 UNITS/ML UNITS SQ SCH (23:37)
[2018-04-16 07:25] LABS: ANION GAP 7 MMOL/L (8-16); BLOOD UREA NITROGEN 20 mg/dL (7-18); CALCIUM 8.8 mg/dL (8.5-10.1); CHLORIDE 100 mmol/L (98-107); CO2 29 mmol/L (21-32); CREATININE 1.4 mg/dL (0.55-1.3); GLUCOSE,RANDOM 220 mg/dL (74-106); POTASSIUM 4.3 mmol/L (3.5-5.1); SODIUM 136 mmol/L (136-145)
[2018-04-16 07:50] VITALS: BP 115/74; PULSE 84; TEMP 97.6
[2018-04-16] MEDS ORDERED: INSULIN (LEVEMIR) 100 UNITS/ML UNITS SQ ONE (09:24)
[2018-04-16] MEDS ORDERED: INSULIN (NOVOLOG) ASPART 100 UNITS/ML 10ML VIAL ONE (09:24)
[2018-04-16] MEDS: INSULIN (LEVEMIR) 100 UNITS/ML UNITS SQ SCH (09:31)
[2018-04-16] MEDS: INSULIN SLIDING SCALE (NOVOLOG) 1 VIAL SQ SCH (09:32)
[2018-04-16] MEDS ORDERED: FOLIC ACID 1 MG TABLET (FP) PO SCH (10:00)
[2018-04-16] MEDS ORDERED: MIRTAZAPINE 30 MG TABLET (FP) PO SCH (10:00)
[2018-04-16] MEDS ORDERED: LISINOPRIL 10 MG TABLET (FP) PO SCH (10:00)
[2018-04-16] MEDS ORDERED: ENOXAPARIN NA (PORCINE) 40 MG/0.4 ML DISP.SYRIN SQ SCH (10:00)
[2018-04-16] MEDS ORDERED: PANTOPRAZOLE 40 MG TABLET (FP) PO SCH (10:00)
[2018-04-16] MEDS ORDERED: ASPIRIN COATED 81 MG TABLET.EC PO SCH (10:00)
[2018-04-16] MEDS ORDERED: THIAMINE HCL 200 MG/2 ML VIAL IVPB SCH (10:00)
--- NOTE | 2018-04-16 10:09 | CONSULT ---
Consult - text type - Consultation Consultation Note: Both Dr. Olivas and our group was asked to see this patient, and after discussion with Dr. Olivas, he will see this patient. Please call if we can be of assistance. Thanks.
--- NOTE | 2018-04-16 10:46 | DS ---
Physical Examination Vital Signs: Vital Signs Temperature 97.6 F 04/16/18 07:49 Pulse Rate 84 04/16/18 07:49 Respiratory Rate 18 04/16/18 07:49 Blood Pressure 115/74 04/16/18 07:49 O2 Sat by Pulse Oximetry (%) 99 04/16/18 07:49 Constitutional: Yes: Calm Cardiovascular: Yes: Regular Rate and Rhythm, S1, S2 Respiratory: Yes: CTA Bilaterally Gastrointestinal: Yes: Normal Bowel Sounds, Soft Edema: No Neurological: Yes: Alert, Oriented Labs: CBC, BMP 04/15/18 07:55 04/16/18 06:00 Discharge Summary Reason For Visit: AMS Current Active Problems Change in mental status (Acute) Dysarthria (Acute) Other Procedures: head CT and Brain MRI is normal Hospital Course: Primary Care Physician PCP: Umm Akers - Admission Chief Complaint: Altered mental status History of Present Illness: The patient is a 50 year old male with a significant PMH of HTN, DMII, cirrhosis , CKD, who presents to the emergency department with slurred speech and bizarre behavior since approx midnight. Per daughter, pt was in his USOH yesterday. However, at midnight, he began to slur his speech. This was followed by apparent confusion and odd behavior, including unplugging the TV for no reason and putting his clothes on backwards. This morning, pt was persistently confused and agitated, prompting daughter to call EMS. Daughter notes that pt has had multiple similar episodes in the past. He was seen in this ED previously for similar complaint. Daughter states that they never figured out why he has these episodes. In ED, pt is AnOx3. Patient states he notices his speech is different, but attributes it to having a dry mouth. Patient denies any recent alcohol or drug use. Denies any weakness/numbness in any extremity. Denies COPELAND/N/V. No dizziness. Denies any other complaints. The patient denies numbness/tingling/weakness, chest pain, shortness of breath, headache and dizziness. Denies fever, chills, nausea, vomit, diarrhea and constipation. patient admitted to telemetry\had ct scan and MRI which was normal patient does not want to stay any longer in hospital i explained to him he needs to be seen by neurologist and get EEG done but he doesnot want to wait signed out AMA Condition: Stable - Instructions Disposition: AGAINST MEDICAL ADVICE - Home Medications Comprehensive Discharge Medication List: Ambulatory Orders Aspirin [Aspirin EC] 81 mg PO DAILY 10/28/17 Bisacodyl [Dulcolax] 5 mg PO TID PRN 10/28/17 Folic Acid 1 mg PO DAILY 10/28/17 Gabapentin [Neurontin] 400 mg PO BID 10/28/17 Lisinopril 30 mg PO DAILY 10/28/17 Mirtazapine [Remeron -] 30 mg PO DAILY 10/28/17 Pantoprazole Sodium [Protonix] 40 mg PO DAILY 10/28/17 Quetiapine Fumarate [Seroquel -] 25 mg PO HS 10/28/17 Tamsulosin HCl [Flomax] 0.4 mg PO HS 10/28/17 Atorvastatin Ca [Lipitor] 80 mg PO HS 04/15/18 Ergocalciferol (Vitamin D2) [Vitamin D2] 50,000 unit PO WEEKLY 04/15/18 Escitalopram Oxalate [Lexapro -] 10 mg PO DAILY 04/15/18 Insulin Glargine,Hum.rec.anlog [Basaglar Kwikpen U-100] 100 unit SQ 1800 Insulin Lispro [Humalog] 10 - 15 unit SQ ACHS PRN 04/15/18 Nifedipine [Nifedipine ER] 90 mg PO DAILY 04/15/18 Oxycodone HCl/Acetaminophen [Percocet 5-325 mg Tablet] 1 tab PO Q4H PRN Thiamine Mononitrate [Vitamin B-1] 100 mg PO DAILY 04/15/18
--- NOTE | 2018-04-16 11:31 | CONSULT ---
Consult - text type - Consultation Consultation Note: NEUROLOGY CONSULTATION is greatly appreciated: This 62 yo RH man with HTN, DM, depression and Cirrhosis claims no ETOH since 2009. On Lisinopril, pantoprazole, atorvastatin, tamsulosin, Insulins, mirtazepine, quetiapine (200 mg HS), gabapentin(400 mg BID), and Macrobid (?) Admitted after few days of confusion and bizarre behavior. J22=632 pg%; TSH= 1.13; RPR - CT of head (reviewed); Mild atrophy. No acute changes MRI of brain (reviewed): Moderate, diffuse atrophy, diffuse, periventricular microvascular changes. Urinary WBC= 24. Ammonia normal JAGDISH: No evidence of external head trauma. Cor reg. No bruits. Neck supple. NEURO: Awake, alert, anxious. Oriented x [facility], March,. Trump. Poor reversals. Recalls 1 of 3 @ 3 mins. + glabella. Sparse fluent speech. CN II-XII: Normal without Nystagmus. Motor: No drift. + occ myoclonic jerks/ asterixis. Normal strength. Brisk reflexes except AJ's. Toes downgoing. Coord: No FTN dystaxia. Sensory: Sl decreased vib feet. Gait: Sl wide-based, sl shuffle. IMP: Mild B/L cerebral dysfunction. Probable Peripheral neuropathy. Acute cognitive decline due to Toxic-metabolic encephalopathy (Probable UTI, Thiamine deficiency) Suggest: Agree with parenteral thiamine. Psyche follow-up. Review indications for Gabapentin Rx. Out patient Rx of UTI with oral antibiotics then repeat U/A as out patient. Neuro f/u as out patient. Thank you very much, Smooth Olivas MD
== END 2018-04-16 10:30 | disposition left against medical advice (07) | DRG 421 ==
LOC: JER 07:14 → JERBED 11:44 → J2W 04-16 09:52
PROVIDERS: ADMIT Family Medicine; ATTEND Family Medicine
DX: E51.9 Thiamine deficiency, unspecified (principal); N18.9 Chronic kidney disease, unspecified; I12.9 Hypertensive chronic kidney disease with stage 1 through stage 4 chronic kidney disease, or unspecified chronic kidney disease; R47.1 Dysarthria and anarthria; G93.41 Metabolic encephalopathy; R41.82 Altered mental status, unspecified; E11.22 Type 2 diabetes mellitus with diabetic chronic kidney disease; Z79.4 Long term (current) use of insulin
CPT/HCPCS: 36415; 70450-TC; 70553-TC; 71046-TC-FY; 80048; 80053; 80307; 81003; 81015; 82140; 82550; 82607; 82746; 82803; 82962; 83036; 84439; 84443; 84484; 85025; 86593; 87086; 93005; 93010; 95816; 99283-25; J7030

== ENCOUNTER 2018-04-17 03:26 | Emergency (ER) | payer OTHER ==
[2018-04-17 03:37] VITALS: BP 171/118; PULSE 116; TEMP 98; BMI 25.8
[2018-04-17] MEDS ORDERED: LORazepam 2 MG/ML SDV VIAL ONE (04:03)
--- NOTE | 2018-04-17 04:18 | PDOC ---
History of Present Illness - General Chief Complaint: Blood Sugar Problem Stated Complaint: DIABETIC PROBLEM History Source: Patient Exam Limitations: No Limitations - History of Present Illness Initial Comments: 62 yo M with a hx of HTN, DM, cirrhosis, and CKD presents to the emergency department [facility] for hypoglycemia and subsequent AMS. Per EMS, his FSBG was below the reader of their field unit, which means <20. The patient on presentation to the emergency department was a technically difficult interview given the patient was agitated and not wanting to answer questions. He was mumbling words that were difficult to understand. He states at the time of interview he had no pain and wished to leave back home. He denied the following : fever, chills, chest pain, SOB, nausea, vomiting, head trauma, LOC, dysuria, hematuria, and diarrhea. Past History - Past Medical History Allergies/Adverse Reactions: Allergies Allergy/AdvReac Type Severity Reaction Status Date / Time No Known Allergies Allergy Verified 04/17/18 03:35 Home Medications: Ambulatory Orders Aspirin [Aspirin EC] 81 mg PO DAILY 10/28/17 Bisacodyl [Dulcolax] 5 mg PO TID PRN 10/28/17 Folic Acid 1 mg PO DAILY 10/28/17 Gabapentin [Neurontin] 400 mg PO BID 10/28/17 Lisinopril 30 mg PO DAILY 10/28/17 Mirtazapine [Remeron -] 30 mg PO DAILY 10/28/17 Pantoprazole Sodium [Protonix] 40 mg PO DAILY 10/28/17 Quetiapine Fumarate [Seroquel -] 25 mg PO HS 10/28/17 Tamsulosin HCl [Flomax] 0.4 mg PO HS 10/28/17 Atorvastatin Ca [Lipitor] 80 mg PO HS 04/15/18 Ergocalciferol (Vitamin D2) [Vitamin D2] 50,000 unit PO WEEKLY 04/15/18 Escitalopram Oxalate [Lexapro -] 10 mg PO DAILY 04/15/18 Insulin Glargine,Hum.rec.anlog [Basaglar Kwikpen U-100] 100 unit SQ 1800 Insulin Lispro [Humalog] 10 - 15 unit SQ ACHS PRN 04/15/18 Nifedipine [Nifedipine ER] 90 mg PO DAILY 04/15/18 Oxycodone HCl/Acetaminophen [Percocet 5-325 mg Tablet] 1 tab PO Q4H PRN Thiamine Mononitrate [Vitamin B-1] 100 mg PO DAILY 04/15/18 CVA: Yes COPD: No DVT: No Diabetes: Yes Dialysis: Yes HTN: Yes Liver Disease: Yes Psychiatric Problems: Yes Seizures: Yes - Immunization History Immunization Up to Date: Yes - Suicide/Smoking/Psychosocial Hx Smoking Status: No Smoking History: Never smoked Have you smoked in the past 12 months: No Number of Cigarettes Smoked Daily: 0 Cigars Per Day: 0 Information on smoking cessation initiated: No Hx Alcohol Use: No Drug/Substance Use Hx: No Substance Use Type: None Hx Substance Use Treatment: No *Physical Exam - Vital Signs Last Vital Signs Temp Pulse Resp BP Pulse Ox 98.0 F 116 H 18 171/118 H 99 04/17/18 03:35 04/17/18 03:35 04/17/18 03:35 04/17/18 03:35 04/17/18 03:35 Moderate Sedation - Procedure Monitoring Vital Signs: Procedure Monitoring Vital Signs Temperature 98.0 F 04/17/18 03:35 Pulse Rate 116 H 04/17/18 03:35 Respiratory Rate 18 04/17/18 03:35 Blood Pressure 171/118 H 04/17/18 03:35 O2 Sat by Pulse Oximetry (%) 99 04/17/18 03:35 ED Treatment Course - LABORATORY CBC & Chemistry Diagram: 04/17/18 04:15 04/17/18 04:15 Medical Decision Making - Medical Decision Making 62 yo M with a hx of HTN, DM, cirrhosis, and CKD recently admitted for AMS who left AMA prior to EEG review presents to the emergency department with a hypoglycemic event and subsequent AMS. The patient recently AMA'd following an initial assessment by neurology Initial vitals: Initial Vital Signs Temp Pulse Resp BP Pulse Ox 98.0 F 116 H 18 171/118 H 99 04/17/18 03:35 04/17/18 03:35 04/17/18 03:35 04/17/18 03:35 04/17/18 03:35 ddx: AMS (metabolic (glucose (overdose or misuse of insulin) vs electrolyte disturbance) vs infectious etiology vs hepatic encephalopathy (given history of cirrhosis) vs acute intracranial process vs cardiac etiology (dysrhythmia vs major cardiac event) vs anemia Orders: cbc, cmp, ammonia, troponins, ammonia, ETOH, urine tox, urine analysis, cxr, head ct, cervical spine CT, ekg, lactic acid Laboratory Tests 04/17/18 04/17/18 04/17/18 04:00 04:15 04:15 WBC 5.1 RBC 4.15 Hgb 13.2 Hct 37.7 MCV 90.8 MCH 31.7 MCHC 34.9 RDW 12.9 Plt Count 175 MPV 7.9 Absolute Neuts (auto) 2.6 Neutrophils % 51.3 Lymphocytes % 33.5 D Monocytes % 11.8 H Eosinophils % 2.8 Basophils % 0.6 Nucleated RBC % 0 PT with INR 12.30 INR 1.04 PTT (Actin FS) 38.1 H Sodium Potassium Chloride Carbon Dioxide Anion Gap BUN Creatinine Creat Clearance w eGFR POC Glucometer [phone] Random Glucose Lactic Acid Calcium Total Bilirubin AST ALT Alkaline Phosphatase Ammonia Creatine Kinase Creatine Kinase Index CK-MB (CK-2) Troponin I Total Protein Albumin Urine Color Urine Appearance Urine pH Ur Specific [place] Urine Protein Urine Glucose (UA) Urine Ketones Urine Blood Urine Nitrite Urine Bilirubin Urine Urobilinogen Ur Leukocyte Esterase Urine WBC (Auto) Urine RBC (Auto) Ur Epithelial Cells Urine Bacteria Opiates Screen Methadone Screen Barbiturate Screen Phencyclidine Screen Ur Amphetamines Screen MDMA (Ecstasy) Screen Benzodiazepines Screen Cocaine Screen U Marijuana (THC) Screen Alcohol, Quantitative Blood Type Antibody Screen 04/17/18 04/17/18 04/17/18 04:15 04:15 04:30 WBC RBC Hgb Hct MCV MCH MCHC RDW Plt Count MPV Absolute Neuts (auto) Neutrophils % Lymphocytes % Monocytes % Eosinophils % Basophils % Nucleated RBC % PT with INR INR PTT (Actin FS) Sodium 135 L Potassium 4.1 Chloride 102 Carbon Dioxide 23 Anion Gap 10 BUN 22 H Creatinine 1.5 H Creat Clearance w eGFR 47.42 POC Glucometer Random Glucose 296 H Lactic Acid Calcium 8.6 Total Bilirubin 0.4 AST 18 ALT 27 Alkaline Phosphatase 156 H Ammonia Creatine Kinase Creatine Kinase Index CK-MB (CK-2) Troponin I Total Protein 7.8 Albumin 3.8 Urine Color Straw Urine Appearance Clear Urine pH 6.0 Ur Specific [place] 1.003 L Urine Protein Negative Urine Glucose (UA) 3+ H Urine Ketones Negative Urine Blood 1+ H Urine Nitrite Negative Urine Bilirubin Negative Urine Urobilinogen Negative Ur Leukocyte Esterase 2+ H Urine WBC (Auto) 20 Urine RBC (Auto) 1 Ur Epithelial Cells Rare Urine Bacteria Few Opiates Screen Methadone Screen Barbiturate Screen Phencyclidine Screen Ur Amphetamines Screen MDMA (Ecstasy) Screen Benzodiazepines Screen Cocaine Screen U Marijuana (THC) Screen Alcohol, Quantitative < 3.0 Blood Type O POSITIVE Antibody Screen Negative 04/17/18 04/17/18 04/17/18 04:30 04:47 04:52 WBC RBC Hgb Hct MCV MCH MCHC RDW Plt Count MPV Absolute Neuts (auto) Neutrophils % Lymphocytes % Monocytes % Eosinophils % Basophils % Nucleated RBC % PT with INR INR PTT (Actin FS) Sodium Potassium Chloride Carbon Dioxide Anion Gap BUN Creatinine Creat Clearance w eGFR POC Glucometer Random Glucose Lactic Acid Calcium Total Bilirubin AST ALT Alkaline Phosphatase Ammonia 18.19 Creatine Kinase Creatine Kinase Index CK-MB (CK-2) Troponin I Total Protein Albumin Urine Color Urine Appearance Urine pH Ur Specific [place] Urine Protein Urine Glucose (UA) Urine Ketones Urine Blood Urine Nitrite Urine Bilirubin Urine Urobilinogen Ur Leukocyte Esterase Urine WBC (Auto) Urine RBC (Auto) Ur Epithelial Cells Urine Bacteria Opiates Screen Negative Methadone Screen Negative Barbiturate Screen Negative Phencyclidine Screen Negative Ur Amphetamines Screen Negative MDMA (Ecstasy) Screen Negative Benzodiazepines Screen Negative Cocaine Screen Negative U Marijuana (THC) Screen Negative Alcohol, Quantitative < 3.0 Blood Type Antibody Screen 04/17/18 04/17/18 04:52 05:00 WBC RBC Hgb Hct MCV MCH MCHC RDW Plt Count MPV Absolute Neuts (auto) Neutrophils % Lymphocytes % Monocytes % Eosinophils % Basophils % Nucleated RBC % PT with INR INR PTT (Actin FS) Sodium Potassium Chloride Carbon Dioxide Anion Gap BUN Creatinine Creat Clearance w eGFR POC Glucometer Random Glucose Lactic Acid 1.5 Calcium Total Bilirubin AST ALT Alkaline Phosphatase Ammonia Creatine Kinase 163 Creatine Kinase Index 2.5 CK-MB (CK-2) 4.1 H Troponin I < 0.02 Total Protein Albumin Urine Color Urine Appearance Urine pH Ur Specific [place] Urine Protein Urine Glucose (UA) Urine Ketones Urine Blood Urine Nitrite Urine Bilirubin Urine Urobilinogen Ur Leukocyte Esterase Urine WBC (Auto) Urine RBC (Auto) Ur Epithelial Cells Urine Bacteria Opiates Screen Methadone Screen Barbiturate Screen Phencyclidine Screen Ur Amphetamines Screen MDMA (Ecstasy) Screen Benzodiazepines Screen Cocaine Screen U Marijuana (THC) Screen Alcohol, Quantitative Blood Type Antibody Screen Labs showed there was a positive leukocyte esterase with 20 WBC. Ammonia was 18 , trop negative, no elevation in WBC, no anemia, ETOH <3, and urine toxicology was negative. Restraints were ordered as well as a total of 2 mg of ativan and 2 mg of versed were ordered due to agitation and leaving while having perceived AMS. In addition, the patient was perceived to have AMS and the work up was pending. In addition, the patient was becoming agitated and tapped myself and others when trying to leave. 04/17/18 07:32 On reassessment, the patient was A&O x3. upon reassessment, the patient produced logical statements and was conversant. We asked the patient if he would like to continue to the workup previously started the day prior. He stated he did not and wanted to be discharged. The patient was amendable to doing a head CT prior to discharge to rule out intracranial acute processes. the patient stated he did not want to stay in the hospital. we advised him to follow up with Dr. Olivas for continued neurological evaluation. I offered the patient antibiotics prior to his discharge for his UTI but he declined the antibiotics in the department and for outpatient use stating he "do not need them". The patient was able to ambulate on his own volition without difficulty. I spoke to his daughter, Linnea, who arranged an [employer] molded goods spot picker for him at the hospital. In addition, an appointment to be seen by Dr Boucher was done by Linnea for Mar for follow up care and management. *DC/Admit/Observation/Transfer Diagnosis at time of Disposition: History of liver disease - Discharge Dispostion Disposition: HOME Decision to Admit order: No - Referrals Referrals: Barry Boucher MD [Primary Care Provider] - - Patient Instructions Printed Discharge Instructions: DI for Hypoglycemia Additional Instructions: you were seen in the emergency department for the evaluation of your altered mental status. your imaging and labs were within normal limits and you have appropriate mentation with capacity. please follow up with dr boucher within 1 week. please arrange transportation with your to be picked up from the hospital. please return if you have worsening symptoms or new concerning symptoms such as fever with altered mental status, chest pain, and fall. thank you. - Post Discharge Activity
[2018-04-17] MEDS ORDERED: MIDAZOLAM HCL 2 MG/2 ML SINGLE DOSE VIAL IVPUSH ONE (04:28)
[2018-04-17 04:55] LABS: BASO % 0.6 % (0-2.0); EOS % 2.8 % (0-4.5); HEMATOCRIT 37.7 % (35.4-49); HEMOGLOBIN 13.2 GM/dL (11.7-16.9); LYMPH % 33.5 % (8-40); MCH 31.7 pg (25.7-33.7); MCHC 34.9 g/dl (32.0-35.9); MEAN CELL VOLUME 90.8 fl (80-96); MEAN PLT VOLUME 7.9 fl (7.5-11.1); MONO % 11.8 % (3.8-10.2); NEUT % 51.3 % (42.8-82.8); PLATELET COUNT 175 K/MM3 (134-434); RBC 4.15 M/mm3 (4.00-5.60); RDW 12.9 % (11.9-15.9); WHITE BLOOD COUNT 5.1 K/mm3 (4.0-10.0)
--- NOTE | 2018-04-17 05:14 | PDOC ---
Attending Attestation - Resident Resident Name: Tip Fernandez - ED Attending Attestation I have performed the following: I have examined & evaluated the patient, The case was reviewed & discussed with the resident, I agree w/resident's findings & plan, Exceptions are as noted
[2018-04-17 05:15] LABS: URINE APPEARANCE CLEAR; URINE BILIRUBIN NEGATIVE (<2.0 mg/dL); URINE COLOR STRAW; URINE GLUCOSE (UA) 3+ (NEGATIVE); URINE KETONE NEGATIVE (NEGATIVE); URINE LEUK ESTERASE 2+ (NEGATIVE); URINE NITRITE NEGATIVE (NEGATIVE); URINE PROTEIN NEGATIVE (NEGATIVE); URINE UROBILINOGEN NEGATIVE mg/dL (0.2-1.0)
[2018-04-17 05:25] LABS: INR 1.04 (0.83-1.09); PROTHROMBIN TIME (PATIENT) 12.3 SEC (9.7-13.0)
[2018-04-17 05:27] LABS: ALBUMIN 3.8 g/dl (3.4-5.0); ALK PHOS 156 U/L (45-117); ANION GAP 10 MMOL/L (8-16); BILIRUBIN,TOTAL 0.4 mg/dL (0.2-1); BLOOD UREA NITROGEN 22 mg/dL (7-18); CALCIUM 8.6 mg/dL (8.5-10.1); CHLORIDE 102 mmol/L (98-107); CO2 23 mmol/L (21-32); CREATININE 1.5 mg/dL (0.55-1.3); GLUCOSE,RANDOM 296 mg/dL (74-106); POTASSIUM 4.1 mmol/L (3.5-5.1); SGOT/AST 18 U/L (15-37); SGPT/ALT 27 U/L (13-61); SODIUM 135 mmol/L (136-145); TOT PROT 7.8 g/dl (6.4-8.2)
[2018-04-17 05:28] LABS: ACTIVATED PTT 38.1 SECONDS (25.2-36.5)
[2018-04-17 05:32] LABS: EPI CELLS RARE /HPF (FEW); URINE BACTERIA FEW /hpf (NONE SEEN)
[2018-04-17] MEDS ORDERED: MIDAZOLAM HCL 2 MG/2 ML SINGLE DOSE VIAL ONE (05:53)
[2018-04-17 05:58] LABS: COCAINE, UR NEGATIVE ng/ml (CUTOFF=300); METHADONE, UR NEGATIVE ng/ml (CUTOFF=300); OPIATES, URI NEGATIVE ng/ml (CUTOFF=300); PHENCYCLIDINE,URINE NEGATIVE ng/ml (CUTOFF=25); URINE AMPHETAMINES NEGATIVE ng/ml (CUTOFF=500); URINE BARBITURATES NEGATIVE ng/ml (CUTOFF=200); URINE BENZODIAZEPINES NEGATIVE ng/ml (CUTOFF=200)
--- NOTE | 2018-04-17 11:56 | EKG ---
Test Reason : Blood Pressure : / mmHG Vent. Rate : 106 BPM Atrial Rate : 106 BPM P-R Int : 174 ms QRS Dur : 098 ms QT Int : 354 ms P-R-T Axes : 066 033 034 degrees QTc Int : 470 ms POOR DATA QUALITY, INTERPRETATION MAY BE ADVERSELY AFFECTED SINUS TACHYCARDIA OTHERWISE NORMAL ECG WHEN COMPARED WITH ECG OF 15-APR-2018 07:34, NO SIGNIFICANT CHANGE WAS FOUND Confirmed by JENNIFER HERNÁNDEZ, KATELYN ([id number]) on 04/17/2018 11:56:46 AM Referred By: Confirmed By:KATELYN RODRIGUEZ MD
== END 2018-04-17 08:30 | disposition home or self-care (01) ==
LOC: JER 03:26
PROC: 3E033NZ Introduction of Analgesics, Hypnotics, Sedatives into Peripheral Vein, Percutaneous Approach (ICD-10-PCS; principal; 2018-04-17)
PROC: 3E033NZ Introduction of Analgesics, Hypnotics, Sedatives into Peripheral Vein, Percutaneous Approach (ICD-10-PCS; 2018-04-17)
DX: E11.649 Type 2 diabetes mellitus with hypoglycemia without coma (principal); Z79.4 Long term (current) use of insulin; I12.0 Hypertensive chronic kidney disease with stage 5 chronic kidney disease or end stage renal disease; E11.22 Type 2 diabetes mellitus with diabetic chronic kidney disease; N18.6 End stage renal disease; N17.8 Other acute kidney failure; K74.69 Other cirrhosis of liver; Z99.2 Dependence on renal dialysis; Z86.69 Personal history of other diseases of the nervous system and sense organs; Z86.73 Personal history of transient ischemic attack (TIA), and cerebral infarction without residual deficits
CPT/HCPCS: 36415; 70450-TC; 71045-TC-FY; 72125-TC; 80053; 80307; 81003; 81015; 82140; 82550; 82553; 82962; 83605; 84484; 85025; 85610; 85730; 86850; 86900; 86901; 87086; 93005; 93010; 96374; 96375; 99283-25

== ENCOUNTER 2018-04-18 07:27 | Observation (INO) | payer OTHER ==
--- NOTE | 2018-04-18 07:52 | PDOC ---
History of Present Illness - General Stated Complaint: SLURRED SPEECH Time Seen by Provider: 04/18/18 07:36 - History of Present Illness Initial Comments: 04/18/18 07:44 62 yo M with h/o HTN, DMII, cirrhosis, CKD, who p/w confusion. Patient BIBEMS, following call by family members that patient was confused with slurred speech, and wondering in circles around room. Patient denies complaints. Recently admitted to [facility] for AMS/confusion, similiar presentation 04/16/18. Patient signed out AMA. Lab eval at that time unremarkable. UA notable for 2+ LE, 20 WBC. MRI brain moderate diffuse atrophy. Evaluated by Dr. Olivas Neurology who believed patient with acute cognitive decline 2/2 toxic-metabolic encephalopathy (UTI, Vs. Thiamine deficiency). Patient denies COPELAND, vision change, N/V, F,C, CP, SOB, urinary complaints, abdominal pain, diarrhea, constipation, lightheadedness, weakness, sensory changes. PMHx: as noted above ROS: as noted SHx: Denies Etoh, IVDA, tobacco use. Allergies: NKDA Past History - Past Medical History Allergies/Adverse Reactions: Allergies Allergy/AdvReac Type Severity Reaction Status Date / Time No Known Allergies Allergy Verified 04/18/18 07:44 Home Medications: Ambulatory Orders Aspirin [Aspirin EC] 81 mg PO DAILY 10/28/17 Bisacodyl [Dulcolax] 5 mg PO TID PRN 10/28/17 Folic Acid 1 mg PO DAILY 10/28/17 Gabapentin [Neurontin] 400 mg PO BID 10/28/17 Lisinopril 30 mg PO DAILY 10/28/17 Mirtazapine [Remeron -] 30 mg PO DAILY 10/28/17 Pantoprazole Sodium [Protonix] 40 mg PO DAILY 10/28/17 Quetiapine Fumarate [Seroquel -] 25 mg PO HS 10/28/17 Tamsulosin HCl [Flomax] 0.4 mg PO HS 10/28/17 Atorvastatin Ca [Lipitor] 80 mg PO HS 04/15/18 Ergocalciferol (Vitamin D2) [Vitamin D2] 50,000 unit PO WEEKLY 04/15/18 Escitalopram Oxalate [Lexapro -] 10 mg PO DAILY 04/15/18 Insulin Glargine,Hum.rec.anlog [Basaglar Kwikpen U-100] 100 unit SQ 1800 Insulin Lispro [Humalog] 10 - 15 unit SQ ACHS PRN 04/15/18 Nifedipine [Nifedipine ER] 90 mg PO DAILY 04/15/18 Oxycodone HCl/Acetaminophen [Percocet 5-325 mg Tablet] 1 tab PO Q4H PRN Thiamine Mononitrate [Vitamin B-1] 100 mg PO DAILY 04/15/18 CVA: Yes COPD: No DVT: No Diabetes: Yes Dialysis: Yes HTN: Yes Liver Disease: Yes Psychiatric Problems: Yes Seizures: Yes - Immunization History Immunization Up to Date: Yes - Suicide/Smoking/Psychosocial Hx Smoking Status: No Smoking History: Unknown if ever smoked Have you smoked in the past 12 months: No Number of Cigarettes Smoked Daily: 0 Cigars Per Day: 0 Information on smoking cessation initiated: No Hx Alcohol Use: No Drug/Substance Use Hx: No Substance Use Type: None Hx Substance Use Treatment: No Review of Systems - Review of Systems Comments:: 04/18/18 07:54 GENERAL/CONSTITUTIONAL: No fever or chills. No weakness. HEAD, EYES, EARS, NOSE AND THROAT: No change in vision. No ear pain or discharge. No sore throat. CARDIOVASCULAR: No chest pain or shortness of breath RESPIRATORY: No cough, wheezing, or hemoptysis. GASTROINTESTINAL: No nausea, vomiting, diarrhea or constipation. GENITOURINARY: No dysuria, frequency, or change in urination. MUSCULOSKELETAL: No joint or muscle swelling or pain. No neck or back pain. SKIN: No rash NEUROLOGIC: No headache, vertigo, loss of consciousness, or change in strength/ sensation. ENDOCRINE: No increased thirst. No abnormal weight change HEMATOLOGIC/LYMPHATIC: No anemia, easy bleeding, or history of blood clots. ALLERGIC/IMMUNOLOGIC: No hives or skin allergy. *Physical Exam - Vital Signs Last Vital Signs Temp Pulse Resp BP Pulse Ox 97 F L 124 H 20 137/94 98 04/18/18 07:41 04/18/18 07:41 04/18/18 07:41 04/18/18 07:41 04/18/18 07:41 - Physical Exam Comments: 04/18/18 07:53 GENERAL: Awake, alert, and oriented x 2, in no acute distress HEAD: No signs of trauma, normocephalic, atraumatic EYES: PERRLA, EOMI, sclera anicteric, conjunctiva clear ENT: Auricles normal inspection, hearing grossly normal, nares patent, oropharynx clear without exudates. Moist mucosa NECK: Normal ROM, supple, no lymphadenopathy, JVD, or masses LUNGS: No distress, speaks full sentences, clear to auscultation bilaterally HEART: Regular rate and rhythm, normal S1 and S2, no murmurs, rubs or gallops, peripheral pulses normal and equal bilaterally. ABDOMEN: Soft, nontender, normoactive bowel sounds. No guarding, no rebound. No masses EXTREMITIES : Normal inspection, Normal range of motion, no edema. No clubbing or cyanosis. NEUROLOGICAL: Cranial nerves II through XII grossly intact. Normal speech, normal gait, no focal sensorimotor deficits SKIN: Warm, Dry, normal turgor, no rashes or lesions noted Moderate Sedation - Procedure Monitoring Vital Signs: Procedure Monitoring Vital Signs Temperature 97 F L 04/18/18 07:41 Pulse Rate 124 H 04/18/18 07:41 Respiratory Rate 20 04/18/18 07:41 Blood Pressure 137/94 04/18/18 07:41 O2 Sat by Pulse Oximetry (%) 98 04/18/18 07:41 ED Treatment Course - LABORATORY CBC & Chemistry Diagram: 04/18/18 08:05 04/18/18 07:48 Medical Decision Making - Medical Decision Making 04/18/18 07:52 62 yo M with h/o HTN, DMII, cirrhosis, CKD, who p/w confusion. HR 124, vitals wnl, AF, A&Ox3. Physical exam unremarkable. Will assess for hypoglycemia, VBI/ TIA, electrolyte abnml, metabolic and toxic derangements, acid-base disturbances , infection. ED Course: 04/18/18 07:52 GLU~83 04/18/18 08:55 LA: 3.1 04/18/18 09:23 CBC: Unremarkable NH4: Neg VBG: Unremarkable 04/18/18 10:42 BUN/Cr: 24/1.4 ( Baseline ~1.5) 04/18/18 13:55 Rocephin 1 gm 04/18/18 13:59 PMD [place], admits to [facility] contacted. Awaiting call back 04/18/18 14:12 Patient endorsed to Taz JOHNSON. Request [facility]. Admit to medicine *DC/Admit/Observation/Transfer Diagnosis at time of Disposition: Altered mental state Qualifiers: Altered mental status type: disorientation Qualified Code(s): R41.0 - Disorientation, unspecified UTI (urinary tract infection) Qualifiers: Urinary tract infection type: site unspecified Hematuria presence: without hematuria Qualified Code(s): N39.0 - Urinary tract infection, site not specified - Discharge Dispostion Decision to Admit order: Yes - Referrals Referrals: Barry Boucher MD [Staff Physician] - - Patient Instructions - Post Discharge Activity
[2018-04-18 08:44] LABS: VENOUS PH 7.34 (7.32-7.42); VENOUS PO2 22.8 mmHg (28-48)
--- NOTE | 2018-04-18 08:51 | PDOC ---
Attending Attestation - Resident Resident Name: Marco Antonio Frances - ED Attending Attestation I have performed the following: I have examined & evaluated the patient, The case was reviewed & discussed with the resident, I agree w/resident's findings & plan, Exceptions are as noted - HPI HPI: 04/18/18 08:44 62y M hx of HTN, DMII, Cirhosis, etoh abuse, CKD, presents with slurred speech. Per EMS, the was concerned about the patients slurred speech thi [place] and called EMS. Upon arrival, the pt had noted slurring of speech and seemed agitated, but was able to answer directed questions - denies any focal complaints including headache, vision changes, n/v, f/c, cough, abd pain, dysuria, diarrhea, melena, bpr, lgitheadedness, diaphoresis. This is hte pts 3rd visit to the ED in the past week for the same complaint. Was intiially admitted to the hospital for the first visit, had a neuro consult, ct, mri, and his sypmtoms were thought to be possible infectious in nature (uti). pt came bcak the next day and left AMA. There seems to be a waxing waning component to the patients AMS - ?UTI? GENERAL: The patient is awake, alert,, Nontoxic - in no acute distress. HEAD: Normocephalic, atraumatic. EYES: extraocular movements intact, sclera anicteric, abnormal cornea on R ENT: Normal voice, Moist mucous membranes. NECK: Normal range of motion, supple LUNGS: Breath sounds equal, clear to auscultation bilaterally. No wheezes, no rhonchi, no rales. HEART: tachycardic, normal S1 and S2 without murmur, rub or gallop. ABDOMEN: Soft, nontender, normoactive bowel sounds. No guarding, no rebound. . No CVA tenderness EXTREMITIES: Normal range of motion, no edema. No clubbing or cyanosis. No cords, erythema, or tenderness. NEUROLOGICAL: No facial assymetry, Normal speech, moving all 4 extreimties spontanously and symmetrically, sensatio nintact thorughout, strenght 5/5 in upper/lower and symmetric PSYCH: Normal mood, normal affect. SKIN: Warm, Dry, normal turgor, ddx - metabolic/infectious, unlikely cva with neg mri recently, will obtain blood workup, cx fluids for hydration pt was agitated, walking around, required ativan for sedation will give abx for possible UTI will reassess, anticipate admission 04/18/18 14:44 pts labs rviewed UA consistent with UTI sp abx pt admitted for further management - Physicial Exam PE: 04/19/18 10:06 see above - Medical Decision Making 04/19/18 10:06 see above Heart Score/ECG Review - ECG Impressions Comment:: 04/18/18 09:11 Twelve-lead EKG was performed and reviewed by me. There is normal sinus rhythm with a rate of 115 PVCs present Normal axis Impression sinus Tachycardia
[2018-04-18] MEDS ORDERED: SODIUM CHLORIDE 1,000 ML IV STA (08:55)
[2018-04-18 08:57] LABS: BASO % 0.2 % (0-2.0); EOS % 3.2 % (0-4.5); HEMATOCRIT 35.7 % (35.4-49); HEMOGLOBIN 12.7 GM/dL (11.7-16.9); MCHC 35.5 g/dl (32.0-35.9); MEAN CELL VOLUME 90.2 fl (80-96); MEAN PLT VOLUME 7.7 fl (7.5-11.1); MONO % 12.4 % (3.8-10.2); NEUT % 53.2 % (42.8-82.8); PLATELET COUNT 180 K/MM3 (134-434); RBC 3.96 M/mm3 (4.00-5.60); RDW 12.8 % (11.9-15.9); WHITE BLOOD COUNT 6.1 K/mm3 (4.0-10.0)
[2018-04-18 09:17] LABS: ALBUMIN 3.8 g/dl (3.4-5.0); ALK PHOS 155 U/L (45-117); ANION GAP 8 MMOL/L (8-16); BILIRUBIN,TOTAL 0.3 mg/dL (0.2-1); BLOOD UREA NITROGEN 24 mg/dL (7-18); CALCIUM 8.9 mg/dL (8.5-10.1); CHLORIDE 104 mmol/L (98-107); CO2 28 mmol/L (21-32); CREATININE 1.4 mg/dL (0.55-1.3); GLUCOSE,RANDOM 130 mg/dL (74-106); POTASSIUM 3.6 mmol/L (3.5-5.1); SGOT/AST 18 U/L (15-37); SGPT/ALT 28 U/L (13-61); SODIUM 140 mmol/L (136-145); TOT PROT 7.6 g/dl (6.4-8.2)
--- NOTE | 2018-04-18 12:51 | EKG ---
Test Reason : Blood Pressure : / mmHG Vent. Rate : 115 BPM Atrial Rate : 115 BPM P-R Int : 168 ms QRS Dur : 090 ms QT Int : 346 ms P-R-T Axes : 050 011 044 degrees QTc Int : 478 ms SINUS TACHYCARDIA WITH FREQUENT PREMATURE VENTRICULAR COMPLEXES WHEN COMPARED WITH ECG OF 17-APR-2018 07:15, PREMATURE VENTRICULAR COMPLEXES ARE NOW PRESENT Confirmed by TERRA ARTIS MD ([id number]) on 04/18/2018 12:50:29 PM Referred By: Confirmed By:TERRA ARTIS MD
[2018-04-18 13:38] LABS: URINE APPEARANCE TURBID; URINE BILIRUBIN NEGATIVE (<2.0 mg/dL); URINE COLOR YELLOW; URINE GLUCOSE (UA) NEGATIVE (NEGATIVE); URINE KETONE NEGATIVE (NEGATIVE); URINE LEUK ESTERASE 3+ (NEGATIVE); URINE NITRITE NEGATIVE (NEGATIVE); URINE PROTEIN NEGATIVE (NEGATIVE); URINE UROBILINOGEN NEGATIVE mg/dL (0.2-1.0)
[2018-04-18] MEDS ORDERED: CEFTRIAXONE 1,000 MG in DEXTROSE 5%-WATER - 50 ML IVPB ONE (13:55)
[2018-04-18 13:56] LABS: EPI CELLS RARE /HPF (FEW)
[2018-04-18] MEDS ORDERED: CEFTRIAXONE 1 GM/50 ML BAG ONE (16:12)
--- NOTE | 2018-04-18 19:32 | HP ---
Admitting History and Physical - Admission Chief Complaint: AMS, slurred speech History of Present Illness: Patient is a 62 y/o male with past medical history of HTN, DM type 2, Cirrhosis , ETOH abuse, and CKD. As per ER documentation presented to ER with AMS and slurred speech after called EMS. When interview patient he states he was experiencing dizziness last night. He stated dizziness began at 10pm while watching TV and continued to this morning and his family was concerned and said he should go to the hospital. Patient has been seen in [facility] ER three times this week with most recent visit where patient left AMA. UA show 3+ leukocytes. Head CT scan performed in ER. Patient denies dizziness, chest pain, or SOB. History Source: Patient Limitations to Obtaining History: No Limitations - Past Medical History [employer]: Yes: Seizure Cardiovascular: Yes: HTN, Hyperlipdemia Renal/: Yes: BPH Psych: Yes: Addictions Endocrine: Yes: Diabetes Mellitus - Smoking History Smoking history: Unknown if ever smoked Have you smoked in the past 12 months: No Aproximately how many cigarettes per day: 0 - Alcohol/Substance Use Hx Alcohol Use: No History of Substance Use: reports: None - Social History Usual Living Arrangement: Yes: With Significant Other ADL: Independent History of Recent Travel: No <Laisha Best - Last Filed: 04/18/18 19:26> Home Medications <Laisha Best - Last Filed: 04/18/18 19:26> <Umm Akers - Last Filed: 04/19/18 09:30> - Allergies Allergies/Adverse Reactions: Allergies Allergy/AdvReac Type Severity Reaction Status Date / Time No Known Allergies Allergy Verified 04/18/18 07:44 - Home Medications Home Medications: Ambulatory Orders Aspirin [Aspirin EC] 81 mg PO DAILY 10/28/17 Bisacodyl [Dulcolax] 5 mg PO TID PRN 10/28/17 Folic Acid 1 mg PO DAILY 10/28/17 Gabapentin [Neurontin] 400 mg PO BID 10/28/17 Lisinopril 30 mg PO DAILY 10/28/17 Mirtazapine [Remeron -] 30 mg PO DAILY 10/28/17 Pantoprazole Sodium [Protonix] 40 mg PO DAILY 10/28/17 Quetiapine Fumarate [Seroquel -] 25 mg PO HS 10/28/17 Tamsulosin HCl [Flomax] 0.4 mg PO HS 10/28/17 Atorvastatin Ca [Lipitor] 80 mg PO HS 04/15/18 Ergocalciferol (Vitamin D2) [Vitamin D2] 50,000 unit PO WEEKLY 04/15/18 Escitalopram Oxalate [Lexapro -] 10 mg PO DAILY 04/15/18 Insulin Glargine,Hum.rec.anlog [Basaglar Kwikpen U-100] 100 unit SQ 1800 Insulin Lispro [Humalog] 10 - 15 unit SQ ACHS PRN 04/15/18 Nifedipine [Nifedipine ER] 90 mg PO DAILY 04/15/18 Oxycodone HCl/Acetaminophen [Percocet 5-325 mg Tablet] 1 tab PO Q4H PRN Thiamine Mononitrate [Vitamin B-1] 100 mg PO DAILY 04/15/18 Review of Systems - Review of Systems Constitutional: reports: No Symptoms Eyes: reports: No Symptoms HENT: reports: No Symptoms Neck: reports: No Symptoms Cardiovascular: reports: No Symptoms Respiratory: reports: No Symptoms Gastrointestinal: reports: Constipation Genitourinary: reports: Frequency Musculoskeletal: reports: No Symptoms Integumentary: reports: No Symptoms Neurological: reports: No Symptoms Endocrine: reports: No Symptoms Hematology/Lymphatic: reports: No Symptoms Psychiatric: reports: No Symptoms <Laisha Best - Last Filed: 04/18/18 19:26> Physical Examination Vital Signs: Vital Signs Temperature 97 F L 04/18/18 07:41 Pulse Rate 101 H 04/18/18 19:00 Respiratory Rate 18 04/18/18 19:00 Blood Pressure 101/64 04/18/18 19:00 O2 Sat by Pulse Oximetry (%) 98 04/18/18 19:00 Constitutional: Yes: No Distress, Calm Eyes: Yes: Conjunctiva Clear HENT: Yes: Atraumatic Neck: Yes: Supple Cardiovascular: Yes: Regular Rate and Rhythm Respiratory: Yes: Regular, CTA Bilaterally Gastrointestinal: Yes: Normal Bowel Sounds, Soft Musculoskeletal: Yes: WNL Extremities: Yes: WNL Edema: No Neurological: Yes: Alert, Oriented Psychiatric: Yes: Alert, Oriented Labs: CBC, BMP 04/18/18 08:05 04/18/18 07:48 <Laisha Best - Last Filed: 04/18/18 19:26> Vital Signs: Vital Signs Temperature 98.2 F 04/19/18 06:22 Pulse Rate 94 H 04/19/18 06:22 Respiratory Rate 20 04/19/18 05:00 Blood Pressure 133/84 04/19/18 06:22 O2 Sat by Pulse Oximetry (%) 97 04/19/18 05:00 Labs: CBC, BMP 04/19/18 06:00 04/19/18 06:00 <Umm Akers - Last Filed: 04/19/18 09:30> Problem List - Problems (1) Change in mental status Assessment/Plan: -pending head ct scan result -neuro checks Code(s): R41.82 - ALTERED MENTAL STATUS, UNSPECIFIED Qualifiers: Altered mental status type: disorientation Qualified Code(s): R41.0 - Disorientation, unspecified (2) UTI (urinary tract infection) Assessment/Plan: -pending UC -ID consult for recommendation on ABT -NS at 50cc/hr for hydration -monitor I&O Code(s): N39.0 - URINARY TRACT INFECTION, SITE NOT SPECIFIED Qualifiers: Urinary tract infection type: site unspecified Hematuria presence: without hematuria Qualified Code(s): N39.0 - Urinary tract infection, site not specified (3) TERRI (acute kidney injury) Assessment/Plan: -will monitor and trend BUN/Cr -nephrology consult Code(s): N17.9 - ACUTE KIDNEY FAILURE, UNSPECIFIED (4) Constipation Assessment/Plan: -start on senna 2 tab po qhs Code(s): K59.00 - CONSTIPATION, UNSPECIFIED Qualifiers: Constipation type: other constipation type Qualified Code(s): K59.09 - Other constipation (5) Diabetes Assessment/Plan: -HgA1c ordered -BGM ACHS, ISS -diabetic diet Code(s): E11.9 - TYPE 2 DIABETES MELLITUS WITHOUT COMPLICATIONS Qualifiers: Diabetes mellitus type: type 2 (6) History of liver disease Assessment/Plan: -Alk phos elev 155, AST/ALT nl, will trend -GI consult Code(s): Z87.19 - PERSONAL HISTORY OF OTHER DISEASES OF THE DIGESTIVE SYSTEM (7) Hypertension Assessment/Plan: -continue nifedipine and lisinopril -hold BP meds if SBP <100 and/or DBP <60 -low Na diet Code(s): I10 - ESSENTIAL (PRIMARY) HYPERTENSION <Laisha Best - Last Filed: 04/18/18 19:26> Assessment/Plan PATIENT SEEN AND EXAMINED AND I AGREE WITH THE ABOVE NOTE <Umm Akers - Last Filed: 04/19/18 09:30>
[2018-04-18] MEDS: SODIUM CHLORIDE 1,000 ML IV SCH (21:07)
[2018-04-18] MEDS ORDERED: MIRTAZAPINE 30 MG TABLET (FP) PO SCH (22:00)
[2018-04-18] MEDS ORDERED: QUEtiapine FUMARATE 25 MG TABLET (FP) PO SCH (22:00)
[2018-04-18] MEDS ORDERED: ATORVASTATIN CA 80 MG TABLET (FP) ONE (22:33)
[2018-04-18] MEDS ORDERED: QUEtiapine FUMARATE 25 MG TABLET (FP) ONE (22:34)
[2018-04-18] MEDS ORDERED: TAMSULOSIN HCL 0.4 MG CAP ONE (22:34)
[2018-04-18] MEDS ORDERED: INSULIN REGULAR HUMAN 100 UNITS/ML *VIAL ONE (23:12)
[2018-04-18] MEDS: ATORVASTATIN CA 80 MG TABLET (FP) PO SCH (23:19)
[2018-04-18] MEDS: GABAPENTIN 400 MG CAPSULE (FP) PO SCH (23:19)
[2018-04-18] MEDS: INSULIN SLIDING SCALE (NOVOLOG) 1 VIAL SQ SCH (23:19)
[2018-04-18] MEDS: SENNOSIDES 8.6MG TABLET (FP) PO SCH (23:19)
--- NOTE | 2018-04-19 01:08 | HOSP ---
Physical Examination Vital Signs: Vital Signs Temperature 97 F L 04/18/18 07:41 Pulse Rate 101 H 04/18/18 19:00 Respiratory Rate 18 04/18/18 19:00 Blood Pressure 101/64 04/18/18 19:00 O2 Sat by Pulse Oximetry (%) 98 04/18/18 19:00 Labs: CBC, BMP 04/18/18 08:05 04/18/18 07:48 Hospitalist Encounter Assessment: I spoke to the patient - he is not suicidal, genocidal or wants to hurt himself or leave. will d/c the 1:1 for the patient
[2018-04-19] MEDS ORDERED: QUEtiapine FUMARATE 200 MG TABLET PO STA (01:09)
[2018-04-19] MEDS ORDERED: QUEtiapine FUMARATE 100 MG TABLET (FP) PO ONE (01:09)
[2018-04-19 02:02] VITALS: BMI 26.4
[2018-04-19] MEDS ORDERED: LISINOPRIL 20 MG TABLET (FP) PO SCH (05:30)
[2018-04-19] MEDS: NIFEdipine E.R. 90 MG TABLET (FP) PO SCH (05:38)
[2018-04-19] MEDS: LISINOPRIL 20 MG TABLET (FP) PO SCH (05:38)
[2018-04-19] MEDS: INSULIN SLIDING SCALE (NOVOLOG) 1 VIAL SQ SCH ×4 (06:22→21:46)
[2018-04-19 07:21] LABS: HEMATOCRIT 36.2 % (35.4-49); HEMOGLOBIN 12.9 GM/dL (11.7-16.9); MCH 32.7 pg (25.7-33.7); MCHC 35.6 g/dl (32.0-35.9); MEAN CELL VOLUME 91.7 fl (80-96); PLATELET COUNT 176 K/MM3 (134-434); RBC 3.95 M/mm3 (4.00-5.60); RDW 12.6 % (11.9-15.9); WHITE BLOOD COUNT 6.1 K/mm3 (4.0-10.0)
[2018-04-19 07:56] LABS: ALBUMIN 3.3 g/dl (3.4-5.0); ALK PHOS 142 U/L (45-117); ANION GAP 9 MMOL/L (8-16); BILIRUBIN,TOTAL 0.4 mg/dL (0.2-1); BLOOD UREA NITROGEN 22 mg/dL (7-18); CALCIUM 8.2 mg/dL (8.5-10.1); CHLORIDE 105 mmol/L (98-107); CHOLESTEROL 179 mg/dL (50-200); CO2 24 mmol/L (21-32); CREATININE 1.4 mg/dL (0.55-1.3); GLUCOSE,RANDOM 204 mg/dL (74-106); HDL CHOLESTEROL 34 mg/dL (40-60); POTASSIUM 4.4 mmol/L (3.5-5.1); SGOT/AST 14 U/L (15-37); SGPT/ALT 25 U/L (13-61); SODIUM 137 mmol/L (136-145); TRIGLYCERIDES 200 mg/dL (0-150)
[2018-04-19] MEDS ORDERED: DEXTROSE 5%-WATER 200 ML IVPB ONE (09:19)
--- NOTE | 2018-04-19 09:44 | DS ---
Physical Examination Vital Signs: Vital Signs Temperature 98.2 F 04/19/18 06:22 Pulse Rate 94 H 04/19/18 06:22 Respiratory Rate 20 04/19/18 05:00 Blood Pressure 133/84 04/19/18 06:22 O2 Sat by Pulse Oximetry (%) 97 04/19/18 05:00 Constitutional: Yes: No Distress, Calm Eyes: Yes: Conjunctiva Clear HENT: Yes: Atraumatic Neck: Yes: Supple Cardiovascular: Yes: Regular Rate and Rhythm Respiratory: Yes: Regular, CTA Bilaterally Gastrointestinal: Yes: Normal Bowel Sounds, Soft Musculoskeletal: Yes: WNL Extremities: Yes: WNL Edema: No Neurological: Yes: Alert, Oriented Psychiatric: Yes: Alert, Oriented Labs: CBC, BMP 04/19/18 06:00 04/19/18 06:00 Discharge Summary Reason For Visit: UTI,AMS Current Active Problems Change in mental status (Acute) UTI (urinary tract infection) (Acute) Hospital Course: Laboratory Tests 04/18/18 04/18/18 04/18/18 07:48 07:48 08:05 WBC 6.1 RBC 3.96 L Hgb 12.7 Hct 35.7 MCV 90.2 MCH 32.0 MCHC 35.5 RDW 12.8 Plt Count 180 MPV 7.7 Absolute Neuts (auto) 3.2 Neutrophils % 53.2 Lymphocytes % 31.0 Monocytes % 12.4 H Eosinophils % 3.2 Basophils % 0.2 Nucleated RBC % 0 VBG pH POC VBG pCO2 POC VBG pO2 Mixed VBG HCO3 Sodium 140 Potassium 3.6 Chloride 104 Carbon Dioxide 28 Anion Gap 8 BUN 24 H Creatinine 1.4 H Creat Clearance w eGFR 51.35 POC Glucometer Random Glucose 130 H Hemoglobin A1c % Lactic Acid Calcium 8.9 Total Bilirubin 0.3 AST 18 ALT 28 Alkaline Phosphatase 155 H Ammonia Creatine Kinase 216 Creatine Kinase Index 2.2 CK-MB (CK-2) 4.8 H Troponin I < 0.02 Total Protein 7.6 Albumin 3.8 Triglycerides Cholesterol Total LDL Cholesterol HDL Cholesterol Urine Color Urine Appearance Urine pH Ur Specific Johnson Urine Protein Urine Glucose (UA) Urine Ketones Urine Blood Urine Nitrite Urine Bilirubin Urine Urobilinogen Ur Leukocyte Esterase Urine WBC (Auto) Urine RBC (Auto) Ur Epithelial Cells 04/18/18 04/18/18 04/18/18 08:35 08:45 08:50 WBC RBC Hgb Hct MCV MCH MCHC RDW Plt Count MPV Absolute Neuts (auto) Neutrophils % Lymphocytes % Monocytes % Eosinophils % Basophils % Nucleated RBC % VBG pH 7.34 POC VBG pCO2 51.0 POC VBG pO2 22.8 L Mixed VBG HCO3 27.0 H Sodium Potassium Chloride Carbon Dioxide Anion Gap BUN Creatinine Creat Clearance w eGFR POC Glucometer Random Glucose Hemoglobin A1c % Lactic Acid 1.1 Calcium Total Bilirubin AST ALT Alkaline Phosphatase Ammonia < 10.00 L Creatine Kinase Creatine Kinase Index CK-MB (CK-2) Troponin I Total Protein Albumin Triglycerides Cholesterol Total LDL Cholesterol HDL Cholesterol Urine Color Urine Appearance Urine pH Ur Specific Johnson Urine Protein Urine Glucose (UA) Urine Ketones Urine Blood Urine Nitrite Urine Bilirubin Urine Urobilinogen Ur Leukocyte Esterase Urine WBC (Auto) Urine RBC (Auto) Ur Epithelial Cells 04/18/18 04/18/18 04/19/18 13:30 22:44 05:42 WBC RBC Hgb Hct MCV MCH MCHC RDW Plt Count MPV Absolute Neuts (auto) Neutrophils % Lymphocytes % Monocytes % Eosinophils % Basophils % Nucleated RBC % VBG pH POC VBG pCO2 POC VBG pO2 Mixed VBG HCO3 Sodium Potassium Chloride Carbon Dioxide Anion Gap BUN Creatinine Creat Clearance w eGFR POC Glucometer [id number] 211 Random Glucose Hemoglobin A1c % Lactic Acid Calcium Total Bilirubin AST ALT Alkaline Phosphatase Ammonia Creatine Kinase Creatine Kinase Index CK-MB (CK-2) Troponin I Total Protein Albumin Triglycerides Cholesterol Total LDL Cholesterol HDL Cholesterol Urine Color Yellow Urine Appearance Turbid Urine pH 6.0 Ur Specific Johnson 1.011 Urine Protein Negative Urine Glucose (UA) Negative Urine Ketones Negative Urine Blood 1+ H Urine Nitrite Negative Urine Bilirubin Negative Urine Urobilinogen Negative Ur Leukocyte Esterase 3+ H Urine WBC (Auto) 1840 Urine RBC (Auto) 9 Ur Epithelial Cells Rare 04/19/18 04/19/18 04/19/18 06:00 06:00 06:00 WBC 6.1 RBC 3.95 L Hgb 12.9 Hct 36.2 MCV 91.7 MCH 32.7 MCHC 35.6 RDW 12.6 Plt Count 176 MPV 9.0 D Absolute Neuts (auto) Neutrophils % Lymphocytes % Monocytes % Eosinophils % Basophils % Nucleated RBC % VBG pH POC VBG pCO2 POC VBG pO2 Mixed VBG HCO3 Sodium 137 Potassium 4.4 Chloride 105 Carbon Dioxide 24 Anion Gap 9 BUN 22 H Creatinine 1.4 H Creat Clearance w eGFR 51.35 POC Glucometer Random Glucose 204 H Hemoglobin A1c % 9.5 H Lactic Acid Calcium 8.2 L Total Bilirubin 0.4 AST 14 L ALT 25 Alkaline Phosphatase 142 H Ammonia Creatine Kinase Creatine Kinase Index CK-MB (CK-2) Troponin I Total Protein 7.0 Albumin 3.3 L Triglycerides 200 H Cholesterol 179 Total LDL Cholesterol 115 H HDL Cholesterol 34 L Urine Color Urine Appearance Urine pH Ur Specific Johnson Urine Protein Urine Glucose (UA) Urine Ketones Urine Blood Urine Nitrite Urine Bilirubin Urine Urobilinogen Ur Leukocyte Esterase Urine WBC (Auto) Urine RBC (Auto) Ur Epithelial Cells Active Medications Generic Name Dose Route Start Last Admin Trade Name Freq PRN Reason Stop Dose Admin Aspirin 81 mg 04/19/18 10:00 Ecotrin - PO DAILY [facility] Atorvastatin Calcium 80 mg 04/18/18 22:00 04/18/18 23:19 Lipitor - PO 80 mg HS K[facility]AD[facility] Administration Escitalopram Oxalate 10 mg 04/19/18 10:00 Lexapro - PO DAILY [facility] Folic Acid 1 mg 04/19/18 10:00 Folic Acid - PO DAILY [facility] Gabapentin 400 mg 04/18/18 22:00 04/18/18 23:19 Neurontin - PO 400 mg BID K[facility]ADAR Administration Sodium Chloride 1,000 mls @ 50 mls/hr 04/18/18 20:15 04/18/18 21:07 Normal Saline - IV 04/19/18 20:07 Not Given ASDIR KHADAR Ceftriaxone Sodium 2 gm/ 100 mls @ 200 mls/hr 04/19/18 10:00 Dextrose IVPB DAILY [facility] Protocol Insulin Aspart 1 vial 04/18/18 22:00 04/19/18 06:22 Novolog Vial Sliding Scale - SQ 2 unit ACHS K[facility]ADAR Administration Protocol Lisinopril 20 mg 04/19/18 05:30 04/19/18 05:38 Prinivil PO 20 mg DAILY [facility] Administration Nifedipine 90 mg 04/19/18 05:30 04/19/18 05:38 Procardia Xl - PO 90 mg DAILY [facility] Administration Pantoprazole Sodium 40 mg 04/19/18 10:00 Protonix - PO DAILY [facility] Quetiapine Fumarate 200 mg 04/19/18 22:00 Seroquel - PO HS [facility]AR Senna 2 tab 04/18/18 22:00 04/18/18 23:19 Senna - PO 2 tab HS [facility] Administration Tamsulosin HCl 0.4 mg 04/19/18 08:30 Flomax - PO DAILY@0830 [facility] Thiamine HCl 100 mg 04/19/18 10:00 Vitamin B1 - PO DAILY [facility] Condition: Unchanged/Unknown - Instructions Diet, Activity, Other Instructions: Patient is a 62 y/o male admitted from ER for UTI. Patient is refusing treatment and wishes to leave. Explained patient the risk and consequences of signing out AMA including pyleonephritis, sepsis, and if not treated. Patient continue to request to leave Patient instructed to follow up with PMD tomorrow morning or [facility]. Referrals: Barry Boucher MD [Staff Physician] - Disposition: AGAINST MEDICAL ADVICE - Home Medications Comprehensive Discharge Medication List: Ambulatory Orders Aspirin [Aspirin EC] 81 mg PO DAILY 10/28/17 Bisacodyl [Dulcolax] 5 mg PO TID PRN 10/28/17 Folic Acid 1 mg PO DAILY 10/28/17 Gabapentin [Neurontin] 400 mg PO BID 10/28/17 Lisinopril 30 mg PO DAILY 10/28/17 Mirtazapine [Remeron -] 30 mg PO DAILY 10/28/17 Pantoprazole Sodium [Protonix] 40 mg PO DAILY 10/28/17 Quetiapine Fumarate [Seroquel -] 25 mg PO HS 10/28/17 Tamsulosin HCl [Flomax] 0.4 mg PO HS 10/28/17 Atorvastatin Ca [Lipitor] 80 mg PO HS 04/15/18 Ergocalciferol (Vitamin D2) [Vitamin D2] 50,000 unit PO WEEKLY 04/15/18 Escitalopram Oxalate [Lexapro -] 10 mg PO DAILY 04/15/18 Insulin Glargine,Hum.rec.anlog [Basaglar Kwikpen U-100] 100 unit SQ 1800 Insulin Lispro [Humalog] 10 - 15 unit SQ ACHS PRN 04/15/18 Nifedipine [Nifedipine ER] 90 mg PO DAILY 04/15/18 Oxycodone HCl/Acetaminophen [Percocet 5-325 mg Tablet] 1 tab PO Q4H PRN Thiamine Mononitrate [Vitamin B-1] 100 mg PO DAILY 04/15/18
[2018-04-19] MEDS: CEFTRIAXONE 2 GM in DEXTROSE 5%-WATER 100 ML IVPB SCH (11:18)
[2018-04-19] MEDS: PANTOPRAZOLE 40 MG TABLET (FP) PO SCH (11:19)
[2018-04-19] MEDS: THIAMINE HCL 100 MG TABLET (FP) PO SCH (11:19)
[2018-04-19] MEDS: TAMSULOSIN HCL 0.4 MG CAP PO SCH (11:20)
[2018-04-19] MEDS: GABAPENTIN 400 MG CAPSULE (FP) PO SCH ×2 (11:20→21:30)
[2018-04-19] MEDS: SODIUM CHLORIDE 1,000 ML IV SCH (11:21)
[2018-04-19] MEDS: ASPIRIN COATED 81 MG TABLET.EC PO SCH (11:21)
[2018-04-19] MEDS: FOLIC ACID 1 MG TABLET (FP) PO SCH (11:21)
[2018-04-19] MEDS: ESCITALOPRAM OXALATE 10 MG TABLET (FP) PO SCH (11:21)
--- NOTE | 2018-04-19 14:14 | PN ---
Progress Note (short form) - Note Progress Note: GI NOte: Informed by Laisha Best NP that the patient is leaving AMA and that the GI consult request is withdrawn.
[2018-04-19] MEDS: SENNOSIDES 8.6MG TABLET (FP) PO SCH (21:30)
[2018-04-19] MEDS: QUEtiapine FUMARATE 200 MG TABLET PO SCH (21:30)
[2018-04-19] MEDS: ATORVASTATIN CA 80 MG TABLET (FP) PO SCH (21:30)
[2018-04-20] MEDS: INSULIN SLIDING SCALE (NOVOLOG) 1 VIAL SQ SCH ×4 (06:01→22:00)
[2018-04-20 08:25] LABS: HEMOGLOBIN 11.4 GM/dL (11.7-16.9); MCH 32.3 pg (25.7-33.7); MCHC 35.6 g/dl (32.0-35.9); MEAN CELL VOLUME 90.7 fl (80-96); MEAN PLT VOLUME 8.7 fl (7.5-11.1); PLATELET COUNT 161 K/MM3 (134-434); RBC 3.53 M/mm3 (4.00-5.60); RDW 12.6 % (11.9-15.9); WHITE BLOOD COUNT 7.2 K/mm3 (4.0-10.0)
[2018-04-20 08:50] LABS: ALBUMIN 3.2 g/dl (3.4-5.0); ALK PHOS 155 U/L (45-117); ANION GAP 7 MMOL/L (8-16); BILIRUBIN,TOTAL 0.4 mg/dL (0.2-1); BLOOD UREA NITROGEN 23 mg/dL (7-18); CALCIUM 8.3 mg/dL (8.5-10.1); CHLORIDE 105 mmol/L (98-107); CO2 24 mmol/L (21-32); CREATININE 1.5 mg/dL (0.55-1.3); GLUCOSE,RANDOM 194 mg/dL (74-106); POTASSIUM 4.1 mmol/L (3.5-5.1); SGOT/AST 13 U/L (15-37); SGPT/ALT 21 U/L (13-61); SODIUM 136 mmol/L (136-145); TOT PROT 6.7 g/dl (6.4-8.2)
[2018-04-20] MEDS: TAMSULOSIN HCL 0.4 MG CAP PO SCH (09:19)
[2018-04-20] MEDS ORDERED: DEXTROSE 5%-WATER 100 ML IVPB ONE (09:38)
[2018-04-20] MEDS: CEFTRIAXONE 2 GM in DEXTROSE 5%-WATER 100 ML IVPB SCH (10:25)
[2018-04-20] MEDS: LISINOPRIL 20 MG TABLET (FP) PO SCH (10:26)
[2018-04-20] MEDS: ESCITALOPRAM OXALATE 10 MG TABLET (FP) PO SCH (10:26)
[2018-04-20] MEDS: ASPIRIN COATED 81 MG TABLET.EC PO SCH (10:26)
[2018-04-20] MEDS: GABAPENTIN 400 MG CAPSULE (FP) PO SCH ×2 (10:26→22:00)
[2018-04-20] MEDS: NIFEdipine E.R. 90 MG TABLET (FP) PO SCH (10:26)
[2018-04-20] MEDS: PANTOPRAZOLE 40 MG TABLET (FP) PO SCH (10:26)
[2018-04-20] MEDS: THIAMINE HCL 100 MG TABLET (FP) PO SCH (10:26)
[2018-04-20] MEDS: FOLIC ACID 1 MG TABLET (FP) PO SCH (10:26)
--- NOTE | 2018-04-20 11:29 | PN ---
Progress Note, Physician Chief Complaint: AMS History of Present Illness: NAD wanted to leave [place], but stayed? 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 This is his 3rd visit in 3 days due to AMS last admission also left A - Current Medication List Current Medications: Active Medications Aspirin (Ecotrin -) 81 mg PO DAILY [facility] Last Admin: 04/20/18 10:26 Dose: 81 mg Atorvastatin Calcium (Lipitor -) 80 mg PO HS [facility] Last Admin: 04/19/18 21:30 Dose: 80 mg Escitalopram Oxalate (Lexapro -) 10 mg PO DAILY [facility] Last Admin: 04/20/18 10:26 Dose: 10 mg Fenofibric Acid (Trilipix -) 45 mg PO DAILY [facility] Folic Acid (Folic Acid -) 1 mg PO DAILY [facility] Last Admin: 04/20/18 10:26 Dose: 1 mg Gabapentin (Neurontin -) 400 mg PO BID [facility] Last Admin: 04/20/18 10:26 Dose: 400 mg Ceftriaxone Sodium 2 gm/ (Dextrose) 100 mls @ 200 mls/hr IVPB DAILY [facility]; Protocol Last Admin: 04/20/18 10:25 Dose: 200 mls/hr Insulin Aspart (Novolog Vial Sliding Scale -) 1 vial SQ ACHS [facility]; Protocol Last Admin: 04/20/18 06:01 Dose: Not Given Insulin Detemir (Levemir Vial) 12 units SQ BID [facility] Lisinopril (Prinivil) 20 mg PO DAILY [facility] Last Admin: 04/20/18 10:26 Dose: 20 mg Nifedipine (Procardia Xl -) 90 mg PO DAILY [facility] Last Admin: 04/20/18 10:26 Dose: 90 mg Pantoprazole Sodium (Protonix -) 40 mg PO DAILY [facility] Last Admin: 04/20/18 10:26 Dose: 40 mg Quetiapine Fumarate (Seroquel -) 200 mg PO HS [facility] Last Admin: 04/19/18 21:30 Dose: 200 mg Senna (Senna -) 2 tab PO HS [facility] Last Admin: 04/19/18 21:30 Dose: 2 tab Tamsulosin HCl (Flomax -) 0.4 mg PO DAILY@0830 [facility] Last Admin: 04/20/18 09:19 Dose: 0.4 mg Thiamine HCl (Vitamin B1 -) 100 mg PO DAILY [facility] Last Admin: 04/20/18 10:26 Dose: 100 mg - Objective Vital Signs: Vital Signs Temperature 98.2 F 04/20/18 10:00 Pulse Rate 96 H 04/20/18 10:00 Respiratory Rate 18 04/20/18 10:00 Blood Pressure 122/73 04/20/18 10:00 O2 Sat by Pulse Oximetry (%) 99 04/19/18 20:57 Constitutional: Yes: Well Nourished, No Distress, Anxious Cardiovascular: Yes: Regular Rate and Rhythm Respiratory: Yes: Regular Gastrointestinal: Yes: Normal Bowel Sounds, Soft Musculoskeletal: Yes: WNL Extremities: Yes: WNL Edema: No Peripheral Pulses WNL: Yes Neurological: Yes: Alert, Oriented Psychiatric: Yes: Alert, Oriented, Agitated (intermittent) Labs: CBC, BMP 04/20/18 06:20 04/20/18 06:20 Problem List - Problems (1) CKD (chronic kidney disease) Assessment/Plan: -Cr at baseline -monitor trend Code(s): N18.9 - CHRONIC KIDNEY DISEASE, UNSPECIFIED (2) Diabetes Assessment/Plan: -A1c at 9.5 -diabetic low sodium diet -restart levemir at 12 U po BID -Novolog AC HS -BGM AC HS -Endocrinology consult Code(s): E11.9 - TYPE 2 DIABETES MELLITUS WITHOUT COMPLICATIONS Qualifiers: Diabetes mellitus type: type 2 (3) Alcoholic liver disease Code(s): K70.9 - ALCOHOLIC LIVER DISEASE, UNSPECIFIED (4) Wernicke encephalopathy syndrome Code(s): E51.2 - WERNICKE'S ENCEPHALOPATHY (5) Korsakoff psychosis Code(s): 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
[2018-04-20] MEDS ORDERED: PT OWN MED DRAWER 7, Y5N ONE (14:58)
--- NOTE | 2018-04-20 15:02 | PN ---
Mental Health Exam - Mental Status Exam Alert and Oriented to: Time, Place, Person Cognitive Function: Grossly Intact Patient Appearance: Unkempt (UNSHAVEN, IN BRIGHT RED POLO) Mood: Depressed, Withdrawn, Apprehensive Affect: Mood Congruent Patient Behavior: Appropriate, Cooperative Speech Pattern: Clear, Appropriate Voice Loudness: Mildly Soft/Quiet, Hypophonia (MONOTONE, ACCENTED VOICE. ) Thought Process: Goal Oriented (GETTING WATER TO DRINK. ) Thought Disorder: Not Present Hallucinations: None, Denies Suicidal Ideation: None, Denies ("I WILL NEVER DO THAT, BUT I AM DEPRESSED". ) Homicidal Ideation: None Insight/Judgement: Fair Sleep: Poorly ("I SLEP 2 HOURS, ITS MY PROBLEM". ) Appetite: Good (BMI >30) Muscle strength/Tone: Normal Gait/Station: Normal (TREMOLOUS VOICE...)
--- NOTE | 2018-04-20 15:12 | PN ---
Progress Note, Physician Chief Complaint: Patient is a 62 y/o male with past medical history of HTN, DM type 2, Cirrhosis , ETOH abuse, and CKD. As per ER documentation presented to ER with AMS and slurred speech after called EMS. When interview patient he states he was experiencing dizziness. He stated dizziness began at 10pm while watching TV and continued to this morning and his family was concerned and said he should go to the hospital. Patient has been seen in [facility] ER three times this week with most recent visit where patient left AMA. Consult is called to psychiatry today for ama and history of korsakoff psychosis. originally seeking ama yesterday after review of EMR. As per primary nurse, Tita VALDEZ, was acting strange and ama signed outs recently. - Current Medication List Current Medications: Active Medications Aspirin (Ecotrin -) 81 mg PO DAILY [facility] Last Admin: 04/20/18 10:26 Dose: 81 mg Atorvastatin Calcium (Lipitor -) 80 mg PO HS [facility] Last Admin: 04/19/18 21:30 Dose: 80 mg Escitalopram Oxalate (Lexapro -) 10 mg PO DAILY [facility] Last Admin: 04/20/18 10:26 Dose: 10 mg Fenofibric Acid (Trilipix -) 45 mg PO DAILY [facility] Folic Acid (Folic Acid -) 1 mg PO DAILY [facility] Last Admin: 04/20/18 10:26 Dose: 1 mg Gabapentin (Neurontin -) 400 mg PO BID [facility] Last Admin: 04/20/18 10:26 Dose: 400 mg Ceftriaxone Sodium 2 gm/ (Dextrose) 100 mls @ 200 mls/hr IVPB DAILY [facility]; Protocol Last Admin: 04/20/18 10:25 Dose: 200 mls/hr Insulin Aspart (Novolog Vial Sliding Scale -) 1 vial SQ ACHS [facility]; Protocol Last Admin: 04/20/18 11:57 Dose: 8 unit Insulin Detemir (Levemir Vial) 12 units SQ BIDI [facility] Lisinopril (Prinivil) 20 mg PO DAILY [facility] Last Admin: 04/20/18 10:26 Dose: 20 mg Nifedipine (Procardia Xl -) 90 mg PO DAILY [facility] Last Admin: 04/20/18 10:26 Dose: 90 mg Pantoprazole Sodium (Protonix -) 40 mg PO DAILY [facility] Last Admin: 04/20/18 10:26 Dose: 40 mg Quetiapine Fumarate (Seroquel -) 200 mg PO [facility] Last Admin: 04/19/18 21:30 Dose: 200 mg Senna (Senna -) 2 tab PO [facility] Last Admin: 04/19/18 21:30 Dose: 2 tab Tamsulosin HCl (Flomax -) 0.4 mg PO DAILY@0830 [facility] Last Admin: 04/20/18 09:19 Dose: 0.4 mg Thiamine HCl (Vitamin B1 -) 100 mg PO DAILY [facility] Last Admin: 04/20/18 10:26 Dose: 100 mg - Objective Vital Signs: Vital Signs Temperature 98.2 F 04/20/18 10:00 Pulse Rate 96 H 04/20/18 10:00 Respiratory Rate 18 04/20/18 10:00 Blood Pressure 122/73 04/20/18 10:00 O2 Sat by Pulse Oximetry (%) 97 04/20/18 09:00 Psychiatric: Yes: WNL (denies suicidal or homicidal ideation, see mental status exam.), Alert, Oriented Labs: CBC, BMP 04/20/18 06:20 04/20/18 06:20 Problem List - Problems (1) Depression, major, recurrent, in partial remission Code(s): F33.41 - MAJOR DEPRESSIVE DISORDER, RECURRENT, IN PARTIAL REMISSION Assessment/Plan He stated his depressive symptoms is 5/10, denies anxiety, speech is quivering but goal directed, client is currently maintained on lexapro 10 mg per day. In past attempted increase to 30 mg ? got severe gi symptoms and stopped taking after consult with his doctor. will not increase current dose, 20mg is maximum dose. He verbalized poor sleep pattern, "only 2 hr at night", may be related to alcoholic history, stated he stopped in 2009 after drinking circa 30 beers/ week for 20 years. Client is also taking neurontin 400mg po bid. Seroqul is assisting augment ssri, is already at 200mg at night, will not titrate. client may have some diurnal variation in mood, versus higher potential to have cognitive/ Alzheimer due to korsakoffs history. currently not psychotic. No need for acute inpatient psychiatry. no confabulation or acute confusion currently. His gait is stable. We recommend follow up with Dr Ambriz at mental health clinic on [facility]. last visit there in october 2017.
[2018-04-20] MEDS: FENOFIBRIC ACID 45 MG CAP PO SCH (15:14)
[2018-04-20] MEDS ORDERED: INSULIN (LEVEMIR) 100 UNITS/ML UNITS SQ SCH (16:30)
[2018-04-20] MEDS: ATORVASTATIN CA 80 MG TABLET (FP) PO SCH (22:00)
[2018-04-20] MEDS: SENNOSIDES 8.6MG TABLET (FP) PO SCH (22:00)
[2018-04-20] MEDS: QUEtiapine FUMARATE 200 MG TABLET PO SCH (22:00)
--- NOTE | 2018-04-20 23:21 | CONSULT ---
Consult Consult Specialty:: endocrine Referred by:: dr.[email or web address] del cid Reason for Consultation:: dm2 uncontrolled - History of Present Illness Chief Complaint: high sugars pain in both feet History of Present Illness: 62 y/o male with past medical history of DM 2, HTN, Cirrhosis, ETOH abuse, and CKD. As per ER documentation presented to ER with AMS and slurred speech after called EMS. HE has recent episode vertigo. He stated dizziness began at 10pm while watching TV . and his family was concerned and said he should go to the hospital. Patient has had multiple episodes with similiar symptoms this last week.feeling unable to manage diabetes or his overall health. he denies nausea vomiting or fever. - Past Medical History MATTRESS STRIPPER: Yes: Seizure Cardio/Vascular: Yes: HTN, Hyperlipdemia Renal/: Yes: BPH Psych: Yes: Addictions Endocrine: Yes: Diabetes Mellitus Additional Medical History: falls -> neck pain - Alcohol/Substance Use Hx Alcohol Use: No History of Substance Use: reports: None - Smoking History Smoking history: Unknown if ever smoked Have you smoked in the past 12 months: No Aproximately how many cigarettes per day: 0 - Social History Usual Living Arrangement: With Spouse ADL: Independent History of Recent Travel: No Home Medications - Allergies Allergies/Adverse Reactions: Allergies Allergy/AdvReac Type Severity Reaction Status Date / Time No Known Allergies Allergy Verified 04/18/18 07:44 - Home Medications Home Medications: Ambulatory Orders Aspirin [Aspirin EC] 81 mg PO DAILY 10/28/17 Bisacodyl [Dulcolax] 5 mg PO TID PRN 10/28/17 Folic Acid 1 mg PO DAILY 10/28/17 Gabapentin [Neurontin] 400 mg PO BID 10/28/17 Lisinopril 30 mg PO DAILY 10/28/17 Mirtazapine [Remeron -] 30 mg PO DAILY 10/28/17 Pantoprazole Sodium [Protonix] 40 mg PO DAILY 10/28/17 Quetiapine Fumarate [Seroquel -] 25 mg PO HS 10/28/17 Tamsulosin HCl [Flomax] 0.4 mg PO HS 10/28/17 Atorvastatin Ca [Lipitor] 80 mg PO HS 04/15/18 Ergocalciferol (Vitamin D2) [Vitamin D2] 50,000 unit PO WEEKLY 04/15/18 Escitalopram Oxalate [Lexapro -] 10 mg PO DAILY 04/15/18 Insulin Glargine,Hum.rec.anlog [Basaglar Kwikpen U-100] 100 unit SQ 1800 Insulin Lispro [Humalog] 10 - 15 unit SQ ACHS PRN 04/15/18 Nifedipine [Nifedipine ER] 90 mg PO DAILY 04/15/18 Oxycodone HCl/Acetaminophen [Percocet 5-325 mg Tablet] 1 tab PO Q4H PRN Thiamine Mononitrate [Vitamin B-1] 100 mg PO DAILY 04/15/18 Review of Systems - Review of Systems Constitutional: reports: Lethargy, Weakness HENT: reports: No Symptoms Neck: reports: No Symptoms Cardiovascular: reports: No Symptoms Respiratory: reports: No Symptoms Gastrointestinal: reports: Nausea Genitourinary: reports: Frequency Breasts: reports: No Symptoms Reported Musculoskeletal: reports: Muscle Weakness Neurological: reports: Numbness, Weakness Endocrine: reports: No Symptoms, Unexplained Weight Loss Psychiatric: reports: Altered Sleep Pattern, Anxiety Physical Exam Vital Signs: Vital Signs Temperature 97.2 F L 04/20/18 19:00 Pulse Rate 95 H 04/20/18 19:00 Respiratory Rate 16 04/20/18 19:00 Blood Pressure 134/76 04/20/18 19:00 O2 Sat by Pulse Oximetry (%) 97 04/20/18 09:00 Constitutional: Yes: Anxious Eyes: Yes: Conjunctiva Clear HENT: Yes: Atraumatic, Normocephalic Neck: Yes: WNL Cardiovascular: Yes: WNL Respiratory: Yes: CTA Bilaterally Gastrointestinal: Yes: Normal Bowel Sounds ...Rectal Exam: Yes: Deferred Renal/: Yes: WNL Musculoskeletal: Yes: Muscle Pain, Muscle Weakness Extremities: Yes: Delayed Capillary Refill Edema: No Integumentary: Yes: WNL Neurological: Yes: Alert, Oriented Labs: CBC, BMP 04/20/18 06:20 04/20/18 06:20 Problem List - Problems (1) CKD (chronic kidney disease) Code(s): N18.9 - CHRONIC KIDNEY DISEASE, UNSPECIFIED (2) Change in mental status Code(s): R41.82 - ALTERED MENTAL STATUS, UNSPECIFIED Qualifiers: Altered mental status type: disorientation Qualified Code(s): R41.0 - Disorientation, unspecified (3) Depression, major, recurrent, in partial remission Code(s): F33.41 - MAJOR DEPRESSIVE DISORDER, RECURRENT, IN PARTIAL REMISSION (4) Alcohol dependence with uncomplicated withdrawal Code(s): F10.230 - ALCOHOL DEPENDENCE WITH WITHDRAWAL, UNCOMPLICATED (5) Alcoholic liver disease Code(s): K70.9 - ALCOHOLIC LIVER DISEASE, UNSPECIFIED Assessment/Plan Current Active Problems CKD (chronic kidney disease) (Acute) Change in mental status (Acute) Depression, major, recurrent, in partial remission (Acute) UTI (urinary tract infection) (Acute) dm type 2 neuropathy Abnormal Lab Results 04/20/18 04/20/18 06:20 06:20 RBC 3.53 L Hgb 11.4 L Hct 32.0 L Anion Gap 7 L BUN 23 H Creatinine 1.5 H Random Glucose 194 H Calcium 8.3 L AST 13 L Alkaline Phosphatase 155 H Albumin 3.2 L Laboratory Results - last 24 hr 04/20/18 04/20/18 04/20/18 00:19 05:45 06:20 WBC 7.2 RBC 3.53 L Hgb 11.4 L Hct 32.0 L MCV 90.7 MCH 32.3 MCHC 35.6 RDW 12.6 Plt Count 161 MPV 8.7 Sodium Potassium Chloride Carbon Dioxide Anion Gap BUN Creatinine Creat Clearance w eGFR POC Glucometer 291 184 Random Glucose Calcium Total Bilirubin AST ALT Alkaline Phosphatase Total Protein Albumin 04/20/18 04/20/18 04/20/18 06:20 11:34 16:53 WBC RBC Hgb Hct MCV MCH MCHC RDW Plt Count MPV Sodium 136 Potassium 4.1 Chloride 105 Carbon Dioxide 24 Anion Gap 7 L BUN 23 H Creatinine 1.5 H Creat Clearance w eGFR 47.42 POC Glucometer 360 336 Random Glucose 194 H Calcium 8.3 L Total Bilirubin 0.4 AST 13 L ALT 21 Alkaline Phosphatase 155 H Total Protein 6.7 Albumin 3.2 L 04/20/18 21:58 WBC RBC Hgb Hct MCV MCH MCHC RDW Plt Count MPV Sodium Potassium Chloride Carbon Dioxide Anion Gap BUN Creatinine Creat Clearance w eGFR POC Glucometer 385 Random Glucose Calcium Total Bilirubin AST ALT Alkaline Phosphatase Total Protein Albumin Laboratory Tests 04/20/18 04/20/18 04/20/18 00:19 05:45 06:20 Sodium 136 Potassium 4.1 Chloride 105 Carbon Dioxide 24 Anion Gap 7 L BUN 23 H POC Glucometer 291 184 Random Glucose 194 H 04/20/18 04/20/18 04/20/18 11:34 16:53 21:58 Sodium Potassium Chloride Carbon Dioxide Anion Gap BUN POC Glucometer 360 336 385 Random Glucose plan: nutrtion consult psychiatry bgm novolog scale outpatient diabetic training levemir bid 14 units
[2018-04-21] MEDS ORDERED: oxyCODONE HCL 5 MG TABLET PO ONE (03:45)
[2018-04-21] MEDS ORDERED: ACETAMINOPHEN 325 MG TABLET (FP) PO ONE (03:45)
[2018-04-21] MEDS: INSULIN (LEVEMIR) 100 UNITS/ML UNITS SQ SCH ×2 (06:50→16:40)
[2018-04-21] MEDS: INSULIN SLIDING SCALE (NOVOLOG) 1 VIAL SQ SCH ×3 (06:50→16:40)
[2018-04-21] MEDS ORDERED: DEXTROSE 5%-WATER 100 ML IVPB ONE (10:23)
[2018-04-21] MEDS: THIAMINE HCL 100 MG TABLET (FP) PO SCH (10:29)
[2018-04-21] MEDS: LISINOPRIL 20 MG TABLET (FP) PO SCH (10:29)
[2018-04-21] MEDS: NIFEdipine E.R. 90 MG TABLET (FP) PO SCH (10:29)
[2018-04-21] MEDS: PANTOPRAZOLE 40 MG TABLET (FP) PO SCH (10:29)
[2018-04-21] MEDS: TAMSULOSIN HCL 0.4 MG CAP PO SCH (10:29)
[2018-04-21] MEDS: GABAPENTIN 400 MG CAPSULE (FP) PO SCH (10:29)
[2018-04-21] MEDS: ESCITALOPRAM OXALATE 10 MG TABLET (FP) PO SCH (10:29)
[2018-04-21] MEDS: ASPIRIN COATED 81 MG TABLET.EC PO SCH (10:29)
[2018-04-21] MEDS: FOLIC ACID 1 MG TABLET (FP) PO SCH (10:30)
[2018-04-21] MEDS: CEFTRIAXONE 2 GM in DEXTROSE 5%-WATER 100 ML IVPB SCH (10:31)
[2018-04-21] MEDS ORDERED: PT OWN MED DRAWER 7, Y5N ONE (10:32)
[2018-04-21] MEDS: FENOFIBRIC ACID 45 MG CAP PO SCH (10:33)
--- NOTE | 2018-04-21 11:25 | DS ---
Physical Examination Vital Signs: Vital Signs Temperature 98 F 04/21/18 10:00 Pulse Rate 97 H 04/21/18 10:00 Respiratory Rate 18 04/21/18 10:00 Blood Pressure 150/90 04/21/18 10:00 O2 Sat by Pulse Oximetry (%) 99 04/20/18 21:00 Findings/Remarks: Patient is a 62 y/o male with past medical history of HTN, DM type 2, Cirrhosis , ETOH abuse, and CKD. As per ER documentation presented to ER with AMS and slurred speech after called EMS. When interview patient he states he was experiencing dizziness last night. He stated dizziness began at 10pm while watching TV and continued to this morning and his family was concerned and said he should go to the hospital. Patient has been seen in [facility] ER three times this week with most recent visit where patient left AMA. UA show 3+ leukocytes. Head CT scan performed in ER. Patient denies dizziness, chest pain, or SOB. Constitutional: Yes: Well Nourished, No Distress, Calm Cardiovascular: Yes: Regular Rate and Rhythm Respiratory: Yes: Regular Gastrointestinal: Yes: Normal Bowel Sounds, Soft Musculoskeletal: Yes: WNL Extremities: Yes: WNL Edema: No Peripheral Pulses WNL: Yes Neurological: Yes: Alert, Oriented Psychiatric: Yes: Alert, Oriented Labs: CBC, BMP 04/20/18 06:20 04/20/18 06:20 Discharge Summary Reason For Visit: UTI,AMS Current Active Problems CKD (chronic kidney disease) (Acute) Change in mental status (Acute) Depression, major, recurrent, in partial remission (Acute) UTI (urinary tract infection) (Acute) Hospital Course: Laboratory Last Values WBC 7.2 K/mm3 (4.0-10.0) 04/20/18 06:20 RBC 3.53 M/mm3 (4.00-5.60) L 04/20/18 06:20 Hgb 11.4 GM/dL (11.7-16.9) L 04/20/18 06:20 Hct 32.0 % (35.4-49) L 04/20/18 06:20 MCV 90.7 fl (80-96) 04/20/18 06:20 MCH 32.3 pg (25.7-33.7) 04/20/18 06:20 MCHC 35.6 g/dl (32.0-35.9) 04/20/18 06:20 RDW 12.6 % (11.9-15.9) 04/20/18 06:20 Plt Count 161 K/MM3 (134-434) 04/20/18 06:20 MPV 8.7 fl (7.5-11.1) 04/20/18 06:20 Absolute Neuts (auto) 3.2 K/mm3 (1.5-8.0) 04/18/18 08:05 Neutrophils % 53.2 % (42.8-82.8) 04/18/18 08:05 Lymphocytes % 31.0 % (8-40) 04/18/18 08:05 Monocytes % 12.4 % (3.8-10.2) H 04/18/18 08:05 Eosinophils % 3.2 % (0-4.5) 04/18/18 08:05 Basophils % 0.2 % (0-2.0) 04/18/18 08:05 Nucleated RBC % 0 % (0-0) 04/18/18 08:05 VBG pH 7.34 (7.32-7.42) 04/18/18 08:50 POC VBG pCO2 51.0 mmHg (38-52) 04/18/18 08:50 POC VBG pO2 22.8 mmHg (28-48) L 04/18/18 08:50 Mixed VBG HCO3 27.0 meq/L (19-25) H 04/18/18 08:50 Sodium 136 mmol/L (136-145) 04/20/18 06:20 Potassium 4.1 mmol/L (3.5-5.1) 04/20/18 06:20 Chloride 105 mmol/L (98-107) 04/20/18 06:20 Carbon Dioxide 24 mmol/L (21-32) 04/20/18 06:20 Anion Gap 7 MMOL/L (8-16) L 04/20/18 06:20 BUN 23 mg/dL (7-18) H 04/20/18 06:20 Creatinine 1.5 mg/dL (0.55-1.3) H 04/20/18 06:20 Creat Clearance w eGFR 47.42 (>60) 04/20/18 06:20 POC Glucometer 249 UNITS (80-120) 04/21/18 05:43 Random Glucose 194 mg/dL (74-106) H 04/20/18 06:20 Hemoglobin A1c % 9.5 % (4.2-6.3) H 04/19/18 06:00 Lactic Acid 1.1 mmol/L (0.4-2.0) 04/18/18 08:35 Calcium 8.3 mg/dL (8.5-10.1) L 04/20/18 06:20 Total Bilirubin 0.4 mg/dL (0.2-1) 04/20/18 06:20 AST 13 U/L (15-37) L 04/20/18 06:20 ALT 21 U/L (13-61) 04/20/18 06:20 Alkaline Phosphatase 155 U/L (45-117) H 04/20/18 06:20 Ammonia < 10.00 umol/L (11-32) L 04/18/18 08:45 Creatine Kinase 216 U/L (26-308) 04/18/18 07:48 Creatine Kinase Index 2.2 % (0.0-5.0) 04/18/18 07:48 CK-MB (CK-2) 4.8 ng/mL (0.5-3.6) H 04/18/18 07:48 Troponin I < 0.02 ng/ml (0.00-0.05) 04/18/18 07:48 Total Protein 6.7 g/dl (6.4-8.2) 04/20/18 06:20 Albumin 3.2 g/dl (3.4-5.0) L 04/20/18 06:20 Triglycerides 200 mg/dL (0-150) H 04/19/18 06:00 Cholesterol 179 mg/dL (50-200) 04/19/18 06:00 Total LDL Cholesterol 115 mg/dL (5-100) H 04/19/18 06:00 HDL Cholesterol 34 mg/dL (40-60) L 04/19/18 06:00 Urine Color Yellow 04/18/18 13:30 Urine Appearance Turbid 04/18/18 13:30 Urine pH 6.0 (5.0-8.0) 04/18/18 13:30 Ur Specific [place] 1.011 (1.010-1.035) 04/18/18 13:30 Urine Protein Negative (NEGATIVE) 04/18/18 13:30 Urine Glucose (UA) Negative (NEGATIVE) 04/18/18 13:30 Urine Ketones Negative (NEGATIVE) 04/18/18 13:30 Urine Blood 1+ (NEGATIVE) H 04/18/18 13:30 Urine Nitrite Negative (NEGATIVE) 04/18/18 13:30 Urine Bilirubin Negative (<2.0 mg/dL) 04/18/18 13:30 Urine Urobilinogen Negative mg/dL (0.2-1.0) 04/18/18 13:30 Ur Leukocyte Esterase 3+ (NEGATIVE) H 04/18/18 13:30 Urine WBC (Auto) 1840 /hpf (3-5) 04/18/18 13:30 Urine RBC (Auto) 9 /hpf (0-3) 04/18/18 13:30 Ur Epithelial Cells Rare /HPF (FEW) 04/18/18 13:30 Microbiology 04/18/18 08:00 Blood - Peripheral Venous Blood Culture - Preliminary NO GROWTH OBTAINED AFTER 72 HOURS, INCUBATION TO CONTINUE FOR 2 DAYS. 04/18/18 08:00 Blood - Peripheral Venous Blood Culture - Preliminary NO GROWTH OBTAINED AFTER 72 HOURS, INCUBATION TO CONTINUE FOR 2 DAYS. 04/18/18 07:48 Urine - Urine Clean Catch Urine Culture - Final NO GROWTH OBTAINED Condition: Stable - Instructions Diet, Activity, Other Instructions: nitrofurantoin 100 mg 2 x day for 7 days Referrals: Barry Boucher MD [Staff Physician] - Disposition: VNS/HOME HEALTH CARE - Home Medications Comprehensive Discharge Medication List: Ambulatory Orders Aspirin [Aspirin EC] 81 mg PO DAILY 10/28/17 Bisacodyl [Dulcolax] 5 mg PO TID PRN 10/28/17 Folic Acid 1 mg PO DAILY 10/28/17 Gabapentin [Neurontin] 400 mg PO BID 10/28/17 Lisinopril 30 mg PO DAILY 10/28/17 Mirtazapine [Remeron -] 30 mg PO DAILY 10/28/17 Pantoprazole Sodium [Protonix] 40 mg PO DAILY 10/28/17 Tamsulosin HCl [Flomax] 0.4 mg PO HS 10/28/17 Atorvastatin Ca [Lipitor] 80 mg PO HS 04/15/18 Ergocalciferol (Vitamin D2) [Vitamin D2] 50,000 unit PO WEEKLY 04/15/18 Escitalopram Oxalate [Lexapro -] 10 mg PO DAILY 04/15/18 Insulin Glargine,Hum.rec.anlog [Basaglar Kwikpen U-100] 100 unit SQ 1800 Insulin Lispro [Humalog] 10 - 15 unit SQ ACHS PRN 04/15/18 Nifedipine [Nifedipine ER] 90 mg PO DAILY 04/15/18 Oxycodone HCl/Acetaminophen [Percocet 5-325 mg Tablet] 1 tab PO Q4H PRN Thiamine Mononitrate [Vitamin B-1] 100 mg PO DAILY 04/15/18 Fenofibric Acid [Trilipix -] 45 mg PO DAILY #30 cap 04/21/18 Nitrofurantoin Monohyd/M-Cryst [Macrobid -] 100 mg PO BID #14 capsule 04/21/18 Quetiapine Fumarate [Seroquel -] 200 mg PO HS #30 tab 04/21/18
--- NOTE | 2018-04-21 12:04 | CONSULT ---
Consult - text type - Consultation Consultation Note: Renal consult for CKD This is a 62 year old gentleman with hx of CKD, DM2, Cirrhosis, ETOH abuse who presented with dizziness, AMS, slurred speech and found to have UTI with Cr of 1.5. Pt without any acute complaints. No SOB, CP, abd pain. Reports good oral intake. Denies any dysuria, flank pain, hematuria. For possible discharge today. PMhx: as above Allergies: NDKA Family Hx: NC Social Hx: + etoh abuse ROS: as per HPI, all other pertinent ros negative Home Medications Medication Instructions Recorded Aspirin [Aspirin EC] 81 mg PO DAILY 10/28/17 Bisacodyl [Dulcolax] 5 mg PO TID PRN 10/28/17 Folic Acid 1 mg PO DAILY 10/28/17 Gabapentin [Neurontin] 400 mg PO BID 10/28/17 Lisinopril 30 mg PO DAILY 10/28/17 Mirtazapine [Remeron -] 30 mg PO DAILY 10/28/17 Pantoprazole Sodium [Protonix] 40 mg PO DAILY 10/28/17 Tamsulosin HCl [Flomax] 0.4 mg PO HS 10/28/17 Atorvastatin Ca [Lipitor] 80 mg PO HS 04/15/18 Ergocalciferol (Vitamin D2) 50,000 unit PO WEEKLY 04/15/18 [Vitamin D2] Escitalopram Oxalate [Lexapro -] 10 mg PO DAILY 04/15/18 Insulin Glargine,Hum.rec.anlog 100 unit SQ 1800 04/15/18 [Basaglar Kwikpen U-100] Insulin Lispro [Humalog] 10 - 15 unit SQ ACHS PRN 04/15/18 Nifedipine [Nifedipine ER] 90 mg PO DAILY 04/15/18 Oxycodone HCl/Acetaminophen 1 tab PO Q4H PRN 04/15/18 [Percocet 5-325 mg Tablet] Thiamine Mononitrate [Vitamin B-1] 100 mg PO DAILY 04/15/18 Fenofibric Acid [Trilipix -] 45 mg PO DAILY #30 cap 04/21/18 Insulin Detemir [Levemir Flextouch] 100 unit SQ BID #1 insuln.pen 04/21/18 Insulin Lispro [Humalog Kwikpen 100 unit SQ AC #1 insuln.pen 04/21/18 U-100] Nitrofurantoin Monohyd/M-Cryst 100 mg PO BID #14 capsule 04/21/18 [Macrobid -] Quetiapine Fumarate [Seroquel -] 200 mg PO HS #30 tab 04/21/18 Vital Signs Temperature 98 F 04/21/18 10:00 Pulse Rate 97 H 04/21/18 10:00 Respiratory Rate 18 04/21/18 10:00 Blood Pressure 150/90 04/21/18 10:00 O2 Sat by Pulse Oximetry (%) 99 04/20/18 21:00 Intake & Output 04/18/18 04/19/18 04/20/18 04/21/18 23:59 23:59 23:59 23:59 Intake Total 710 1100 200 Balance 710 1100 200 Weight 74.843 kg 76.476 kg 77.519 kg NAD neck supple MMM RRR CTA soft NT/ND no LE edema no bladder distension CBC, BMP 04/20/18 06:20 04/20/18 06:20 Current Medications Aspirin (Ecotrin -) 81 mg PO DAILY [facility] Last Admin: 04/21/18 10:29 Dose: 81 mg Atorvastatin Calcium (Lipitor -) 80 mg PO HS [facility] Last Admin: 04/20/18 22:00 Dose: 80 mg Escitalopram Oxalate (Lexapro -) 10 mg PO DAILY [facility] Last Admin: 04/21/18 10:29 Dose: 10 mg Fenofibric Acid (Trilipix -) 45 mg PO DAILY [facility] Last Admin: 04/21/18 10:33 Dose: 45 mg Folic Acid (Folic Acid -) 1 mg PO DAILY [facility] Last Admin: 04/21/18 10:30 Dose: 1 mg Gabapentin (Neurontin -) 400 mg PO BID [facility] Last Admin: 04/21/18 10:29 Dose: 400 mg Ceftriaxone Sodium 2 gm/ (Dextrose) 100 mls @ 200 mls/hr IVPB DAILY [facility]; Protocol Last Admin: 04/21/18 10:31 Dose: 200 mls/hr Insulin Aspart (Novolog Vial Sliding Scale -) 1 vial SQ ACHS [facility]; Protocol Last Admin: 04/21/18 06:50 Dose: 2 unit Insulin Detemir (Levemir Vial) 14 units SQ BIDI [facility] Last Admin: 04/21/18 06:50 Dose: 14 units Lisinopril (Prinivil) 20 mg PO DAILY [facility] Last Admin: 04/21/18 10:29 Dose: 20 mg Nifedipine (Procardia Xl -) 90 mg PO DAILY [facility] Last Admin: 04/21/18 10:29 Dose: 90 mg Pantoprazole Sodium (Protonix -) 40 mg PO DAILY [facility] Last Admin: 04/21/18 10:29 Dose: 40 mg Quetiapine Fumarate (Seroquel -) 200 mg PO [facility] Last Admin: 04/20/18 22:00 Dose: 200 mg Senna (Senna -) 2 tab PO [facility] Last Admin: 04/20/18 22:00 Dose: 2 tab Tamsulosin HCl (Flomax -) 0.4 mg PO DAILY@0830 [facility] Last Admin: 04/21/18 10:29 Dose: 0.4 mg Thiamine HCl (Vitamin B1 -) 100 mg PO DAILY [facility] Last Admin: 04/21/18 10:29 Dose: 100 mg 62 year old gentleman with hx of CKD, DM2, Cirrhosis, ETOH abuse who presented with dizziness, AMS, slurred speech and found to have UTI with Cr of 1.5. #Dizziness w/o evidence of CVA #Cystitis #CKD (stable) #HTN #BPH #ETOH abuse Renal function stable at this time continue lisinpril as an outpatient no evidence of urinary retention continue flomax follow up with renal as an outpatient continue oral Abx as per primary discharge planning Thank you Elijah Lay DO
--- NOTE | 2018-04-21 12:09 | PN ---
Progress Note (short form) - Note Progress Note: ID CONSULT DICTATED UTI S/P ALTERED MENTATION- RESOLVED CULTURES NEGATIVE NO EVIDENCE OF SYSTEMIC INFECTION ADVISE MACROBID 100MG PO BID X 7D
--- NOTE | 2018-04-21 12:53 | CONS ---
DATE OF CONSULTATION: DATE OF DICTATION: 04/21/2018 HISTORY: A 62-year-old diabetic male evaluated for possible urinary tract infection. The patient was admitted to the hospital on April 18, 2018 with reports of altered mental status and dysarthria. CT scan of the head was negative for infarct or bleed. Recent MRI of the brain showed no evidence of acute infarct or bleed. He was noted to have pyuria. The patient denies any dysuria or hematuria. No complaints of suprapubic or flank pain. He is afebrile with a normal white blood cell count. Blood and urine cultures are negative. PAST MEDICAL HISTORY: Positive for hypertension, diabetes, chronic kidney disease, cirrhosis. ALLERGIES: No known allergies. LABORATORY DATA: White count 7.2, creatinine 1.5. Urinalysis 1840 white cells. Urine culture negative. Blood cultures negative. PHYSICAL EXAMINATION: General: He is awake and alert. He is in no acute distress. Offers no complaints. Vital Signs: Temperature 98, blood pressure 150/90, pulse 97 and regular, respirations 18 per minute. HEENT: Sclerae anicteric. Heart: S1, S2. Lungs: Clear. Abdomen: Soft. No suprapubic or flank tenderness. Extremities: Negative for edema. IMPRESSION: 1. Possible urinary tract infection. 2. Altered mental status, possible toxic metabolic encephalopathy now resolved. PLAN: Advised oral antibiotic therapy with Macrobid 100 mg p.o. b.i.d. for 7 days. Outpatient follow up. No evidence of systemic infection. Thank you for the kind referral. TERRA PEREYRA M.D. [id number]
[2018-04-21 18:48] VITALS: BP 129/80; PULSE 95; TEMP 97.3
== END 2018-04-21 20:37 | disposition home health service (06) ==
LOC: JER 07:27 → JERBED 13:56 → J7W 04-19 01:33
PROVIDERS: ADMIT Family Medicine; ATTEND Family Medicine
PROC: 3E03329 Introduction of Other Anti-infective into Peripheral Vein, Percutaneous Approach (ICD-10-PCS; principal; 2018-04-18)
PROC: 3E0337Z Introduction of Electrolytic and Water Balance Substance into Peripheral Vein, Percutaneous Approach (ICD-10-PCS; 2018-04-18)
PROC: 3E013VG Introduction of Insulin into Subcutaneous Tissue, Percutaneous Approach (ICD-10-PCS; 2018-04-18)
DX: N39.0 Urinary tract infection, site not specified (principal); R41.0 Disorientation, unspecified; E11.22 Type 2 diabetes mellitus with diabetic chronic kidney disease; I12.9 Hypertensive chronic kidney disease with stage 1 through stage 4 chronic kidney disease, or unspecified chronic kidney disease; N18.9 Chronic kidney disease, unspecified; N17.9 Acute kidney failure, unspecified; Z79.4 Long term (current) use of insulin; K70.9 Alcoholic liver disease, unspecified; K59.09 Other constipation; E51.2 Wernicke's encephalopathy; F04 Amnestic disorder due to known physiological condition; F33.41 Major depressive disorder, recurrent, in partial remission; F10.10 Alcohol abuse, uncomplicated; N40.0 Benign prostatic hyperplasia without lower urinary tract symptoms; Z86.73 Personal history of transient ischemic attack (TIA), and cerebral infarction without residual deficits; Z79.82 Long term (current) use of aspirin
CPT/HCPCS: 36415; 70450-TC; 80053; 80061; 81003; 81015; 82140; 82550; 82553; 82803; 82962; 83036; 83605; 83721; 84484; 85025; 85027; 87040; 87086; 93005; 93010; 96361; 96365; 96375; 99284-25; G0378; J7030

== ENCOUNTER 2018-09-19 04:12 | Emergency (ER) | payer OTHER ==
[2018-09-19 04:27] VITALS: BP 144/94; TEMP 98.4; BMI 27.4
[2018-09-19 04:34] VITALS: PULSE 92
--- NOTE | 2018-09-19 04:57 | PDOC ---
Attending Attestation - Resident Resident Name: Opal Harris - ED Attending Attestation I have performed the following: I have examined & evaluated the patient, The case was reviewed & discussed with the resident, I agree w/resident's findings & plan - HPI HPI: 09/19/18 06:11 Pt is drunk and his blood sugar fell today. Unclear if he took his meds and then didn't eat or if all he drank was alcohol. He is not answering questions. Pt is awake and arousable but he is non compliant patient. - Physicial Exam PE: 09/19/18 06:18 Agree with resident exam. Pt has no fever. Abd soft NT ND. No flank pain. Extremities no swelling. Abd soft NT ND. No CP and heart RRR. - Medical Decision Making 09/19/18 06:20 Hydrate with banana bag and check basic labs.
[2018-09-19] MEDS ORDERED: FOLIC ACID INJECTION - 1 MG, THIAMINE HCL 100 MG, MULTIVIT INJECTION ADULT 10 ML in SOD... IVPB ONE (05:15)
--- NOTE | 2018-09-19 05:34 | PDOC ---
History of Present Illness - General Chief Complaint: Blood Sugar Problem Stated Complaint: BLOOD SUGAR PROBLEM Time Seen by Provider: 09/19/18 04:56 - History of Present Illness Initial Comments: Nasir Madera is a 63yo man with a PMH of HTN, IDDM, alcohol abuse, cirrhosis , CKD who was BIBA with hypoglycemia to the 50's, improved to 200 per EMS after receiving dextrose. Mr Madera denies that anything happened tonight and declines to answer any questions. Past History - Past Medical History Allergies/Adverse Reactions: Allergies Allergy/AdvReac Type Severity Reaction Status Date / Time No Known Allergies Allergy Verified 09/19/18 04:25 Home Medications: Ambulatory Orders Aspirin [Aspirin EC] 81 mg PO DAILY 10/28/17 Bisacodyl [Dulcolax] 5 mg PO TID PRN 10/28/17 Folic Acid 1 mg PO DAILY 10/28/17 Gabapentin [Neurontin] 400 mg PO BID 10/28/17 Lisinopril 30 mg PO DAILY 10/28/17 Mirtazapine [Remeron -] 30 mg PO DAILY 10/28/17 Pantoprazole Sodium [Protonix] 40 mg PO DAILY 10/28/17 Tamsulosin HCl [Flomax] 0.4 mg PO HS 10/28/17 Atorvastatin Ca [Lipitor] 80 mg PO HS 04/15/18 Ergocalciferol (Vitamin D2) [Vitamin D2] 50,000 unit PO WEEKLY 04/15/18 Escitalopram Oxalate [Lexapro -] 10 mg PO DAILY 04/15/18 Nifedipine [Nifedipine ER] 90 mg PO DAILY 04/15/18 Oxycodone HCl/Acetaminophen [Percocet 5-325 mg Tablet] 1 tab PO Q4H PRN Thiamine Mononitrate [Vitamin B-1] 100 mg PO DAILY 04/15/18 Fenofibric Acid [Trilipix -] 45 mg PO DAILY #30 cap 04/21/18 Insulin Glargine,Hum.rec.anlog [Basaglar Kwikpen U-100] 100 unit SQ BID #1 ea Insulin Lispro [Admelog Solostar] 100 unit SQ AC #1 insuln.pen 04/21/18 Nitrofurantoin Monohyd/M-Cryst [Macrobid -] 100 mg PO BID #14 capsule 04/21/18 Quetiapine Fumarate [Seroquel -] 200 mg PO HS #30 tab 04/21/18 Anemia: Yes Asthma: No Cancer: No Cardiac Disorders: No CVA: Yes COPD: No CHF: No DVT: No Dementia: No Diabetes: Yes Dialysis: Yes GI Disorders: No HTN: Yes Hypercholesterolemia: No Liver Disease: Yes Psychiatric Problems: Yes Seizures: Yes Thyroid Disease: No - Surgical History Abdominal Surgery: No Appendectomy: No Cardiac Surgery: No Cholecystectomy: No Lung Surgery: No Neurologic Surgery: Yes Orthopedic Surgery: No - Immunization History Immunization Up to Date: Yes - Suicide/Smoking/Psychosocial Hx Smoking Status: No Smoking History: Unknown if ever smoked Have you smoked in the past 12 months: No Number of Cigarettes Smoked Daily: 0 Cigars Per Day: 0 Information on smoking cessation initiated: No Hx Alcohol Use: No Drug/Substance Use Hx: No Substance Use Type: None Hx Substance Use Treatment: No Review of Systems - Review of Systems Comments:: Could not obtain. Refused to answer questions. *Physical Exam - Vital Signs Last Vital Signs Temp Pulse Resp BP Pulse Ox 98.4 F 92 H 22 H 144/94 97 09/19/18 04:32 09/19/18 04:32 09/19/18 04:32 09/19/18 04:25 09/19/18 04:32 - Physical Exam Comments: General: Intoxicated, in no acute distress HEENT: Atraumatic, PERRL, EOMI, MMM Cards: RRR, no murmur appreciated Pulm: Comfortable on room air, clear to auscultation bilaterally Abd: Soft, nontender, nondistended Ext: Atraumatic. No LE edema. Moves all extremities Vasc: Extremities WWP Skin: Normal color, no rashes or lesions Neuro: Awake, intoxicated, CN grossly intact, slurred speech, motor/sensory grossly intact and symmetric ED Treatment Course - LABORATORY CBC & Chemistry Diagram: 09/19/18 05:46 09/19/18 05:46 - ADDITIONAL ORDERS Additional order review: Laboratory Results 09/19/18 04:39 POC Glucometer 153 09/19/18 04:39 POC Glucometer 153 Medical Decision Making - Medical Decision Making Nasir Madera is a 63yo man with a PMH of HTN, IDDM, alcohol abuse, cirrhosis , CKD who was BIBA with hypoglycemia to the 50's, improved to 200 per EMS after receiving dextrose. - Recheck glucose 153 on arrival - Denies any symptoms currently. Appears intoxicated. States he did not eat dinner after taking his insulin. Most likely hypoglycemic due to not eating, but will send labs and UA to evalute for other abnormalities that could cause hypoglycemia - Banana bag 09/19/18 07:07 - CBC unremarkable - Alcohol level negative. UDS added due to apparent intoxication - Chemistry pending - Now sleeping comfortably - Signed out to Dr Morales Discussed with Dr Euceda. Opal Harris PGY1 *DC/Admit/Observation/Transfer Diagnosis at time of Disposition: Change in mental status Qualifiers: Altered mental status type: unspecified Qualified Code(s): R41.82 - Altered mental status, unspecified - Referrals - Patient Instructions - Post Discharge Activity
[2018-09-19 05:57] LABS: MCH 31.1 pg (25.7-33.7); MONO % 11.4 % (3.8-10.2); NEUT % 54.5 % (42.8-82.8); RBC 3.72 M/mm3 (4.00-5.60)
[2018-09-19 06:08] LABS: BASO % 0.4 % (0-2.0); EOS % 2.3 % (0-4.5); HEMATOCRIT 33.7 % (35.4-49); HEMOGLOBIN 11.5 GM/dL (11.7-16.9); LYMPH % 31.4 % (8-40); MCHC 34.2 g/dl (32.0-35.9); MEAN CELL VOLUME 90.8 fl (80-96); MEAN PLT VOLUME 7.4 fl (7.5-11.1); PLATELET COUNT 219 K/MM3 (134-434); RDW 13.6 % (11.9-15.9); WHITE BLOOD COUNT 7.4 K/mm3 (4.0-10.0)
[2018-09-19 07:09] LABS: ALK PHOS 122 U/L (45-117); ANION GAP 9 MMOL/L (8-16); BILIRUBIN,TOTAL 0.3 mg/dL (0.2-1); BLOOD UREA NITROGEN 33.5 mg/dL (7-18); CALCIUM 8.9 mg/dL (8.5-10.1); CHLORIDE 105 mmol/L (98-107); CO2 24 mmol/L (21-32); CREATININE 2.7 mg/dL (0.55-1.3); GLUCOSE,RANDOM 110 mg/dL (74-106); POTASSIUM 3.8 mmol/L (3.5-5.1); SGOT/AST 24 U/L (15-37); SGPT/ALT 21 U/L (13-61); SODIUM 138 mmol/L (136-145); TOT PROT 7.8 g/dl (6.4-8.2)
[2018-09-19] MEDS ORDERED: LACTATED RINGERS SOLUTION 1000 ML INFUS.BAG IV ONE (07:18)
--- NOTE | 2018-09-19 07:22 | PDOC ---
*Physical Exam - Vital Signs Last Vital Signs Temp Pulse Resp BP Pulse Ox 98.4 F 92 H 22 H 144/94 97 09/19/18 04:32 09/19/18 04:32 09/19/18 04:32 09/19/18 04:25 09/19/18 04:32 ED Treatment Course - LABORATORY CBC & Chemistry Diagram: 09/19/18 05:46 09/19/18 05:46 - ADDITIONAL ORDERS Additional order review: Laboratory Results 09/19/18 09/19/18 09/19/18 05:46 05:46 04:39 Sodium 138 Potassium 3.8 Chloride 105 Carbon Dioxide 24 Anion Gap 9 BUN 33.5 H Creatinine 2.7 H Est GFR (CKD-EPI)AfAm 27.81 Est GFR (CKD-EPI)NonAf 24.00 POC Glucometer 153 Random Glucose 110 H Calcium 8.9 Magnesium 2.5 H Total Bilirubin 0.3 AST 24 ALT 21 Alkaline Phosphatase 122 H Total Protein 7.8 Albumin 4.0 Alcohol, Quantitative < 3.0 09/19/18 09/19/18 05:46 04:39 RBC 3.72 L MCV 90.8 MCHC 34.2 RDW 13.6 MPV 7.4 L D Neutrophils % 54.5 Lymphocytes % 31.4 Monocytes % 11.4 H Eosinophils % 2.3 Basophils % 0.4 POC Glucometer 153 Medical Decision Making - Medical Decision Making I have assumed care of the patient from Dr. Harris, who has discussed the clinical presentation, work-up, and ED course thus far 09/19/18 07:22 The pt is now ambulating with a stable gait, is oriented x3 Pt w/ acute on chronic CKD Will give additional 1L IVF Pt now willing to give urine for UA and UDS 09/19/18 07:22 UDS neg 09/19/18 08:16 Pt does not wish to stay for repeat labs Pt voices desire to leave AMA Note: The patient insists on leaving the emergency dept and is signing out against medical advice. The patient understands the risks and complications that may result from the refusal of medical care and admission which includes and permanent disability. The patient has the mental capacity of understanding the risks of refusing care and is capable of making an informed decision. The patient was instructed/encouraged to return to the emergency department should he change his mind regarding medical care or should his condition worsen. The patient signed the Against Medical Advice form. 09/19/18 09:08 *DC/Admit/Observation/Transfer Diagnosis at time of Disposition: TERRI (acute kidney injury) Change in mental status Qualifiers: Altered mental status type: unspecified Qualified Code(s): R41.82 - Altered mental status, unspecified - Discharge Dispostion Disposition: AGAINST MEDICAL ADVICE Condition at time of disposition: Improved Decision to Admit order: No - Referrals - Patient Instructions Printed Discharge Instructions: Acute Renal Failure - Post Discharge Activity
--- NOTE | 2018-09-19 07:55 | PDOC ---
*Physical Exam - Vital Signs Last Vital Signs Temp Pulse Resp BP Pulse Ox 98.4 F 92 H 22 H 144/94 97 09/19/18 04:32 09/19/18 04:32 09/19/18 04:32 09/19/18 04:25 09/19/18 04:32 - Physical Exam Comments: 09/19/18 07:50 Gen: sleeping, easily arousable, aaox3 heart: +s1s2 reg lungs: cta b/l abd: soft, nt/nd +bs ext: no c/c/e neuro: no focal findings, neuro intact, ambulatory with a steady gait ED Treatment Course - LABORATORY CBC & Chemistry Diagram: 09/19/18 05:46 09/19/18 05:46 - ADDITIONAL ORDERS Additional order review: Laboratory Results 09/19/18 09/19/18 09/19/18 05:46 05:46 04:39 Sodium 138 Potassium 3.8 Chloride 105 Carbon Dioxide 24 Anion Gap 9 BUN 33.5 H Creatinine 2.7 H Est GFR (CKD-EPI)AfAm 27.81 Est GFR (CKD-EPI)NonAf 24.00 POC Glucometer 153 Random Glucose 110 H Calcium 8.9 Magnesium 2.5 H Total Bilirubin 0.3 AST 24 ALT 21 Alkaline Phosphatase 122 H Total Protein 7.8 Albumin 4.0 Alcohol, Quantitative < 3.0 09/19/18 09/19/18 05:46 04:39 RBC 3.72 L MCV 90.8 MCHC 34.2 RDW 13.6 MPV 7.4 L D Neutrophils % 54.5 Lymphocytes % 31.4 Monocytes % 11.4 H Eosinophils % 2.3 Basophils % 0.4 POC Glucometer 153 - Medications Given in the ED: ED Medications Discontinued Medications Generic Name Dose Route Start Last Admin Trade Name Freq PRN Reason Stop Dose Admin Lactated Ringer's 1,000 ml 09/19/18 07:18 09/19/18 07:36 Lactated Ringers Solution IV 09/19/18 07:19 1,000 ml ONCE ONE Administration Medical Decision Making - Medical Decision Making 09/19/18 07:50 a/p: 63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 Euceda at 7am -pt states he has not drank in 6 years -labs sent from overnight shows TERRI, pt receiving IVF hydration -states eating normally but not drinking water -suspect dehydration from decreased water intake and hot weather -will give another liter IVF hydration -pt ambulatory to the bathroom to give urine sample -will repeat chem after 2l nss -will po challenge with breakfast -pt states he feels much better this AM. 09/19/18 08:52 no uti no drugs in urine pt states he wants to go home, will not wait for repeat labs pt walking around the ER 09/19/18 08:56 pt states he wants to sign out AMA resident discussed with the patient, Note: The patient insists on leaving the emergency dept and is signing out against medical advice. The patient understands the risks and complications that may result from the refusal of medical care and admission which includes and permanent disability. The patient has the mental capacity of understanding the risks of refusing care and is capable of making an informed decision. The patient was instructed to return to the emergency department should he change he mind regarding medical care or should his condition worsen. The patient signed the Against Medical Advice form. *DC/Admit/Observation/Transfer Diagnosis at time of Disposition: TERRI (acute kidney injury) Change in mental status Qualifiers: Altered mental status type: unspecified Qualified Code(s): R41.82 - Altered mental status, unspecified - Discharge Dispostion Disposition: AGAINST MEDICAL ADVICE Condition at time of disposition: Unchanged/Unknown - Referrals - Patient Instructions - Post Discharge Activity
[2018-09-19 08:06] LABS: COCAINE, UR NEGATIVE ng/ml (CUTOFF=300); METHADONE, UR NEGATIVE ng/ml (CUTOFF=300); OPIATES, URI NEGATIVE ng/ml (CUTOFF=300); PHENCYCLIDINE,URINE NEGATIVE ng/ml (CUTOFF=25); URINE AMPHETAMINES NEGATIVE ng/ml (CUTOFF=500); URINE BARBITURATES NEGATIVE ng/ml (CUTOFF=200); URINE BENZODIAZEPINES NEGATIVE ng/ml (CUTOFF=200)
[2018-09-19 08:42] LABS: EPI CELLS 0.2 /HPF (0-5/HPF); HYALINE CASTS 0 /lpf (0-8); PH,URINE 5.5 (5.0-8.0); URINE APPEARANCE CLEAR; URINE BACTERIA 1.2 /hpf (NEGATIVE); URINE BILIRUBIN NEGATIVE (NEGATIVE); URINE COLOR YELLOW; URINE GLUCOSE (UA) NEGATIVE (NEGATIVE); URINE KETONE NEGATIVE (NEGATIVE); URINE LEUK ESTERASE NEGATIVE (NEGATIVE); URINE NITRITE NEGATIVE (NEGATIVE); URINE PROTEIN NEGATIVE (NEGATIVE); URINE RBC 0 /hpf (0-4); URINE UROBILINOGEN 0.2 mg/dL (0.2-1.0); URINE WBC 0 /hpf (0-5)
== END 2018-09-19 09:05 | disposition left against medical advice (07) ==
LOC: JER 04:12
PROC: 3E033GC Introduction of Other Therapeutic Substance into Peripheral Vein, Percutaneous Approach (ICD-10-PCS; principal; 2018-09-19)
DX: E11.649 Type 2 diabetes mellitus with hypoglycemia without coma (principal); Z79.84 Long term (current) use of oral hypoglycemic drugs; E09.22 Drug or chemical induced diabetes mellitus with diabetic chronic kidney disease; I12.9 Hypertensive chronic kidney disease with stage 1 through stage 4 chronic kidney disease, or unspecified chronic kidney disease; N18.9 Chronic kidney disease, unspecified; F10.10 Alcohol abuse, uncomplicated; K74.60 Unspecified cirrhosis of liver
CPT/HCPCS: 36415; 80053; 80307; 81003; 82962; 83735; 85025; 87086; 96365; 96366; 99283-25; J7030

== ENCOUNTER 2020-03-04 16:36 | Emergency (ER) | payer OTHER | END 2020-03-04 17:17 | disposition home or self-care (01) | LOC: JVIRT 16:36 | DX: Z11.59 Encounter for screening for other viral diseases (principal) | CPT/HCPCS: C9803; Q3014-GT; U0003 ==

== ENCOUNTER 2020-07-05 04:31 | Day surgery (SDC) | payer OTHER ==
[2020-07-04 14:21] VITALS: BMI 33.3
[~2020-07-05 04:31] MED LIST: BSS (NA/CA/MG/K) BALANCED SALT SOLUTION OPHTH SOLN 15 ML BOTTLE OD ONE; CHONDROITIN SU A/HYALUR SOD 1 KIT IO ONE; LIDOCAINE HCL 1% PRESERVATIVE FREE - 30ML VIAL IO ONE; PHENYLEPHRINE/KETOROLAC 4 ML VIAL IO ONE; POVIDONE-IODINE 5% OPHTHALMIC PREP 30 ML SOLUTION OD ONE; TETRACAINE 0.5% OPHTH SOLN 2 ML BOTTLE TP ONE; TRYPAN BLUE 0.5 ML DISP.SYRIN IO ONE
[2020-07-05] MEDS ORDERED: TETRACAINE 0.5% OPHTH SOLN 2 ML BOTTLE ONE (07:13)
[2020-07-05] MEDS ORDERED: TRYPAN BLUE 0.5 ML DISP.SYRIN ONE (07:13)
[2020-07-05] MEDS ORDERED: LIDOCAINE HCL/PF 1% SDV 5ML VIAL ONE (07:13)
[2020-07-05] MEDS ORDERED: CHONDROITIN SU A/HYALUR SOD 1 KIT ONE (07:13)
[2020-07-05] MEDS ORDERED: POVIDONE-IODINE 5% OPHTHALMIC PREP 30 ML SOLUTION ONE (07:13)
[2020-07-05] MEDS ORDERED: PHENYLEPHRINE/KETOROLAC 4 ML VIAL IO SCH (07:45)
[2020-07-05] MEDS ORDERED: TROPICAMIDE 1% OPHTH SOLN 15 ML BOTTLE ONE (08:18)
[2020-07-05] MEDS ORDERED: CYCLOPENTOLATE HCL 1% OPHTH SOLN 2 ML BOTTLE ONE (08:19)
[2020-07-05] MEDS ORDERED: KETOROLAC TROMETHAMINE 0.5% EYE DROP 1 DROP DROPS ONE (08:19)
[2020-07-05] MEDS ORDERED: OFLOXACIN 0.3% OPHTHALMIC SOLUTION 5 ML BOTTLE ONE (08:20)
[2020-07-05] MEDS ORDERED: TROPICAMIDE 1% OPHTH SOLN 15 ML BOTTLE OD ONE ×3 (08:30→08:40)
[2020-07-05] MEDS ORDERED: OFLOXACIN 0.3% OPHTHALMIC SOLUTION 5 ML BOTTLE OD ONE ×3 (08:30→08:40)
[2020-07-05] MEDS ORDERED: PHENYLEPHRINE 2.5% OPHTH SOLN 15 ML BOTTLE OD ONE ×3 (08:30→08:40)
[2020-07-05] MEDS ORDERED: KETOROLAC TROMETHAMINE 0.5% EYE DROP 1 DROP DROPS OD ONE ×3 (08:30→08:40)
[2020-07-05] MEDS ORDERED: CYCLOPENTOLATE HCL 1% OPHTH SOLN 2 ML BOTTLE OD ONE ×2 (08:35→08:40)
[2020-07-05] MEDS ORDERED: MIDAZOLAM HCL 2 MG/2 ML SINGLE DOSE VIAL ONE (09:57)
[2020-07-05] MEDS ORDERED: TETRACAINE 0.5% OPHTH SOLN 2 ML BOTTLE TP ONE (10:00)
[2020-07-05] MEDS ORDERED: POVIDONE-IODINE 5% OPHTHALMIC PREP 30 ML SOLUTION OD ONE (10:05)
[2020-07-05] MEDS ORDERED: ACETAMINOPHEN 325 MG TABLET (FP) PO PRN (10:10)
[2020-07-05] MEDS ORDERED: BSS (NA/CA/MG/K) BALANCED SALT SOLUTION OPHTH SOLN 15 ML BOTTLE OD ONE (10:12)
[2020-07-05] MEDS ORDERED: CHONDROITIN SU A/HYALUR SOD 1 KIT IO ONE (10:12)
[2020-07-05] MEDS ORDERED: TRYPAN BLUE 0.5 ML DISP.SYRIN IO ONE (10:12)
[2020-07-05] MEDS ORDERED: LIDOCAINE HCL 1% PRESERVATIVE FREE - 30ML VIAL IO ONE (10:12)
[2020-07-05] MEDS ORDERED: KETOROLAC TROMETHAMINE 0.5% EYE DROP 1 DROP DROPS OP SCH (10:15)
[2020-07-05] MEDS ORDERED: TROPICAMIDE 1% OPHTH SOLN 15 ML BOTTLE OP SCH (10:15)
[2020-07-05] MEDS ORDERED: PHENYLEPHRINE 2.5% OPHTH SOLN 15 ML BOTTLE OP SCH (10:15)
[2020-07-05] MEDS ORDERED: CYCLOPENTOLATE HCL 1% OPHTH SOLN 2 ML BOTTLE OP SCH (10:15)
[2020-07-05] MEDS ORDERED: OFLOXACIN 0.3% OPHTHALMIC SOLUTION 5 ML BOTTLE OP SCH (10:15)
[2020-07-05] MEDS ORDERED: PHENYLEPHRINE/KETOROLAC 4 ML VIAL IO ONE (10:25)
[2020-07-05 11:59] VITALS: PULSE 89
[2020-07-05 12:01] VITALS: BP 121/71; TEMP 97.5
== END 2020-07-05 11:40 | disposition home or self-care (01) ==
LOC: JASU-SURG 04:31
PROVIDERS: ATTEND Ophthalmology
PROC: 08RJ3JZ Replacement of Right Lens with Synthetic Substitute, Percutaneous Approach (ICD-10-PCS; principal; 2020-07-05 10:00)
DX: H26.9 Unspecified cataract (principal); H17.9 Unspecified corneal scar and opacity
CPT/HCPCS: 82962; J1097

== ENCOUNTER → 2020-10-11 | Day surgery (SDC) | payer OTHER ==
[~2020-10-11] MED LIST changes: +ACETAMINOPHEN 325 MG TABLET (FP) PO PRN; -BSS (NA/CA/MG/K) BALANCED SALT SOLUTION OPHTH SOLN 15 ML BOTTLE OD ONE; -CHONDROITIN SU A/HYALUR SOD 1 KIT IO ONE; +CYCLOPENTOLATE HCL 1% OPHTH SOLN 2 ML BOTTLE OP SCH; +KETOROLAC TROMETHAMINE 0.5% EYE DROP 1 DROP DROPS OP SCH; -LIDOCAINE HCL 1% PRESERVATIVE FREE - 30ML VIAL IO ONE; +LIDOCAINE HCL/PF 1% SDV 5ML VIAL ONE; +OFLOXACIN 0.3% OPHTHALMIC SOLUTION 5 ML BOTTLE OP SCH; +PHENYLEPHRINE 2.5% OPHTH SOLN 15 ML BOTTLE OP SCH; -PHENYLEPHRINE/KETOROLAC 4 ML VIAL IO ONE; -POVIDONE-IODINE 5% OPHTHALMIC PREP 30 ML SOLUTION OD ONE; +POVIDONE-IODINE 5% OPHTHALMIC PREP 30 ML SOLUTION ONE; +TETRACAINE 0.5% OPHTH SOLN 2 ML BOTTLE ONE; -TETRACAINE 0.5% OPHTH SOLN 2 ML BOTTLE TP ONE; +TROPICAMIDE 1% OPHTH SOLN 15 ML BOTTLE OP SCH; -TRYPAN BLUE 0.5 ML DISP.SYRIN IO ONE; +TRYPAN BLUE 0.5 ML DISP.SYRIN ONE
== END | disposition home or self-care (01) ==
LOC: JASU-SURG 04:50
PROVIDERS: ATTEND Ophthalmology
DX: Z53.8 Procedure and treatment not carried out for other reasons (principal)

== ENCOUNTER 2021-06-13 05:37 | Day surgery (SDC) | payer MEDICARE, OTHER ==
[~2021-06-13 05:37] MED LIST changes: +BSS (NA/CA/MG/K) BALANCED SALT SOLUTION OPHTH SOLN 15 ML BOTTLE IO ONE; +CHONDROITIN SU A/HYALUR SOD 1 KIT IO ONE; +EPINEPHrine/PF 1 MG/1 ML (1:1,000) AMPULE IO ONE; +LIDOCAINE HCL 1% PRESERVATIVE FREE - 30ML VIAL IO ONE; -LIDOCAINE HCL/PF 1% SDV 5ML VIAL ONE; -POVIDONE-IODINE 5% OPHTHALMIC PREP 30 ML SOLUTION ONE; +POVIDONE-IODINE 5% OPHTHALMIC PREP 30 ML SOLUTION OS ONE; -TETRACAINE 0.5% OPHTH SOLN 2 ML BOTTLE ONE; +TETRACAINE 0.5% OPHTH SOLN 2 ML BOTTLE OS ONE; -TRYPAN BLUE 0.5 ML DISP.SYRIN ONE
[2021-06-13] MEDS ORDERED: CHONDROITIN SU A/HYALUR SOD 1 KIT ONE (07:12)
[2021-06-13] MEDS ORDERED: TETRACAINE 0.5% OPHTH SOLN 2 ML BOTTLE ONE (07:25)
[2021-06-13] MEDS ORDERED: LIDOCAINE HCL/PF 1% SDV 5ML VIAL ONE (07:25)
[2021-06-13] MEDS ORDERED: POVIDONE-IODINE 5% OPHTHALMIC PREP 30 ML SOLUTION ONE (07:26)
[2021-06-13] MEDS ORDERED: BSS (NA/CA/MG/K) BALANCED SALT SOLUTION OPHTH SOLN 15 ML BOTTLE ONE (07:26)
[2021-06-13 08:18] VITALS: TEMP 98.8
[2021-06-13] MEDS ORDERED: OFLOXACIN 0.3% OPHTHALMIC SOLUTION 5 ML BOTTLE ONE (08:39)
[2021-06-13] MEDS ORDERED: CYCLOPENTOLATE HCL 1% OPHTH SOLN 2 ML BOTTLE ONE (08:39)
[2021-06-13] MEDS ORDERED: TROPICAMIDE 1% OPHTH SOLN 15 ML BOTTLE ONE (08:39)
[2021-06-13] MEDS ORDERED: KETOROLAC TROMETHAMINE 0.5% EYE DROP 1 DROP DROPS ONE (08:39)
[2021-06-13] MEDS ORDERED: PHENYLEPHRINE 2.5% OPTHALMIC DROP BOTTLE ONE (08:40)
[2021-06-13] MEDS ORDERED: CYCLOPENTOLATE HCL 1% OPHTH SOLN 2 ML BOTTLE OS ONE ×3 (08:45→09:05)
[2021-06-13] MEDS ORDERED: KETOROLAC TROMETHAMINE 0.5% EYE DROP 1 DROP DROPS OS ONE ×3 (08:45→09:05)
[2021-06-13] MEDS ORDERED: TROPICAMIDE 1% OPHTH SOLN 15 ML BOTTLE OS ONE ×3 (08:45→09:05)
[2021-06-13] MEDS ORDERED: PHENYLEPHRINE 2.5% OPHTH SOLN 15 ML BOTTLE OS ONE ×3 (08:45→09:05)
[2021-06-13] MEDS ORDERED: OFLOXACIN 0.3% OPHTHALMIC SOLUTION 5 ML BOTTLE OS ONE ×3 (08:45→09:05)
[2021-06-13] MEDS ORDERED: MIDAZOLAM HCL 2 MG/2 ML SINGLE DOSE VIAL ONE (09:54)
[2021-06-13] MEDS ORDERED: TETRACAINE 0.5% OPHTH SOLN 2 ML BOTTLE OS ONE (10:06)
[2021-06-13] MEDS ORDERED: POVIDONE-IODINE 5% OPHTHALMIC PREP 30 ML SOLUTION OS ONE (10:08)
[2021-06-13] MEDS ORDERED: LIDOCAINE HCL 1% PRESERVATIVE FREE - 30ML VIAL IO ONE ×2 (10:14→10:15)
[2021-06-13] MEDS ORDERED: CHONDROITIN SU A/HYALUR SOD 1 KIT IO ONE ×2 (10:14→10:15)
[2021-06-13] MEDS ORDERED: PHENYLEPHRINE/KETOROLAC 4 ML VIAL IO ONE (10:16)
[2021-06-13] MEDS ORDERED: BSS (NA/CA/MG/K) BALANCED SALT SOLUTION OPHTH SOLN 15 ML BOTTLE IO ONE (10:16)
[2021-06-13 14:50] VITALS: BP 168/95; PULSE 96
== END 2021-06-13 12:20 | disposition home or self-care (01) ==
LOC: JASU-SURG 05:37
PROVIDERS: ATTEND Ophthalmology
PROC: 08RK3JZ Replacement of Left Lens with Synthetic Substitute, Percutaneous Approach (ICD-10-PCS; principal; 2021-06-13 10:00)
DX: H26.9 Unspecified cataract (principal); I10 Essential (primary) hypertension; E11.9 Type 2 diabetes mellitus without complications
CPT/HCPCS: 82962; J1097

== ENCOUNTER 2021-11-23 05:12 | Inpatient (IN) | payer OTHER ==
[2021-11-23] MEDS ORDERED: SODIUM CHLORIDE 0.9% 500 ML INFUS.BAG IV ONE (05:46)
[2021-11-23] MEDS ORDERED: PIPERACILLIN/TAZOB 3.375 GM 3.375 GM in DEXTROSE 5%-WATER - 50 ML IVPB ONE (05:47)
[2021-11-23] MEDS ORDERED: VANCOMYCIN HCL 1,500 MG in DEXTROSE 5%-WATER - 500 ML IVPB ONE (05:47)
[2021-11-23] MEDS ORDERED: PIPERACILLIN/TAZOB 3.375 GM 3.375 GM/50 ML BAG IVPB ONE (06:10)
[2021-11-23] MEDS ORDERED: ACETAMINOPHEN 1000 MG/100 ML BAG IVPB ONE (06:14)
[2021-11-23] MEDS ORDERED: ACETAMINOPHEN INJECTION 100 ML IVPB ONE (06:15)
[2021-11-23 06:52] LABS: BASO % 0.1 % (0-2.0); EOS % 0.1 % (0-4.5); HEMATOCRIT 35.3 % (35.4-49); LYMPH % 2.7 % (8-40); MCH 30.5 pg (25.7-33.7); MEAN CELL VOLUME 89.7 fl (80-96); MEAN PLT VOLUME 7.8 fl (7.5-11.1); MONO % 9.5 % (3.8-10.2); NEUT % 87.6 % (42.8-82.8); PLATELET COUNT 203 10^3/uL (134-434); RBC 3.94 M/mm3 (4.00-5.60); RDW 13.1 % (11.9-15.9)
[2021-11-23] MEDS ORDERED: VANCOMYCIN/WATER 1500 MG/300 ML PREMIXED BAG IVPB ONE (07:00)
[2021-11-23 07:04] LABS: INR 1.12 (0.83-1.09); PROTHROMBIN TIME (PATIENT) 12.9 SEC (9.7-13.0)
[2021-11-23 07:06] LABS: ACTIVATED PTT 30.7 SECONDS (25.2-36.5); VENOUS BASE EXCESS -3.7 mmol/L (-2-2); VENOUS PCO2 33.7 mmHg (38-52); VENOUS PH 7.4 (7.310-7.410)
[2021-11-23 07:14] LABS: CALCIUM 8.5 mg/dL (8.5-10.1)
[2021-11-23 07:15] LABS: ALBUMIN 3.8 g/dl (3.4-5.0); BLOOD UREA NITROGEN 14.5 mg/dL (7-18)
[2021-11-23 07:18] LABS: CREATININE 1.8 mg/dL (0.55-1.3)
[2021-11-23 07:20] LABS: TOT PROT 7.3 g/dl (6.4-8.2)
[2021-11-23 07:33] LABS: LACTIC ACID 2.3 mmol/L (0.4-2.0)
[2021-11-23] MEDS ORDERED: ACETAMINOPHEN 325 MG TABLET (FP) PO PRN ×3 (08:35→21:24)
[2021-11-23] MEDS ORDERED: INSULIN (LEVEMIR) 100 UNITS/ML UNITS SQ SCH ×2 (10:00→22:00)
[2021-11-23] MEDS: INSULIN SLIDING SCALE (NOVOLOG) 1 VIAL SQ SCH ×3 (10:41→21:47)
[2021-11-23] MEDS ORDERED: ASPIRIN COATED 81 MG TABLET.EC ONE (10:45)
[2021-11-23] MEDS ORDERED: HEPARIN NA (PORCINE) 5,000 UNITS/ML 1ML VIAL ONE (10:45)
[2021-11-23] MEDS ORDERED: ESCITALOPRAM OXALATE 10 MG TABLET ONE (10:45)
[2021-11-23] MEDS: ASPIRIN COATED 81 MG TABLET.EC PO SCH (10:57)
[2021-11-23] MEDS: SODIUM CHLORIDE 1,000 ML IV SCH (10:57)
[2021-11-23] MEDS: HEPARIN NA (PORCINE) 5,000 UNITS/ML 1ML VIAL SQ SCH ×2 (10:57→21:43)
[2021-11-23] MEDS: ESCITALOPRAM OXALATE 10 MG TABLET PO SCH (10:57)
[2021-11-23] MEDS ORDERED: GABAPENTIN 400 MG CAPSULE ONE (13:41)
[2021-11-23] MEDS ORDERED: DOCUSATE SODIUM 100 MG CAPSULE (FP) PO PRN (13:46)
[2021-11-23] MEDS ORDERED: LORazepam 2 MG/ML SDV VIAL IVPB PRN (13:46)
[2021-11-23] MEDS: GABAPENTIN 400 MG CAPSULE PO SCH ×2 (14:14→21:43)
[2021-11-23] MEDS ORDERED: CEFTRIAXONE 1 GM/50 ML BAG ONE (16:21)
[2021-11-23] MEDS ORDERED: LIDOCAINE 5% TOPICAL PATCH ONE (16:21)
[2021-11-23] MEDS: LIDOCAINE 5% TOPICAL PATCH TP SCH (16:29)
[2021-11-23] MEDS: CEFTRIAXONE 1 GM in DEXTROSE 5%-WATER - 50 ML IVPB SCH (16:29)
[2021-11-23 18:12] LABS: CALCIUM 8.2 mg/dL (8.5-10.1)
[2021-11-23 18:13] LABS: BLOOD UREA NITROGEN 17.3 mg/dL (7-18)
[2021-11-23 18:16] LABS: CREATININE 1.7 mg/dL (0.55-1.3)
[2021-11-23 19:05] VITALS: BMI 26.6
[2021-11-23 19:13] LABS: URINE APPEARANCE CLEAR; URINE BILIRUBIN NEGATIVE (NEGATIVE); URINE COLOR YELLOW; URINE GLUCOSE (UA) 2+ (NEGATIVE); URINE KETONE NEGATIVE (NEGATIVE); URINE LEUK ESTERASE NEGATIVE (NEGATIVE); URINE NITRITE NEGATIVE (NEGATIVE); URINE PROTEIN NEGATIVE (NEGATIVE)
[2021-11-23] MEDS: THIAMINE HCL 100 MG TABLET (FP) PO SCH (21:43)
[2021-11-23] MEDS: ATORVASTATIN CA 80 MG TABLET (FP) PO SCH (21:43)
[2021-11-23] MEDS: ACETAMINOPHEN 325 MG TABLET (FP) PO PRN (21:44)
[2021-11-23] MEDS: oxyCODONE HCL 5 MG TABLET PO PRN (21:45)
[2021-11-23] MEDS: LIDOCAINE PATCH REMOVAL MC SCH (21:47)
[2021-11-23] MEDS ORDERED: QUEtiapine FUMARATE 100 MG TABLET (FP) PO ONE (22:15)
[2021-11-23 23:12] VITALS: RESP 18
[2021-11-24] MEDS: SODIUM CHLORIDE 1,000 ML IV SCH ×2 (01:32→09:12)
[2021-11-24] MEDS: LEVOTHYROXINE NA 50 MCG TABLET (FP) PO SCH (06:16)
[2021-11-24] MEDS: GABAPENTIN 400 MG CAPSULE PO SCH ×3 (06:16→23:45)
[2021-11-24] MEDS: INSULIN SLIDING SCALE (NOVOLOG) 1 VIAL SQ SCH ×3 (06:16→16:47)
[2021-11-24] MEDS: ASPIRIN COATED 81 MG TABLET.EC PO SCH (09:16)
[2021-11-24] MEDS: ESCITALOPRAM OXALATE 10 MG TABLET PO SCH (09:16)
[2021-11-24] MEDS: THIAMINE HCL 100 MG TABLET (FP) PO SCH ×2 (09:16→23:45)
[2021-11-24] MEDS: HEPARIN NA (PORCINE) 5,000 UNITS/ML 1ML VIAL SQ SCH ×2 (09:16→23:45)
[2021-11-24] MEDS: FOLIC ACID 1 MG TABLET (FP) PO SCH (09:17)
[2021-11-24] MEDS: CEFTRIAXONE 1 GM in DEXTROSE 5%-WATER - 50 ML IVPB SCH (09:17)
[2021-11-24] MEDS: LIDOCAINE 5% TOPICAL PATCH TP SCH (09:17)
[2021-11-24] MEDS: oxyCODONE HCL 5 MG TABLET PO PRN (09:18)
[2021-11-24] MEDS: ACETAMINOPHEN 325 MG TABLET (FP) PO PRN (09:18)
[2021-11-24 10:48] LABS: HEMATOCRIT 27.1 % (35.4-49); HEMOGLOBIN 9.4 GM/dL (11.7-16.9); MCH 31.6 pg (25.7-33.7); MCHC 34.5 g/dl (32.0-35.9); MEAN CELL VOLUME 91.5 fl (80-96); MEAN PLT VOLUME 7.4 fl (7.5-11.1); PLATELET COUNT 159 10^3/uL (134-434); RBC 2.96 M/mm3 (4.00-5.60); RDW 13.3 % (11.9-15.9); WHITE BLOOD COUNT 14.2 K/mm3 (4.0-10.0)
[2021-11-24 11:08] LABS: MAGNESIUM 1.9 mg/dL (1.8-2.4)
[2021-11-24 11:11] LABS: CREATININE 1.6 mg/dL (0.55-1.3)
[2021-11-24 11:13] LABS: BILIRUBIN,TOTAL 0.8 mg/dL (0.2-1); TOT PROT 5.6 g/dl (6.4-8.2)
[2021-11-24 11:16] LABS: ALBUMIN 2.8 g/dl (3.4-5.0)
[2021-11-24] MEDS ORDERED: INSULIN (LEVEMIR) 100 UNITS/ML UNITS SQ SCH ×2 (23:20→23:22)
[2021-11-24] MEDS: LIDOCAINE PATCH REMOVAL MC SCH (23:45)
[2021-11-24] MEDS: ATORVASTATIN CA 80 MG TABLET (FP) PO SCH (23:45)
[2021-11-25] MEDS: INSULIN (LEVEMIR) 100 UNITS/ML UNITS SQ SCH ×3 (00:06→21:27)
[2021-11-25] MEDS: ACETAMINOPHEN 325 MG TABLET (FP) PO PRN (00:14)
[2021-11-25] MEDS: oxyCODONE HCL 5 MG TABLET PO PRN ×3 (00:15→21:27)
[2021-11-25] MEDS ORDERED: QUEtiapine FUMARATE 100 MG TABLET (FP) PO ONE (02:23)
[2021-11-25] MEDS: SODIUM CHLORIDE 1,000 ML IV SCH ×3 (06:39→21:37)
[2021-11-25] MEDS: LEVOTHYROXINE NA 50 MCG TABLET (FP) PO SCH (06:41)
[2021-11-25] MEDS: INSULIN (NOVOLOG) ASPART 100 UNITS/ML 10ML VIAL SQ SCH ×3 (06:41→16:42)
[2021-11-25] MEDS: GABAPENTIN 400 MG CAPSULE PO SCH ×3 (06:41→21:26)
[2021-11-25] MEDS: INSULIN SLIDING SCALE (NOVOLOG) 1 VIAL SQ SCH ×4 (06:46→21:28)
[2021-11-25] MEDS: LIDOCAINE 5% TOPICAL PATCH TP SCH (10:03)
[2021-11-25 10:18] LABS: BASO % 0.2 % (0-2.0); EOS % 1.3 % (0-4.5); HEMATOCRIT 26.7 % (35.4-49); LYMPH % 13.6 % (8-40); MCH 30.7 pg (25.7-33.7); MCHC 33.5 g/dl (32.0-35.9); MEAN CELL VOLUME 91.5 fl (80-96); MEAN PLT VOLUME 7.5 fl (7.5-11.1); NEUT % 75.9 % (42.8-82.8); PLATELET COUNT 184 10^3/uL (134-434); RBC 2.92 M/mm3 (4.00-5.60); RDW 13.3 % (11.9-15.9); WHITE BLOOD COUNT 13.2 K/mm3 (4.0-10.0)
[2021-11-25 10:47] LABS: ALBUMIN 2.7 g/dl (3.4-5.0); BLOOD UREA NITROGEN 16.5 mg/dL (7-18); CALCIUM 8.2 mg/dL (8.5-10.1)
[2021-11-25 10:50] LABS: CREATININE 1.3 mg/dL (0.55-1.3)
[2021-11-25 10:51] LABS: BILIRUBIN,TOTAL 0.7 mg/dL (0.2-1)
[2021-11-25 10:53] LABS: TOT PROT 5.6 g/dl (6.4-8.2)
[2021-11-25] MEDS: ASPIRIN COATED 81 MG TABLET.EC PO SCH (10:53)
[2021-11-25] MEDS: FOLIC ACID 1 MG TABLET (FP) PO SCH (10:53)
[2021-11-25] MEDS: HEPARIN NA (PORCINE) 5,000 UNITS/ML 1ML VIAL SQ SCH ×2 (10:54→21:27)
[2021-11-25] MEDS: CEFTRIAXONE 1 GM in DEXTROSE 5%-WATER - 50 ML IVPB SCH (10:54)
[2021-11-25] MEDS: THIAMINE HCL 100 MG TABLET (FP) PO SCH ×2 (10:54→21:26)
[2021-11-25] MEDS: ESCITALOPRAM OXALATE 10 MG TABLET PO SCH (10:54)
[2021-11-25] MEDS: ATORVASTATIN CA 80 MG TABLET (FP) PO SCH (21:26)
[2021-11-25] MEDS: LIDOCAINE PATCH REMOVAL MC SCH (21:28)
[2021-11-26] MEDS: GABAPENTIN 400 MG CAPSULE PO SCH ×3 (06:38→21:10)
[2021-11-26] MEDS: INSULIN SLIDING SCALE (NOVOLOG) 1 VIAL SQ SCH ×4 (06:42→21:11)
[2021-11-26] MEDS: INSULIN (NOVOLOG) ASPART 100 UNITS/ML 10ML VIAL SQ SCH ×2 (06:42→11:31)
[2021-11-26] MEDS: LEVOTHYROXINE NA 50 MCG TABLET (FP) PO SCH (06:43)
[2021-11-26] MEDS ORDERED: INSULIN (LEVEMIR) 100 UNITS/ML UNITS SQ ONE (07:26)
[2021-11-26] MEDS: CEFTRIAXONE 1 GM in DEXTROSE 5%-WATER - 50 ML IVPB SCH (10:01)
[2021-11-26] MEDS: LIDOCAINE 5% TOPICAL PATCH TP SCH (10:01)
[2021-11-26] MEDS: HEPARIN NA (PORCINE) 5,000 UNITS/ML 1ML VIAL SQ SCH ×2 (10:01→21:10)
[2021-11-26] MEDS: ESCITALOPRAM OXALATE 10 MG TABLET PO SCH (10:02)
[2021-11-26] MEDS: THIAMINE HCL 100 MG TABLET (FP) PO SCH ×2 (10:02→21:10)
[2021-11-26] MEDS: ASPIRIN COATED 81 MG TABLET.EC PO SCH (10:02)
[2021-11-26] MEDS: oxyCODONE HCL 5 MG TABLET PO PRN (10:02)
[2021-11-26] MEDS: FOLIC ACID 1 MG TABLET (FP) PO SCH (10:02)
[2021-11-26] MEDS: SODIUM CHLORIDE 1,000 ML IV SCH (10:03)
[2021-11-26 10:12] LABS: BASO % 0.7 % (0-2.0); EOS % 2.7 % (0-4.5); HEMATOCRIT 27.9 % (35.4-49); HEMOGLOBIN 9.2 GM/dL (11.7-16.9); MCH 30.7 pg (25.7-33.7); MCHC 33.2 g/dl (32.0-35.9); MEAN CELL VOLUME 92.4 fl (80-96); MEAN PLT VOLUME 7.2 fl (7.5-11.1); MONO % 10.2 % (3.8-10.2); NEUT % 69.4 % (42.8-82.8); PLATELET COUNT 213 10^3/uL (134-434); RBC 3.01 M/mm3 (4.00-5.60); RDW 13.5 % (11.9-15.9); WHITE BLOOD COUNT 9.5 K/mm3 (4.0-10.0)
[2021-11-26 10:58] LABS: BILIRUBIN,TOTAL 0.5 mg/dL (0.2-1)
[2021-11-26] MEDS: INSULIN (LEVEMIR) 100 UNITS/ML UNITS SQ SCH ×2 (10:59→21:10)
[2021-11-26 11:00] LABS: ALBUMIN 2.8 g/dl (3.4-5.0); BLOOD UREA NITROGEN 12.2 mg/dL (7-18); CALCIUM 8.4 mg/dL (8.5-10.1); CREATININE 1.3 mg/dL (0.55-1.3)
[2021-11-26] MEDS: metoPROLOL SUCCINATE 25 MG TAB.SR.24H (FP) PO SCH (15:34)
[2021-11-26] MEDS: ALPRAZolam 0.25 MG TABLET PO PRN (16:54)
[2021-11-26] MEDS: LIDOCAINE PATCH REMOVAL MC SCH (21:10)
[2021-11-26] MEDS: ATORVASTATIN CA 80 MG TABLET (FP) PO SCH (21:10)
[2021-11-26] MEDS ORDERED: QUEtiapine FUMARATE 25 MG TABLET PO SCH (22:00)
[2021-11-27] MEDS: LEVOTHYROXINE NA 50 MCG TABLET (FP) PO SCH (06:15)
[2021-11-27] MEDS: ALPRAZolam 0.25 MG TABLET PO PRN (06:15)
[2021-11-27] MEDS: GABAPENTIN 400 MG CAPSULE PO SCH ×2 (06:16→14:29)
[2021-11-27] MEDS: SODIUM CHLORIDE 1,000 ML IV SCH ×2 (06:19→09:23)
[2021-11-27] MEDS: INSULIN SLIDING SCALE (NOVOLOG) 1 VIAL SQ SCH ×3 (06:19→17:06)
[2021-11-27] MEDS: HEPARIN NA (PORCINE) 5,000 UNITS/ML 1ML VIAL SQ SCH (09:22)
[2021-11-27] MEDS: LIDOCAINE 5% TOPICAL PATCH TP SCH (09:22)
[2021-11-27] MEDS: FOLIC ACID 1 MG TABLET (FP) PO SCH (09:23)
[2021-11-27] MEDS: metoPROLOL SUCCINATE 25 MG TAB.SR.24H (FP) PO SCH (09:23)
[2021-11-27] MEDS: ASPIRIN COATED 81 MG TABLET.EC PO SCH (09:23)
[2021-11-27] MEDS: THIAMINE HCL 100 MG TABLET (FP) PO SCH (09:23)
[2021-11-27] MEDS: ESCITALOPRAM OXALATE 10 MG TABLET PO SCH (09:23)
[2021-11-27] MEDS: CEFTRIAXONE 1 GM in DEXTROSE 5%-WATER - 50 ML IVPB SCH (09:29)
[2021-11-27 10:04] LABS: BASO % 0.5 % (0-2.0); EOS % 1.5 % (0-4.5); HEMATOCRIT 26.5 % (35.4-49); HEMOGLOBIN 9.3 GM/dL (11.7-16.9); LYMPH % 12.5 % (8-40); MCH 31.8 pg (25.7-33.7); MEAN PLT VOLUME 7.3 fl (7.5-11.1); MONO % 12.3 % (3.8-10.2); NEUT % 73.2 % (42.8-82.8); PLATELET COUNT 214 10^3/uL (134-434); RBC 2.91 M/mm3 (4.00-5.60); RDW 13.1 % (11.9-15.9); WHITE BLOOD COUNT 10.9 K/mm3 (4.0-10.0)
[2021-11-27 10:24] LABS: BLOOD UREA NITROGEN 9.8 mg/dL (7-18); CALCIUM 8.2 mg/dL (8.5-10.1)
[2021-11-27 10:27] LABS: ALBUMIN 2.7 g/dl (3.4-5.0)
[2021-11-27 10:29] LABS: BILIRUBIN,TOTAL 0.8 mg/dL (0.2-1)
[2021-11-27 10:32] LABS: TOT PROT 6.2 g/dl (6.4-8.2)
[2021-11-27] MEDS: INSULIN (LEVEMIR) 100 UNITS/ML UNITS SQ SCH (11:40)
[2021-11-27] MEDS ORDERED: CLINDAMYCIN 600MG PREMIX IVPB 600 MG/50 ML BAG IVPB SCH (15:15)
[2021-11-27 17:07] VITALS: BP 154/86; PULSE 77; TEMP 98.9
== END 2021-11-27 18:23 | disposition home or self-care (01) | DRG 74 ==
LOC: JER 05:12 → JERBED 07:59 → J6S 18:53
PROVIDERS: ADMIT Family Medicine; ATTEND Family Medicine
DX: E11.42 Type 2 diabetes mellitus with diabetic polyneuropathy (principal); N17.9 Acute kidney failure, unspecified; E87.1 Hypo-osmolality and hyponatremia; K70.30 Alcoholic cirrhosis of liver without ascites; E11.22 Type 2 diabetes mellitus with diabetic chronic kidney disease; N18.9 Chronic kidney disease, unspecified; E78.5 Hyperlipidemia, unspecified; K21.9 Gastro-esophageal reflux disease without esophagitis; D72.829 Elevated white blood cell count, unspecified; F32.9 Major depressive disorder, single episode, unspecified; E03.9 Hypothyroidism, unspecified; G40.909 Epilepsy, unspecified, not intractable, without status epilepticus; I12.9 Hypertensive chronic kidney disease with stage 1 through stage 4 chronic kidney disease, or unspecified chronic kidney disease; N40.0 Benign prostatic hyperplasia without lower urinary tract symptoms
CPT/HCPCS: 36415; 70450-TC; 71045-TC-FY; 72125-TC; 72170-TC-FY; 73030-TC-LT-FY; 73521-TC-FY; 74176-TC; 80048; 80053; 81003; 82436; 82533; 82803; 82962; 83036; 83605; 83735; 84133; 84300; 84439; 84443; 84484; 85025; 85027; 85610; 85730; 87040; 87086; 87899; 93005; 93010; 97116-GP; 99285-25; C9803-CS; J1644; U0003; U0005

== ENCOUNTER 2023-03-19 03:34 | Observation (INO) | payer OTHER ==
[2023-03-19] MEDS ORDERED: SODIUM CHLORIDE 0.9% 500 ML INFUS.BAG IV ONE (03:56)
[2023-03-19 04:34] LABS: VENOUS BASE EXCESS -2.2 mmol/L (-2-2); VENOUS O2 SATURATION 53.4 % (70-80); VENOUS PCO2 45.2 mmHg (38-52); VENOUS PH 7.34 (7.310-7.410)
[2023-03-19 04:36] LABS: BASO % 0.2 % (0-2.0); EOS % 1.6 % (0-4.5); HEMATOCRIT 38.3 % (35.4-49); HEMOGLOBIN 12.9 GM/dL (11.7-16.9); MCH 31.3 pg (25.7-33.7); MCHC 33.7 g/dl (32.0-35.9); MEAN CELL VOLUME 92.8 fl (80-96); MEAN PLT VOLUME 8.6 fl (7.5-11.1); MONO % 9.2 % (3.8-10.2); PLATELET COUNT 219 10^3/uL (134-434); RBC 4.13 M/mm3 (4.00-5.60); RDW 13.5 % (11.9-15.9); WHITE BLOOD COUNT 7.6 K/mm3 (4.0-10.0)
[2023-03-19 04:55] LABS: CHLORIDE 99 mmol/L (98-107); POTASSIUM 4.3 mmol/L (3.5-5.1); SODIUM 132 mmol/L (136-145)
[2023-03-19 05:00] LABS: ALBUMIN 3.8 g/dl (3.4-5.0); ANION GAP 9 mmol/L (4-13); BLOOD UREA NITROGEN 33.9 mg/dL (7-18); CALCIUM 9.5 mg/dL (8.5-10.1); CO2 24 mmol/L (21-32); GLUCOSE,RANDOM 236 mg/dL (74-106); LIPASE 63 U/L (73-393); MAGNESIUM 2.3 mg/dL (1.8-2.4)
[2023-03-19 05:01] LABS: CREATININE 3.5 mg/dL (0.55-1.3); SGOT/AST 17 U/L (15-37); SGPT/ALT 21 U/L (13-61)
[2023-03-19 05:02] LABS: TOT PROT 7.1 g/dl (6.4-8.2)
[2023-03-19 05:03] LABS: ALK PHOS 86 U/L (45-117); BILIRUBIN,TOTAL 0.4 mg/dL (0.2-1)
[2023-03-19] MEDS ORDERED: FOLIC ACID INJECTION - 1 MG, THIAMINE HCL 100 MG, MULTIVIT INJECTION ADULT 10 ML in SOD... IVPB ONE (05:43)
[2023-03-19 06:23] VITALS: RESP 18
[2023-03-19 07:05] LABS: URINE APPEARANCE CLEAR; URINE BILIRUBIN NEGATIVE (NEGATIVE); URINE COLOR YELLOW; URINE GLUCOSE (UA) 3+ (NEGATIVE); URINE KETONE NEGATIVE (NEGATIVE); URINE LEUK ESTERASE NEGATIVE (NEGATIVE); URINE NITRITE NEGATIVE (NEGATIVE); URINE PROTEIN NEGATIVE (NEGATIVE); URINE UROBILINOGEN 0.2 mg/dL (0.2-1.0)
[2023-03-19] MEDS ORDERED: SODIUM CHLORIDE 0.45%/POT 20 MEQ/1,000 ML INFUS.BAG IV SCH (17:30)
[2023-03-19] MEDS: INSULIN ASPART SLIDING SCALE (NOVOLOG) 1 VIAL SQ SCH ×2 (19:07→23:46)
[2023-03-19] MEDS ORDERED: QUEtiapine FUMARATE 25 MG TABLET PO SCH (22:00)
[2023-03-19] MEDS ORDERED: ATORVASTATIN CA 80 MG TABLET (FP) PO SCH (22:00)
[2023-03-19] MEDS: INSULIN (LEVEMIR) 100 UNITS/ML UNITS SQ SCH (23:45)
[2023-03-19] MEDS: THIAMINE HCL 100 MG TABLET (FP) PO SCH (23:45)
[2023-03-19] MEDS: GABAPENTIN 400 MG CAPSULE PO SCH (23:45)
[2023-03-20 01:10] VITALS: BMI 26.4
[2023-03-20] MEDS: INSULIN ASPART SLIDING SCALE (NOVOLOG) 1 VIAL SQ SCH ×3 (06:57→17:31)
[2023-03-20] MEDS: INSULIN (LEVEMIR) 100 UNITS/ML UNITS SQ SCH (06:58)
[2023-03-20] MEDS ORDERED: LEVOTHYROXINE NA 50 MCG TABLET (FP) PO SCH (07:00)
[2023-03-20 09:36] LABS: BASO % 0.3 % (0-2.0); EOS % 1.9 % (0-4.5); HEMATOCRIT 41.3 % (35.4-49); LYMPH % 26.1 % (8-40); MCH 31.7 pg (25.7-33.7); MCHC 33.8 g/dl (32.0-35.9); MEAN CELL VOLUME 93.6 fl (80-96); MEAN PLT VOLUME 8.5 fl (7.5-11.1); MONO % 9.6 % (3.8-10.2); NEUT % 62.1 % (42.8-82.8); PLATELET COUNT 223 10^3/uL (134-434); RBC 4.41 M/mm3 (4.00-5.60); RDW 13.5 % (11.9-15.9); WHITE BLOOD COUNT 8.9 K/mm3 (4.0-10.0)
[2023-03-20] MEDS: THIAMINE HCL 100 MG TABLET (FP) PO SCH (09:37)
[2023-03-20] MEDS: GABAPENTIN 400 MG CAPSULE PO SCH (09:37)
[2023-03-20] MEDS ORDERED: FLU VACCINE (FLULAVAL) PF 60 MCG/0.5 ML SYRINGE 2023-2024 IM ONE (10:00)
[2023-03-20] MEDS ORDERED: ESCITALOPRAM OXALATE 10 MG TABLET PO SCH (10:00)
[2023-03-20] MEDS ORDERED: FOLIC ACID 1 MG TABLET (FP) PO SCH (10:00)
[2023-03-20] MEDS ORDERED: ASPIRIN COATED 81 MG TABLET.EC PO SCH (10:00)
[2023-03-20] MEDS ORDERED: metoPROLOL SUCCINATE 25 MG TAB.SR.24H (FP) PO SCH (10:00)
[2023-03-20 10:28] LABS: POTASSIUM 4.4 mmol/L (3.5-5.1)
[2023-03-20 10:32] LABS: BLOOD UREA NITROGEN 23.6 mg/dL (7-18); CALCIUM 9.6 mg/dL (8.5-10.1)
[2023-03-20 10:35] LABS: CREATININE 1.7 mg/dL (0.55-1.3)
[2023-03-20 17:36] VITALS: BP 139/67; PULSE 78; TEMP 97.9
== END 2023-03-20 19:10 | disposition home or self-care (01) ==
LOC: JER 03:34 → UNDOADMOB 09:04 → JERBED 09:04 → INTOOBSV 09:04 → JERBED 13:44 → J5S 23:35
PROVIDERS: ADMIT Internal Medicine; ATTEND Internal Medicine
PROC: 3E033GC Introduction of Other Therapeutic Substance into Peripheral Vein, Percutaneous Approach (ICD-10-PCS; principal; 2023-03-19)
PROC: 3E023GC Introduction of Other Therapeutic Substance into Muscle, Percutaneous Approach (ICD-10-PCS; 2023-03-19)
PROC: 3E013VG Introduction of Insulin into Subcutaneous Tissue, Percutaneous Approach (ICD-10-PCS; 2023-03-19)
PROC: 3E0337Z Introduction of Electrolytic and Water Balance Substance into Peripheral Vein, Percutaneous Approach (ICD-10-PCS; 2023-03-19)
DX: N18.9 Chronic kidney disease, unspecified (principal); E11.65 Type 2 diabetes mellitus with hyperglycemia; E78.5 Hyperlipidemia, unspecified; N17.9 Acute kidney failure, unspecified; N40.0 Benign prostatic hyperplasia without lower urinary tract symptoms; Z98.49 Cataract extraction status, unspecified eye; G62.9 Polyneuropathy, unspecified; Z23 Encounter for immunization
CPT/HCPCS: 0241U-QW; 36415; 70450-TC; 71045-TC-FY; 76775-TC; 80048; 80053; 80307; 81003; 82010; 82570; 82607; 82746; 82803; 82962; 83036; 83605; 83690; 83735; 84300; 84443; 84484; 85025; 87086; 90686; 96361; 96365; 96372; 99285-25; G0008; G0378; J3480

== ENCOUNTER 2023-04-13 16:45 | Observation (INO) | payer OTHER ==
[2023-04-13 16:55] VITALS: BP 136/84; PULSE 116; RESP 18; TEMP 97.8; BMI 28.8
[2023-04-13] MEDS ORDERED: ACETAMINOPHEN 1000 MG/100 ML BAG IVPB ONE (17:24)
[2023-04-13] MEDS ORDERED: ACETAMINOPHEN INJECTION 100 ML IVPB ONE (17:33)
[2023-04-13 18:06] LABS: BASO % 0.4 % (0-2.0); EOS % 1.7 % (0-4.5); HEMATOCRIT 38.8 % (35.4-49); HEMOGLOBIN 12.9 GM/dL (11.7-16.9); LYMPH % 9.4 % (8-40); MCH 31.3 pg (25.7-33.7); MCHC 33.3 g/dl (32.0-35.9); MEAN CELL VOLUME 94.1 fl (80-96); MEAN PLT VOLUME 7.7 fl (7.5-11.1); MONO % 13.3 % (3.8-10.2); NEUT % 75.2 % (42.8-82.8); PLATELET COUNT 199 10^3/uL (134-434); RBC 4.13 M/mm3 (4.00-5.60); WHITE BLOOD COUNT 8.9 K/mm3 (4.0-10.0)
[2023-04-13 18:34] LABS: CHLORIDE 97 mmol/L (98-107); POTASSIUM 5.1 mmol/L (3.5-5.1); SODIUM 132 mmol/L (136-145)
[2023-04-13 18:35] LABS: CALCIUM 9.5 mg/dL (8.5-10.1)
[2023-04-13 18:36] LABS: ANION GAP 8 mmol/L (4-13); BLOOD UREA NITROGEN 26.3 mg/dL (7-18); CO2 27 mmol/L (21-32); MAGNESIUM 2.1 mg/dL (1.8-2.4)
[2023-04-13 18:39] LABS: CREATININE 2.2 mg/dL (0.55-1.3); SGOT/AST 17 U/L (15-37); SGPT/ALT 28 U/L (13-61)
[2023-04-13 18:41] LABS: BILIRUBIN,TOTAL 0.3 mg/dL (0.2-1)
[2023-04-13 18:42] LABS: ALK PHOS 122 U/L (45-117)
[2023-04-13] MEDS ORDERED: LACTATED RINGERS SOLUTION 1000 ML INFUS.BAG IV ONE ×2 (18:45)
[2023-04-13 18:46] LABS: GLUCOSE,RANDOM 456 mg/dL (74-106)
== END 2023-04-13 22:32 | disposition left against medical advice (07) ==
LOC: JER 16:45 → JERBED 19:10
PROVIDERS: ADMIT Internal Medicine; ATTEND Internal Medicine
PROC: 3E0337Z Introduction of Electrolytic and Water Balance Substance into Peripheral Vein, Percutaneous Approach (ICD-10-PCS; principal; 2023-04-13)
DX: B97.4 Respiratory syncytial virus as the cause of diseases classified elsewhere (principal); E78.5 Hyperlipidemia, unspecified; I25.10 Atherosclerotic heart disease of native coronary artery without angina pectoris; I11.0 Hypertensive heart disease with heart failure; N18.6 End stage renal disease; E11.22 Type 2 diabetes mellitus with diabetic chronic kidney disease; I12.9 Hypertensive chronic kidney disease with stage 1 through stage 4 chronic kidney disease, or unspecified chronic kidney disease; E11.65 Type 2 diabetes mellitus with hyperglycemia; F10.99 Alcohol use, unspecified with unspecified alcohol-induced disorder; N18.9 Chronic kidney disease, unspecified; Z86.16 Personal history of COVID-19; Z87.891 Personal history of nicotine dependence; D64.9 Anemia, unspecified; Z99.2 Dependence on renal dialysis; I12.0 Hypertensive chronic kidney disease with stage 5 chronic kidney disease or end stage renal disease; E78.00 Pure hypercholesterolemia, unspecified; F99 Mental disorder, not otherwise specified; R56.9 Unspecified convulsions; N17.9 Acute kidney failure, unspecified
CPT/HCPCS: 0241U-QW; 36415; 71046-TC-FY; 80053; 83735; 83880; 84443; 84484; 85025; 87899; 93005; 93010; 96374; 99285-25; G0378

== ENCOUNTER 2023-12-15 12:56 | Observation (INO) | payer OTHER ==
[2023-12-15 13:56] LABS: BASO % 0.6 % (0-2.0); EOS % 3.3 % (0-4.5); HEMATOCRIT 42.9 % (35.4-49); HEMOGLOBIN 14.2 GM/dL (11.7-16.9); LYMPH % 37.6 % (8-40); MCH 30.6 pg (25.7-33.7); MEAN CELL VOLUME 92.8 fl (80-96); MEAN PLT VOLUME 7.9 fl (7.5-11.1); MONO % 9.9 % (3.8-10.2); NEUT % 48.6 % (42.8-82.8); PLATELET COUNT 221 10^3/uL (134-434); RBC 4.63 M/mm3 (4.00-5.60); RDW 13.6 % (11.9-15.9); WHITE BLOOD COUNT 6.6 K/mm3 (4.0-10.0)
[2023-12-15 14:35] LABS: POTASSIUM 3.7 mmol/L (3.5-5.1)
[2023-12-15 14:39] LABS: ALBUMIN 3.7 g/dl (3.4-5.0); BLOOD UREA NITROGEN 21.6 mg/dL (7-18)
[2023-12-15 14:44] LABS: BILIRUBIN,TOTAL 0.5 mg/dL (0.2-1); TOT PROT 7.3 g/dl (6.4-8.2)
[2023-12-15] MEDS ORDERED: ACETAMINOPHEN 325 MG TABLET (FP) PO PRN (18:21)
[2023-12-15] MEDS ORDERED: DOCUSATE SODIUM 100 MG CAPSULE (FP) PO PRN (18:21)
[2023-12-15 19:06] LABS: HIV INTERPRETATION NEGATIVE (NEGATIVE)
[2023-12-15] MEDS ORDERED: THIAMINE 100 MG TABLET ONE (22:24)
[2023-12-15] MEDS ORDERED: QUEtiapine FUMARATE 25 MG TABLET ONE (22:25)
[2023-12-15] MEDS ORDERED: LIDOCAINE 4% PATCH TP ONE (22:25)
[2023-12-15] MEDS ORDERED: ATORVASTATIN CA 80 MG TABLET (FP) ONE (22:25)
[2023-12-15] MEDS ORDERED: GABAPENTIN 400 MG CAPSULE ONE (22:25)
[2023-12-15] MEDS ORDERED: HEPARIN NA (PORCINE) 5,000 UNITS/ML 1ML VIAL ONE (22:25)
[2023-12-15] MEDS: QUEtiapine FUMARATE 25 MG TABLET PO SCH (22:32)
[2023-12-15] MEDS: HEPARIN NA (PORCINE) 5,000 UNITS/ML 1ML VIAL SQ SCH (22:32)
[2023-12-15] MEDS: THIAMINE 100 MG TABLET PO SCH (22:32)
[2023-12-15] MEDS: ATORVASTATIN CA 80 MG TABLET (FP) PO SCH (22:32)
[2023-12-15] MEDS: INSULIN ASPART SLIDING SCALE (NOVOLOG) 1 VIAL SQ SCH (22:32)
[2023-12-15] MEDS: LIDOCAINE PATCH REMOVAL MC SCH (22:32)
[2023-12-15] MEDS: GABAPENTIN 400 MG CAPSULE PO SCH (22:32)
[2023-12-15] MEDS ORDERED: INSULIN ASPART SLIDING SCALE (NOVOLOG) 1 VIAL SQ ONE (22:35)
[2023-12-16] MEDS: MELATONIN 5 MG TABLETS PO PRN (01:58)
[2023-12-16 02:14] VITALS: BMI 24.3
[2023-12-16] MEDS: LEVOTHYROXINE NA 75 MCG TABLET (FP) PO SCH (06:15)
[2023-12-16] MEDS: EMPAGLIFLOZIN (JARDIANCE) 10 MG TABLET PO SCH (06:15)
[2023-12-16 09:41] LABS: BASO % 0.5 % (0-2.0); EOS % 2.3 % (0-4.5); HEMATOCRIT 46.5 % (35.4-49); HEMOGLOBIN 15.3 GM/dL (11.7-16.9); LYMPH % 29.6 % (8-40); MCH 30.9 pg (25.7-33.7); MCHC 32.9 g/dl (32.0-35.9); MEAN CELL VOLUME 93.9 fl (80-96); MEAN PLT VOLUME 8.4 fl (7.5-11.1); MONO % 9.3 % (3.8-10.2); NEUT % 58.3 % (42.8-82.8); PLATELET COUNT 242 10^3/uL (134-434); RBC 4.95 M/mm3 (4.00-5.60); RDW 13.5 % (11.9-15.9); WHITE BLOOD COUNT 8.4 K/mm3 (4.0-10.0)
[2023-12-16 10:14] LABS: ALBUMIN 4.1 g/dl (3.4-5.0); BILIRUBIN,TOTAL 0.7 mg/dL (0.2-1); CALCIUM 9.5 mg/dL (8.5-10.1); CREATININE 1.8 mg/dL (0.55-1.3); PHOSPHOROUS 3.6 mg/dL (2.5-4.9)
[2023-12-16 10:15] LABS: MAGNESIUM 2.5 mg/dL (1.8-2.4)
[2023-12-16] MEDS: metoPROLOL SUCCINATE 25 MG TAB.SR.24H (FP) PO SCH (10:19)
[2023-12-16] MEDS: LIDOCAINE 5% TOPICAL PATCH TP SCH (10:19)
[2023-12-16] MEDS: ASPIRIN COATED 81 MG TABLET.EC PO SCH (10:19)
[2023-12-16] MEDS: FOLIC ACID 1 MG TABLET (FP) PO SCH (10:19)
[2023-12-16] MEDS: FENOFIBRIC ACID 45 MG CAP PO SCH (10:21)
[2023-12-16 10:32] LABS: CHOLESTEROL 207 mg/dL (50-200); HDL CHOLESTEROL 43 mg/dL (40-60)
[2023-12-16 10:33] LABS: LDL CHOLESTEROL (ONLY SJRH) 115 mg/dL (5-100)
[2023-12-16] MEDS ORDERED: INSULIN ASPART SLIDING SCALE (NOVOLOG) 1 VIAL SQ ONE (11:27)
[2023-12-16] MEDS: INSULIN (LEVEMIR) 100 UNITS/ML UNITS SQ SCH (21:53)
[2023-12-16] MEDS: hydrALAZINE HCL 25 MG TABLET (FP) PO SCH (21:54)
[2023-12-17] MEDS ORDERED: INSULIN ASPART SLIDING SCALE (NOVOLOG) 1 VIAL SQ ONE (07:10)
[2023-12-17] MEDS: MIDODRINE HCL 2.5 MG TABLET PO SCH (10:12)
[2023-12-17 11:11] VITALS: RESP 18; TEMP 98
[2023-12-17 11:39] LABS: POTASSIUM 4.2 mmol/L (3.5-5.1)
[2023-12-17 11:44] LABS: BLOOD UREA NITROGEN 27.6 mg/dL (7-18)
[2023-12-17 11:49] LABS: CALCIUM 9.2 mg/dL (8.5-10.1)
[2023-12-17 11:50] LABS: ALBUMIN 3.6 g/dl (3.4-5.0)
[2023-12-17 11:53] LABS: CREATININE 1.9 mg/dL (0.55-1.3)
[2023-12-17 11:54] LABS: BILIRUBIN,TOTAL 0.8 mg/dL (0.2-1); TOT PROT 6.9 g/dl (6.4-8.2)
[2023-12-17] MEDS: hydrALAZINE HCL 10 MG TABLET PO SCH (14:45)
[2023-12-17 15:08] VITALS: BP 108/70; PULSE 82
== END 2023-12-17 17:07 | disposition left against medical advice (07) ==
LOC: JER 12:56 → JERBED 17:49 → J4S 12-16 00:57
PROVIDERS: ADMIT Family Medicine; ATTEND Family Medicine
PROC: 3E013VG Introduction of Insulin into Subcutaneous Tissue, Percutaneous Approach (ICD-10-PCS; principal; 2023-12-15)
DX: I95.1 Orthostatic hypotension (principal); I11.9 Hypertensive heart disease without heart failure; N18.9 Chronic kidney disease, unspecified; F10.10 Alcohol abuse, uncomplicated; E11.9 Type 2 diabetes mellitus without complications; R56.9 Unspecified convulsions; E78.5 Hyperlipidemia, unspecified; G62.9 Polyneuropathy, unspecified; N40.0 Benign prostatic hyperplasia without lower urinary tract symptoms; M54.2 Cervicalgia; R29.6 Repeated falls; Z98.49 Cataract extraction status, unspecified eye; Z87.891 Personal history of nicotine dependence; M19.90 Unspecified osteoarthritis, unspecified site
CPT/HCPCS: 36415; 70450-TC; 71045-TC-FY; 72125-TC; 80053; 80061; 82533; 82962; 83036; 83735; 84100; 84443; 84484; 85025; 86803; 87389; 93005; 93010; 93306-TC; 96372; 97116-GP; 97161-GP; 99285-25; G0378; J1644

== ENCOUNTER 2025-01-14 14:42 | Observation (INO) | payer OTHER ==
[2025-01-14] MEDS: SODIUM CHLORIDE 0.9% 500 ML INFUS.BAG IV ONE (14:55)
[2025-01-14 15:31] LABS: EOSINOPHIL % 2.0 % (0.8-7.0); EOSINOPHILS # 0.14 x10^3/uL (0.04-0.54); MEAN CELL VOLUME 93.0 fl (79.0-92.2)
[2025-01-14 15:32] LABS: ABSOLUTE IMMATURE GRANULOCYTES 0.01 x10^3/uL (0.0-0.031); BASOPHILS # 0.03 x10^3/uL (0.01-0.08); MCHC 33.7 g/dl (32.3-36.5); MONOCYTE # 0.89 x10^3/uL (0.30-0.82); MONOCYTE % 12.5 % (5.3-12.2); RDW 11.8 % (12.2-16.4)
[2025-01-14 15:34] LABS: BG HCT 40.0 % (35.4-49); VENOUS BASE EXCESS -1.1 mmol/L (-2-2); VENOUS O2 SATURATION 43.0 % (70-80); VENOUS PCO2 52.9 mmHg (38-52); VENOUS PH 7.308 (7.310-7.410)
[2025-01-14 15:41] LABS: INR 1.15 (0.83-1.09); PROTHROMBIN TIME (PATIENT) 12.7 SEC (9.7-13.0)
[2025-01-14 15:44] LABS: ACTIVATED PTT 28.0 SECONDS (25.2-36.5)
[2025-01-14 15:47] LABS: GLUCOSE,RANDOM 132 mg/dL (74-106)
[2025-01-14 15:48] LABS: TOT PROT 7.2 g/dl (6.4-8.2)
[2025-01-14 15:49] LABS: CO2 23 mmol/L (21-32)
[2025-01-14 15:50] LABS: ALK PHOS 99 U/L (40-150)
[2025-01-14] MEDS: LACTATED RINGERS SOLUTION 1000 ML INFUS.BAG IV ONE (15:50)
[2025-01-14 15:53] LABS: CREATININE 1.06 mg/dL (0.55-1.3); SGOT/AST 66 U/L (5-34); SGPT/ALT 14 U/L (0-55)
[2025-01-14 15:58] LABS: URINE APPEARANCE CLEAR; URINE BILIRUBIN NEGATIVE (NEGATIVE); URINE COLOR YELLOW; URINE GLUCOSE (UA) TRACE (NEGATIVE); URINE KETONE NEGATIVE (NEGATIVE); URINE LEUK ESTERASE NEGATIVE (NEGATIVE); URINE NITRITE NEGATIVE (NEGATIVE); URINE PROTEIN TRACE (NEGATIVE); URINE UROBILINOGEN 0.2 mg/dL (0.2-1.0)
[2025-01-14 16:45] LABS: HCV DIAGNOSTIC IN-HOUSE W/RFLX NON-REACTIVE (NONREACTIVE); HIV INTERPRETATION NEGATIVE (NEGATIVE)
[2025-01-14 17:26] LABS: GLUCOSE,RANDOM 101.0 mg/dL (74-106)
[2025-01-14 17:27] LABS: CO2 25.0 mmol/L (21-32)
[2025-01-14 17:31] LABS: CREATININE 1.05 mg/dL (0.55-1.3)
[2025-01-14 21:10] VITALS: BMI 23.3
[2025-01-14] MEDS ORDERED: ACETAMINOPHEN 325 MG TABLET (FP) PO PRN (22:10)
[2025-01-15 07:42] VITALS: RESP 18
[2025-01-15 07:59] LABS: ABSOLUTE IMMATURE GRANULOCYTES 0.02 x10^3/uL (0.0-0.031); BASOPHILS # 0.05 x10^3/uL (0.01-0.08); EOSINOPHIL % 2.4 % (0.8-7.0); EOSINOPHILS # 0.15 x10^3/uL (0.04-0.54); MCHC 32.9 g/dl (32.3-36.5); MEAN CELL VOLUME 92.3 fl (79.0-92.2); MEAN PLT VOLUME 9.5 fl (9.4-12.4); MONOCYTE # 1.02 x10^3/uL (0.30-0.82); MONOCYTE % 16.6 % (5.3-12.2); RDW 12.0 % (12.2-16.4)
[2025-01-15 08:23] LABS: GLUCOSE,RANDOM 86.0 mg/dL (74-106)
[2025-01-15 08:25] LABS: CO2 26.0 mmol/L (21-32)
[2025-01-15 08:29] LABS: CREATININE 1.05 mg/dL (0.55-1.3)
[2025-01-15 10:17] VITALS: BP 108/71; PULSE 91; TEMP 97.9
[2025-01-15] MEDS ORDERED: DOCUSATE SODIUM 100 MG CAPSULE (FP) PO SCH (22:00)
== END 2025-01-15 11:17 | disposition left against medical advice (07) ==
LOC: JER 14:42 → JERBED 18:19 → J4S 20:16
PROVIDERS: ADMIT Family Medicine; ATTEND Family Medicine
PROC: 3E0337Z Introduction of Electrolytic and Water Balance Substance into Peripheral Vein, Percutaneous Approach (ICD-10-PCS; principal; 2025-01-14)
DX: F19.90 Other psychoactive substance use, unspecified, uncomplicated (principal); R41.82 Altered mental status, unspecified; I10 Essential (primary) hypertension; E11.9 Type 2 diabetes mellitus without complications; E78.5 Hyperlipidemia, unspecified; Z86.73 Personal history of transient ischemic attack (TIA), and cerebral infarction without residual deficits; Z53.29 Procedure and treatment not carried out because of patient's decision for other reasons; H54.40 Blindness, one eye, unspecified eye; K59.00 Constipation, unspecified; G47.00 Insomnia, unspecified
CPT/HCPCS: 36415; 70450-TC; 71045-TC-FY; 72125-TC; 72170-TC-FY; 80048; 80053; 80307; 81003; 82550; 82803; 82962; 83036; 83605; 84484; 85025; 85610; 85730; 86803; 86850; 86900; 86901; 87040; 87086; 87389; 87637-QW; 93005; 93010; 96360; 96361; 99291; G0378